=== PATIENT | male | born 1950 | race Caucasian/White ===

== ENCOUNTER 2020-03-13 08:21 | Outpatient (REF) | payer OTHER, SELFPAY ==
[2020-03-13 08:39] LABS: COVID-19 Test Negative (Negative)
== END 2020-03-13 08:22 | disposition home or self-care (01) ==
LOC: HO.EMPCOV 08:21
PROVIDERS: PCP Internal Medicine Medical Oncology; Visit Provider Internal Medicine
DX: Z20.828 Contact with and (suspected) exposure to other viral communicable diseases (principal)
CPT/HCPCS: 87635; C9803

== ENCOUNTER 2020-06-19 08:45 | Emergency (ER) | payer OTHER, SELFPAY ==
[2020-06-19] VITALS (11 sets, daily range): BP systolic 94–205; BP diastolic 47–88; PULSE 57–84; RESP 12–20; TEMP 36.1–36.8; O2SAT 95–99; BMI 25.8
--- NOTE | ~2020-06-19 | CT_ITS ---
EXAMINATION: CT ABDOMEN AND PELVIS WITHOUT CONTRAST CLINICAL INFORMATION: Left flank pain and history of renal colic. COMPARISON: 11/08/2013 TECHNIQUE: Multidetector volumetric imaging was performed from the superior aspect of the liver through the pubic symphysis. Sagittal and coronal reformatted images were obtained on the technologist's workstation. This CT examination was performed using dose optimization techniques as appropriate, variously including the following: *Automated exposure control *Adjustment of mA and/or kV according to patient size (this includes techniques or standardized protocols for targeted exams where dose is matched to indication/reason for exam; i.e. extremities or head) *Use of iterative reconstruction technique DLP: 546 mGy-cm. FINDINGS: LUNG BASES: The visualized lung bases are unremarkable. LIVER, GALLBLADDER, AND BILIARY TREE: No focal liver lesion. No biliary duct dilatation. Gallbladder appears unremarkable. PANCREAS: Unremarkable. SPLEEN: Unremarkable. ADRENAL GLANDS: Unremarkable. KIDNEYS AND URETERS: Right renal lower pole 2 cm parapelvic cyst. 5 mm calculus in the proximal left ureter, with mild hydronephrosis. Small hypodense left renal lesion, too small to characterize. Mild bilateral perinephric stranding. No renal calculi is otherwise seen. No right-sided hydronephrosis. BLADDER: Underdistended, unremarkable. GASTROINTESTINAL TRACT: Nonobstructive bowel gas pattern. No colonic wall thickening or pericolonic inflammatory changes. No free air or free fluid. Small diverticula in the proximal ascending colon. Normal appendix. ABDOMINAL WALL: Small fat-containing inguinal hernia. Redemonstrated is an oval soft tissue density in the right inguinal canal suggesting an undistended testis. LYMPH NODES: No lymphadenopathy seen. VASCULAR: Atherosclerotic vascular calcification of the aorta. PELVIC VISCERA: Prostate gland is not well seen. OSSEOUS STRUCTURES: Thoracolumbar spondylosis. No acute findings. Lumbar spinal levoconvex scoliosis. CT/CT abdomen pelvis wo con IMPRESSION: 1. There is a 5 mm calculus in the proximal left ureter, with mild hydroureteronephrosis. Mild bilateral perinephric stranding. 2. Redemonstrated is an oval soft tissue density structure in the right inguinal canal suggesting an undescended testis.
--- NOTE | ~2020-06-19 | FL_ITS ---
EXAMINATION: XR FLUOROSCOPY WITH IMAGES CLINICAL INFORMATION: Left ureteral stone COMPARISON: Previous CT of the abdomen and pelvis from earlier the same day TECHNIQUE: Fluoroscopy performed by Dr. Kevin Cochran. Fluoroscopy time: 100 seconds Dose: 40 mgy Images: 2 FINDINGS: Initial image demonstrates a catheter with tip in the left upper pole calyx. Second image demonstrates a catheter with tip in a lower pole calyx. There is very mild left hydronephrosis. FL/FL guidance in OR IMPRESSION: Fluoroscopic guidance for left retrograde exam.
--- NOTE | 2020-06-19 08:58 | ED_ITS ---
HPI - Abdominal Pain General Chief Complaint: Abdominal Pain Stated Complaint: kidney stone? Time Seen by Provider: 06/19/20 08:55 Source: patient Mode of arrival: ambulatory Limitations: no limitations History of Present Illness HPI narrative: 70 yo male with CAD s/p CABG, HTN, DM, hx of renal colic requiring lithotripsy here with L flank pain feels similar to prior stone c/o nv as well, started this AM MD elicited complaint: flank pain Pertinent past history: kidney stones Onset (ago): hour(s) (this AM) Pain Consistency: constant Location: L flank Severity: similar to previous episodes Quality: stabbing Radiation: LLQ Migration to: no migration Exacerbating factors: nothing Relieving factors: nothing Context: history of similar episodes Associated symptoms: nausea and vomiting Related Data Allergies Allergy/AdvReac Type Severity Reaction Status Date / Time metoclopramide [From REGLAN] Allergy Severe DYSTONIA Unverified 11/29/19 16:23 levofloxacin [From LEVAQUIN] Allergy Intermediate PARASTESIAS Unverified 11/29/19 16:23 Review of Systems Review of Systems Constitutional : No Weight loss, No Fever, No Chills ENT/Mouth : No sore throat, No Rhinorrhea Eyes: No Swelling, No Redness Cardiovascular : No Chest Pain, No SOB, NoEdema Respiratory : No Cough, No Sputum, No Wheezing Gastrointestinal : Positive Nausea, Positive Vomiting, no Diarrhea, positive flank Pain, No Hematochezia, No Melena Genitourinary : No Dysuria, No Urinary Frequency, No Hematuria, No Urgency Musculoskeletal : No joint pain, No Myalgias, No Joint Swelling Skin : No Skin Lesions, No rash Neuro : No Weakness, No Numbness, No Dizziness, No Headache All other systems reviewed and are negative. Physical Exam Vital Signs: Vital Signs: Last Vital Signs Temp 97.8 F 06/19/20 08:53 Pulse 57 06/19/20 08:53 Resp 18 06/19/20 08:53 BP 205/88 H 06/19/20 08:53 Pulse Ox 95 06/19/20 08:53 Body Mass Index 25.8 Appearance: Alert. Oriented X3. in pain mild acute distress. Eyes: Pupils equal, round and reactive to light. ENT: Pharynx normal. Neck: Normal inspection. Neck supple. CVS: Normal heart rate and rhythm. Pulses normal. Respiratory: No respiratory distress. Breath sounds normal. Abdomen: Soft and nontender. no groin mass felt Skin: Skin warm and dry. Normal skin color. Normal skin turgor. Extremities: No lower extremity edema. No calf ttp Neuro: Oriented X 3. No motor deficit. No sensory deficit. Course Course Course Narrative: on recheck states pain is improving repeat dilaudid ordered, given prox stone flomax and solumedrol ordered - discussed with DM risks of steroids. repeat dose of Dilaudid - call to Dr. Cochran 1032am Dr. Cochran will evaluate patient in ED planned admit for procedure MDM - Abdominal Pain MDM Narrative Medical decision making narrative: 70 yo male with CAD s/p CABG, HTN, DM, hx of renal colic requiring lithotripsy - c/o abrupt onset L flank pain at this time will need labs, UA, CT scan for renal colic, IV dilaudid for pain, zofran - d ispo per results and findings. Lab Data Result diagrams: 06/19/20 09:04 06/19/20 09:04 Labs: Lab Results 06/19/20 06/19/20 06/19/20 Range/Units 09:04 09:04 09:04 WBC 7.5 (4.8-10.8) X10*3/uL RBC 4.81 (4.60-5.80) X10*6/uL Hgb 14.1 (14.0-18.0) g/dl Hct 42.5 (42-52) % MCV 88.4 (80-98) fL MCH 29.3 (27.0-33.0) pg MCHC 33.2 (31.0-36.0) g/dl RDW 13.3 (11.0-16.0) % Plt Count 248 (160-400) X10*3/uL MPV 9.3 L (9.4-12.4) fL Immature Gran % (Auto) 0.4 (0.0-0.4) % Neut % (Auto) 61.5 (45-73) % Lymph % (Auto) 27.9 (20-40) % [place] % (Auto) 8.1 (2-11) % Eos % (Auto) 1.3 (0-4) % Baso % (Auto) 0.8 (0-2) % Lymph # (Auto) 2.1 (1.2-4.9) X10*3/uL [place] # (Auto) 0.6 (0.1-1.2) X10*3/uL Eos # (Auto) 0.1 (0.0-0.4) X10*3/uL Baso # (Auto) 0.1 (0.0-0.2) X10*3/uL Abs Immat Gran (auto) 0.03 (0.00-0.03) X10*3/uL Absolute Neuts (auto) 4.6 (2.0-8.3) X10*3/uL Absolute Nucleated RBC 0.000 (0.0-0.012) X10*3/uL Nucleated RBC % (auto) 0.0 (0.0-0.2) /100WBC Hold Blue Top SEE NOTE Sodium 142 (135-145) mmol/L Potassium 4.3 (3.3-5.1) mmol/L Chloride 105 (96-108) mmol/L Carbon Dioxide 27 (22-29) mmol/L Anion Gap 14 (12-20) BUN 17 H (9-16) mg/dL Creatinine 1.49 H (0.5-1.4) mg/dL Estim Creat Clear Calc 48.3 Estimated GFR 47 Random Glucose 208 H (60-115) mg/dL Calcium 9.2 (8.4-10.2) mg/dL Magnesium 2.0 (1.6-2.6) mg/dL Total Bilirubin 1.0 (0.0-1.0) mg/dL Direct Bilirubin 0.4 (0.0-0.5) mg/dL AST 26 (5-37) U/L ALT 47 H (0-40) U/L Alkaline Phosphatase 65 (39-117) U/L Total Protein 7.2 (6.5-8.0) g/dL Albumin 4.5 (3.5-5.0) g/dL Lipase (8-78) U/L 06/19/20 Range/Units 09:04 WBC (4.8-10.8) X10*3/uL RBC (4.60-5.80) X10*6/uL Hgb (14.0-18.0) g/dl Hct (42-52) % MCV (80-98) fL MCH (27.0-33.0) pg MCHC (31.0-36.0) g/dl RDW (11.0-16.0) % Plt Count (160-400) X10*3/uL MPV (9.4-12.4) fL Immature Gran % (Auto) (0.0-0.4) % Neut % (Auto) (45-73) % Lymph % (Auto) (20-40) % [place] % (Auto) (2-11) % Eos % (Auto) (0-4) % Baso % (Auto) (0-2) % Lymph # (Auto) (1.2-4.9) X10*3/uL [place] # (Auto) (0.1-1.2) X10*3/uL Eos # (Auto) (0.0-0.4) X10*3/uL Baso # (Auto) (0.0-0.2) X10*3/uL Abs Immat Gran (auto) (0.00-0.03) X10*3/uL Absolute Neuts (auto) (2.0-8.3) X10*3/uL Absolute Nucleated RBC (0.0-0.012) X10*3/uL Nucleated RBC % (auto) (0.0-0.2) /100WBC Hold Blue Top Sodium (135-145) mmol/L Potassium (3.3-5.1) mmol/L Chloride (96-108) mmol/L Carbon Dioxide (22-29) mmol/L Anion Gap (12-20) BUN (9-16) mg/dL Creatinine (0.5-1.4) mg/dL Estim Creat Clear Calc Estimated GFR Random Glucose (60-115) mg/dL Calcium (8.4-10.2) mg/dL Magnesium (1.6-2.6) mg/dL Total Bilirubin (0.0-1.0) mg/dL Direct Bilirubin (0.0-0.5) mg/dL AST (5-37) U/L ALT (0-40) U/L Alkaline Phosphatase (39-117) U/L Total Protein (6.5-8.0) g/dL Albumin (3.5-5.0) g/dL Lipase 39 (8-78) U/L Discharge Plan Discharge Clinical Impression: Ureterolithiasis, Acute renal insufficiency Patient Disposition: Admitted As Inpatient [facility] Past Medical History Attestation statement: The following information was validated with the patient. Medical History (Updated 06/19/20 @ 10:44 by Francesca Cruz DO) Coronary artery disease Diabetes HTN (hypertension) Renal colic Surgical History (Updated 06/19/20 @ 09:01 by Francesca Cruz DO) H/O lithotripsy Hx of CABG Social History Social History Alcohol intake: never Smoking Status: Never smoker Advance Directives: Yes Advance Directives Information Provided: No Advance Directives on File: No
[2020-06-19 09:09] LABS: MANUAL DIFF FLAG NO
[2020-06-19] MEDS: HYDROmorphone HCl 1 MG/ML SYRINGE IVPUSH ×4 (09:11→12:29)
[2020-06-19 09:12] LABS: Basophils Absolute Auto 0.1 X10*3/uL (0.0-0.2); Basophils Percent Auto 0.8 % (0-2); Eosinophils Absolute Auto 0.1 X10*3/uL (0.0-0.4); Eosinophils Percent Auto 1.3 % (0-4); Hematocrit 42.5 % (42-52); Hemoglobin 14.1 g/dl (14.0-18.0); Imm Gran Abs Auto 0.03 X10*3/uL (0.00-0.03); Imm Gran Pct Auto 0.4 % (0.0-0.4); Lymphocytes Absolute Auto 2.1 X10*3/uL (1.2-4.9); Lymphocytes Percent Auto 27.9 % (20-40); Mean Corpuscular HGB Conc 33.2 g/dl (31.0-36.0); Mean Corpuscular Hemoglobin 29.3 pg (27.0-33.0); Mean Corpuscular Volume 88.4 fL (80-98); Mean Platelet Volume 9.3 fL (9.4-12.4); Monocytes Absolute Auto 0.6 X10*3/uL (0.1-1.2); Monocytes Percent Auto 8.1 % (2-11); Neutrophils Absolute Auto 4.6 X10*3/uL (2.0-8.3); Neutrophils Percent Auto 61.5 % (45-73); Platelet Count 248 X10*3/uL (160-400); Red Blood Count 4.81 X10*6/uL (4.60-5.80); Red Cell Distribution Width 13.3 % (11.0-16.0); White Blood Count 7.5 X10*3/uL (4.8-10.8)
[2020-06-19] MEDS: ondansetron HCL 4 MG/2 ML VIAL IVPUSH ×2 (09:12→10:46)
[2020-06-19] MEDS: 0.9 % Sodium Chloride 500 ML IV (09:12)
[2020-06-19 09:31] LABS: Lipase 39 U/L (8-78)
[2020-06-19 09:32] LABS: Alanine Aminotransferase 47 U/L (0-40); Albumin Level 4.5 g/dL (3.5-5.0); Alkaline Phosphatase 65 U/L (39-117); Anion Gap 14 (12-20); Aspartate Amino Transferase 26 U/L (5-37); Bilirubin Direct 0.4 mg/dL (0.0-0.5); Blood Urea Nitrogen 17 mg/dL (9-16); Calcium 9.2 mg/dL (8.4-10.2); Carbon Dioxide 27 mmol/L (22-29); Chloride 105 mmol/L (96-108); Creatinine Clr Calc Pharmacy 48.3; Estimated Glomerular Filt Rate 47; Glucose Random 208 mg/dL (60-115); Potassium 4.3 mmol/L (3.3-5.1); Sodium 142 mmol/L (135-145); Total Protein 7.2 g/dL (6.5-8.0)
[2020-06-19] MEDS: methylPREDNISolone Sod Succ 125 MG/2 ML VIAL 60 MG IVPUSH (09:45)
[2020-06-19] MEDS: Tamsulosin HCL 0.4 MG CAPSULE PO (09:46)
[2020-06-19 10:54] LABS: INTERNATIONAL NORM RATIO 0.9 (0.9-1.1)
[2020-06-19 11:07] LABS: COVID-19 Test Negative (Negative)
--- NOTE | 2020-06-19 12:59 | PM.UROCN ---
History of Present Illness Consult details Consult date: 06/19/20 Narrative: Chris is a pleasant male. Recurrent stone former Admitted to emergency room this morning. Has marked nausea. No vomiting. Pain anti controlled with IV medication CT imaging performed - 5 mm proximal left ureteric stone with mild hydroureteronephrosis Creatinine has been elevated to 1.5 Prior stone in 2016 which was treated with ESWL Discussion today regarding intervention Will proceed with the ureteroscopy laser lithotripsy and stent placement PMFSH Past Medical History Medical History (Updated 06/19/20 @ 10:44 by Francesca Cruz DO) Coronary artery disease Diabetes HTN (hypertension) Renal colic Surgical History Surgical History (Updated 06/19/20 @ 09:01 by Francesca Cruz DO) H/O lithotripsy Hx of CABG Social History Social History Alcohol intake: unknown Smoking Status: Never smoker Use of substances other than those prescribed or required for medical reasons: No Advance Directives: Yes Advance Directives Information Provided: No Advance Directives on File: No Meds Allergies Allergy/AdvReac Type Severity Reaction Status Date / Time metoclopramide [From REGLAN] Allergy Severe DYSTONIA Unverified 11/29/19 16:23 levofloxacin [From LEVAQUIN] Allergy Intermediate PARASTESIAS Unverified 11/29/19 16:23 Active Medications: Current Medications Generic Name Dose Route Start Last Admin Trade Name Freq PRN Reason Stop Dose Admin Cefazolin Sodium/Dextrose 2 gm in 50 mls @ 100 mls/hr 06/19/20 13:00 Ancef IV 06/19/20 13:29 PREOP ONE Pharmacy Consult 1 each 06/19/20 10:16 Consult Rx Perform Med Rec MISCELLANE ONCE PRN Consult order Home Medications Medication Instructions Recorded Confirmed Last Taken Type aspirin 81 mg PO DAILY 06/19/20 06/19/20 06/19/20 History atorvastatin 80 mg PO DAILY 06/19/20 06/19/20 06/19/20 History coenzyme Q10 200 mg PO DAILY 06/19/20 06/19/20 06/19/20 History magnesium 250 mg PO DAILY 06/19/20 06/19/20 06/18/20 History metformin 500 mg PO BID 06/19/20 06/19/20 06/19/20 History metoprolol succinate 50 mg PO DAILY 06/19/20 06/19/20 06/19/20 History Physical Exam Vital Signs: Vital Signs: Last Vital Signs Temp 97.8 F 06/19/20 08:53 Pulse 68 06/19/20 11:33 Resp 18 06/19/20 11:33 BP 179/86 H 06/19/20 11:33 Pulse Ox 95 06/19/20 08:53 Body Mass Index 25.8 Const: General: cooperative, healthy appearing, comfortable and no acute distress Nutritional Appearance: average body habitus Orientation/consciousness: oriented to person, oriented to place and oriented to time Eyes: General: appearance normal, both eyes and all related structures Chest: Chest palpation & inspection: normal inspection of the chest Resp: Effort & Inspection: normal respiratory effort Cardio: Rate: regular rate GI: Inspection: Yes normal to inspection Skin: Hair: normal Neuro: General: oriented to person, oriented to place and oriented to time Extrem: General: Yes normal to inspection Results Labs Result diagrams: 06/19/20 09:04 06/19/20 09:04 Labs: Abnormal lab results 06/19/20 06/19/20 Range/Units 09:04 09:04 MPV 9.3 L (9.4-12.4) fL BUN 17 H (9-16) mg/dL Creatinine 1.49 H (0.5-1.4) mg/dL Random Glucose 208 H (60-115) mg/dL ALT 47 H (0-40) U/L Short CBC 06/19/20 Range/Units 09:04 WBC 7.5 (4.8-10.8) X10*3/uL Hgb 14.1 (14.0-18.0) g/dl Hct 42.5 (42-52) % Plt Count 248 (160-400) X10*3/uL BMP 06/19/20 09:04 Sodium 142 Potassium 4.3 Chloride 105 Carbon Dioxide 27 BUN 17 H Creatinine 1.49 H Calcium 9.2 Liver Function 06/19/20 Range/Units 09:04 Total Bilirubin 1.0 (0.0-1.0) mg/dL Direct Bilirubin 0.4 (0.0-0.5) mg/dL AST 26 (5-37) U/L ALT 47 H (0-40) U/L Alkaline Phosphatase 65 (39-117) U/L Albumin 4.5 (3.5-5.0) g/dL All other labs normal. Assessment and Plan (1) Ureterolithiasis: Status: Acute (2) Acute renal insufficiency: Status: Acute Plan for ureteroscopy Ureteroscopy We discussed the nature of the decision and reasonable alternatives for performing the above surgery. Interventions include chemical dissolution, ESWL, ureteroscopy with laser lithotripsy and stent placement, PCNL. Options such as medical therapy were discussed. The relative uncertainties and benefits related to each alternate procedure were adequately discussed. General surgical risks including, but not limited to, pain, bleeding, infection, myocardial infarction, pulmonary embolus, deep vein thrombosis and cerebrovascular accident which may result in further hospitalization were discussed. Full disclosure of the procedure as well as all major risks, benefits and complications were discussed including but not limited to damage to the urethra, bladder and kidney infection, damage to the ureter, stent migration or malposition, scarring to the renal pelvis, remnant stone fragments, subsequent stone passage with need for secondary procedures. The overall secondary procedure rate is approximately 10-15%. The success rate of the procedure was discussed. Success of the procedure in the short-term does not necessarily guarantee that long-term success will be maintained. Suitable follow up will need to be maintained. The patient showed understanding of discussion and wishes to proceed with - cystoscopy, retrograde, ureteroscopy, possible lithotripsy/stone basketing and stent on right left side
[2020-06-19] MEDS: LORazepam 2 MG/ML VIAL 1 MG IVPUSH (14:24)
[2020-06-19] MEDS: HYDROmorphone HCl 0.5 MG/0.5 ML SYRINGE IVPUSH (14:25)
[2020-06-19 16:04] LABS: Glucose, Whole Blood 234 mg/dL (60-115)
--- NOTE | 2020-06-19 16:19 | HO.ANESPROP2 ---
HPI - Anesthesia Eval Consult details Narrative: 70 M p/w hydronephrosis, MOHSEN for lithotripsy, stent, ureteroscopy. CAD stable, asymptomatic. METS >4. Denies CP and SOB. BS 234 s/p Solucort in ED; o/w well controlled PMFSH Active Problems Active Problems: All Active Problems (Updated 06/19/20 @ 10:44 by Francesca Cruz DO) Ureterolithiasis (Acute) Acute renal insufficiency (Acute) Past Medical History Medical History (Updated 06/19/20 @ 10:44 by Francesca Cruz DO) Coronary artery disease Diabetes HTN (hypertension) Renal colic Surgical History Surgical History (Updated 06/19/20 @ 09:01 by Francesca Cruz DO) H/O lithotripsy Hx of CABG Social History Social History Alcohol intake: unknown Smoking Status: Never smoker Use of substances other than those prescribed or required for medical reasons: No Advance Directives: No Advance Directives Information Provided: No Advance Directives on File: No Meds Allergies Allergy/AdvReac Type Severity Reaction Status Date / Time metoclopramide [From REGLAN] Allergy Severe DYSTONIA Verified 06/19/20 15:39 levofloxacin [From LEVAQUIN] Allergy Intermediate PARASTESIAS Verified 06/19/20 15:39 Active Medications: Current Medications Generic Name Dose Route Start Last Admin Trade Name Freq PRN Reason Stop Dose Admin Pharmacy Consult 1 each 06/19/20 10:16 Consult Rx Perform Med Rec MISCELLANE ONCE PRN Consult order Home Medications Medication Instructions Recorded Confirmed Last Taken Type aspirin 81 mg PO DAILY 06/19/20 06/19/20 06/19/20 History atorvastatin 80 mg PO DAILY 06/19/20 06/19/20 06/19/20 History coenzyme Q10 200 mg PO DAILY 06/19/20 06/19/20 06/19/20 History magnesium 250 mg PO DAILY 06/19/20 06/19/20 06/18/20 History metformin 500 mg PO BID 06/19/20 06/19/20 06/19/20 History metoprolol succinate 50 mg PO DAILY 06/19/20 06/19/20 06/19/20 History Exam Exam Date and Time: June 19, 20201618 Height,Weight and Vital Signs: Height 5 ft 10 in Weight 81.6 kg Last Vital Signs Temp 96.9 F 06/19/20 15:26 Pulse 79 06/19/20 15:26 Resp 16 06/19/20 15:26 BP 157/75 H 06/19/20 15:26 Pulse Ox 96 06/19/20 15:26 Pertinent Lab Results Pertinent Lab Results: Laboratory Tests 06/19/20 06/19/20 06/19/20 09:04 09:04 09:04 WBC 7.5 RBC 4.81 Hgb 14.1 Hct 42.5 MCV 88.4 MCH 29.3 MCHC 33.2 RDW 13.3 Plt Count 248 MPV 9.3 L Immature Gran % (Auto) 0.4 Neut % (Auto) 61.5 Lymph % (Auto) 27.9 [place] % (Auto) 8.1 Eos % (Auto) 1.3 Baso % (Auto) 0.8 Lymph # (Auto) 2.1 [place] # (Auto) 0.6 Eos # (Auto) 0.1 Baso # (Auto) 0.1 Abs Immat Gran (auto) 0.03 Absolute Neuts (auto) 4.6 Absolute Nucleated RBC 0.000 Nucleated RBC % (auto) 0.0 PT 11.0 INR 0.9 APTT 30.0 Hold Blue Top SEE NOTE Sodium 142 Potassium 4.3 Chloride 105 Carbon Dioxide 27 Anion Gap 14 BUN 17 H Creatinine 1.49 H Estim Creat Clear Calc 48.3 Estimated GFR 47 POC Glucose Random Glucose 208 H Calcium 9.2 Magnesium 2.0 Total Bilirubin 1.0 Direct Bilirubin 0.4 AST 26 ALT 47 H Alkaline Phosphatase 65 Total Protein 7.2 Albumin 4.5 Lipase COVID-19 (JOCELYNE) COVID-19 Clin Com 06/19/20 06/19/20 06/19/20 09:04 10:41 15:47 WBC RBC Hgb Hct MCV MCH MCHC RDW Plt Count MPV Immature Gran % (Auto) Neut % (Auto) Lymph % (Auto) [place] % (Auto) Eos % (Auto) Baso % (Auto) Lymph # (Auto) [place] # (Auto) Eos # (Auto) Baso # (Auto) Abs Immat Gran (auto) Absolute Neuts (auto) Absolute Nucleated RBC Nucleated RBC % (auto) PT INR APTT Hold Blue Top Sodium Potassium Chloride Carbon Dioxide Anion Gap BUN Creatinine Estim Creat Clear Calc Estimated GFR POC Glucose 234 H Random Glucose Calcium Magnesium Total Bilirubin Direct Bilirubin AST ALT Alkaline Phosphatase Total Protein Albumin Lipase 39 COVID-19 (JOCELYNE) Negative COVID-19 Clin Com See Note Airway Mallampati Class: II TM Dist: >3cm Neck ROM: Full Loose/Missing/Broken Teeth: No Heart: RRR Assessment and Plan Assessment Anesthesia Assessment: Anesthesia Plan Discussed, PAT Visit and Chart Reviewed Final Anesthetic Review NPO: Yes ASA Class: III Final Preanesthetic Review: No Changes in Pt Med Stat, Meds/Allgs Chart Reviewed, Consent Obtained/Reviewed and Anes Risks/Benef Reviewed Patient Risk: Intermediate Procedure Risk: Low Anesthetic Plan Anesthetic Plan: GA Disposition: Standard PACU
--- NOTE | 2020-06-19 16:40 | MHC.SHP ---
Pre-Procedural Eval Section A The patient is an INPATIENT: No Changes since office visit: No Cold of Flu in the past 2 weeks, No New Medical Problems, No Changes in Medication and No Patient answered all questions The History & Physical has been completed within 30 days and I have reviewed it.: Yes Section B Chief Complaint: kidney stone? Allergies: Allergies Allergy/AdvReac Type Severity Reaction Status Date / Time metoclopramide [From REGLAN] Allergy Severe DYSTONIA Verified 06/19/20 15:39 levofloxacin [From LEVAQUIN] Allergy Intermediate PARASTESIAS Verified 06/19/20 15:39 Plan Diagnosis/Plan: Unchanged (Left cysto retro ureteroscopy, laser, stent) I have reviewed the history and physical and performed a pertinent physical examination on my patient. No changes have occurred unless specified.
--- NOTE | 2020-06-19 17:11 | W.PM.OPN ---
Operative Note Operative Note Date of Service: 06/19/20 Narrative: PreOperative Diagnosis: Left Proximal ureteric stone Post Operative Diagnosis: Left proximal ureteric stone Procedure: - left cystoscopy, retrograde - dilatation of ureteric orifice under fluoroscopy - ureteroscopy, stone basketing - stent placement Surgeon: Dr Kevin Cochran Anesthesia: General Indications for procedure: 70-year-old male. Left proximal ureteric stone. Presented with pain and persistent nausea. Pain only controlled with IV medications. 6 mm stone proximal left side. Recommended intervention given persistent pain Procedure: After informed consent was verified patient was brought to the operating placed in supine position. Anesthesia was administered per protocol. Patient was placed in modified dorsal lithotomy position and prepped and draped in a sterile fashion. Safety pause time-out and side of surgery confirmed. Antibiotics confirmed. Twenty-two Canadian cystoscope inserted per urethra. Had prior robotic prostatectomy. This was noted with anastomosis. Bladder was entered. Both ureteric orifices normal position. The left ureteric orifice was cannulated and a retrograde examination performed. Filling defects seen at the junction between the proximal and mid ureter. Sensor guidewire was placed. The ureter was dilated with the inner cannula of the ureteric access sheath. The sheath was placed. The wire was removed. A flexible ureteral scope was placed. This stone entered the ureteric access sheath and we are withdraw it in the sheath. It is sent for analysis. We switched to the rigid cystoscope. That was placed into the bladder. At the Sensor guidewire was placed up to the level renal pelvis. A 6 Canadian by 24 cm stent was placed without difficulty in good coil seen in kidney and in the bladder. There was some disruption of the ureteric wall and the stent will remain for 1 week. Pathology: stone Drains: 6 [place] by 24 cm stent
[2020-06-19] MEDS: Phenazopyridine HCL 100 MG TABLET PO (18:00)
[2020-06-19] MEDS: Acetaminophen 325 MG TABLET 975 MG PO (18:00)
== END 2020-06-19 19:00 | disposition home or self-care (01) ==
PROVIDERS: Urology; Emergency Provider Emergency Medicine; PCP Internal Medicine Medical Oncology
PROC: (CPT 52352; principal; 2020-06-19 16:30)
DX: N13.2 Hydronephrosis with renal and ureteral calculous obstruction (principal); N28.9 Disorder of kidney and ureter, unspecified; R10.9 Unspecified abdominal pain; R11.2 Nausea with vomiting, unspecified; Z20.822 Contact with and (suspected) exposure to COVID-19; I10 Essential (primary) hypertension; E11.9 Type 2 diabetes mellitus without complications; Z87.442 Personal history of urinary calculi
CPT/HCPCS: 52352; 52332; 36415; 74176; 80048; 80076; 82365; 82947; 83690; 83735; 85025; 85610; 85730; 87635; 88300; 96361; 96365; 96374; 96375; 96376; 99284; 99285; C1769; C1894; C2617; J0690; J1100; J1170; J1885; J2060; J2250; J2405; J2930; J3010; Q9967

== ENCOUNTER → 2020-06-26 13:26 | Outpatient (BNVA) | payer OTHER, SELFPAY | PROVIDERS: PCP Internal Medicine Medical Oncology; Visit Provider Urology | DX: N20.0 Calculus of kidney (principal) | CPT/HCPCS: 52310; 81002 ==

== ENCOUNTER 2020-07-10 07:54 | Outpatient (REF) | payer OTHER, SELFPAY ==
[2020-07-10 10:15] LABS: MANUAL DIFF FLAG NO
[2020-07-10 10:23] LABS: Basophils Absolute Auto 0.1 X10*3/uL (0.0-0.2); Basophils Percent Auto 0.9 % (0-2); Eosinophils Absolute Auto 0.1 X10*3/uL (0.0-0.4); Eosinophils Percent Auto 1.9 % (0-4); Hematocrit 40.2 % (42-52); Hemoglobin 13.4 g/dl (14.0-18.0); Imm Gran Abs Auto 0.02 X10*3/uL (0.00-0.03); Imm Gran Pct Auto 0.3 % (0.0-0.4); Lymphocytes Absolute Auto 2.1 X10*3/uL (1.2-4.9); Lymphocytes Percent Auto 30.6 % (20-40); Mean Corpuscular HGB Conc 33.3 g/dl (31.0-36.0); Mean Corpuscular Hemoglobin 29.9 pg (27.0-33.0); Mean Corpuscular Volume 89.7 fL (80-98); Mean Platelet Volume 10.2 fL (9.4-12.4); Monocytes Absolute Auto 0.6 X10*3/uL (0.1-1.2); Neutrophils Percent Auto 58.3 % (45-73); Platelet Count 274 X10*3/uL (160-400); Red Blood Count 4.48 X10*6/uL (4.60-5.80); White Blood Count 6.9 X10*3/uL (4.8-10.8)
[2020-07-10 10:57] LABS: Alanine Aminotransferase 42 U/L (0-40); Albumin Level 4.3 g/dL (3.5-5.0); Alkaline Phosphatase 60 U/L (39-117); Anion Gap 14 (12-20); Aspartate Amino Transferase 25 U/L (5-37); Bilirubin Total 0.8 mg/dL (0.0-1.0); Blood Urea Nitrogen 23 mg/dL (9-16); Calcium 9.1 mg/dL (8.4-10.2); Carbon Dioxide 26 mmol/L (22-29); Chloride 104 mmol/L (96-108); Cholesterol 140 mg/dL; Estimated Glomerular Filt Rate > 60; Glucose Fasting 138 mg/dL (60-99); HDL Cholesterol 39 mg/dL; LDL Cholesterol Calculated 60 mg/dl; Potassium 4.7 mmol/L (3.3-5.1); Sodium 139 mmol/L (135-145); Total Protein 6.6 g/dL (6.5-8.0); Triglycerides 205 mg/dL
[2020-07-10 11:35] LABS: Estimated Average Glucose 160 mg/dL; Hemoglobin A1c % 7.2 %
== END 2020-07-10 07:55 | disposition home or self-care (01) ==
LOC: HO.10HDL 07:54
PROVIDERS: Visit Provider Internal Medicine Medical Oncology
DX: E11.69 Type 2 diabetes mellitus with other specified complication (principal); E78.5 Hyperlipidemia, unspecified; E66.3 Overweight
CPT/HCPCS: 36415; 80053; 80061; 83036; 85025

== ENCOUNTER 2020-08-19 12:52 | Outpatient (REF) | payer OTHER, SELFPAY ==
--- NOTE | ~2020-08-19 | US_ITS ---
EXAMINATION: US RETROPERITONEAL LIMITED (RENAL ONLY) CLINICAL INFORMATION: Calculus of kidney. COMPARISON: CT abdomen and pelvis without contrast dated 06/19/2020. Renal only ultrasounds dated 07/09/2019 and 08/07/2018. KUB dated 12/21/2013. TECHNIQUE: Real-time imaging of the kidneys. FINDINGS: RIGHT KIDNEY: 10.9 x 5.6 x 5.3 cm (SAG x AP x TRV). The kidney is normal in size, contour, and echogenicity. Renal cortical thickness is normal. There is a 1.3 x 1.5 x 1.6 cm peripelvic cyst. No renal calculi or hydronephrosis. LEFT KIDNEY: 11.4 x 5.7 x 5.0 cm (SAG x AP x TRV). The kidney is normal in size, contour, and echogenicity. Renal cortical thickness is normal. No calculi or focal parenchymal lesions. No hydronephrosis. US/US renal BI IMPRESSION: Right renal cyst. No stone seen.
== END 2020-08-19 12:53 | disposition home or self-care (01) ==
LOC: HO.US 12:52
PROVIDERS: PCP Internal Medicine Medical Oncology; Visit Provider Urology
DX: N20.0 Calculus of kidney (principal)
CPT/HCPCS: 76775

== ENCOUNTER → 2020-08-26 14:09 | Outpatient (BNVA) | payer OTHER, SELFPAY | PROVIDERS: PCP Internal Medicine Medical Oncology; Visit Provider Urology ==

== ENCOUNTER 2021-01-26 09:55 | Outpatient (REF) | payer OTHER, SELFPAY ==
--- NOTE | ~2021-01-26 | US_ITS ---
EXAMINATION: US RETROPERITONEAL LIMITED (RENAL ONLY) CLINICAL INFORMATION: Calculus of kidney. COMPARISON: Renal ultrasound 08/19/2020 and 07/09/2019. CT abdomen and pelvis 06/19/2020. X-ray abdomen 12/21/2013. TECHNIQUE: Real-time imaging of the kidneys. FINDINGS: RIGHT KIDNEY: 10.8 x 5.0 x 5.5 cm (SAG x AP x TRV). The kidney is normal in size, contour, and echogenicity. Renal cortical thickness is normal. No renal calculi or hydronephrosis. There is an anechoic cyst in the mid pole measuring 1.5 x 0.76 cm, seen on longitudinal axis. LEFT KIDNEY: 12.2 x 6.5 x 5.6 cm (SAG x AP x TRV). The kidney is normal in size, contour, and echogenicity. Renal cortical thickness is normal. No focal parenchymal lesions or hydronephrosis. There is an echogenic stone in the mid pole measuring 0.15 x 0.19 x 0.16 cm. No additional echogenic stones are seen. There is no hydronephrosis. US/US renal BI IMPRESSION: Small mid pole right renal cyst. It is unchanged since 08/19/2020 ultrasound exam Likely small echogenic nonobstructive stone mid pole left kidney. The findings are new since 2 previous exam 08/19/2020 There is no caliectasis or hydronephrosis.
== END 2021-01-26 09:56 | disposition home or self-care (01) ==
LOC: HO.US 09:55
PROVIDERS: PCP Internal Medicine Medical Oncology; Visit Provider Urology
DX: N20.0 Calculus of kidney (principal)
CPT/HCPCS: 76775

== ENCOUNTER → 2021-02-24 08:14 | Outpatient (BNVA) | payer OTHER, SELFPAY | PROVIDERS: PCP Internal Medicine Medical Oncology; Visit Provider Urology ==

== ENCOUNTER 2021-07-01 15:21 | Outpatient (REF) | payer OTHER, SELFPAY ==
--- NOTE | ~2021-07-01 | US_ITS ---
EXAMINATION: US RETROPERITONEAL LIMITED (RENAL ONLY) CLINICAL INFORMATION: Calculus of kidney. COMPARISON: Renal ultrasound 01/26/2021 and 08/19/2020. CT abdomen and pelvis 06/19/2020. X-ray KUB 12/21/2013. TECHNIQUE: Real-time imaging of the kidneys. FINDINGS: RIGHT KIDNEY: 10.6 x 4.9 x 5.3 cm (SAG x AP x TRV). The kidney is normal in size, contour, and echogenicity. Renal cortical thickness is normal. No renal calculi or hydronephrosis. Small simple cyst in the right kidney measure 1.3 x 0.9 x 1.2 cm middle pole. LEFT KIDNEY: 11.8 x 5.4 x 4.7 cm (SAG x AP x TRV). The kidney is normal in size, contour, and echogenicity. Renal cortical thickness is normal. No calculi or focal parenchymal lesions. No hydronephrosis. US/US renal BI IMPRESSION: Redemonstration of a small simple cyst in the right kidney 1.3 cm, not significantly changed. Ultrasound otherwise normal..
== END 2021-07-01 15:22 | disposition home or self-care (01) ==
LOC: HO.US 15:21
PROVIDERS: PCP Internal Medicine Medical Oncology; Visit Provider Urology
DX: N20.0 Calculus of kidney (principal)
CPT/HCPCS: 76775

== ENCOUNTER 2022-02-02 10:17 | Outpatient (REF) | payer OTHER, SELFPAY ==
--- NOTE | ~2022-02-02 | US_ITS ---
EXAMINATION: US RETROPERITONEAL LIMITED (RENAL ONLY) CLINICAL INFORMATION: Calculus of kidney. COMPARISON: Renal ultrasound 07/01/2021 and 01/26/2021. CT abdomen and pelvis 06/19/2020. TECHNIQUE: Real-time imaging of the kidneys. FINDINGS: RIGHT KIDNEY: 11.1 x 5.7 x 5.7 cm (SAG x AP x TRV). The kidney is normal in size, contour, and echogenicity. Renal cortical thickness is normal. 1.9 x 1.1 x 1.8 cm cyst in the midpole. No renal calculi or hydronephrosis. LEFT KIDNEY: 10.7 x 6.4 x 4.8 cm (SAG x AP x TRV). The kidney is normal in size, contour, and echogenicity. Renal cortical thickness is normal. No calculi or focal parenchymal lesions. No hydronephrosis. US/US renal BI IMPRESSION: No stone appreciated by ultrasound. Small right renal cyst.
== END 2022-02-02 10:18 | disposition home or self-care (01) ==
LOC: HO.US 10:17
PROVIDERS: Visit Provider Urology
DX: N20.0 Calculus of kidney (principal)
CPT/HCPCS: 76775

== ENCOUNTER 2022-02-02 10:42 | Outpatient (REF) | payer OTHER, SELFPAY ==
[2022-02-02 13:20] LABS: Prostate Specific Antigen < 0.10 ng/mL (<0.05-4.0)
== END 2022-02-02 10:43 | disposition home or self-care (01) ==
LOC: HO.10HDL 10:42
PROVIDERS: Visit Provider Urology
DX: Z12.5 Encounter for screening for malignant neoplasm of prostate (principal); C61 Malignant neoplasm of prostate
CPT/HCPCS: 36415; 84153

== ENCOUNTER 2022-08-03 08:01 | Outpatient (REF) | payer OTHER, SELFPAY ==
[2022-08-03 10:42] LABS: MANUAL DIFF FLAG NO
[2022-08-03 10:47] LABS: Basophils Absolute Auto 0.1 X10*3/uL (0.0-0.2); Basophils Percent Auto 1.1 % (0-2); Eosinophils Absolute Auto 0.2 X10*3/uL (0.0-0.4); Hematocrit 41.6 % (42.0-52.0); Hemoglobin 13.8 g/dl (14.0-18.0); Imm Gran Abs Auto 0.02 X10*3/uL (0.00-0.03); Imm Gran Pct Auto 0.3 % (0.0-0.4); Lymphocytes Absolute Auto 1.7 X10*3/uL (1.2-4.9); Mean Corpuscular HGB Conc 33.2 g/dl (31.0-36.0); Mean Corpuscular Hemoglobin 29.2 pg (27.0-33.0); Mean Corpuscular Volume 88.1 fL (80.0-98.0); Mean Platelet Volume 10.1 fL (9.4-12.4); Monocytes Absolute Auto 0.6 X10*3/uL (0.1-1.2); Monocytes Percent Auto 7.8 % (2-11); Neutrophils Absolute Auto 4.6 x10*3/uL (2.0-8.3); Neutrophils Percent Auto 63.8 % (45-73); Platelet Count 242 X10*3/uL (160-400); Red Blood Count 4.72 X10*6/uL (4.60-5.80); Red Cell Distribution Width 13.5 % (11.0-16.0); White Blood Count 7.2 X10*3/uL (4.8-10.8)
[2022-08-03 10:56] LABS: Estimated Average Glucose 134 mg/dL; Hemoglobin A1c % 6.3 %
[2022-08-03 11:05] LABS: Alanine Aminotransferase 45 U/L (0-40); Albumin Level 4.2 g/dL (3.5-5.0); Alkaline Phosphatase 56 U/L (39-117); Anion Gap 14 (12-20); Aspartate Amino Transferase 31 U/L (5-37); Bilirubin Total 1.7 mg/dL (0.0-1.0); Blood Urea Nitrogen 16 mg/dL (9-16); Calcium 9.7 mg/dL (8.4-10.2); Carbon Dioxide 24 mmol/L (22-29); Chloride 105 mmol/L (96-108); Cholesterol 124 mg/dL; Estimated Glomerular Filt Rate > 60; HDL Cholesterol 44 mg/dL; LDL Cholesterol Calculated 58 mg/dl; Potassium 4.7 mmol/L (3.3-5.1); Sodium 138 mmol/L (135-145); Total Protein 6.4 g/dL (6.5-8.0); Triglycerides 113 mg/dL
[2022-08-03 11:15] LABS: Creatinine Urine 178.82 mg/dL; Microalbum/Creatinine Ratio Ur 7.8 ug/mg cr
[2022-08-03 11:16] LABS: Glucose Fasting 132 mg/dL (60-99); Uric Acid 6.4 mg/dL (3.4-7.0)
[2022-08-03 11:28] LABS: Prostate Specific Antigen < 0.10 ng/mL (<0.05-4.0)
== END 2022-08-03 08:02 | disposition home or self-care (01) ==
LOC: HO.10HDL 08:01
PROVIDERS: Visit Provider Internal Medicine Medical Oncology
DX: Z12.5 Encounter for screening for malignant neoplasm of prostate (principal); E11.69 Type 2 diabetes mellitus with other specified complication; I25.10 Atherosclerotic heart disease of native coronary artery without angina pectoris; E78.5 Hyperlipidemia, unspecified; I10 Essential (primary) hypertension; N20.0 Calculus of kidney; Z85.46 Personal history of malignant neoplasm of prostate
CPT/HCPCS: 36415; 80053; 80061; 82043; 83036; 84153; 84550; 85025

== ENCOUNTER 2022-11-29 07:40 | Outpatient (REF) | payer OTHER, SELFPAY ==
--- NOTE | ~2022-11-29 | XR_ITS ---
EXAMINATION: XR SHOULDER, RIGHT CLINICAL INFORMATION: Right shoulder pain, injury COMPARISON: None available. TECHNIQUE: Four views of the right shoulder. FINDINGS: Median sternotomy wires. Degenerative changes with rightward curvature in the partially imaged upper thoracic spine. Moderate degenerative changes in the acromioclavicular joint with joint space narrowing and hypertrophic change. Glenohumeral alignment preserved. XR/XR shoulder RT min 2V IMPRESSION: Moderate degenerative changes. Additional imaging with CT scan or MRI should be considered for better visualization as these modalities are much more sensitive for detection of fracture or other underlying pathology.
[2022-11-29 10:38] LABS: MANUAL DIFF FLAG NO
[2022-11-29 10:40] LABS: Basophils Absolute Auto 0.1 X10*3/uL (0.0-0.2); Basophils Percent Auto 1.3 % (0-2); Eosinophils Absolute Auto 0.2 X10*3/uL (0.0-0.4); Eosinophils Percent Auto 3.3 % (0-4); Hematocrit 40.4 % (42.0-52.0); Hemoglobin 13.5 g/dl (14.0-18.0); Imm Gran Abs Auto 0.02 X10*3/uL (0.00-0.03); Imm Gran Pct Auto 0.3 % (0.0-0.4); Lymphocytes Absolute Auto 1.9 X10*3/uL (1.2-4.9); Lymphocytes Percent Auto 28.2 % (20-40); Mean Corpuscular HGB Conc 33.4 g/dl (31.0-36.0); Mean Corpuscular Hemoglobin 29.7 pg (27.0-33.0); Mean Platelet Volume 10.2 fL (9.4-12.4); Monocytes Absolute Auto 0.6 X10*3/uL (0.1-1.2); Monocytes Percent Auto 8.4 % (2-11); Neutrophils Percent Auto 58.5 % (45-73); Platelet Count 284 X10*3/uL (160-400); Red Blood Count 4.54 X10*6/uL (4.60-5.80); Red Cell Distribution Width 13.2 % (11.0-16.0); White Blood Count 6.9 X10*3/uL (4.8-10.8)
[2022-11-29 10:55] LABS: Estimated Average Glucose 137 mg/dL; Hemoglobin A1c % 6.4 % (<6.0)
[2022-11-29 11:18] LABS: Alanine Aminotransferase 42 U/L (0-40); Albumin Level 4.3 g/dL (3.5-5.0); Alkaline Phosphatase 64 U/L (39-117); Anion Gap 11 (12-20); Aspartate Amino Transferase 25 U/L (5-37); Bilirubin Total 0.7 mg/dL (0.0-1.0); Blood Urea Nitrogen 25 mg/dL (9-16); Calcium 9.3 mg/dL (8.4-10.2); Carbon Dioxide 25 mmol/L (22-29); Chloride 106 mmol/L (96-108); Cholesterol 128 mg/dL (<200); Estimated Glomerular Filt Rate 58; Glucose Fasting 119 mg/dL (60-99); HDL Cholesterol 39 mg/dL (>40); LDL Cholesterol Calculated 58 mg/dL (<100); Potassium 4.6 mmol/L (3.3-5.1); Sodium 137 mmol/L (135-145); Total Protein 6.9 g/dL (6.5-8.0); Triglycerides 156 mg/dL (<150)
[2022-11-29 11:28] LABS: Prostate Specific Antigen < 0.10 ng/mL (<0.05-4.0)
== END 2022-11-29 07:41 | disposition home or self-care (01) ==
LOC: HO.10HDL 07:40
PROVIDERS: PCP Internal Medicine Medical Oncology; Referring Provider Internal Medicine Medical Oncology; Visit Provider Internal Medicine
DX: M25.511 Pain in right shoulder (principal); E11.69 Type 2 diabetes mellitus with other specified complication; E66.3 Overweight; E78.5 Hyperlipidemia, unspecified; I10 Essential (primary) hypertension; R97.20 Elevated prostate specific antigen [PSA]; Z12.5 Encounter for screening for malignant neoplasm of prostate
CPT/HCPCS: 36415; 73030; 80053; 80061; 83036; 84153; 85025

== ENCOUNTER 2022-12-08 07:58 | Outpatient (REF) | payer OTHER, SELFPAY ==
--- NOTE | 2022-12-09 11:11 | MHC.AU.HA1 ---
Hearing Aid Evaluation Date of Visit: 12/08/22 Historical Information: Description of Hearing: Within normal sloping to moderate sensorineural hearing loss, bilaterally. Summary: Yung Yvan has never been interested in pursuing amplification due to minimal perceived hearing difficulties. However, now with a slight decrease in his hearing compared to his last evaluation and greater perceived difficulty, he is ready to trial hearing aids. 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 He reportedly can hear and understand his patients well in a quiet one-on-one environment. However, he noted particular difficulty in groups of people or in background noise. He also has noticed a change in his ability to hear high-pitched bird songs in the spring while bird watching. He is hoping hearing aids will help ease some of his communication difficulties and auditory fatigue from extra effort needed to listen and understand. Dr. Santoro opted for rechargeable hearing aids compatible with his iPhone. As an [employer] employee, the $350.00 consultation fee has been waived as well as the $499.00 service agreement with no charge services as long as he is still employed by [employer]. Hearing Aid Prescription: Based on the individual?s shared listening needs, communication environments, dexterity, desire for connectivity, and personal preferences, the following prescription for amplification has been made: Right ear: Make, Model, Color: Oticon Real 2 miniRITE-R Color: Chroma Beige Battery Size: Rechargeable Steam Crane Operator/Slim Tube: 2/85 Type of Earmold/Dome/CShell/SlimTip: 6mm open dome Left ear: Left ear prescription to be same as Right Hearing Aid above: Make, Model, Color: Oticon Real 2 miniRITE-R Color: Chroma Beige Battery Size: Rechargeable Steam Crane Operator/Slim Tube: 2/85 Type of Earmold/Dome/CShell/SlimTip: 6mm open dome Accessories/Assistive Technology: Desktop Chicle Grinder Feeder and Smart Chicle Grinder Feeder Plan of Care: Patient wishes to purchase hearing aids as prescribed Action Taken/Action Needed: Hearing Instrument Fitting to be scheduled when materials arrive Primary Diagnosis: H90.3 Bilateral Sensorineural Hearing Loss Signature: Provider: Tomas Cruz, [facility]
== END 2022-12-08 07:59 | disposition home or self-care (01) ==
LOC: HO.SH 07:58
PROVIDERS: Visit Provider Internal Medicine Medical Oncology
DX: Z01.118 Encounter for examination of ears and hearing with other abnormal findings (principal); H90.3 Sensorineural hearing loss, bilateral
CPT/HCPCS: 92557

== ENCOUNTER 2022-12-29 11:02 | Outpatient (REF) | payer SELFPAY ==
--- NOTE | 2022-12-29 13:11 | MHC.AU.HFA ---
Hearing Instrument Fitting- Adult- Binaural Date of Visit: 12/29/22 Hearing Instruments Dispensed: Right Ear: Oracle Ebs Developer: Oticon Model: Real 2 miniRITE-R Serial Number: [id number] Repair Warranty: 01/08/2026 Loss and Damage Warranty: 01/08/2026 Service Plan: [facility] Employee Battery Size: Rechargeable Color: Chroma Beige Counterperson: Type of Dome: 8mm open dome Type of Wax Guard: ProWax miniFit Left Ear: Oracle Ebs Developer: Oticon Model: Real 2 miniRITE-R Serial Number: [id number] Repair Warranty: 01/08/2026 Loss and Damage Warranty: 01/08/2026 Service Plan: [facility] Employee Battery Size: Rechargeable Color: Chroma Beige Counterperson: Type of Dome: 8 mm open dome Type of Wax Guard: ProWax miniFit Accessories/Assistive Technology: Oticon Minirite support representative S#[id number] Warranty 01/08/26 Oticon Smartcharger minirite S#[id number] Warranty 01/08/2026 Summary of Fitting: 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 The aids were fit to NAL-NL2 targets on the Aurical to soft/medium/loud speech and MPO. The aids were set to level 3 adaptation level and feedback manager of warehouse was run. Dr. Santoro reported that the hearing aids felt comfortable and he was satisfied with the sound quality. Sound indicators, including low battery warnings and volume change were reviewed. Dr. Santoro was oriented to the different parts of the hearing aid and charging practices were reviewed. He practiced insertion and removal of the aids, which he adapted quickly to. Water resistance and the importance of wearing them regularly, as well as keeping them safe from pets were discussed. The aids were paired to Dr. Santoro's phone as well as the [employer] Weapons Specialist nadiya. In depth cleaning, such as wax guard replacement, will need to be reviewed at his follow up appointment. He will also need a pack of 8 mm open domes at that time since the 6 mm domes were too small. Dr. Santoro will return in 2-3 weeks for a follow up appointment. He was encouraged to reach out sooner though if any concerns arise. Recommendations: Recommendations: A hearing instrument follow-up is recommended in 2-3 weeks. Diagnosis Code(s): Primary Diagnosis: H90.3 Bilateral Sensorineural Hearing Loss Signature: Student/Clinical Fellow: Yes: Andrzej Lewis, HIS Dietetics Director I have reviewed/agreed with student/fellow documentation: Yes Provider: Tomas Cruz, [facility]
== END 2022-12-29 11:03 | disposition home or self-care (01) ==
LOC: HO.HAP 11:02
PROVIDERS: Visit Provider Internal Medicine Medical Oncology
DX: Z46.1 Encounter for fitting and adjustment of hearing aid (principal); H90.3 Sensorineural hearing loss, bilateral
CPT/HCPCS: 92700; V5261; V5299

== ENCOUNTER 2023-01-05 09:37 | Outpatient (REF) | payer SELFPAY | END 2023-01-05 09:38 | disposition home or self-care (01) | LOC: HO.HAP 09:37 | PROVIDERS: Visit Provider Internal Medicine Medical Oncology | DX: Z13.89 Encounter for screening for other disorder (principal) ==

== ENCOUNTER 2023-01-07 14:13 | Outpatient (REF) | payer OTHER, SELFPAY ==
--- NOTE | ~2023-01-07 | US_ITS ---
EXAMINATION: US RETROPERITONEAL LIMITED (RENAL ONLY) CLINICAL INFORMATION: Calculus of kidney. COMPARISON: Renal ultrasound 02/02/2022 and 07/01/2020. CT abdomen and pelvis 06/19/2020. X-ray KUB 12/21/2013. TECHNIQUE: Real-time imaging of the kidneys. Limited visualization due to bowel gas and body habitus. FINDINGS: RIGHT KIDNEY: 10.5 x 4.5 x 5.3 cm (SAG x AP x TRV). No hydronephrosis. No renal calculi. Renal cortical thickness is normal. Limited visualization. Midpole 1.5 x 0.8 x 0.8 cm peripelvic anechoic fluid collection is stable redemonstrated, characteristic of a parapelvic cyst. There is no indication for follow up imaging. LEFT KIDNEY: 11.9 x 6.5 x 5.3 cm (SAG x AP x TRV). No hydronephrosis. No renal calculi. Renal cortical thickness is normal. Limited visualization. US/US renal BI IMPRESSION: No hydronephrosis. No renal calculi. Limited visualization.
== END 2023-01-07 14:14 | disposition home or self-care (01) ==
LOC: HO.US 14:13
PROVIDERS: Visit Provider Urology
DX: N20.0 Calculus of kidney (principal)
CPT/HCPCS: 76775

== ENCOUNTER 2023-01-21 09:11 | Outpatient (AMB) | payer OTHER, SELFPAY ==
--- NOTE | 2023-01-21 09:17 | MHC.OFFVIS ---
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 Patient reports that he has had shoulder pain that has been on and off for many years now. Hr reports that he had a bypass surgery which he feels thatk while under anesthesia his shoulder has gotten worse. Denies numbness and tingling. He taked tylenol/ advil Prn pain. 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 He reports having intermittent shoulder pain for several years (~8), which he feels was made worse when he was under anesthesia for a CABG. He has pain with daily activity, worse with overhead activity and at night. He says the night pain is worse and affects his sleep. He says he feels well normally, with minor pain, but after activities involving the use of his shoulder, he has worsening pain for several days while he rests. He has been doing a home exercise program and taking OTC medication prn. He denies any PT or injection history. He used to be active with weightlifting when he was younger, but denies any prior injury. He has a hx of CAD and hearing loss. FOR[facility] Medical History (Updated 01/21/23 @ 10:03 by Ruel Alford) Diabetes Renal colic HTN (hypertension) Coronary artery disease Surgical History H/O lithotripsy Hx of CABG Social History Alcohol intake: unknown Review of Systems Const All systems reviewed & are unremarkable except as noted in HPI and below Physical Exam Const General: no acute distress, alert and awake Orientation/consciousness: patient oriented x3 HEENT Head: Yes normocephalic and Yes atraumatic Eyes EOM: EOMs intact bilaterally Resp Effort & Inspection: normal respiratory effort and able to speak in complete sentences Cardio Jugular venous distension: no JVD Skin General skin exam: turgor normal Rashes: no rashes Neuro General: patient oriented x3 Extrem Other: Right Shoulder: 45/90/130/L1 +H/N Neg EC + O'lissett's Neg xba Psych Appearance: grossly normal Affect: normal affect Attitude: cooperative Office Procedures Joint Injection/Drain Joint Injection/Drain Details: Injected 1 mL of Decadron and 3 mL 1% lidocaine and 3 mL of 0.25% Marcaine. Site was prepped using aseptic technique. Patient tolerated the procedure well. Primary Site: right shoulder Approach Used: posterolateral Coding - Large joint Procedure code (CPT) selection complete Results Reviewed Results Reviewed: 01/21/23 09:43 BUPivacaine MPF 0.25 % [Sensorcaine-MPF 0.25% 10 ML] 10 ml .ROUTE .STK-MED ONE Lidocaine HCl 2 % MPF [Xylocaine 2 % MPF] 5 ml .ROUTE .STK-MED ONE dexAMETHasone sod phosphate [Decadron] 4 mg .ROUTE .STK-MED ONE I personally reviewed relevant radiographs minimal GH OA Moderate ACJ OA Assessment & Plan Assessment & Plan (1) Diabetes: Code(s): E11.9 - Type 2 diabetes mellitus without complications (2) Bursitis of right shoulder: Code(s): M75.51 - Bursitis of right shoulder Plan: This is a 72 year old man with right shoulder bursitis. He has pain with daily activity, worse with overhead activity and at night, which he says has been intermittent for several years. He takes OTC pain medication and performs a home exercise program, but denies any formal treatment. I discussed his diagnosis and treatment options. I recommend PT, NSAIDs, and he continue activity as tolerated. I injected his right shoulder today, which he tolerated well, and ordered PT. He will follow up when completed, prn. Plan Scribed for Santiago Galvan MD by Ruel Alford associate medical director, on 01/21/23 at 10:05 AM, EST. Orders: Orders PT Evaluation and Treatment Today M75.51 - Bursitis of right shoulder Coding Level of Care Code Est Pt Level 4 (09227) Diagnoses Diabetes E11.9 Bursitis of right shoulder M75.51 CPT Codes Coding - Large joint: 44792 - Large joint ([id number])
== END 2023-01-21 10:05 | disposition home or self-care (01) ==
PROVIDERS: PCP Internal Medicine Medical Oncology; Visit Provider Orthopaedic Surgery
DX: M75.51 Bursitis of right shoulder (principal); E11.9 Type 2 diabetes mellitus without complications
CPT/HCPCS: 20610; 99214

== ENCOUNTER → 2023-01-21 09:11 | Outpatient (BNVA) | payer OTHER, SELFPAY | PROVIDERS: PCP Internal Medicine Medical Oncology; Visit Provider Orthopaedic Surgery | DX: M75.51 Bursitis of right shoulder (principal); I25.10 Atherosclerotic heart disease of native coronary artery without angina pectoris; I10 Essential (primary) hypertension; E11.9 Type 2 diabetes mellitus without complications; Z95.1 Presence of aortocoronary bypass graft | CPT/HCPCS: 20610; J0665; J1100 ==

== ENCOUNTER 2023-01-24 14:43 | Outpatient (REF) | payer OTHER, SELFPAY ==
--- NOTE | 2023-01-24 15:31 | MHC.AU.HA3 ---
Hearing Instrument Follow-Up- Binaural Date of Visit: 01/24/23 Right Ear: Make, Model, Color, Serial Number: Oticon Real 2 miniRITE-R SN: [id number] Color: Chroma Beige Ferry Terminal Supervisor Repair Warranty: 01/08/2026 Ferry Terminal Supervisor Loss and Damage Warranty: 01/08/2026 [facility] Service Plan: [facility] Employee Battery Size: Rechargeable Tile Ditcher/Slim Tube: 2/85 Earmold/Dome/CShell/SlimTip:8mm open dome (no retention tail) Type of Wax Guard: miniFit Dispensed By: [facility] Date of Fittin12/29/2022 Left Ear: Make, Model, Color, Serial Number: Oticon Real 2 miniRITE-R SN: [id number] Color: Chroma Beige Ferry Terminal Supervisor Repair Warranty: 01/08/2026 [employer]erry Terminal Supervisor Loss and Damage Warranty: 01/08/2026 [facility] Service Plan: [facility] Employee Battery Size: Rechargeable Tile Ditcher/Slim Tube: 2/85 Earmold/Dome/CShell/SlimTip: 8mm open dome (no retention tail) Type of Wax Guard: miniFit Dispensed By: [facility] Date of Fittin12/29/2022 Follow-Up Summary: 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 He did not realize how much he was missing before being fit with them. When he takes the hearing aids out at night, he notices a significant difference as the world becomes muffled. No programming adjustments needed. Discussed changing domes and wax guards and provided 2 packages of 8mm open pepe domes. His only issue at this time is the right port of his desktop robotic weld technician stopped working. Confirmed in office. He had been using his SmartCharger. Sent desktop robotic weld technician to [facility] for repair. Provided a loaner desktop robotic weld technician at Dr. Santoro's request. Dr. Santoro confirmed the purchase of the hearing aids and he did not think an additional follow up was necessary at this time. Recommendations: Patient will be contacted when materials have arrived. Recommendations (Other): Once robotic weld technician returns from repair, Dr. Santoro can grape picker the robotic weld technician and drop off the loaner (no appointment necessary). Diagnosis Code(s): Primary Diagnosis: H90.3 Bilateral Sensorineural Hearing Loss Signature: Provider: Tomas Cruz, [facility]
== END 2023-01-24 14:44 | disposition home or self-care (01) ==
LOC: HO.HAP 14:43
PROVIDERS: Visit Provider Internal Medicine Medical Oncology
DX: Z13.89 Encounter for screening for other disorder (principal)

== ENCOUNTER 2023-02-10 11:53 | Outpatient (REF) | payer SELFPAY | END 2023-02-10 11:54 | disposition home or self-care (01) | LOC: HO.HAP 11:53 | PROVIDERS: Visit Provider Internal Medicine Medical Oncology | DX: Z13.89 Encounter for screening for other disorder (principal) ==

== ENCOUNTER 2023-02-25 09:28 | Outpatient (AMB) | payer OTHER, SELFPAY ==
--- NOTE | 2023-02-25 09:33 | A.OFFVIS_ITS ---
Intake Intake Visit Reasons: 1Y PSA/US(set) Intake Note: Patient is Present for Follow Up PSA/US Urology Medication: Vitamin B6, Tamsulosin Antibiotic Allergies: Levofloxacin Blood Thinners: Aspirin Allergies metoclopramide [From REGLAN] Allergy (Severe, Verified 02/25/23 09:37) DYSTONIA levofloxacin [From LEVAQUIN] Allergy (Intermediate, Verified 02/25/23 09:37) PARASTESIAS Medication List - Last Reconciled 02/25/23 by Kevin Cochran MD allopurinol 200 mg PO DAILY aspirin 81 mg PO DAILY atorvastatin 80 mg PO DAILY coenzyme Q10 200 mg PO DAILY metformin 1,000 mg PO BID metoprolol tartrate 50 mg PO BID pyridoxine (vitamin B6) 100 mg PO DAILY 90 days tamsulosin 0.4 mg PO BEDTIME 14 days HPI HPI Comments History of Present Illness Details Chris is a pleasant male. He is a patient of Dr. Bañuelos. He is seen for the following urologic conditions - nephrolithiasis - prostate cancer Yearly follow-up Psa well-controlled Discussed pelvic floor exercises Renal ultrasound no stones Continue with vitamin B6 50 mg Nephrolithiasis Here for stone follow-up Initial stone 2014 Stone analysis - combination, calcium oxalate monohydrate predominant Intervention - 07/02 right-sided ureteroscopy laser lithotripsy stent Imaging - 09/01 renal ultrasound no evidence of stones - 03/03 renal ultrasound were 0.5 cm cyst right kidney, 3 mm stone left - 03/04 renal ultrasound right cyst small, no stones - 03/05 renal ultrasound no evidence of stones 24 Hr Urine - adequate urine volume, borderline oxalate, good citrate Therapeutic plan - continue allopurinol with vitamin B6 - interval imaging surveillance - encouraged increased fluid intake with lemon therapy Prostate cancer - 2006 - robotic prostatectomy PSA 09/30 <0.1, 02/02 <0.1, 12/04 <0.1 Had [place] 4 component and should have yearly surveillance PFSH Medical History (Updated 01/21/23 @ 10:03 by Ruel Alford) Diabetes Renal colic HTN (hypertension) Coronary artery disease Surgical History H/O lithotripsy Hx of CABG Social History Alcohol intake: unknown Review of Systems Const Denies chills and Denies fever(s) Card Reports no additional complaints and Denies syncope Resp Denies cough GI Denies abdominal pain and Denies heartburn Reports as per HPI and Denies change in libido Neuro Denies syncope Psych Denies change in libido Endo Denies change in libido Physical Exam Const General: cooperative, healthy appearing, comfortable and no acute distress Orientation/consciousness: patient oriented x3 HEENT Face and sinus: Yes normal facial exam Mouth: moist mucous membranes Neck Neck: Yes normal visual inspection, Yes full ROM and Yes trachea midline Chest Chest palpation & inspection: normal inspection of the chest Resp Effort & Inspection: normal respiratory effort, able to speak in complete sentences and no respiratory distress GI Inspection: Yes normal to inspection Back/Spine/Pelvis Cervical Spine: normal cervical lordosis Thoracic/Lumbar Spine: thoracic and lumbar spine normal to inspection Skin General skin exam: no rashes or lesions noted Neuro General: patient oriented x3, gait normal, tone normal and moves all extremities Extrem General: Yes normal to inspection and Yes capillary refill normal Assessment & Plan Assessment & Plan (1) Prostate cancer: Code(s): C61 - Malignant neoplasm of prostate Plan Twelve month follow-up PSA ultrasound Orders: Orders Prostate Specific Antigen 364 Days C61 - Malignant neoplasm of prostate US renal BI 364 Days N20.0 - Calculus of kidney Medications: Changed From pyridoxine (vitamin B6) 100 mg PO DAILY 90 days 90 tabs 0RF N20.0 - Calculus of kidney To pyridoxine (vitamin B6) 50 mg PO DAILY 90 tabs 0RF 90 days N20.0 - Calculus of kidney Patient Instructions: Imaging studies, laboratory and physical exam results were discussed and reviewed in detail. No major barriers to patient understanding were identified. An opportunity to ask questions regarding the treatment plan was provided. All questions were answered. The patient expressed understanding and agreement with the above treatment plan. The patient is aware they should contact our office by phone for worsening of their current condition or the appearance of new urologic symptoms. Compliance i s encouraged with any medications and followup testing that is ordered. It is a privilege to participate in the urologic care of your patient. If you have any questions or concerns regarding treatment for the above conditions, or other urologic issues, please do not hesitate to contact me. The office telephone contact is [phone]. This note is constructed using voice recognition software. While every effort has been made to ensure accuracy blindstitch lapel padder errors may have been included. Yours sincerely, Dr Kevin Cochran MD, [facility] - Urology Providers of Expert, Compassionate Care for the Genitourinary System Coding Level of Care Code Est Pt Level 4 (34644) Diagnoses Prostate cancer C61
== END 2023-02-25 10:00 | disposition home or self-care (01) ==
PROVIDERS: PCP Internal Medicine Medical Oncology; Visit Provider Urology
DX: C61 Malignant neoplasm of prostate (principal)
CPT/HCPCS: 99213

== ENCOUNTER → 2023-02-25 09:28 | Outpatient (BNVA) | payer SELFPAY | PROVIDERS: PCP Internal Medicine Medical Oncology; Visit Provider Urology ==

== ENCOUNTER 2023-03-03 14:00 | Outpatient (RCR) | payer OTHER, SELFPAY ==
--- NOTE | 2023-02-01 11:33 | MHC.PT.EP ---
[facility] [place] Office [place] Office [place] Office [address] [phone] F: [phone] F: [phone] F: [phone] F: [phone] Physical Therapy Plan of Care Date of Evaluation: 02/01/23 Date of Surgery: Diagnosis: R shoulder bursitis Assessment: Pt is a 72yo male who presents with report of worsening chronic R shoulder pain, difficulty sleeping and lifting heavy items. Ortho MD recommends conservative management following cortisone injection. Skilled PT indicated to reduce pain, promote full periscapular strength and normalize scapulohumeral rhythm and body mechanics, as well as improve quality of sleep. Pt is motivated to participate and is in agreement with POC. Frequency and Duration: The patient will be seen 2x/week x 4 weeks Short Term Goals: 1. Increase R shoulder abduction AROM 10 degrees. 2. I with phase 1 HEP at home after 2 PT treatments. 3. Increase R periscap MMT by 1/2 grade to improve stability of shoulder. Landscaping Manager Goals: 1. In 4 weeks, patient will demonstrate improved use of arm with less pain as reflected by SPADI score improvement of 20 points. 2. In 4 weeks, patient will be able to lift an 8# weight and raise it overhead without increased pain. 3. In 4 weeks, patient will have adequate periscap stability to be able to perform merrick wings without difficulty. Treatment Plan: Modalities to reduce pain, spasms and effusion. Manual therapy to restore motion and function. Therapeutic exercise to improve strength and flexibility. Neuromuscular re-education for posture and balance. Therapeutic activities to return to functional activities of daily living. Electronically signed by: Viviane Tracy PT, DPT Please sign and return to therapist. Thank you for your referral.
== END 2023-03-29 07:55 | disposition home or self-care (01) ==
LOC: HO.PT 14:00
PROVIDERS: PCP Internal Medicine Medical Oncology; Visit Provider Orthopaedic Surgery
DX: M75.51 Bursitis of right shoulder (principal)
CPT/HCPCS: 97110; 97140; 97161

== ENCOUNTER 2023-03-10 14:53 | Outpatient (REF) | payer OTHER, SELFPAY | END 2023-03-10 14:54 | disposition home or self-care (01) | LOC: HO.XRAY 14:53 | PROVIDERS: PCP Internal Medicine Medical Oncology; Visit Provider Internal Medicine Medical Oncology | DX: M54.50 Low back pain, unspecified (principal); Z85.46 Personal history of malignant neoplasm of prostate | CPT/HCPCS: 72110; 72170; 72220 ==

== ENCOUNTER 2023-04-19 14:00 | Outpatient (RCR) | payer OTHER, SELFPAY ==
--- NOTE | 2023-05-16 10:54 | MHC.PT.DC ---
[facility] [place] Office [place] Office [place] Office [address] Steve Gonzales [address] [facility] [phone] F: [phone] F: [phone] F: [phone] F: [phone] Physical Therapy Discharge Report Diagnosis: LOW BACK PAIN Date of Surgery: Date of Evaluation: 03/29/23 Date of Discharge: 04/16/23 Treatments to Date: 7 Cancellations to Date: 0 No Shows to Date: 0 Discharge Status: Achieved Goals Improved Function Independent with HEP Discharge Summary: has progressed well with PT and has met goals of PT at this time, DC to HEP Electronically signed by: Alpa Darnell PT DPT Please sign and return to therapist. Thank you for your referral.
== END 2023-05-16 10:54 | disposition home or self-care (01) ==
LOC: HO.PT 14:00
PROVIDERS: PCP Internal Medicine Medical Oncology; Visit Provider Internal Medicine Medical Oncology
DX: M54.50 Low back pain, unspecified (principal)
CPT/HCPCS: 97110; 97116; 97140; 97161

== ENCOUNTER 2023-07-05 07:57 | Outpatient (REF) | payer OTHER, SELFPAY ==
[2023-07-05 11:00] LABS: MANUAL DIFF FLAG NO
[2023-07-05 11:13] LABS: Basophils Absolute Auto 0.1 X10*3/uL (0.0-0.2); Eosinophils Absolute Auto 0.2 X10*3/uL (0.0-0.4); Eosinophils Percent Auto 2.2 % (0-4); Hematocrit 40.5 % (42.0-52.0); Hemoglobin 13.3 g/dl (14.0-18.0); Imm Gran Abs Auto 0.02 X10*3/uL (0.00-0.03); Imm Gran Pct Auto 0.3 % (0.0-0.4); Lymphocytes Absolute Auto 1.8 X10*3/uL (1.2-4.9); Lymphocytes Percent Auto 25.9 % (20-40); Mean Corpuscular HGB Conc 32.8 g/dl (31.0-36.0); Mean Corpuscular Hemoglobin 29.3 pg (27.0-33.0); Mean Corpuscular Volume 89.2 fL (80.0-98.0); Mean Platelet Volume 10.2 fL (9.4-12.4); Monocytes Absolute Auto 0.5 X10*3/uL (0.1-1.2); Neutrophils Absolute Auto 4.3 x10*3/uL (2.0-8.3); Neutrophils Percent Auto 63.6 % (45-73); Platelet Count 284 X10*3/uL (160-400); Red Blood Count 4.54 X10*6/uL (4.60-5.80); Red Cell Distribution Width 14.1 % (11.0-16.0); White Blood Count 6.8 X10*3/uL (4.8-10.8)
[2023-07-05 11:30] LABS: Estimated Average Glucose 117 mg/dL; Hemoglobin A1c % 5.7 % (<6.0)
[2023-07-05 11:59] LABS: Prostate Specific Antigen < 0.10 ng/mL (<0.05-4.0)
[2023-07-05 12:00] LABS: Alanine Aminotransferase 79 U/L (0-40); Albumin Level 4.3 g/dL (3.5-5.0); Alkaline Phosphatase 63 U/L (39-117); Anion Gap 13 (12-20); Aspartate Amino Transferase 36 U/L (5-37); Bilirubin Total 0.8 mg/dL (0.0-1.0); Blood Urea Nitrogen 26 mg/dL (9-16); Calcium 9.8 mg/dL (8.4-10.2); Carbon Dioxide 24 mmol/L (22-29); Chloride 108 mmol/L (96-108); Cholesterol 106 mg/dL (<200); Estimated Glomerular Filt Rate 57; Glucose Fasting 105 mg/dL (60-99); HDL Cholesterol 53 mg/dL (>40); LDL Cholesterol Calculated 45 mg/dL (<100); Potassium 4.5 mmol/L (3.3-5.1); Sodium 140 mmol/L (135-145); Total Protein 7.1 g/dL (6.5-8.0); Triglycerides 41 mg/dL (<150)
[2023-07-05 12:15] LABS: Creatinine Urine 179.98 mg/dL; Microalbum/Creatinine Ratio Ur 11.1 ug/mg cr (<30)
== END 2023-07-05 07:58 | disposition home or self-care (01) ==
LOC: HO.10HDL 07:57
PROVIDERS: Visit Provider Internal Medicine Medical Oncology
DX: Z12.5 Encounter for screening for malignant neoplasm of prostate (principal); E11.69 Type 2 diabetes mellitus with other specified complication; E66.3 Overweight; I10 Essential (primary) hypertension; Z85.46 Personal history of malignant neoplasm of prostate
CPT/HCPCS: 36415; 80053; 80061; 82043; 82570; 83036; 84153; 85025

== ENCOUNTER 2023-07-14 08:21 | Outpatient (AMB) | payer OTHER, SELFPAY ==
--- NOTE | 2023-07-14 08:22 | A.OFFVIS_ITS ---
Intake Visit Reasons: Hemmorrhoids Intake Note: This patient presents for an assessment for hemorrhoids. Internet Marketing Consultant Required: No Accompanied by: Self / Same As Patient Allergies metoclopramide [From REGLAN] Allergy (Severe, Verified 07/14/23 08:33) DYSTONIA levofloxacin [From LEVAQUIN] Allergy (Intermediate, Verified 07/14/23 08:33) PARASTESIAS Medication List - Last Reconciled 07/14/23 by Mehdi Gudino MD allopurinol 200 mg PO DAILY aspirin 81 mg PO DAILY atorvastatin 80 mg PO DAILY coenzyme Q10 200 mg PO DAILY metformin 1,000 mg PO BID metoprolol tartrate 50 mg PO BID pyridoxine (vitamin B6) 50 mg PO DAILY 90 days tamsulosin 0.4 mg PO BEDTIME 14 days HPI HPI Hemmorrhoids: Details: 73-year-old male referred for hemorrhoids. He says that he has had hemorrhoids for many years and these would occasionally bleed. However for the past few months, he is noticed this hemorrhoids to be much bigger. He has been causing him a lot of discomfort and describes these as ?annoying?. He states that he feels that he is way overdue to have his hemorrhoids removed because of this problem He says he did have a problem with chronic constipation in the past but now has been on fiber supplements which have helped him a lot. He is up-to-date with this colonoscopy screening. He says that he had two-vessel CABG about 8 years ago. He states that he has remained active. He has a diabetic but his sugars are well controlled on metformin. [facility] Medical History (Updated 07/14/23 @ 09:03 by Mehdi Gudino MD) Hemorrhoids with complication Diabetes Renal colic HTN (hypertension) Coronary artery disease Surgical History H/O lithotripsy Hx of CABG Family History Mother Lymphoma Social History Alcohol intake: unknown Review of Systems Const Denies chills and Denies fever(s) Card Denies chest pain, Denies dyspnea and Denies dyspnea on exertion Resp Denies cough, Denies dyspnea and Denies dyspnea on exertion GI Denies hematochezia and Denies change in bowel habits Denies hematuria and Denies difficulty urinating Musc Denies back pain and Denies limited range of motion Neuro Denies focal weakness and Denies convulsions Psych Denies depression and Denies mood swings Physical Exam Const General: comfortable and no acute distress Orientation/consciousness: patient oriented x3 Neck Neck: Yes no lymphadenopathy Resp Auscultation: clear to auscultation bilaterally Cardio Rhythm: regular rhythm GI Other: Rectal exam shows large external hemorrhoids on the left and the right side, nonthrombosed Palpation (GI): Soft to palpation, nontender and no guarding Neuro General: patient oriented x3 Office Procedures Anoscopy He was in robert-knife position. The anoscope was gently inserted. A full examination of the anal canal was done. He did have large internal and external hemorrhoidal columns on both the left and right side. There were no other lesions. There was no fissure or or ulceration. There was no bleeding. There was no induration on digital exam. [id number] Assessment & Plan Assessment & Plan (1) Hemorrhoids with complication: Code(s): K64.8 - Other hemorrhoids Category: Medical Plan: He describes discomfort with this hemorrhoids. These are a mix of internal external. He wants to proceed with hemorrhoidectomy. I explained to the technique of this procedure. I reviewed the risks including but not limited to bleeding, infections, poor healing, postop pain, as well as the benefits and alternatives. I reviewed with him what to expect postoperatively. He understands and wants to proceed. Coding Level of Care Code New Pt Level 3 (94812) Diagnoses Hemorrhoids with complication K64.8 CPT Codes Details - CPT: 91271-Aevzfans ([id number])
== END 2023-07-14 09:09 | disposition home or self-care (01) ==
PROVIDERS: PCP Internal Medicine Medical Oncology; Visit Provider Surgery
DX: K64.8 Other hemorrhoids (principal)
CPT/HCPCS: 46600; 99203

== ENCOUNTER → 2023-07-14 08:21 | Outpatient (BNVA) | payer OTHER, SELFPAY | PROVIDERS: PCP Internal Medicine Medical Oncology; Visit Provider Surgery | DX: K64.8 Other hemorrhoids (principal); K64.4 Residual hemorrhoidal skin tags | CPT/HCPCS: 46600 ==

== ENCOUNTER 2023-08-02 12:43 | Outpatient (AMB) | payer OTHER, SELFPAY ==
--- NOTE | 2023-08-02 12:51 | MHC.OFFVIS ---
Vital Signs 08/02/23 12:52 Height 5 ft 10 in Weight 169 lb 12.095 oz BMI 24.4 BP 120/72 Blood Pressure Location Lt brachial Position Sitting Pulse 61 Intake Visit Reasons: Preop/ Shahab/ Intake Note: Pre-op Dr Gudino with ekg feeling good Rehabilitation Services Coordinator Required: No Allergies metoclopramide [From REGLAN] Allergy (Severe, Verified 07/14/23 08:33) DYSTONIA levofloxacin [From LEVAQUIN] Allergy (Intermediate, Verified 07/14/23 08:33) PARASTESIAS Medication List - Last Reconciled 08/02/23 by Johnny Silvestre MD allopurinol 100 mg PO DAILY ascorbic acid (vitamin C) mg PO aspirin 81 mg PO DAILY atorvastatin 80 mg PO DAILY coenzyme Q10 200 mg PO DAILY metformin 1,000 mg PO BID metoprolol tartrate 50 mg PO BID pyridoxine (vitamin B6) 50 mg PO DAILY 90 days HPI Comments Details: Chris comes for follow-up after a long gap. He is scheduled to undergo noncardiac surgery with microdiskectomy in the near future and comes for preoperative cardiovascular risk stratification. He has had prior coronary artery disease status post coronary artery bypass grafting for multivessel disease as well as symptoms of exertional dizziness and palpitations. Since the surgery symptoms have dissipated. He participates in vigorous physical exercise on a regular basis and has no exertional chest pain, dizziness, palpitations or fluttering in the chest. Denies any shortness of breath, orthopnea, PND. He does get low blood pressure on noon time. He takes his metoprolol at 06:00 in the morning and around noon time his blood pressures in the 90s. He does get symptoms of lightheaded at that time. However this does not last for long time. Denies any syncopal episodes. His LDL is extremely well optimized at this point in time. With his diabetes under not good control he modified his lifestyle significantly with losing about 20 lb and his hemoglobin A1c is at 5.7%. Currently takes metformin 1000 mg b.i.d.. [facility] Medical History (Updated 08/02/23 @ 13:23 by Johnny Silvestre MD) Hemorrhoids with complication Diabetes Renal colic HTN (hypertension) Coronary artery disease Surgical History (Updated 08/02/23 @ 14:45 by Johnny Silvestre MD) H/O lithotripsy Hx of CABG Family History Mother Lymphoma Social History Alcohol intake: unknown Review of Systems Const Denies chills, Denies fatigue, Denies fever(s), Denies frequent falls, Denies weakness, Denies weight gain and Denies weight loss ENT Denies dizziness Card Denies chest pain, Denies leg edema, Denies lightheadedness, Denies palpitations, Denies dyspnea, Denies dyspnea on exertion, Denies orthopnea and Denies other (loss of consciousness) Resp Denies cough, Denies dyspnea and Denies dyspnea on exertion GI Denies hematochezia and Denies change in stool character Musc Denies abnormal gait, Denies muscle weakness, Denies numbness, Denies radiating pain into limb and Denies tingling Neuro Denies abnormal gait, Denies dizziness, Denies frequent falls, Denies numbness, Denies tingling and Denies weakness Endo Denies fatigue and Denies palpitations Physical Exam Vital Signs: Last Vital Signs Pulse 61 08/02/23 12:52 BP 120/72 08/02/23 12:52 BMI result Body Mass Index 24.4 Const General: cooperative, comfortable, no acute distress, well developed, alert, awake and Physically active Nutritional Appearance: well nourished and thin Orientation/consciousness: patient oriented x3 Limitations: no limitations HEENT Head: Yes normocephalic and Yes atraumatic Neck Neck: Yes trachea midline, Yes supple and Yes no JVD Chest Chest palpation & inspection: other (Well-healed sternotomy scar) Resp Effort & Inspection: normal respiratory effort Auscultation: clear to auscultation bilaterally Cardio Jugular venous distension: no JVD Palpation: normal PMI Rate: regular rate Rhythm: regular rhythm Heart sounds: S1 normal heart sound present, S2 normal heart sound present, no click, no gallops, no murmurs and no rubs GI Auscultation: normal bowel sounds Skin General skin exam: no rashes or lesions noted Neuro General: patient oriented x3 and no focal motor deficits Extrem General: Yes no clubbing, cyanosis or edema Psych Appearance: grossly normal Office Procedures EKG Details: EKG shows normal sinus rhythm with normal EKG. [id number], Complete Assessment & Plan Assessment & Plan (1) Preoperative cardiovascular examination: Code(s): Z01.810 - Encounter for preprocedural cardiovascular examination Plan: Preoperative cardiovascular risk stratification in patient with prior CAD and coronary bypass grafting, low risk surgery with excellent exercise capacity. From cardiac perspective he is currently optimized to undergo surgery with low risk for perioperative cardiovascular morbidity mortality. Can hold aspirin as per surgeon's discretion but resume as soon as possible after surgery. Continue all other medications in the perioperative period. (2) Coronary artery disease: Code(s): I25.10 - Atherosclerotic heart disease of [place] coronary artery without angina pectoris Category: Medical Plan: Coronary artery disease status post coronary artery bypass grafting 6 years ago. His risk factors are very well optimized. Blood pressure may be over corrected, see below for management. Continue lifelong aspirin therapy. Continue atorvastatin 80 mg with well optimized LDL. Continue aggressive management diabetes which is also currently well controlled. Recommend exercise myocardial perfusion imaging as per recommendations to evaluate for progressive CAD. (3) Low blood pressure: Code(s): I95.9 - Hypotension, unspecified Plan: Low blood pressure with symptoms run noon time. He takes his metoprolol at 06:00 o'clock in the morning, low blood pressure about peak effect of metoprolol. He does have symptoms related to it. I have advised him to increase fluid intake. Also will reduce metoprolol to 25 mg b.i.d.. Advised to monitor blood pressure closely. If his systolic blood pressure creeps up to 130 range should add low-dose lisinopril therapy both as the cardioprotective as well as the nephro protective agent in patients with diabetes. Will follow up in the clinic in 1 year's time, sooner p.r.n.. Thank you for allowing me to partake in his care Coding Level of Care Code New Pt Level 4 (93065) Diagnoses Preoperative cardiovascular examination Z01.810 Coronary artery disease I25.10 Low blood pressure I95.9 CPT Codes EKG - CPT: 98658-[id number], Complete ([id number])
[2023-08-02 12:52] VITALS: BP 120/72; PULSE 61; BMI 24.4
== END 2023-08-02 13:21 | disposition home or self-care (01) ==
PROVIDERS: PCP Internal Medicine Medical Oncology; Visit Provider Internal Medicine Cardiovascular Disease
DX: Z01.810 Encounter for preprocedural cardiovascular examination (principal); I25.10 Atherosclerotic heart disease of native coronary artery without angina pectoris; I95.9 Hypotension, unspecified
CPT/HCPCS: 93010; 99204

== ENCOUNTER → 2023-08-02 12:43 | Outpatient (BNVA) | payer OTHER, SELFPAY | PROVIDERS: PCP Internal Medicine Medical Oncology; Visit Provider Internal Medicine Cardiovascular Disease | DX: Z01.810 Encounter for preprocedural cardiovascular examination (principal); I25.10 Atherosclerotic heart disease of native coronary artery without angina pectoris; I95.9 Hypotension, unspecified; Z79.899 Other long term (current) drug therapy; Z79.82 Long term (current) use of aspirin | CPT/HCPCS: 93005 ==

== ENCOUNTER 2023-08-09 06:00 | Day surgery (SDC) | payer OTHER, SELFPAY ==
[2023-08-03 09:58] VITALS: BMI 24.4
--- NOTE | 2023-08-04 12:36 | P.CONAN_ITS ---
Documented by User: Nini Felipe NP 08/04/23 12:38 HPI - Anesthesia Eval Consult details Narrative: 73yo M for EUA, Hemorrhoide[place] [facility] [place] cleared for surgery: Preoperative cardiovascular risk stratification in patient with prior CAD and coronary bypass grafting (6 years ago), low risk surgery with excellent exercise capacity. From cardiac perspective he is currently optimized to undergo surgery with low risk for perioperative cardiovascular morbidity mortality. Can hold aspirin as per surgeon's discretion but resume as soon as possible after surgery. Continue all other medications in the perioperative period. PMFSH Active Problems Active Problems: All Active Problems Bursitis of right shoulder (Acute) Prostate cancer (Acute) Nephrolithiasis (Acute) Coronary artery disease (Acute) Hemorrhoids with complication (Acute) Diabetes (Acute) Past Medical History Medical History Inguinal hernia HLD (hyperlipidemia) Bursitis Gout History of skin cancer History of prostate cancer Hemorrhoids with complication Diabetes Renal colic HTN (hypertension) Coronary artery disease Family History Family History Mother Lymphoma Surgical History Surgical History Hx of cystoscopy (2020) Hx of colonoscopy Hx of radical prostatectomy (2017) H/O lithotripsy Hx of CABG Social History Social History Household Members: Spouse Housing: House Do you presently have visiting nurse or other home services: No Alcohol intake: unknown Patient Tobacco Use Status: Never used Tobacco 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 Allergy/AdvReac Type Severity Reaction Status Date / Time metoclopramide [From REGLAN] Allergy Severe DYSTONIA Verified 07/14/23 08:33 levofloxacin [From LEVAQUIN] Allergy Intermediate PARASTESIAS Verified 07/14/23 08:33 Home Medications ?Medication ?Instructions ?Recorded ?Confirmed ?Last Taken ?Type aspirin 81 mg tablet,delayed 81 mg PO DAILY 06/19/20 08/03/23 06/19/20 History release atorvastatin 80 mg tablet 80 mg PO DAILY 06/19/20 08/03/23 06/19/20 History coenzyme Q10 200 mg capsule 200 mg PO DAILY 0408/03/23 06/19/20 History metformin 1,000 mg tablet 1,000 mg PO BID 08/26/20 08/03/23 Unknown History metoprolol tartrate 50 mg tablet 50 mg PO BID 02/25/23 08/03/23 08/09/23 History allopurinol 100 mg tablet 100 mg PO DAILY 08/02/23 08/03/23 Unknown History ascorbic acid (vitamin C) 500 mg 500 mg PO DAILY 08/02/23 08/03/23 Unknown History capsule Exam Height,Weight and Vital Signs: Height 5 ft 10 in Weight 76.997 kg Pertinent Lab Results Pertinent Lab Results: Laboratory Tests 07/05/23 08:06 WBC 6.8 Hgb 13.3 L Hct 40.5 L Plt Count 284 Sodium 140 Potassium 4.5 Chloride 108 Carbon Dioxide 24 BUN 26 H Creatinine 1.25 Narrative Narrative: EKG 07/2023 normal sinus rhythm with normal EKG. Assessment and Plan Assessment Anesthesia Assessment: Chart Reviewed Documented by User: Karishma Bess MD 08/09/23 08:28 PMFSH Active Problems Active Problems: All Active Problems Bursitis of right shoulder (Acute) Prostate cancer (Acute) Nephrolithiasis (Acute) Coronary artery disease (Acute)- denies recent chest pain Hemorrhoids with complication (Acute) Diabetes (Acute) Past Medical History Medical History Inguinal hernia HLD (hyperlipidemia) Bursitis Gout History of skin cancer History of prostate cancer Hemorrhoids with complication Diabetes Renal colic HTN (hypertension) Coronary artery disease Family History Family History Mother Lymphoma Family history of problems with anesthesia: No Surgical History Surgical History Hx of cystoscopy (2020) Hx of colonoscopy Hx of radical prostatectomy (2017) H/O lithotripsy Hx of CABG History of Problems with Anesthesia: No Social History Social History Household Members: Spouse Housing: House Do you presently have visiting nurse or other home services: No Alcohol intake: unknown Patient Tobacco Use Status: Never used Tobacco 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 Allergy/AdvReac Type Severity Reaction Status Date / Time metoclopramide [From REGLAN] Allergy Severe DYSTONIA Verified 07/14/23 08:33 levofloxacin [From LEVAQUIN] Allergy Intermediate PARASTESIAS Verified 07/14/23 08:33 Home Medications ?Medication ?Instructions ?Recorded ?Confirmed ?Last Taken ?Type aspirin 81 mg tablet,delayed 81 mg PO DAILY 06/19/20 08/03/23 06/19/20 History release atorvastatin 80 mg tablet 80 mg PO DAILY 06/19/20 08/03/23 06/19/20 History coenzyme Q10 200 mg capsule 200 mg PO DAILY 06/19/20 08/03/23 06/19/20 History metformin 1,000 mg tablet 1,000 mg PO BID 08/26/20 08/03/23 Unknown History metoprolol tartrate 50 mg tablet 50 mg PO BID 02/25/23 08/03/23 08/09/23 History allopurinol 100 mg tablet 100 mg PO DAILY 08/02/23 08/03/23 Unknown History ascorbic acid (vitamin C) 500 mg 500 mg PO DAILY 08/02/23 08/03/23 Unknown History capsule Exam Height,Weight and Vital Signs: Height 5 ft 10 in Weight 76.997 kg Vital Signs Temp Pulse Resp BP Pulse Ox O2 Del Method 08/09/23 06:13 97.0 F 54 16 123/66 98 Room Air Pertinent Lab Results Pertinent Lab Results: Laboratory Tests 07/05/23 08:06 WBC 6.8 Hgb 13.3 L Hct 40.5 L Plt Count 284 Sodium 140 Potassium 4.5 Chloride 108 Carbon Dioxide 24 BUN 26 H Creatinine 1.25 POC 130 Airway Mallampati Class: II TM Dist: >3cm Neck ROM: Full Loose/Missing/Broken Teeth: Yes (Missing teeth back. Denies broken or loose teeth. Caps intact) Heart: RRR Lungs: CTAB Assessment and Plan Assessment Anesthesia Assessment: Anesthesia Plan Discussed and Chart Reviewed Final Anesthetic Review Family History of Problems with Anesthesia: No History of Problems with Anesthesia: No NPO: Yes ASA Class: III Final Preanesthetic Review: No Changes in Pt Med Stat, Meds/Allgs Chart Reviewed, Consent Obtained/Reviewed and Anes Risks/Benef Reviewed Patient Risk: Intermediate Procedure Risk: Low Assessment/Block/Sedation in SS: Assess/Block/Sedation-SS Anesthetic Plan Anesthetic Plan: GA Disposition: Standard PACU
[2023-08-09 06:13] VITALS: BP 123/66; PULSE 54; RESP 16; TEMP 36.1; O2SAT 98
[2023-08-09] MEDS: Lactated Ringers 1,000 ML 100 ML IVCONT (06:29)
--- NOTE | 2023-08-09 07:18 | MHC.SHP ---
Pre-Procedural Eval Section A - 24 Hr Update-Section A only Date of Service: 08/09/23 The patient is an INPATIENT: No Changes since office visit: No Cold of Flu in the past 2 weeks, No New Medical Problems, No Changes in Medication and No Patient answered all questions The patient has been examined within 24 hours of the surgical procedure. The History & Physical has been completed within 30 days and I have reviewed it.: Yes Section B - Complete if H&P > 30 days Chief Complaint: Other hemorrhoids Allergies: Allergies Allergy/AdvReac Type Severity Reaction Status Date / Time metoclopramide [From REGLAN] Allergy Severe DYSTONIA Verified 07/14/23 08:33 levofloxacin [From LEVAQUIN] Allergy Intermediate PARASTESIAS Verified 07/14/23 08:33 Plan I have reviewed the history and physical and performed a pertinent physical examination on my patient. No changes have occurred unless specified. Time Spent With Patient Time: Total time managing care of this patient today ____ minutes.
--- NOTE | 2023-08-09 08:08 | W.PM.OPN ---
Operative Note Operative Note Date of Service: 08/09/23 Narrative: Preop diagnosis: Internal and external hemorrhoids with pain and bleeding Postop diagnosis: The same Procedure: Exam under anesthesia hemorrhoidectomy x2 columns Surgeon: Mehdi Gudino MD Sandblast Operator: PEDRO PABLO Hooper student The patient is a 73-year-old male long history of bleeding and discomfort with his hemorrhoids. He therefore wanted to proceed with hemorrhoidectomy. He understood the technique of the planned procedure as well as the risks, benefits, and alternatives He was brought to the operating room. He was placed in prone robert-knife position under general anesthesia via endotracheal tube. The buttocks were retracted with wide tape laterally. The perianal area was prepped and draped in the usual sterile fashion. A surgical time-out was done. The patient received Cefotan 2 g IV preoperatively Examination of the anal canal revealed external hemorrhoidal columns on the left and the right side which appeared to be very prominent . I infiltrated the perianal area with lidocaine 1%. I inserted the Naya Holland retractor into the anal canal. I examined the anal canal circumferentially. These hemorrhoids described above were actually a mix of internal external and were bulky There were no lesions or any fissure nor any induration . I applied a Cedillo grasper on the hemorrhoidal column on the left side to retract this out in the field. I made a figure of 8 stitch at the pedicle past the dentate line with a chromic 3-0. I made an incision around this hemorrhoidal column all the way to the perianal skin using blade 15. I excised this hemorrhoidal column along this incision above the plane of the sphincters using Metzenbaum scissors I closed this incision with a running chromic 3-0 stitch. Additional hemostatic [id number] sutures were placed for oozing areas. The same procedure was duplicated on the large hemorrhoidal column the right side. Again this was retracted out in the field with a Cedillo grasper. I made a [id number]-[id number] stitch at the pedicle with a chromic 3-0. I made an incision around this and excise this about the plane of the sphincters using scissors. I closed this incision with a running chromic 3-0 stitch with additional hemostatic sutures with [id number] chromic 3-0 placed Once hemostasis was confirmed, I infiltrated the perianal area with Marcaine 0.5% for postop analgesia. The procedure was then completed The patient tolerated the procedure well. There were no immediate complications. Initial and final counts of sponges and instruments were correct. Estimated blood loss about 25 cc The patient was extubated without difficulty and transferred to the recovery room with stable vital signs.
[2023-08-09 08:24] VITALS: BP 121/63; PULSE 51; RESP 15; TEMP 36.1; O2SAT 99
[2023-08-09 08:29] VITALS: BP 113/62; PULSE 51; RESP 16; O2SAT 99
[2023-08-09 08:34] VITALS: BP 121/68; PULSE 49; RESP 16; O2SAT 98
[2023-08-09 08:39] VITALS: BP 125/68; PULSE 50; RESP 16; O2SAT 99
[2023-08-09 08:54] VITALS: BP 116/64; PULSE 50; RESP 16; TEMP 36.1; O2SAT 100
== END 2023-08-09 09:38 | disposition home or self-care (01) ==
PROVIDERS: PCP Internal Medicine Medical Oncology; Visit Provider Surgery
PROC: (CPT 46260; principal; 2023-08-09 07:30)
DX: K64.8 Other hemorrhoids (principal); K64.4 Residual hemorrhoidal skin tags; I10 Essential (primary) hypertension; E11.9 Type 2 diabetes mellitus without complications; I25.10 Atherosclerotic heart disease of native coronary artery without angina pectoris; Z79.82 Long term (current) use of aspirin; Z79.84 Long term (current) use of oral hypoglycemic drugs; Z79.899 Other long term (current) drug therapy; Z88.1 Allergy status to other antibiotic agents; Z88.8 Allergy status to other drugs, medicaments and biological substances
CPT/HCPCS: 46260; 88304; J0131; J1100; J2250; J2405; J2704; J2795; J3010

== ENCOUNTER → 2023-08-09 06:00 | Outpatient (BNV) | payer OTHER, SELFPAY | PROVIDERS: PCP Internal Medicine Medical Oncology; Visit Provider Surgery | DX: K64.8 Other hemorrhoids (principal) | CPT/HCPCS: 46260 ==

== ENCOUNTER 2023-08-22 10:00 | Outpatient (AMB) | payer OTHER, SELFPAY ==
--- NOTE | 2023-08-22 10:13 | MHC.OFFVIS ---
Intake Visit Reasons: s/p EUA hemorrhoidectomy Intake Note: This patient presents for a post-op assessment status post hemorrhoidectomy. Patient c/o; reports no complaints. Risk Control Representative Required: No Accompanied by: Self / Same As Patient Allergies metoclopramide [From REGLAN] Allergy (Severe, Verified 08/22/23 10:21) DYSTONIA levofloxacin [From LEVAQUIN] Allergy (Intermediate, Verified 08/22/23 10:21) PARASTESIAS HPI HPI s/p EUA hemorrhoidectomy: Details: He underwent hemorrhoidectomy x2 columns last 08/09/2023. He tolerated procedure well He admits that he had some pain for a few days postop but now feels much better. He denies any significant pain. He does state that he still sees a little bit of serosanguineous drainage. [facility] Medical History Inguinal hernia HLD (hyperlipidemia) Bursitis Gout History of skin cancer History of prostate cancer Hemorrhoids with complication Diabetes Renal colic HTN (hypertension) Coronary artery disease Surgical History History of hemorrhoidectomy (~08/09/23) Hx of cystoscopy (2020) Hx of colonoscopy Hx of radical prostatectomy (2017) H/O lithotripsy Hx of CABG Family History Mother Lymphoma Social History Household Members: Spouse Housing: House Do you presently have visiting nurse or other home services: No 75 years or older and lives alone: No Alcohol intake: unknown Patient Tobacco Use Status: Never used Tobacco 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 He is doing well postoperatively. His surgical sites appear to be healing well. His path report shows hemorrhoids I advised him to continue warm soaks to the area I will see him again in the office for another wound check in about a month. Coding Level of Care Code Global (51612) Diagnoses Hemorrhoids with complication K64.8
== END 2023-08-22 10:39 | disposition home or self-care (01) ==
PROVIDERS: PCP Internal Medicine Medical Oncology; Visit Provider Surgery
DX: K64.8 Other hemorrhoids (principal)
CPT/HCPCS: 99024

== ENCOUNTER → 2023-08-22 10:00 | Outpatient (BNVA) | payer OTHER, SELFPAY | PROVIDERS: PCP Internal Medicine Medical Oncology; Visit Provider Surgery ==

== ENCOUNTER 2023-08-26 11:47 | Outpatient (REF) | payer SELFPAY | END 2023-08-26 11:48 | disposition home or self-care (01) | LOC: HO.HAP 11:47 | PROVIDERS: Visit Provider Internal Medicine Medical Oncology | DX: Z46.1 Encounter for fitting and adjustment of hearing aid (principal) | CPT/HCPCS: V5267 ==

== ENCOUNTER → 2023-09-01 08:14 | Outpatient (REF) | payer OTHER, SELFPAY ==
--- NOTE | ~2023-09-01 | NM_ITS ---
Exercise Myocardial perfusion study Indication: Chest pain with prior coronary artery disease to evaluate for myocardial ischemia Technique: The patient was brought in for an exercise perfusion study on 09/01/2023. Patient performed exercise as per Hemant protocol and was injected 25 mCi of sestamibi was given intravenously one target HR was achieved. Images were obtained using the SPECT gamma camera interlaced with the gating device. Images were obtained in supine position. Resting perfusion study was performed on 09/02/2023. Patient was administered 25 mCi of sestamibi intravenously at rest. Images were then obtained in supine position. Images obtained with and without CT attenuation. Total DLP 99 mGy-cm. Images were processed with the software and compared side to side in short axis, horizontal long axis and vertical long axis views. Findings: The stress perfusion study showed non attenuated images show some thinning in the distal lateral and inferolateral wall of the LV myocardium. Overall otherwise myocardial perfusion imaging within normal limits. Attenuation corrected images show normal uptake of radiotracer in all segments of LV myocardium.. The gated study shows normal LV systolic function with calculated LVEF of greater than 50%. LV cavity is normal in in size. The gated study shows normal systolic wall thickening and contraction of all segments. There is no transient ischemic dilation. Resting study shows no change in perfusion pattern compared to stress perfusion study. Gating at rest reveals normal systolic wall motion with ejection fraction at 56%. The findings are consistent with no reversible defect suggestive of ischemia. NM/NM cardiolite stress test Impression: 1. Normal myocardial perfusion 2. Gated LVEF is 56% 3. Transient ischemic dilatation not present Stress EKG is negative for ischemia
--- NOTE | 2023-09-01 08:18 | CA_ITS ---
Acquisition Time: 2023-09-01 08:22:47 Total Exercise Time: 00:09:00 Test Indications: CAD, PREOP Medications: SEE H Protocol: MI Max HR: 146 BPM 98% of Pred: 148 BPM Max BP: 144/078 mmHG Max Work Load: 10.1 METS Exercise stress test with exercise 9 min of Mi protocol, achieving 91% MPHR, 10.1 METs, without anginal symptoms, with isolated PAC and brief atrial tachycardia at peak exercise, without EKG changes meeting criteria for ischemia. Nuclear images pending. Test reviewed with Dr Patten. Referred By: Johnny Silvestre Overread By: ERIK BOOKER
== END ==
LOC: HO.CARD 08:14
PROVIDERS: PCP Internal Medicine Medical Oncology; Visit Provider Internal Medicine Cardiovascular Disease
DX: R07.9 Chest pain, unspecified (principal); I25.10 Atherosclerotic heart disease of native coronary artery without angina pectoris
CPT/HCPCS: 78452; 93017; A9500

== ENCOUNTER → 2023-09-01 08:18 | Outpatient (BNV) | payer OTHER, SELFPAY | PROVIDERS: PCP Internal Medicine Medical Oncology; Visit Provider Nurse Practitioner Family | DX: R07.9 Chest pain, unspecified (principal) | CPT/HCPCS: 78452; 93016; 93018 ==

== ENCOUNTER 2023-09-21 09:51 | Outpatient (AMB) | payer OTHER, SELFPAY ==
--- NOTE | 2023-09-21 09:52 | A.OFFVIS_ITS ---
Intake Visit Reasons: 1 mth follow ups/p EUA hemorrhoidectomy Intake Note: This patient presents for a one month follow-up status post hemorrhoidectomy. Patient c/o; reports no complaints at si time. Environmental Compliance Technician Required: No Accompanied by: Self / Same As Patient Allergies metoclopramide [From REGLAN] Allergy (Severe, Verified 09/21/23 10:01) DYSTONIA levofloxacin [From LEVAQUIN] Allergy (Intermediate, Verified 09/21/23 10:01) PARASTESIAS HPI HPI 1 mth follow ups/p EUA hemorrhoidectomy: Details: He is here for another postop visit after hemorrhoidectomy. He feels much better with regards to pain and discomfort. He has happy with the outcome so far. [facility] Medical History Inguinal hernia HLD (hyperlipidemia) Bursitis Gout History of skin cancer History of prostate cancer Hemorrhoids with complication Diabetes Renal colic HTN (hypertension) Coronary artery disease Surgical History History of hemorrhoidectomy (~08/09/23) Hx of cystoscopy (2020) Hx of colonoscopy Hx of radical prostatectomy (2017) H/O lithotripsy Hx of CABG Family History Mother Lymphoma Social History Household Members: Spouse Housing: House Do you presently have visiting nurse or other home services: No 75 years or older and lives alone: No Alcohol intake: unknown Patient Tobacco Use Status: Never used Tobacco 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: 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 He continues to do well. His incisions appear to be well healed. I advised him on avoiding straining and constipation. He can follow up on a p.r.n. basis. Coding Level of Care Code Global (95911) Diagnoses Hemorrhoids with complication K64.8
== END 2023-09-21 10:16 | disposition home or self-care (01) ==
PROVIDERS: PCP Internal Medicine Medical Oncology; Visit Provider Surgery
DX: K64.8 Other hemorrhoids (principal)
CPT/HCPCS: 99024

== ENCOUNTER → 2023-09-21 09:51 | Outpatient (BNVA) | payer OTHER, SELFPAY | PROVIDERS: PCP Internal Medicine Medical Oncology; Visit Provider Surgery ==

== ENCOUNTER 2023-10-04 08:00 | Outpatient (REF) | payer OTHER, SELFPAY ==
[2023-10-04 08:14] LABS: MANUAL DIFF FLAG NO
[2023-10-04 08:47] LABS: Basophils Absolute Auto 0.1 X10*3/uL (0.0-0.2); Basophils Percent Auto 1.2 % (0-2); Eosinophils Absolute Auto 0.2 X10*3/uL (0.0-0.4); Eosinophils Percent Auto 3.1 % (0-4); Hematocrit 39.8 % (42.0-52.0); Hemoglobin 13.4 g/dl (14.0-18.0); Imm Gran Abs Auto 0.03 X10*3/uL (0.00-0.03); Imm Gran Pct Auto 0.5 % (0.0-0.4); Lymphocytes Absolute Auto 1.9 X10*3/uL (1.2-4.9); Lymphocytes Percent Auto 31.4 % (20-40); Mean Corpuscular HGB Conc 33.7 g/dl (31.0-36.0); Mean Corpuscular Hemoglobin 29.9 pg (27.0-33.0); Mean Corpuscular Volume 88.8 fL (80.0-98.0); Mean Platelet Volume 9.9 fL (9.4-12.4); Monocytes Absolute Auto 0.5 X10*3/uL (0.1-1.2); Monocytes Percent Auto 8.4 % (2-11); Neutrophils Absolute Auto 3.4 x10*3/uL (2.0-8.3); Neutrophils Percent Auto 55.4 % (45-73); Platelet Count 241 X10*3/uL (160-400); Red Blood Count 4.48 X10*6/uL (4.60-5.80); Red Cell Distribution Width 14.5 % (11.0-16.0); White Blood Count 6.1 X10*3/uL (4.8-10.8)
[2023-10-04 09:18] LABS: Estimated Average Glucose 117 mg/dL; Hemoglobin A1c % 5.7 % (<6.0)
[2023-10-04 09:23] LABS: Alanine Aminotransferase 31 U/L (0-40); Albumin Level 4.6 g/dL (3.5-5.0); Alkaline Phosphatase 54 U/L (39-117); Anion Gap 16 (12-20); Aspartate Amino Transferase 29 U/L (5-37); Bilirubin Total 0.6 mg/dL (0.0-1.0); Blood Urea Nitrogen 26 mg/dL (9-16); Calcium 9.4 mg/dL (8.4-10.2); Carbon Dioxide 23 mmol/L (22-29); Chloride 106 mmol/L (96-108); Cholesterol 112 mg/dL (<200); Estimated Glomerular Filt Rate 55; Glucose Fasting 116 mg/dL (60-99); HDL Cholesterol 49 mg/dL (>40); LDL Cholesterol Calculated 51 mg/dL (<100); Potassium 4.8 mmol/L (3.3-5.1); Sodium 140 mmol/L (135-145); Total Protein 7.2 g/dL (6.5-8.0); Triglycerides 64 mg/dL (<150)
[2023-10-04 11:19] LABS: Prostate Specific Antigen < 0.10 ng/mL (<0.05-4.0)
== END 2023-10-04 08:01 | disposition home or self-care (01) ==
LOC: HO.LAB 08:00
PROVIDERS: PCP Internal Medicine Medical Oncology; Visit Provider Internal Medicine Medical Oncology
DX: E11.69 Type 2 diabetes mellitus with other specified complication (principal); E78.5 Hyperlipidemia, unspecified; E66.3 Overweight; Z12.5 Encounter for screening for malignant neoplasm of prostate
CPT/HCPCS: 36415; 80053; 80061; 83036; 84153; 85025

== ENCOUNTER 2023-11-21 07:23 | Day surgery (SDC) | payer OTHER, SELFPAY ==
[2023-11-17 13:13] VITALS: BMI 24.2
[2023-11-21 07:42] VITALS: BMI 23.1
[2023-11-21 07:49] VITALS: BP 131/72; PULSE 67; RESP 16; TEMP 36.6; O2SAT 100
--- NOTE | 2023-11-21 07:50 | P.CONAN_ITS ---
Documented by User: Nini Felipe NP 11/18/23 10:20 HPI - Anesthesia Eval Consult details Narrative: 73yo M for Colonoscopy s/p EUA, Hemorrhoidectomy 07/2023 with GETA Follows [facility] [place] cardiology, cleared for surgery prior to hemorrhoidectomy: Preoperative cardiovascular risk stratification in patient with prior CAD and coronary bypass grafting (6 years ago), low risk surgery with excellent exercise capacity. From cardiac perspective he is currently optimized to undergo surgery with low risk for perioperative cardiovascular morbidity mortality. Can hold aspirin as per surgeon's discretion but resume as soon as possible after surgery. Continue all other medications in the perioperative period. PMFSH Active Problems Active Problems: All Active Problems Bursitis of right shoulder (Acute) Prostate cancer (Acute) Nephrolithiasis (Acute) Coronary artery disease (Acute) Hemorrhoids with complication (Acute) Diabetes (Acute) Past Medical History Medical History (Updated 11/17/23 @ 13:01 by Glenys Shields RN) Tubular adenoma Inguinal hernia HLD (hyperlipidemia) Bursitis Gout History of skin cancer History of prostate cancer Hemorrhoids with complication Diabetes Renal colic HTN (hypertension) Coronary artery disease Family History Family History Mother Lymphoma Family history of problems with anesthesia: No Surgical History Surgical History (Updated 11/17/23 @ 13:02 by Glenys Shields RN) Hx of tonsillectomy Hx of hernia repair History of hemorrhoidectomy (~08/09/23) Hx of cystoscopy (2020) Hx of colonoscopy Hx of radical prostatectomy (2017) H/O lithotripsy Hx of CABG History of Problems with Anesthesia: No Social History Social History Household Members: Spouse Housing: House Do you presently have visiting nurse or other home services: No Alcohol intake: unknown Patient Tobacco Use Status: Former Tobacco user Use of substances other than those prescribed or required for medical reasons: No Are you DNR?: No Advance Directives: No Advance Directives Information Provided: Yes Advance Directives on File: No Recently lost weight without trying: No How much weight loss: 2-13 pounds Nutrition Risks: No Nutritional Risk Poor oral hygiene: No 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 Allergy/AdvReac Type Severity Reaction Status Date / Time metoclopramide [From REGLAN] Allergy Severe DYSTONIA Verified 09/21/23 10:01 levofloxacin [From LEVAQUIN] Allergy Intermediate PARASTESIAS Verified 09/21/23 10:01 Home Medications ?Medication ?Instructions ?Recorded ?Confirmed ?Last Taken ?Type aspirin 81 mg tablet,delayed 81 mg PO DAILY 06/19/20 11/17/23 06/19/20 History release atorvastatin 80 mg tablet 80 mg PO DAILY 06/19/20 11/17/23 06/19/20 History metformin 1,000 mg tablet 500 mg PO BID 08/26/20 11/17/23 Unknown History metoprolol tartrate 50 mg tablet 25 mg PO BID 02/25/23 11/17/23 08/09/23 History allopurinol 100 mg tablet 300 mg PO DAILY 08/02/23 11/17/23 Unknown History ascorbic acid (vitamin C) 100 mg 100 mg PO DAILY 11/17/23 11/17/23 Unknown Hist ory chewable tablet Exam Height,Weight and Vital Signs: Height 5 ft 10 in Weight 76.657 kg Pertinent Lab Results Pertinent Lab Results: Laboratory Tests 10/04/23 08:08 WBC 6.1 Hgb 13.4 L Hct 39.8 L Plt Count 241 Sodium 140 Potassium 4.8 Chloride 106 Carbon Dioxide 23 BUN 26 H Creatinine 1.28 Narrative Narrative: Exercise Stress 08/2023 Protocol: HEMANT Max HR: 146 BPM 98% of Pred: 148 BPM Max BP: 144/078 mmHG Max Work Load: 10.1 METS Exercise stress test with exercise 9 min of Hemant protocol, achieving 91% MPHR, 10.1 METs, without anginal symptoms, with isolated PAC and brief atrial tachycardia at peak exercise, without EKG changes meeting criteria for ischemia. Nuclear images pending. Test reviewed with Dr Patten. Assessment and Plan Assessment Anesthesia Assessment: Chart Reviewed Final Anesthetic Review Family History of Problems with Anesthesia: No History of Problems with Anesthesia: No Documented by User: Moira Hernandez DO 11/21/23 08:55 [facility] Past Medical History Medical History (Updated 11/17/23 @ 13:01 by Glenys Shields RN) Tubular adenoma Inguinal hernia HLD (hyperlipidemia) Bursitis Gout History of skin cancer History of prostate cancer Hemorrhoids with complication Diabetes Renal colic HTN (hypertension) Coronary artery disease Family History Family History Mother Lymphoma Family history of problems with anesthesia: No Surgical History Surgical History (Updated 11/17/23 @ 13:02 by Glenys Shields RN) Hx of tonsillectomy Hx of hernia repair History of hemorrhoidectomy (~08/09/23) Hx of cystoscopy (2020) Hx of colonoscopy Hx of radical prostatectomy (2017) H/O lithotripsy Hx of CABG History of Problems with Anesthesia: No Social History Social History Household Members: Spouse Housing: House Do you presently have visiting nurse or other home services: No Alcohol intake: unknown Patient Tobacco Use Status: Former Tobacco user Use of substances other than those prescribed or required for medical reasons: No Are you DNR?: No Advance Directives: No Advance Directives Information Provided: Yes Advance Directives on File: No Recently lost weight without trying: No How much weight loss: 2-13 pounds Nutrition Risks: No Nutritional Risk Poor oral hygiene: No 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 Allergy/AdvReac Type Severity Reaction Status Date / Time metoclopramide [From REGLAN] Allergy Severe DYSTONIA Verified 09/21/23 10:01 levofloxacin [From LEVAQUIN] Allergy Intermediate PARASTESIAS Verified 09/21/23 10:01 Home Medications ?Medication ?Instructions ?Recorded ?Confirmed ?Last Taken ?Type aspirin 81 mg tablet,delayed 81 mg PO DAILY 06/19/20 11/17/23 06/19/20 History release atorvastatin 80 mg tablet 80 mg PO DAILY 06/19/20 11/17/23 06/19/20 History metformin 1,000 mg tablet 500 mg PO BID 08/26/20 11/17/23 Unknown History metoprolol tartrate 50 mg tablet 25 mg PO BID 02/25/23 11/17/23 08/09/23 History allopurinol 100 mg tablet 300 mg PO DAILY 08/02/23 11/17/23 Unknown History ascorbic acid (vitamin C) 100 mg 100 mg PO DAILY 11/17/23 11/17/23 Unknown History chewable tablet Exam Exam Date and Time: 11/21/23 0750 Height,Weight and Vital Signs: Height 5 ft 10 in Weight 76.657 kg Vital Signs Temperature 97.8 F 11/21/23 07:49 Pulse Rate 67 11/21/23 07:49 Respiratory Rate 16 11/21/23 07:49 Blood Pressure 131/72 11/21/23 07:49 Pulse Oximetry 100 11/21/23 07:49 Oxygen Delivery Method Room Air 11/21/23 07:49 Temperature 97.8 F 11/21/23 07:49 Pulse Rate 67 11/21/23 07:49 Respiratory Rate 16 11/21/23 07:49 Blood Pressure 131/72 11/21/23 07:49 Pulse Oximetry 100 11/21/23 07:49 Oxygen Delivery Method Room Air 11/21/23 07:49 Airway Mallampati Class: I TM Dist: >3cm Neck ROM: Limited Loose/Missing/Broken Teeth: No (patient denies any loose or broken teeth) Heart: S1S2 Lungs: CTAB Assessment and Plan Assessment Anesthesia Assessment: Anesthesia Plan Discussed and Chart Reviewed Final Anesthetic Review Family History of Problems with Anesthesia: No History of Problems with Anesthesia: No NPO: Yes ASA Class: II Final Preanesthetic Review: No Changes in Pt Med Stat, Meds/Allgs Chart Reviewed, Consent Obtained/Reviewed and Anes Risks/Benef Reviewed Patient Risk: Low Procedure Risk: Low Anesthetic Plan Anesthetic Plan: MAC: and Agree w/ Assess. and Plan Disposition: Standard PACU
[2023-11-21] MEDS: Lactated Ringers 1,000 ML 100 ML IVCONT (08:03)
[2023-11-21 08:09] LABS: Glucose, Whole Blood 81 mg/dL (60-115)
[2023-11-21 09:44] VITALS: BP 111/51; PULSE 54; RESP 16; TEMP 36.4; O2SAT 100
--- NOTE | 2023-11-21 09:48 | P.BOP_ITS ---
Brief Operative Note Date of Service: 11/21/23 Pre-op diagnosis: Screening Post-op diagnosis: other (Diverticulosis) Procedure: Colonoscopy to the cecum and TI Surgeon: Hany Caldera MD Anesthesia: MAC Was an Solar Water Heater Installer used for this Procedure?: No Estimated blood loss (mL): 0 Pathology: none sent Condition: stable Disposition: PACU
[2023-11-21 09:59] VITALS: BP 116/61; PULSE 56; RESP 16; TEMP 36.6; O2SAT 100
--- NOTE | 2023-11-21 10:17 | OP_ITS ---
DATE OF SERVICE: 11/21/2023 SURGEON: Hany Caldera MD INDICATIONS: The patient presents for evaluation of personal history of tubular adenoma of the colon and colorectal cancer screening. Full consent has been obtained from him for this, including risks of bleeding and perforation. PREOPERATIVE DIAGNOSIS: POSTOPERATIVE DIAGNOSIS: PROCEDURE PERFORMED: Colonoscopy to the cecum and terminal ileum. ESTIMATED BLOOD LOSS: COMPLICATIONS: ANESTHESIA: Monitored anesthesia care. ASSISTANTS: SPECIMENS: PREOPERATIVE DIAGNOSES: Colorectal cancer screening and personal history of tubular adenoma of the colon. POSTOPERATIVE DIAGNOSES: Colorectal cancer screening, personal history of tubular adenoma of the colon, diverticulosis, and internal hemorrhoids. DESCRIPTION OF PROCEDURE: The patient was placed in the left lateral decubitus position. The digital rectal exam revealed no abnormalities. The Olympus video pediatric colonoscope was then entered into the rectum and advanced to the cecum with the assistance of abdominal wall pressure. Once in the cecum, I did identify normal-appearing cecal pouch with appendiceal orifice and a normal-appearing ileocecal valve. The terminal ileum was cannulated and appeared normal. Scope was withdrawn back in the colon. The entire cecum and ileocecal valve appeared normal. The scope was slowly withdrawn assessing all mucosal surfaces carefully. Preparation was excellent. I did not visualize any sign of polyps, colitis, nor angiodysplasias. There was a moderate amount of sigmoid diverticulosis. In the rectum, scope was retroflexed, visualizing some scarring from previous hemorrhoid surgery as well as some small internal hemorrhoids. The rectal mucosa otherwise appeared normal. The scope was straightened and withdrawn from the patient. He tolerated the procedure well and was returned to the recovery area in stable condition. IMPRESSION: 1. Diverticulosis. 2. Internal hemorrhoids. PLAN: Given his previous history of tubular adenoma, I would recommend a followup colonoscopy in 5 years for further screening. He was advised he could resume his aspirin today. He will, otherwise, see me on a p.r.n. basis. MD SERA Rojas/DYLLAN / [phone]
== END 2023-11-21 11:06 | disposition home or self-care (01) ==
PROVIDERS: PCP Internal Medicine Medical Oncology; Visit Provider Internal Medicine
PROC: 0DJD8ZZ Inspection of Lower Intestinal Tract, Via Natural or Artificial Opening Endoscopic (ICD-10-PCS; CPT 45378; principal; 2023-11-21 08:30)
DX: Z12.11 Encounter for screening for malignant neoplasm of colon (principal); Z86.010 Personal history of colon polyps; K57.30 Diverticulosis of large intestine without perforation or abscess without bleeding; K64.8 Other hemorrhoids; M10.9 Gout, unspecified; I10 Essential (primary) hypertension; E11.9 Type 2 diabetes mellitus without complications; I25.10 Atherosclerotic heart disease of native coronary artery without angina pectoris; Z95.1 Presence of aortocoronary bypass graft; Z87.442 Personal history of urinary calculi; Z85.46 Personal history of malignant neoplasm of prostate; Z79.82 Long term (current) use of aspirin; Z79.84 Long term (current) use of oral hypoglycemic drugs; Z79.899 Other long term (current) drug therapy; Z88.1 Allergy status to other antibiotic agents; Z88.8 Allergy status to other drugs, medicaments and biological substances; Z98.890 Other specified postprocedural states; Z87.891 Personal history of nicotine dependence
CPT/HCPCS: 45378; 82947; J2250; J2704

== ENCOUNTER 2024-02-13 10:16 | Outpatient (REF) | payer OTHER, SELFPAY ==
--- NOTE | ~2024-02-13 | US_ITS ---
EXAMINATION: US RETROPERITONEAL LIMITED (RENAL ONLY) CLINICAL INFORMATION: Calculus of kidney. COMPARISON: Renal ultrasound 01/07/2023 and 02/02/2022. CT abdomen and pelvis 06/19/2020. X-ray abdomen KUB 12/21/2013. TECHNIQUE: Real-time imaging of the kidneys. FINDINGS: RIGHT KIDNEY: 10.2 x 5.4 x 5.0 cm (SAG x AP x TRV). The kidney is normal in size and contour. Renal cortical thickness and echogenicity is normal. No renal calculi or hydronephrosis. There is a simple midpole parapelvic cyst measuring 1.5 x 0.7 x 1.0 cm. LEFT KIDNEY: 11.2 x 5.5 x 5.1 cm (SAG x AP x TRV). The kidney is normal in size and contour. Renal cortical thickness and echogenicity is normal. No calculi or focal parenchymal lesions. No hydronephrosis. US/US renal BI IMPRESSION: 1. Normal kidneys bilaterally aside from a small simple parapelvic cyst right midpole, unchanged. Electronically signed by: Alexis Leonard MD 02/23/2024 03:[address] [facility]
== END 2024-02-13 10:17 | disposition home or self-care (01) ==
LOC: HO.US 10:16
PROVIDERS: PCP Internal Medicine Medical Oncology; Visit Provider Urology
DX: N20.0 Calculus of kidney (principal)
CPT/HCPCS: 76775

== ENCOUNTER → 2024-02-13 10:20 | Outpatient (BNV) | payer OTHER, SELFPAY | PROVIDERS: PCP Internal Medicine Medical Oncology; Visit Provider Radiology Diagnostic Radiology | DX: N20.0 Calculus of kidney (principal) | CPT/HCPCS: 76775 ==

== ENCOUNTER 2024-02-21 08:14 | Outpatient (REF) | payer OTHER, SELFPAY ==
[2024-02-21 11:00] LABS: MANUAL DIFF FLAG NO
[2024-02-21 11:06] LABS: Basophils Absolute Auto 0.1 X10*3/uL (0.0-0.2); Eosinophils Absolute Auto 0.2 X10*3/uL (0.0-0.4); Eosinophils Percent Auto 2.6 % (0-4); Hematocrit 39.9 % (42.0-52.0); Hemoglobin 13.3 g/dl (14.0-18.0); Imm Gran Abs Auto 0.02 X10*3/uL (0.00-0.03); Imm Gran Pct Auto 0.3 % (0.0-0.4); Lymphocytes Percent Auto 28.3 % (20-40); Mean Corpuscular HGB Conc 33.3 g/dl (31.0-36.0); Mean Corpuscular Volume 90.1 fL (80.0-98.0); Mean Platelet Volume 9.8 fL (9.4-12.4); Monocytes Absolute Auto 0.6 X10*3/uL (0.1-1.2); Monocytes Percent Auto 8.9 % (2-11); Neutrophils Absolute Auto 4.3 x10*3/uL (2.0-8.3); Neutrophils Percent Auto 58.9 % (45-73); Platelet Count 243 X10*3/uL (160-400); Red Blood Count 4.43 X10*6/uL (4.60-5.80); Red Cell Distribution Width 13.6 % (11.0-16.0); White Blood Count 7.2 X10*3/uL (4.8-10.8)
[2024-02-21 11:13] LABS: Estimated Average Glucose 120 mg/dL; Hemoglobin A1C 136.1569 umol/L; Hemoglobin A1c % 5.8 % (<6.0)
[2024-02-21 11:20] LABS: Alanine Aminotransferase 35 U/L (0-40); Albumin Level 4.5 g/dL (3.5-5.0); Alkaline Phosphatase 52 U/L (39-117); Anion Gap 15 (12-20); Aspartate Amino Transferase 29 U/L (5-37); Bilirubin Total 0.5 mg/dL (0.0-1.0); Blood Urea Nitrogen 40 mg/dL (9-16); Calcium 9.8 mg/dL (8.4-10.2); Carbon Dioxide 23 mmol/L (22-29); Chloride 106 mmol/L (96-108); Cholesterol 121 mg/dL (<200); Estimated Glomerular Filt Rate 43; Glucose Fasting 105 mg/dL (60-99); HDL Cholesterol 48 mg/dL (>40); LDL Cholesterol Calculated 61 mg/dL (<100); Potassium 4.8 mmol/L (3.3-5.1); Sodium 139 mmol/L (135-145); Total Protein 7.4 g/dL (6.5-8.0); Triglycerides 61 mg/dL (<150)
[2024-02-21 11:42] LABS: Prostate Specific Antigen < 0.10 ng/mL (<0.05-4.0)
[2024-02-21 11:49] LABS: Creatinine Urine 155.43 mg/dL; Microalbum/Creatinine Ratio Ur 10.9 ug/mg cr (<30)
[2024-02-21 11:52] LABS: Prostate Specific Antigen < 0.10 ng/mL (<0.05-4.0)
--- OUTSIDE RECORDS SUMMARY | 2024-02-22 18:46 | XMS_ITS ---
Author Organization Hany Bañuelos III, MD Address [address] [place] [address] Care Team Providers Care Roads Supervisor Name Role Phone Hany Bañuelos Primary Care Provider Allergies Allergen (clinical drug [...] every 10 day 04/04/2023 Active Dexcom G7 Habilitation Assistant - as directed - use t o [...] mm Hg 02/21/20 24 Blood pressure diastolic 72, 139 mm Hg 024 Heart Rate 54 /min 02/21/2024 Height 70 in 02/21/2024 Weight 169, 169.0 lbs 02/21/2024 BMI 24.25 kg/m2 02/21/2024 Encounters Encounter Location Date Provider Diagnosis Hany Bañuelos III, MD [address] [place] [address] [place] [address] 02/21/2024 Hany Bañuelos Type 2 diabetes mellitus with other specified complication E11.69 ; Annual physical exam Z00.00 and History of prostate cancer Z85.46 Assessments Encounter Date Diagnosis (ICD Code) Assessment Notes Treat ment Notes Treatment Clinical Notes 02/21/2024 Type 2 diabetes mellitus with other specified complication (ICD-10 - E11.69) He now has an optimal BMI and is exercising regularly. He has a monitor. His A1c is excellent. No change in his therapy is required today. 02/21/2024 Annual physical exam (ICD-10 - Z00.00) 02/21/2024 History of prostate cancer (ICD-10 - Z85.46) Plan Of Treatment Medication Medication Name Sig Start Date Stop Date Notes Coenzyme Q10 200 MG 1 tablet Orally Once a day Aspir-81 81 MG 1 tablet Orally Once a day Dexcom G7 Sensor - as directed - apply sensor every 10 day 04/04/2023 Dexcom G7 Habilitation Assistant - as directed - use t o [...] may, Reason: OV, Routine check-up Provider Name:Hany Bañuelos, 05/29/2024 04:00:00 PM, [address] [place] [address] [address], [place], [phone], Provider Name:Hany Bañuelos, 02/25/2025 04:00:00 PM, [address] [place] [address] [address], [place], [address], Progress Notes * Chris SANTORODOB:1950 (73 yo M)Acc No.[id number]:02/21/2024 Progress Notes Patient:?Chris SANTORO Provider:?Hany Bañuelos MD :1950???Age:73 Y???Sex:Male Giancarlo e:02/21/2024 Address:[phone] Subjective: * Chief Complaints: * ???1. Annual Exam. * HPI: ???Depression Screening:?PHQ-9?Little interest or pleasure in doing things?Not at all ?Feeling down, depressed, or hopeless?Not at all ?Trouble falling or staying asleep, or sleeping too much?Not at all ?Feeling tired or having little energy?Not at all ?Poor appetite or overeating?Not at all ?Feeling bad about yourself or that you are a failure, or have let yourself or your family down?Not at all ?Trouble concentrating on things, such as reading the newspaper or watching television?Not at all ?Moving or speaking so slowly that other people could have noticed; or the opposite, being so fidgety or restless that you have been moving around a lot more than usual?Not at all ?Thoughts that you would be better off or of hurting yourself in some way?Not at all ?Total Score?0 ???COVID-19 Screening:?Questions?Have you had any new onset fever, chills, cough, congestion, sore throat, shortness of breath, muscle aches??No ?Have you been exposed to the virus within the last 10 days??No ?Have you travelled internationally in the last 10 days??No ?Have you been exposed to COVID-19 in the past??Yes ???Fall Risk Screening:?Fall History?Have you had any falls with injury in the past year??No ?Have you had two or more falls in the past year??No ?Fall Risk Assessment:?No falls in the past year ???SDOH Questions:?SDOH Questions?In the past year have you been worried about losing your housing??No ?In the past year have you or any family members you live with been unable to get any of the following when it was really needed? Check all that apply:?None ???:? The patient, a 73-year-old male, has been [...] available. Blood Sugar Level is 105. * ROS:?General/Constitutional:?pain?only normal aches and pains.?Chills?denies.?Fatigue?admits.?Fever?denies.?ENT:?Decreased hearing?denies.?Respiratory:?Cough?denies.?Cardiovascular:?Chest pain with exertion?denies.?Dyspnea on exertion?denies.?Shortness of breath?denies.?Gastrointestinal:?Constipation?denies.?Decreased appetite?denies.?Diarrhea?denies.?Heartburn?denies.?Nausea?denies.?Rectal bleeding?denies.?Vomiting?denies.?Hematology:?bruising?denies.?petechiae?denies.?Swollen glands?none have been noted.?Genitourinary:?Frequent urination?denies.?Musculoskeletal:?Muscle aches?denies.?Painful joints?denies.?Sciatica?denies.?Weakness?denies.?Skin:?Itching?denies.?Rash?denies.?Skin lesion(s)?denies.?Neurologic:?Difficulty speaking?denies.?Dizziness?denies.?Headache?denies.?Low back pain?denies.?Psychiatric:?Depressed mood?denies.? * Medical History:?Other [place] chronic gout without tophus, unspecified site, Plantar fasciitis, Diabetes type 2, Coronary artery disease, Essential hypertension, History of prostate cancer, calcium oxalate kidney stone November 2013, Multiple tubular adenomas, Internal hemorrhoids with hematochezia, History of gout, Mild sensorineural hearing loss, Overweight. * Surgical History:?cardiac ca theterization 05/2017, lithotripsy 11/2013, tonsilectomy 1959, right inguinal herniorrhaphy 1989, prostatectomy 2010, cardiac bypass surgery 06/2017, colonoscopy, Dr. Caldera, tubular adenomas 12/2009, colonoscopy, Dr. Caldera, tubular adenomas 07/2004, Nephroscopy 06/2020, Skin Bx on right shoulder 11/2022, Hemorrhoidectomy 08/2023, No history . * Hospitalization/Major Diagno stic Procedure:?recent surgery cardiac bypass 06/2017, lithotomy and stent insertion left ureter June 2020, No history . * Family History:?Father: dece ased, diagnosed with CVD.?Mother: , Peripheral vascular disease, lymphoma, degenerative joint disease, history of stroke.? His father at 45 [place] diagnosed with MS and heart disease. His mother had degenerative joint disease cerebrovascular accident lymphoma and PVD. He is not aware of any family history of substance use disorder or addiction or mental illness. * Social History:?Tobacco Use:?Tobacco Use/Smoking?Patient is a?nonsmoker ?Additional Findings: Tobacco Non-User?Aggressive non-smoker ?Tobacco Control (Standard)?Tobacco use:?Nonsmoker ?Additional Findings: Tobacco non-user?Aggressive nonsmoker ???Drugs/Alcohol:?Drugs?Have you used drugs other than those for medical reasons in the past 12 months??No ???Drug/Alcohol:?AUDIT-C (Standard)?Did you have a drink containing alcohol in the past year??Yes ?How often did you have six or more drinks on one occasion in the past year??2 to 3 times per week (3 points) ?How many drinks did you have on a typical day when you were drinking in the past year??1 or 2 drinks (0 point) ?How often did you have a drink containing alcohol in the past year??Never (0 point) ?Points?3 ?Interpretation?Negative ???He is . 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 He lives in [place], [place]. * Medications:?Taking Atorvast atin Calcium 80 MG Tablet TAKE 1 TABLET BY MOUTH EVERY DAY , Taking metFORMIN HCl 1000 MG Tablet TAKE 1 TABLET BY MOUTH TWICE A DAY WITH A MEAL , Taking Vitamin C 500 MG Tablet Chewable 1 tablet Orally Once a day , Taking FreeStyle Lancets - Miscellaneous as directed as directed test blood sugars twice a day , Taking FreeStyle Lite Test - Strip as directed In Vitro to check blood sugar twice a day , Taking Aspir-81 81 MG Tablet Delayed Release 1 tablet Orally Once a day , Taking Coenzyme Q10 200 MG Tablet 1 tablet Orally Once a day , Taking DexGojee G7 Habilitation Assistant - Device as directed - use to check blood sugars up to 4 times daily , Taking Dexcom G7 Sensor - Miscellaneous as directed - apply sensor every 10 day , Taking Vitamin B-6 50 MG Tablet TAKE 1 TABLET BY MOUTH EVERY DAY Orally Once a day , Taking Allopurinol 100 MG Tablet 1 tablet Orally Once a day , stop date 04/02/2024, Taking Metoprolol Tartrate 50 MG Tablet TAKE 1 TABLET WITH FOOD BY MOUTH TWICE A DAY , Medication List reviewed and reconciled with the patient * Allergies:?RegBharat hall. Objective: * Vitals:?Ht: 70, Wt: 169,169. 0, BMI:24.25, BP: 139/72,139/72, HR:54, Temp:97.3, Wt-k.66. * ???Past Orders: Lab:Hemoglobin A1c * Collection Date 02/21/2024 [...] (Ref Range: 4.8-10.8 X10*3/uL) Red Blood Count 4.43?L (Ref Range: 4.60-5.80 X10*6/uL) 4.48?L (Ref Range: 4.60-5.80 X10*6/uL) 4.54?L (Ref Range: 4.60-5.80 X10*6/uL) Hemoglobin 13.3?L (Ref Range: 14.0-18.0 g/dl) 13.4?L (Ref Range: 14.0-18.0 g/dl) 13.3?L (Ref Range: 14.0-18.0 g/dl) Hematocrit 39.9?L (Ref Range: 42.0-52.0 %) 39.8?L (Ref Range: 42.0-52.0 %) 40.5?L (Ref Range: 42.0-52.0 %) Mean Corpuscular Volume [...] Pct Auto 0.3 (Ref Range: 0.0-0.4 %) 0.5?H (Ref Range: 0.0-0.4 %) 0.3 (Ref Range: [...] 7.8 (Ref Range: ug/mg cr) * Lab:[facility] [place]. Pane l Fast * Collection Date 02/21/2024 [...] 0-40 U/L) 31 (Ref Range: 0-40 U/L) 79?H (Ref Range: 0-40 U/L) Total Protein 7.4 [...] 13 (Ref Range: 12-20) Blood Urea Nitrogen 40?H (Ref Range: 9-16 mg/dL) 26?H (Ref Range: 9-16 mg/dL) 26?H (Ref Range: 9-16 mg/dL) Creatinine 1.58?H (Ref Range: 0.5-1.4 mg/dL) 1.28 (Ref Range: 0.5-1.4 mg/dL) 1.25 (Ref Range: 0.5-1.4 mg/dL) Estimated Glomerular Filt Rate 43 55 57 Glucose Fasting 105?H (Ref Range: 60-99 mg/dL) 116?H (Ref Range: 60-99 mg/dL) 105?H (Ref Range: 60-99 mg/dL) Calcium 9.8 (Ref [...] neg Menstrating NR N/A n/a * Examination: ???General Examination: ?GENERAL APPEARANCE:?pleasant, well nourished, well developed, in no acute distress, calm and relaxed.?HEAD:?atraumatic, normocephalic.?EYES:?eomi, perrla, anicteric, conjugate.?EARS:?normal.?NOSE:?septum intact.?ORAL CAVITY:?normal, unremarkable.?NECK/THYROID:?no jugular venous distention, no carotid bruit, thyroid normal.?LYMPH NODES:?no enlarged lymph nodes,spleen normal.?SKIN:?no suspicious lesions, anicteric.?HEART:?no clicks, gallops, murmurs, or rubs, regular rhythm, S1, S2 normal, no s3, or vascular bruits.?LUNGS:?clear to auscultation .?BREASTS:??no masses palpable bilaterally.?ABDOMEN:?bowel sounds normal, no ascites, no organomegaly, no mass.?RECTAL EXAM:?not examined.?MUSCULOSKELETAL:?extremities unremarkable, no clubbing, cyanosis or edema.?PERIPHERAL PULSES:?normal.?NEUROLOGIC:?alert and oriented, cranial nerves 2-12 grossly intact, deep tendon reflexes 2+ symmetrical, motor strength normal upper and lower extremities, sensory exam intact.?PSYCH:?alert, oriented.? Assessment: * Assessment: 1.?Annual physical exam - Z0 0.00 (Primary)???2.?Type 2 diabetes mellitus with other specified complication - E11.69???Notes :He now has an optimal BMI and is exercising regularly. He has a monitor. His A1c is excellent. No change in his therapy is required today.???3.?History of prostate cancer - Z85.46??? Plan: * Treatment: ? Value Reference Range ?SG 1.015 1.005 - 1.025 * ?pH 5.0 5.0 - 9.0 * ?FARHAN Negative Negative - * ?NIT Negative Negative - * ?PRO 15 Negative - Trac e * ?GLU Negative Negative - * ?KET Negative Negative - * ?UBG 0.2 0.1 - 1.8 * ?LYN Negative 0.2 - 1.3 * ?BLD Negative Negative - 2.?Type 2 diabetes mellitus with other specified complication? Continue Vitamin C Tablet Chewable, 500 MG, 1 tablet, Orally, Once a day;?Continue FreeStyle Lancets Miscellaneous, -, as directed, as directed, test blood sugars twice a day;?Continue FreeStyle Lite Test Strip, -, as directed, In Vitro, to check blood sugar twice a day;?Continue Aspir-81 Tablet Delayed Release, 81 MG, 1 tablet, Orally, Once a day;?Continue Coenzyme Q10 Tablet, 200 MG, 1 tablet, Orally, Once a day;?Continue Atlas5D G7 Habilitation Assistant Device, -, as directed, -, use to check blood sugars up to 4 times daily;?Continue Dexcom G7 Sensor Miscellaneous, -, as directed, -, apply sensor every 10 day;?Continue Vitamin B-6 Tablet, 50 MG, TAKE 1 TABLET BY MOUTH EVERY DAY, Orally, Once a day.?LAB: PROFILE, FASTING (COMPREHENSIVE METABOLIC) ?LAB: PSA, TOTAL ?LAB: CBC WITH AUTO DIFF ?LAB: Lipid Panel ?LAB: Hemoglobin A1c3.?History of prostate cancer?LAB: PROFILE, FASTING (COMPREHENSIVE METABOLIC) ?LAB: PSA, TOTAL ?LAB: CBC WITH AUTO DIFF ?LAB: Lipid Panel ?LAB: Hemoglobin A1c4.?Others? Continue Metoprolol Tartrate Tablet, 50 MG, TAKE 1 TABLET WITH FOOD BY MOUTH TWICE A DAY;?Continue Allopurinol Tablet, 100 MG, 1 tablet, Orally, Once a day;?Continue Atorvastatin Calcium Tablet, 80 MG, TAKE 1 TABLET BY MOUTH EVERY DAY;?Continue metFORMIN HCl Tablet, 1000 MG, TAKE 1 TABLET BY MOUTH TWICE A DAY WITH A MEAL.?? * Procedure Codes:?89760 URINE -NO MICRO * Follow Up:?3 Months, End may (Reason: OV, Routine check-up) * Images: * The named appointment provid er may or may not be the originator of this progress note, and it is not deemed complete until electronically signed by the appointment provider. Sign off status: Pending * Provider:?Hany Bañuelos MD Date:?02/11 Generated for Pino fernandez/Yomaira/Greeritting on:?02/22/2024 06:46 PM EST History and Physical Notes * [...] Fall Risk Assessment:: No falls in the COVID-19 Screening Questions Have you had any new onset fever, chills, cough, congestion, sore throat, shortness of breath, muscle aches?: No Have you been exposed to the virus with n the last 10 days?: No Have [...] developed, in no acute distress, calm and relaxed HEAD: atraumatic, normocep halic EYES: eomi, perrla, anicte corine, conjugate EARS: normal NOSE: septum intact NECK/THYROID: no jugular venous di stention, no carotid bruit, thyroid normal HEART: no clicks, gallops, murmurs, or rubs, regular rhythm, S1, S2 normal, no s3, or vascular bruits LUNGS: clear to auscultatio n ABDOMEN: bowel [...] lymph no irene,spleen normal RECTAL EXAM: not examined PSYCH: alert, oriented ORAL CAVITY: normal, unremarkable
--- OUTSIDE RECORDS SUMMARY | 2024-02-22 18:47 | XMS_ITS ---
Author Organization [facility] Address [address] [place] [address] Care Team Providers Care Pattern Gater Name Role Phone Hany Bañuelos MD Primary Care Provider Unavailab Hany Perkins Unavailable [phone] REASON FOR VISIT screening,hx polyps PROBLEMS Problem Type ICD Code Onset Dates Problem Status W/U Status Risk SNOMED Code Notes Problem Personal history of colonic polyps (Z86.010) Active confirmed History of polyp of colon (situation) (895148703) Problem Diverticulosis of large intestine without perforation or abscess without bleeding (K57.30) Active confirmed Diverticul ar disease of colon (450024613) Encounters Encounter Location Date Provider Diagnosis [facility] [address] [place] [phone] 11/21/2023 Hany Caldera Colon cancer scree jason Z12.11 ; Personal history of colonic polyps Z86.010 ; Diverticulosis of large intestine without perforation or abscess without bleeding K57.30 and Other hemorrhoids K64.8 ASSESSMENTS Encounter Date Diagnosis Assessment Notes Treatment Notes Treatment Clinical Notes 11/21/2023 Colon cancer screening (ICD-10 - Z12.11) 11/21/2023 Personal history of colonic polyps (ICD-10 - Z86.010) 11/21/2023 Diverticulosis of large intestine without perforation or abscess without bleeding (ICD-10 - K57.30) 11/21/2023 Other hemorrhoids (ICD-10 - K64.8) PLAN OF TREATMENT No Information
--- OUTSIDE RECORDS SUMMARY | 2024-02-22 18:47 | XMS_ITS ---
Author Organization [facility] Address [address] [place] [phone] Care Team Providers Care Head Cashier Name Role Phone Hany Bañuelos MD Primary Care Provider Unavailab Hany Perkins Unavailable [phone] REASON FOR VISIT current insurance Encounters Encounter Location Date Provider Diagnosis [facility] [address] [place] [phone] 10/06/2023 Hany Caldera PLAN OF TREATMENT No Information
--- OUTSIDE RECORDS SUMMARY | 2024-02-22 18:47 | XMS_ITS ---
Author Organization Hany Bañuelos III, MD Address [address] [place] [address] [place] [address] Care Team Providers Care Landscaping Supervisor Name Role Phone Hany Bañuelos Primary Care Provider Medications Medication SIG (Take, Route, Fr equency, Duration) Notes Start Date End Date Status Allopurinol 100 MG 1 tablet Orally Once a day for 90 days 12/05/2023 04/02/2024 Active Social History Sex Assigned At : Social History Observation Description Sex Assigned At Male Encounters Encounter Location Date Provider Diagnosis Hany Bañuelos III, MD [address] [place] [address] [place] [address] 12/05/2023 Hany Bañuelos Plan Of Treatment Medication Medication Name Sig Start Date Stop Date Notes Allopurinol 100 MG 1 tablet Orally Once a day for 90 days 12/05/2023 04/02/2024 Next Appt Details Provider Name:Hany Bañuelos, 05/29/2024 04:00:00 PM, [address] [place] [address] [place], [place], [address], Provider Name:Hany Bañuelos, 02/25/2025 04:00:00 PM, [address] [place] [address] [place], [address], Progress Notes * Chris SANTORODOB:1950 (73 yo M)Acc No.[id number]:12/05/2023 Patient:?Chris Santoro :1950???Age:73 Y???Sex:Male Address:[address] [place] [address] [place], [facility] [place], [address] * Refills? Start Allopurinol Tablet, 100 MG, Orally, 90 Tablet, 1 tablet, Once a day, 90 days, Refills=3 * true * Date:? Generated for Pino fernandez/Yomaira/Greeritting on:?02/22/2024 06:46 PM EST
--- OUTSIDE RECORDS SUMMARY | 2024-02-22 18:47 | XMS_ITS ---
Author Organization Hany Bañuelos III, MD Address [address] [place] [address] Care Team Providers Care Scrum Master Name Role Phone Hany Bañuelos Primary Care Provider REASON FOR VISIT Rx Refill Social History Sex Assigned At : Social History Observation Description Sex Assigned At Male Encounters Encounter Location Date Provider Diagnosis Hany Bañuelos III, MD [address] [place] [address] [place] [address] 12/05/2023 Hany Bañuelos Plan Of Treatment Next Appt Details Provider Name:Hany Bañuelos, 05/29/2024 04:00:00 PM, [address] [place] [address] [place], [address], Provider Name:Hany Bañuelos, 02/25/2025 04:00:00 PM, [address] [place] [address] [place], [address], Progress Notes * Chris SANTORODOB:1950 (73 yo M)Acc No.[id number]:12/05/2023 Patient:?Chris Santoro :1950???Age:73 Y???Sex:Male Address:[place], [address] * true * Date:? Generated for Printi ng/Faxing/eTransmitting on:?02/22/2024 06:46 PM EST
--- OUTSIDE RECORDS SUMMARY | 2024-02-22 18:47 | XMS_ITS ---
Author Organization [facility] Address [address] [place] [phone] Care Team Providers Care Senior Linux Unix Administrator Name Role Phone Hany Bañuelos MD Primary Care Provider Unavailab Hany Perkins Unavailable [phone] REASON FOR VISIT INSURANCE Encounters Encounter Location Date Provider Diagnosis [facility] [address] [place] [phone] 10/05/2023 Hany Caldera PLAN OF TREATMENT No Information
--- OUTSIDE RECORDS SUMMARY | 2024-02-22 18:47 | XMS_ITS | Patient Health Record ---
Author Organization Hany Bañuelos III, MD Address [address] [place] [address] Care Team Providers Care Radio Television Announcer Name Role Phone Hany Bañuelos Primary Care Provider [phone] Allergies Allergen (clinical drug ingredient) Drug/Non Drug [...] 0.2 - 1.3 BLD Negative Negative - XR lumbar spine 4V min Reviewed date:03/28/2023 10:09:30 AM Interpretation: Performing Lab: Notes/Report: [address] [address] XRay Report Signed Patient: Chris Santoro MR#: [id number] 8 : 1950 Acct:[id number] Age/Sex: 72 / M ADM Date: 03/10/23 Loc: HO.XRAY Attending Dr: Hany Bañuelos MD Ordering Physician: Hany Bañuelos MD Date of Service: 03/10/23 Procedure(s): XR lumbar spine 4V min Accession Number(s): [id number] cc: Hany Bañuelos MD EXAMINATION: XR LUMBOSACRAL SPINE WITH OBLIQUES CLINICAL INFORMATION: Low back pain COMPARISON: None available. TECHNIQUE: AP, lateral, oblique views and lateral coned view of lumbar spine FINDINGS: There is lumbarization of S1. There is levoscoliosis of lumbar spine and straightening of lumbar lordosis. There is narrowing of L4-L5, L3-L4, L2-L3, and L1-L2 intervertebral disc spaces is no evidence of spondylolysis or spondylolisthesis. Marginal spurring seen along the endplates. Soft tissues unremarkable. XR/XR lumbar spine 4V min IMPRESSION: Multilevel degenerative changes and scoliosis. Dictated By: Nilam Calhoun MD Signed By: <Electronically signed by Nilam Calhoun MD in OV> 03/18/231709 DD/ 1515 TD/TT: Piping Design Specialist: [place] [address] XRay Report Signed Patient: Filomena Santoro MR#: [id number] 8 : 1950 Acct:[id number] Age/Sex: 72 / M ADM Date: 03/10/23 Loc: HO.XRAY Attending Dr: Hany Bañuelos MD Ordering Physician: Hany Bañuelos MD Date of Service: 03/10/23 Procedure(s): XR lumbar spine 4V min Accession Number(s): [id number] cc: Hany Bañuelos MD EXAMINATION: XR LUMBOSACRAL SPINE WITH OBLIQUES CLINICAL INFORMATION: Low back pain COMPARISON: None available. TECHNIQUE: AP, lateral, oblique views and lateral coned view of lumbar spine FINDINGS: There is lumbarizati on of S1. There is levoscoliosis of lumbar spine and straightening of lumbar lordosis. There is narrowing of L4-L5, L3-L4, L2-L3, and L1-L2 intervertebral disc spaces is no evidence of spondylolysis or spondylolisthesis. Marginal spurring seen along the endplates. Soft tissues unremarkable. XR/XR lumbar spine 4V min IMPRESSION: Multilevel degenerative changes and scoliosis. Dictated By: Nilam Calhoun MD Signed By: <Electronically signed by Nilam Calhoun MD in OV> 03/18/23 171 DD/ 1515 TD/TT: Piping Design Specialist: XR sacrum coccyx min 2V Reviewed date:03/28/2023 10:09:30 AM Interpretation: Performing Lab: Notes/Report: [address] [address] XRay Report Signed Patient: Chris Santoro MR#: [id number] 8 : 1950 Acct:[id number] Age/Sex: 72 / M ADM Date: 03/10/23 Loc: HO.XRAY Attending Dr: Hany Bañuelos MD Ordering Physician: Hany Bañuelos MD Date of Service: 03/10/23 Procedure(s): XR sacrum coccyx min 2V Accession Number(s): [id number] cc: Hany Bañuelos MD EXAMINATION: XR SACRUM AND COCCYX CLINICAL INFORMATION: Low back pain COMPARISON: None available. TECHNIQUE: 2 views of the sacrum and 2 views of the coccyx were obtained. FINDINGS: Sacroiliac joints are unremarkable. Pubic bones are normal. There is lumbarization of S1. No evidence of fractures. XR/XR sacrum coccyx min 2V IMPRESSION: No acute abnormalities in the sacrum or coccyx. Dictated By: Nilam Calhoun MD Signed By: <Electronically signed by Nilam Calhoun MD in OV> 03/18/232 DD/ 1515 TD/TT: Piping Design Specialist: [address] [address] XRay Report Signed Patient: Filomena Santoro MR#: [id number] 8 : 1950 Acct:[id number] Age/Sex: 72 / M ADM Date: 03/10/23 Loc: HO.XRAY Attending Dr: Hany Bañuelos MD Ordering Physician: Hany Bañuelos MD Date of Service: 03/10/23 Procedure(s): XR sacrum coccyx min 2V Accession Number(s): [id number] cc: Hany Bañuelos MD EXAMINATION: XR SACRUM AND COCCYX CLINICAL INFORMATION: Low back pain COMPARISON: None available. TECHNIQUE: 2 views of the sacru m and 2 views of the coccyx were obtained. FINDINGS: Sacroiliac joints ar e unremarkable. Pubic bones are normal. There is lumbarization of S1. No evidence of fractures. XR/XR sacrum coccyx min 2V IMPRESSION: No acute abnormaliti es in the sacrum or coccyx. Dictated By: Nilam Calhoun MD Signed By: <Electronically signed by Nilam Calhoun MD in OV> 03/18/231711 DD/ 1515 TD/TT: Piping Design Specialist: XR pelvis 1-2V Reviewed date:03/28/2023 10:09:30 AM Interpretation: Performing Lab: Notes/Report: [address] [address] XRay Report Signed Patient: Chris Santoro MR#: [id number] 8 : 1950 Acct:[id number] Age/Sex: 72 / M ADM Date: 03/10/23 Loc: HO.XRAY Attending Dr: Hany Bañuelos MD Ordering Physician: Hany Bañuelos MD Date of Service: 03/10/23 Procedure(s): XR pelvis 1-2V Accession Number(s): [id number] cc: Hany Bañuelos MD EXAMINATION: XR PELVIS CLINICAL INFORMATION: Pain COMPARISON: None available. TECHNIQUE: AP view of the pelvis. FINDINGS: Bones are well-mineralized there is no evidence of fractures in the pelvis. Sacroiliac joints and hip joints are normal. Soft tissues unremarkable. There is lumbarization of S1. XR/XR pelvis 1-2V IMPRESSION: No acute abnormalities Dictated By: Nilam Calhoun MD Signed By: <Electronically signed by Nilam Calhoun MD in OV> 03/18/231710 DD/ 1515 TD/TT: Piping Design Specialist: [address] [address] XRay Report Signed Patient: Filomena Santoro MR#: [id number] 8 : 1950 Acct:[id number] Age/Sex: 72 / M ADM Date: 03/10/23 Loc: XRREINA Attending Dr: Hany Bañuelos MD Ordering Physician: Hany Bañuelos MD Date of Service: 03/10/23 Procedure(s): XR pelvis 1-2V Accession Number(s): [id number] cc: Hany Bañuelos MD EXAMINATION: XR PELVIS CLINICAL INFORMATION: Pain COMPARISON: None available. TECHNIQUE: AP view of the pelvis. FINDINGS: Bones are well-mineralized there is no evidence of fractures in the pelvis. Sacroiliac joints and hip joints are normal. Soft tissues unremarkable. There is lumbarization of S1. XR/XR pelvis 1-2V IMPRESSION: No acute abnormalities Dictated By: Nilam Calhoun MD Signed By: <Electronically signed by Nilam Calhoun MD in OV> 03/18/23 1711 DD/ 1515 TD/TT: Piping Design Specialist: Complete Blood Count Auto Di ff Reviewed date:07/08/2023 04:43:42 AM Interpretation: Performing Lab:[facility], [address] [place] [phone] Notes/Report: White Blood Count 6.8 4.8-10.8 X10*3/uL Red Blood Count 4.54 4.60-5.80 X10*6/uL Hemoglobin 13.3 14.0-18.0 g/dl Hematocrit 40.5 42.0-52.0 % Mean Corpuscular Volume 89.2 80.0-98.0 fL Mean Corpuscular Hemoglobin 29.3 27.0-33.0 pg Mean Corpuscular HGB Conc 32.8 31.0-36.0 g/dl Red Cell Distribution Width 14.1 11.0-16.0 % Platelet Count 284 160-400 X10*3/uL Mean Platelet Volume 10.2 9.4-12.4 fL Neutrophils Percent Auto 63.6 45-73 % Imm Gran Pct Auto 0.3 0.0-0.4 % Lymphocytes Percent Auto 25.9 20-40 % Monocytes Percent Auto 7.0 2-11 % Eosinophils Percent Auto 2.2 0-4 % Basophils Percent Auto 1.0 0-2 % NRBC Pct Auto 0.0 0.0-0.2 /100WBC Neutrophils Absolute Auto 4.3 2.0-8.3 x10*3/u L Imm Gran Abs Auto 0.02 0.00-0.03 X10*3/uL Lymphocytes Absolute Auto 1.8 1.2-4.9 X10*3/u L Monocytes Absolute Auto 0.5 0.1-1.2 X10*3/uL Eosinophils Absolute Auto 0.2 0.0-0.4 X10*3/u L Basophils Absolute Auto 0.1 0.0-0.2 X10*3/uL NRBC Abs Auto 0.000 0.0-0.012 X10*3/uL Comprehensive Jay. Panel Fa Reviewed date:07/08/2023 04:43:42 AM Interpretation: Performing Lab:[facility], [address] [place] [phone] Notes/Report: Sodium 140 135-145 mmol/L Potassium 4.5 3.3-5.1 mmol/L Chloride 108 96-108 mmol/L Carbon Dioxide 24 22-29 mmol/L Anion Gap 13 12-20 Blood Urea Nitrogen 26 9-16 mg/dL Creatinine 1.25 0.5-1.4 mg/dL Estimated Glomerular Filt Rate 57 NOTE: For -[place] individuals, multiply the result by 1.210. Chronic Kidney Disease: Estimated GFR < 60 mL/min/1.73m2 Severe Kidney Disease: Estimated GFR < 15 mL/min/1.73m2 Glucose Fasting 105 60-99 mg/dL A fasting glucose from 100-125 mg/dl is considered impaired (pre-diabetes). Calcium 9.8 8.4-10.2 mg/dL Bilirubin Total 0.8 0.0-1.0 mg/dL Aspartate Amino Transferase 36 5-37 U/L Alanine Aminotransferase 79 0-40 U/L Total Protein 7.1 6.5-8.0 g/dL Albumin Level 4.3 3.5-5.0 g/dL Alkaline Phosphatase 63 39-117 U/L Lipid Panel Reviewed date:07/08/2023 04:43:42 AM Interpretation: Performing Lab:[facility], [address] [place] [phone] Notes/Report: Triglycerides 41 <150 mg/dL Desirable Triglyceride: less than 150 mg/dL Borderline High Triglyceride 150-199 mg/dL High Triglyceride: 200-499 mg/dL Very High Triglyceride: greater than or equal to 5OO mg/dL Cholesterol 106 <200 mg/dL Desirable Cholesterol: less than 200 mg/dL Borderline High Cholesterol: 200-239 mg/dL High Cholesterol: greater than 239 mg/dL LDL Cholesterol Calculated 45 <100 mg/dL Desirable LDL: less than 100 mg/dL Near Optimal/Above Optimal LDL: 110-129 mg/dL Borderline High LDL: 130-159 mg/dL High LDL: 160-189 mg/dL Very High LDL: greater than or equal to 190 mg/dL HDL Cholesterol 53 >40 mg/dL Desirable HDL: greater than 40 mg/dL Note: This HDL assay may give artificially low results in patients with liver disease. Prostate Specific Antigen Reviewed date:07/08/2023 04:43:42 AM Interpretation: Performing Lab:[address] [address] Notes/Report: Prostate Specific Antigen < 0.10 <0.05-4.0 ng/mL PSA methodology: Sharma Alinity i Chemiluminescent Microparticle Immunoassay (CMIA) Microalbumin, Random Reviewed date:07/08/2023 04:43:42 AM Interpretation: Performing Lab:[facility], [address] [place] [phone] Notes/Report: Creatinine Urine 179.98 Microalbumin Urine 20.0 Microalbum/Creatinine Ratio Ur 11.1 <30 ug/mg cr Albumin/Creatinine Ratio Reference Ranges: Normal: < 30 ug/mg creatinine Microalbuminuria: 30 - 300 ug/mg creatinine Clinical Albuminuria: > 300 ug/mg creatinine Hemoglobin A1c Reviewed date:07/08/2023 04:43:42 AM Interpretation: Performing Lab:[address] [address] Notes/Report: Hemoglobin A1c % 5.7 <6.0 % Hemoglobin A1C Reference Range Adults: 4.8 - 6.0 % Non diabetic: < 6.0 % Goal: < 7.0 % Additional Action Suggested: > 8.0 % Note: Hemoglobin A1c results are invalid for patients with abnormal amounts of HbF. Blood transfusions may impact the HbA1c concentration in the patient sample. Estimated Average Glucose 117 eAG = Estimated average glucose which is %A1C expressed as average glucose, using the formula of the T2Q-Lgnxgzy Average Glucose study (ADAG), Diabetes Care, Vol.31,#8, 2007 Pathology Reviewed date:08/22/2023 04:13:12 AM Interpretation: Performing Lab:[facility], [address] [facility], [place] [address] Notes/Report: -- ---- Name: Chris Santoro Age/Sex: 73/M : 1950 Unit#: [id number] Attend Dr: Mehdi Carter MD Re08/09/23 Status : [facility] Location: [facility] Disch: -- ---- SPEC : [id number] RECD : 08/09/23 STATUS: ROBBIE MEJIAS NUM: [id number] CONNER: 08/09/23-[address] [facility] [address]: Mehdi Carter MD ENTERED: 08/09/23- SP TYPE: Surgical OTHR DR: Hany Bañuelos MD ORDERED: Gross Micro L3 Diagnosis Soft tissue, ?hemorrhoids?, excision: Anorectal mucosa with dilated and thrombosed vessels consistent with hemorrhoids. Clinical History Hemorrhoids Microscopic Description Microscopic sections reviewed. Material Received Hemorrhoids Gross Description Received in formalin labeled ?hemorrhoids? are 2 wrinkled, edematous, erythematous portions of link-pink and purple-maroon rectoanal mucosa and submucosa measuring 3.5 x 2.2 x 1.0 cm and 3.8 x 2.5 x 0.5 cm. The larger portion of tissue is focally eroded yet otherwise unremarkable. The margins are inked and sectioning reveals edematous, congested and hemorrhagic, link-pin k and red-maroon cut surfaces. Tram Inspector sections from each are submitted in [facility] es A1 and A2, respectively. CEDS Copies To: Hany Bañuelos MD [address] [facility], [address] [place], [place] [id number] Mehdi Carter MD [address] [facility] [place] [address] -- ---- Signed (signature on file) Bryan Acosta MD 08/11/23 1014 -- ---- END OF REPORT NM cardiolite stress test Reviewed date:09/12/2023 04:42:09 PM Interpretation: Performing Lab: Notes/Report: [address] [address] Nuclear Medicine Report Signed Patient: Chris Santoro MR#: [id number] 8 : 1950 Acct:[id number] Age/Sex: 73 / M ADM Date: 09/01/23 Loc: [facility] Attending Dr: Johnny Silvestre MD Ordering Physician: Johnny Silvestre MD Date of Service: 09/01/23 Procedure(s): NM cardiolite stress test Accession Number(s): [id number] cc: Hany Bañuelos MD; Johnny Silvestre MD Exercise Myocardial perfusion study Indication: Chest pain with prior coronary artery disease to evaluate for myocardial ischemia Technique: The patient was brought in for an exercise perfusion study on 09/01/2023. Patient performed exercise as per Hemant protocol and was injected 25 mCi of sestamibi was given intravenously one target HR was achieved. Images were obtained using the SPECT gamma camera interlaced with the gating device. Images were obtained in supine position. Resting perfusion study was performed on 09/02/2023. Patient was administered 25 mCi of sestamibi intravenously at rest. Images were then obtained in supine position. Images obtained with and without CT attenuation. Total DLP 99 mGy-cm. Images were processed with the software and compared side to side in short axis, horizontal long axis and vertical long axis views. Findings: The stress perfusion study showed non attenuated images show some thinning in the distal lateral and inferolateral wall of the LV myocardium. Overall otherwise myocardial perfusion imaging within normal limits. Attenuation corrected images show normal uptake of radiotracer in all segments of LV myocardium.. The gated study shows normal LV systolic function with calculated LVEF of greater than 50%. LV cavity is normal in in size. The gated study shows normal systolic wall thickening and contraction of all segments. There is no transient ischemic dilation. Resting study shows no change in perfusion pattern compared to stress perfusion study. Gating at rest reveals normal systolic wall motion with ejection fraction at 56%. The findings are consistent with no reversible defect suggestive of ischemia. NM/NM cardiolite stress test Impression: 1. Normal myocardial perfusion 2. Gated LVEF is 56% 3. Transient ischemic dilatation not present Stress EKG is negative for ischemia Dictated By: Johnny Silvestre MD Signed By: <Electronically signed by Johnny Silvestre MD in OV> 09/05/23 0853 DD/ 1400 TD/TT: Piping Design Specialist: [address] [address] Nuclear Medicine Report Signed Patient: Filomena Santoro MR#: [id number] 8 : 1950 Acct:[id number] Age/Sex: 73 / M ADM Date: 09/01/23 Loc: .[facility] Attending Dr: Johnny Silvestre MD Ordering Physician: Johnny Silvestre MD Date of Service: 09/01/23 Procedure(s): NM cardiolite stress test Accession Number(s): [id number] cc: Hany Bañuelos MD; Johnny Silvestre MD Exercise Myocardial perfusion study Indication: Chest pain with prio r coronary artery disease to evaluate for myocardial ischemia Technique: The patient was brought in for an exercise perfusion study on 09/01/2023. Patient performed exercise as per Hemant protocol and was injected 25 mCi of sestamibi was given intravenously one target HR was achieved. Images wer e obtained using the SPECT gamma camera interlaced with the gating device. Images were obtained in supine position. Resting perfusion study was performed on 09/02/2023. Patient was administered 25 mCi of sestamibi intravenously at rest. Images were then obtained in supine position. Images obtained with and without CT attenuation. Total DLP 99 mGy-cm. Images were processe d with the software and compared side to side in short axis, horizont al long axis and vertical long axis views. Findings: The stress perfusion study showed non attenuated images show some thinning in the dist al lateral and inferolateral wall of the LV myocardium. Overall otherwise myocardial perfusion imaging within normal limits. Attenuation corrected images show normal uptake of radiotracer in all segments of LV myocardium.. The gated study shows normal LV systolic function with calculated LVEF of greater than 50%. LV cavity is normal in in size. The gated study shows normal systolic wall thickening and contraction of all segments. There is no transient ischemic dilation. Resting study shows no change in perfusion pattern compared to stress perfusion study. Gating at rest reveals normal systolic wall motion with ejection fracti on at 56%. The findings are consistent with no reversible defect suggestive of ischemia. NM/NM cardiolite stress test Impression: 1. Normal myocardial perfusion 2. Gated LVEF is 56% 3. Transient ischemi c dilatation not present Stress EKG is negati ve for ischemia Dictated By: Johnny Silvestre MD Signed By: <Electronically signed by Johnny Silvestre MD in OV> 09/05/23 0853 DD/ 1400 TD/TT: Piping Design Specialist: Diabetic Eye Exam Reviewed date:09/29/2023 09:34:42 AM Interpretation:undefined Performing Lab: Notes/Report: undefined Complete Blood Count Auto Di ff Reviewed date:10/04/2023 03:43:24 PM Interpretation: Performing Lab:[facility], [address] [place] [phone] Notes/Report: White Blood Count 6.1 4.8-10.8 X10*3/uL Red Blood Count 4.48 4.60-5.80 X10*6/uL Hemoglobin 13.4 14.0-18.0 g/dl Hematocrit 39.8 42.0-52.0 % Mean Corpuscular Volume 88.8 80.0-98.0 fL Mean Corpuscular Hemoglobin 29.9 27.0-33.0 pg Mean Corpuscular HGB Conc 33.7 31.0-36.0 g/dl Red Cell Distribution Width 14.5 11.0-16.0 % Platelet Count 241 160-400 X10*3/uL Mean Platelet Volume 9.9 9.4-12.4 fL Neutrophils Percent Auto 55.4 45-73 % Imm Gran Pct Auto 0.5 0.0-0.4 % Lymphocytes Percent Auto 31.4 20-40 % Monocytes Percent Auto 8.4 2-11 % Eosinophils Percent Auto 3.1 0-4 % Basophils Percent Auto 1.2 0-2 % NRBC Pct Auto 0.0 0.0-0.2 /100WBC Neutrophils Absolute Auto 3.4 2.0-8.3 x10*3/u L Imm Gran Abs Auto 0.03 0.00-0.03 X10*3/uL Lymphocytes Absolute Auto 1.9 1.2-4.9 X10*3/u L Monocytes Absolute Auto 0.5 0.1-1.2 X10*3/uL Eosinophils Absolute Auto 0.2 0.0-0.4 X10*3/u L Basophils Absolute Auto 0.1 0.0-0.2 X10*3/uL NRBC Abs Auto 0.000 0.0-0.012 X10*3/uL Comprehensive Jay. Panel Fa st Reviewed date:10/04/2023 03:43:24 PM Interpretation: Performing Lab:[facility], [address] [place] [phone] Notes/Report: Sodium 140 135-145 mmol/L Potassium 4.8 3.3-5.1 mmol/L Chloride 106 96-108 mmol/L Carbon Dioxide 23 22-29 mmol/L Anion Gap 16 12-20 Blood Urea Nitrogen 26 9-16 mg/dL Creatinine 1.28 0.5-1.4 mg/dL Estimated Glomerular Filt Rate 55 NOTE: For -[place]ai[place]ese individuals, multiply the result by 1.210. Chronic Kidney Disease: Estimated GFR < 60 mL/min/1.73m2 Severe Kidney Disease: Estimated GFR < 15 mL/min/1.73m2 Glucose Fasting 116 60-99 mg/dL A fasting glucose from 100-125 mg/dl is considered impaired (pre-diabetes). Calcium 9.4 8.4-10.2 mg/dL Bilirubin Total 0.6 0.0-1.0 mg/dL Aspartate Amino Transferase 29 5-37 U/L Alanine Aminotransferase 31 0-40 U/L Total Protein 7.2 6.5-8.0 g/dL Albumin Level 4.6 3.5-5.0 g/dL Alkaline Phosphatase 54 39-117 U/L Lipid Panel Reviewed date:10/04/2023 03:43:24 PM Interpretation: Performing Lab:[address] [address] Notes/Report: Triglycerides 64 <150 mg/dL Desirable Triglyceride: less than 150 mg/dL Borderline High Triglyceride 150-199 mg/dL High Triglyceride: 200-499 mg/dL Very High Triglyceride: greater than or equal to 5OO mg/dL Cholesterol 112 <200 mg/dL Desirable Cholesterol: less than 200 mg/dL Borderline High Cholesterol: 200-239 mg/dL High Cholesterol: greater than 239 mg/dL LDL Cholesterol Calculated 51 <100 mg/dL Desirable LDL: less than 100 mg/dL Near Optimal/Above Optimal LDL: 110-129 mg/dL Borderline High LDL: 130-159 mg/dL High LDL: 160-189 mg/dL Very High LDL: greater than or equal to 190 mg/dL HDL Cholesterol 49 >40 mg/dL Desirable HDL: greater than 40 mg/dL Note: This HDL assay may give artificially low results in patients with liver disease. Prostate Specific Antigen Reviewed date:10/04/2023 03:43:24 PM Interpretation: Performing Lab:[address] [address] Notes/Report: Prostate Specific Antigen < 0.10 <0.05-4.0 ng/mL PSA methodology: Sharma Alinity i Chemiluminescent Microparticle Immunoassay (CMIA) Hemoglobin A1c Reviewed date:10/04/2023 03:43:24 PM Interpretation: Performing Lab:[facility], [address] [place] [phone] Notes/Report: Hemoglobin A1c % 5.7 <6.0 % Hemoglobin A1C Reference Range Adults: 4.8 - 6.0 % Non diabetic: < 6.0 % Goal: < 7.0 % Additional Action Suggested: > 8.0 % Note: Hemoglobin A1c results are invalid for patients with abnormal amounts of HbF. Blood transfusions may impact the HbA1c concentration in the patient sample. Estimated Average Glucose 117 eAG = Estimated average glucose which is %A1C expressed as average glucose, using the formula of the B5H-Bjrczso Average Glucose study (ADAG), Diabetes Care, Vol.31,#8, 2007 Glucose, Whole Blood Reviewed date:11/27/2023 06:00:22 AM Interpretation: Performing Lab:[facility], [address] [place] [phone] Notes/Report: Glucose, Whole Blood 81 60-115 mg/dL METER # : [id number] Complete Blood Count Auto Di ff Reviewed date:02/21/2024 04:11:17 PM Interpretation: Performing Lab:[facility], [address] [place] [phone] Notes/Report: White Blood Count 7.2 4.8-10.8 X10*3/uL Red Blood Count 4.43 4.60-5.80 X10*6/uL Hemoglobin 13.3 14.0-18.0 g/dl Hematocrit 39.9 42.0-52.0 % Mean Corpuscular Volume 90.1 80.0-98.0 fL Mean Corpuscular Hemoglobin 30.0 27.0-33.0 pg Mean Corpuscular HGB Conc 33.3 31.0-36.0 g/dl Red Cell Distribution Width 13.6 11.0-16.0 % Platelet Count 243 160-400 X10*3/uL Mean Platelet Volume 9.8 9.4-12.4 fL Neutrophils Percent Auto 58.9 45-73 % Imm Gran Pct Auto 0.3 0.0-0.4 % Lymphocytes Percent Auto 28.3 20-40 % Monocytes Percent Auto 8.9 2-11 % Eosinophils Percent Auto 2.6 0-4 % Basophils Percent Auto 1.0 0-2 % NRBC Pct Auto 0.0 0.0-0.2 /100WBC Neutrophils Absolute Auto 4.3 2.0-8.3 x10*3/u L Imm Gran Abs Auto 0.02 0.00-0.03 X10*3/uL Lymphocytes Absolute Auto 2.0 1.2-4.9 X10*3/u L Monocytes Absolute Auto 0.6 0.1-1.2 X10*3/uL Eosinophils Absolute Auto 0.2 0.0-0.4 X10*3/u L Basophils Absolute Auto 0.1 0.0-0.2 X10*3/uL NRBC Abs Auto 0.000 0.0-0.012 X10*3/uL Comprehensive Jay. Panel Fa st Reviewed date:02/21/2024 04:11:17 PM Interpretation: Performing Lab:[facility], [address] [place] [phone] Notes/Report: Sodium 139 135-145 mmol/L Potassium 4.8 3.3-5.1 mmol/L Chloride 106 96-108 mmol/L Carbon Dioxide 23 22-29 mmol/L Anion Gap 15 12-20 Blood Urea Nitrogen 40 9-16 mg/dL Creatinine 1.58 0.5-1.4 mg/dL Estimated Glomerular Filt Rate 43 Chronic Kidney Disease: Estimated GFR < 60 mL/min/1.73m2 Severe Kidney Disease: Estimated GFR < 15 mL/min/1.73m2 Glucose Fasting 105 60-99 mg/dL A fasting glucose from 100-125 mg/dl is considered impaired (pre-diabetes). Calcium 9.8 8.4-10.2 mg/dL Bilirubin Total 0.5 0.0-1.0 mg/dL Aspartate Amino Transferase 29 5-37 U/L Alanine Aminotransferase 35 0-40 U/L Total Protein 7.4 6.5-8.0 g/dL Albumin Level 4.5 3.5-5.0 g/dL Alkaline Phosphatase 52 39-117 U/L Lipid Panel Reviewed date:02/21/2024 04:11:17 PM Interpretation: Performing Lab:[facility], [address] [place] [phone] Notes/Report: Triglycerides 61 <150 mg/dL Desirable Triglyceride: less than 150 mg/dL Borderline High Triglyceride 150-199 mg/dL High Triglyceride: 200-499 mg/dL Very High Triglyceride: greater than or equal to 5OO mg/dL Cholesterol 121 <200 mg/dL Desirable Cholesterol: less than 200 mg/dL Borderline High Cholesterol: 200-239 mg/dL High Cholesterol: greater than 239 mg/dL LDL Cholesterol Calculated 61 <100 mg/dL Desirable LDL: less than 100 mg/dL Near Optimal/Above Optimal LDL: 110-129 mg/dL Borderline High LDL: 130-159 mg/dL High LDL: 160-189 mg/dL Very High LDL: greater than or equal to 190 mg/dL HDL Cholesterol 48 >40 mg/dL Desirable HDL: greater than 40 mg/dL Note: This HDL assay may give artificially low results in patients with liver disease. Prostate Specific Antigen Reviewed date:02/21/2024 04:11:17 PM Interpretation: Performing Lab:[facility], [address] [place] [phone] Notes/Report: Prostate Specific Antigen < 0.10 <0.05-4.0 ng/mL PSA methodology: Sharma Alinity i Chemiluminescent Microparticle Immunoassay (CMIA) Microalbumin, Random Reviewed date:02/21/2024 04:11:17 PM Interpretation: Performing Lab:[facility], [address] [place] [phone] Notes/Report: Creatinine Urine 155.43 Microalbumin Urine 17.0 Microalbum/Creatinine Ratio Ur 10.9 <30 ug/mg cr Albumin/Creatinine Ratio Reference Ranges: Normal: < 30 ug/mg creatinine Microalbuminuria: 30 - 300 ug/mg creatinine Clinical Albuminuria: > 300 ug/mg creatinine Hemoglobin A1c Reviewed date:02/21/2024 04:11:17 PM Interpretation: Performing Lab:[facility], [address] [place] [phone] Notes/Report: Hemoglobin A1c % 5.8 <6.0 % Hemoglobin A1C Reference Range Adults: 4.8 - 6.0 % Non diabetic: < 6.0 % Goal: < 7.0 % Additional Action Suggested: > 8.0 % Note: Hemoglobin A1c results are invalid for patients with abnormal amounts of HbF. Blood transfusions may impact the HbA1c concentration in the patient sample. Estimated Average Glucose 120 eAG = Estimated average glucose which is %A1C expressed as average glucose, using the formula of the U7G-Luxcicc Average Glucose study (ADAG), Diabetes Care, Vol.31,#8, 2007 Reason For Referral Reason Consult and Treat Ac gary Low Back Pain Muscle Strengthening Diagnosis 1 Acute low back pain, unspecified back pain laterality, unspecified whether sciatica present (M54.50) Referral Organization Hany Bañuelos III, MD Referring Provider First Name Hany Referring Provider Last Name Edda Referring Provider Speciality Internal edicine Referred Organization [facility] nter Referred Provider [facility] [employer] er, [facility] Referred Address [address] [place] [address],[place], [id number], Referred Provider Specialty Physical The rapist General Notes Jenna Anton 2022 03:33:15 PM EST > Faxed progress note and referral. Referral Priority Routine Referral Appointment Date 03/29/2023 Reason 2 new lesion on righ t hand Diagnosis 1 Type 2 diabetes berhane itus with other specified complication (E11.69) Diagnosis 2 History of skin canc er (Z85.828) Referral Organization Hany Bañuelos III, MD Referring Provider First Name Hany Referring Provider Last Name Edda [facility] Referred Provider [facility] ([place]) Referred Provider Specialty Dermatology General Notes Julia Richards CMA 06/13 04:24:28 PM EDT > I called [facility] in [place] spoke to chalk extruding machine operator [phone] she will put message into Niurka Suazo DRAWING BOX TENDER to get patient a sooner appt for the new lesions on his hands, Julia Richards CMA 07/11/2023 02:33:19 PM EDT > I called [facility] today they stated pt was seen today Referral Priority Routine Referral Appointment Date 07/11/2023 Reason Consult and Treat Symptomatic Hemmorrhoids Diagnosis 1 Hemorrhoids (K64.9) Referral Organization Hany Bañuelos III, MD Referring Provider First Name Hany Referring Provider Last Name Bañuelos Referring Provider Speciality Internal edicine Referred Provider MEHDI CARTER Referred Provider Specialty Surgery General Notes Jenna Anton 2023 03:42:41 PM EDT > Faxed referral and progress note Referral Priority Routine Referral Appointment Date 08/09/2023 Medications Medication SIG (Take, Route, Frequency, Duration) Notes Start Date End Date Status metFORMIN HCl 1000 MG TAKE 1 TABLET [...] test blood sugars twice a day Active Coenzyme Q10 200 MG 1 tablet Orally Once a day Active Aspir-81 81 MG 1 tablet Orally Once a day Active Dexcom G7 Sensor - as directed - apply sensor every 10 day 04/04/2023 Active Dexcom G7 Driver'S License Reviewing Officer - as directed - use t o check blood sugars up to 4 times daily 04/04/2023 Active Allopurinol 100 MG 1 tablet Orally Once a day 12/05/2023 Active Metoprolol Tartrate 50 MG TAKE 1 TABLET WITH FOOD BY MOUTH TWICE A DAY Active Vitamin B-6 50 MG TAKE 1 TABLET BY SKYLAR TH EVERY DAY Orally Once a day Active Immunizations Vaccine Route Administration Date Status Comme nts COVID PFIZER Unknown 03/20/2020 Administered Influenza, quad Unknown 01/03/2020 Administered Comirnaty Pfizer COVID-19 12+ Unknown 12/08/2023 Admini stered Influenza no Preserv 3 and > Unknown 12/23/2015 Adminis tered COVID PFIZER Unknown 09/02/2021 Administered Influenza no Preserv 3 and > Unknown 01/04/2017 Adminis tered COVID Pfizer Bivalent Unknown 12/30/2021 Administered Influenza, quad Unknown 12/28/2017 Administered SHINGRIX Unknown 12/10/2017 Administered Influenza, quad Unknown 12/29/2021 Administered Influenza, quad Unknown 12/25/2020 Administered COVID PFIZER Unknown 12/13/2020 Administered COVID PFIZER Unknown 02/28/2020 Administered SHINGRIX Unknown 04/10/2018 Administered Comirnaty Pfizer COVID-19 12+ Unknown 01/28/2023 Admini stered Influenza, quad Unknown 12/29/2022 Administered Influenza, quad Unknown 01/02/2019 Administered Social History Tobacco Use: Social History Observation [...] Never (0 point) Points 3 Interpretation Negative Problems Problem Type SNOMED Code ICD Code Onset Dates Problem Status W/U Status Risk Notes Problem 959931702 Tubular adenoma (D36.9) Active confirmed He is due for a colonoscopy in December and he was referred to us defect cutter to arrange this. Problem [id number] Type 2 diabetes mellitus with other specified complication (E11.69) Active confirmed He now has an optimal BMI and is exercising regularly. He has a monitor. His A1c is excellent. No change in his therapy is required today. Problem 47881819 Hyperlipidemia , unspecified (E78.5) Active confirmed His lipids are well controlled and no change in his regimen is necessary today. Problem 32874533 Essential hypertension (I10) Active confirmed His bloood pres sure today is in the stable range. No change in his regimen was necessary. Problem 374098520 History of skin cancer (Z85.828) Active confirmed He has 2 new lesions on his right wrist. He has been referred to the senior product engineer. Problem 5873240687793 Coronary artery disease involving [place] coronary artery of [place] heart without angina pectoris (I25.10) Active confirmed He has had no angina at rest or with exertion recently. No change in his regimen was needed today. He is up-to-date with his lard mixer. Problem 357406679 History of prostate cancer (Z85.46) Active confirmed His PSA remains nondetectable. The remission continues. Problem 269369010 Sensorineural hearing loss (SNHL) of both ears (H90.3) Active confirmed He is in the process of having an audiology exam. Amplification will be determined. 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 He remains well hydrated. Problem 77878351 Idiopathic chronic gout without tophus, unspecified site (M1A.00X0) Active confirmed He continues on allopurinol without difficulty. Vital Signs Heart Rate 54 /min 02/21/2024 Temperature 97.3 degrees Fahrenheit 02/21/2024 Oximetry 98 % 04/01/2023 Blood pressure diastolic 72, 139 mm Hg 02/21/2024 Height 70 in 02/21/2024 Blood pressure systolic 139 mm Hg 02/21/2024 Weight 169, 169.0 lbs 02/21/2024 BMI 24.25 kg/m2 02/21/2024 Encounters Encounter Location Date Provider Diagnosis Hany Bañuelos III, MD [address] [place] [address] [place] [phone] 02/21/2024 Hany Bañuelos Type 2 diabetes mellitus with other specified complication E11.69 ; Annual physical exam Z00.00 and History of prostate cancer Z85.46 Hany Bañuelos III, MD [address] [place] [address] [place] [phone] 04/01/2023 Hany Bañuelos Type 2 diabetes mellitus with other specified complication E11.69 ; Overweight E66.3 ; Essential hypertension I10 and History of prostate cancer Z85.46 Hany Bañuelos III, MD [address] [place] [address] [place] [phone] 07/05/2023 Hany Bañuelos Type 2 diabetes mellitus with other specified complication E11.69 ; Hyperlipidemia, unspecified E78.5 ; Overweight E66.3 ; Coronary artery disease involving [place] coronary artery of [place] heart without angina pectoris I25.10 ; Calcium oxalate kidney stones N20.0 ; Sensorineural hearing loss (SNHL) of both ears H90.3 ; Idiopathic chronic gout without tophus, unspecified site M1A.00X0 ; History of prostate cancer Z85.46 and History of skin cancer Z85.828 Hany Bañuelos III, MD [address] [place] [address] [place] [phone] 10/04/2023 Hany Bañuelos Type 2 diabetes mellitus with other specified complication E11.69 ; History of prostate cancer Z85.46 ; Hyperlipidemia, unspecified E78.5 ; Overweight E66.3 ; Calcium oxalate kidney stones N20.0 ; Essential hypertension I10 ; Coronary artery disease involving [place] coronary artery of [place] heart without angina pectoris I25.10 ; Sensorineural hearing loss (SNHL) of both ears H90.3 and Idiopathic chronic gout without tophus, unspecified site M1A.00X0 Hany Bañuelos III, MD [address] [place] [address] [place] [phone] 03/10/2023 Hany Bañuelos History of prostate cancer Z85.46 and Acute low back pain, unspecified back pain laterality, unspecified whether sciatica present M54.50 Hany Bañuelos III, MD [address] [place] [address] [place] [phone] 03/10/2023 Hany Bañuelos III, MD [address] [place] [address] [place] [phone] 04/04/2023 Hany Bañuelos senior living current us e of insulin Z79.4 and Type 2 diabetes mellitus with other specified complication E11.69 Hany Bañuelos III, MD [address] [place] [address] [place] [phone] 06/30/2023 Hany Bañuelos Type 2 diabetes mellitus with other specified complication E11.69 Hany Bañuelos III, MD [address] [place] [address] [place] [phone] 12/05/2023 Hany Bañuelos III, MD [address] [place] [address] [place] [phone] 12/05/2023 Hany Bañuelos Assessments Encounter Date Diagnosis (ICD Code) Assessment Notes Treat ment Notes Treatment Clinical Notes 02/21/2024 Type 2 diabetes mellitus with other specified complication (ICD-10 - E11.69) He now has an optimal BMI and is exercising regularly. He has a monitor. His A1c is excellent. No change in his therapy is required today. 04/01/2023 Overweight (ICD-10 - E66.3) He is very slightly overweight. I recommended he stabilize his weight at this level and then gradually reduce it. He will follow his usual low cholesterol diabetic diet. 04/01/2023 Type 2 diabetes mellitus with other specified complication (ICD-10 - E11.69) His diabetes has been well controlled. He is going to have comprehensive blood work tomorrow with a fasting lipid profile, fasting glucose, microalbumin and hemoglobin A1cc. 07/05/2023 Type 2 diabetes mellitus with other specified complication (ICD-10 - E11.69) He has lost substantial weight. His hemoglobin A1c is acceptable. He has been compliant with all of his treatments. 07/05/2023 Hyperlipidemia, unspecified (ICD-10 - E78.5) His lipids are currently stable on a statin medication. 10/04/2023 Type 2 diabetes mellitus with other specified complication (ICD-10 - E11.69) He now has an optimal BMI and is exercising regularly. He has a monitor. His A1c is excellent. No change in his therapy is required today. 10/04/2023 History of prostate cancer (ICD-10 - Z85.46) His PSA remains nondetectable. The remission continues. 04/04/2023 Type 2 diabetes mellitus with other specified complication (ICD-10 - E11.69) His diabetes has been well controlled. He is going to have comprehensive blood work tomorrow with a fasting lipid profile, fasting glucose, microalbumin and hemoglobin A1cc. 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 06/30/2023 Type 2 diabetes mellitus with other specified complication (ICD-10 - E11.69) His diabetes has been well controlled. He is going to have comprehensive blood work tomorrow with a fasting lipid profile, fasting glucose, microalbumin and hemoglobin A1cc. 02/21/2024 Annual physical exam (ICD-10 - Z00.00) 04/01/2023 Essential hypertension (ICD-10 - I10) His bloood pressure today is in the stable range. No change in his regimen was necessary. 07/05/2023 Overweight (ICD-10 - E66.3) Has lost substantial weight in his body mass index is now 24. This problem will be removed from the list. 10/04/2023 Hyperlipidemia, unspecified (ICD-10 - E78.5) His lipids are well controlled and no change in his regimen is necessary today. 03/10/2023 History of prostate cancer (ICD-10 - Z85.46) 02/21/2024 History of prostate cancer (ICD-10 - Z85.46) 04/01/2023 History of prostate cancer (ICD-10 - Z85.46) His PSA remains nondetectable. He has no symptoms of relapse. Surveillance will continue without treatment. 07/05/2023 Coronary artery disease involving [place] coronary artery of [place] heart without angina pectoris (ICD-10 - I25.10) He has had no angina at rest or with exertion recently. No change in his regimen was needed today. He is up-to-date with his lard mixer. 10/04/2023 Overweight (ICD-10 - E66.3) He is no longer overweight. This problem will be removed from his problems. 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 He remains well hydrated. 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 He remains well hydrated. 07/05/2023 Sensorineural hearing loss (SNHL) of both ears (ICD-10 - H90.3) He is in the process of having an audiology exam. Amplification will be determined. 10/04/2023 Essential hypertension (ICD-10 - I10) His bloood pressure today is in the stable range. No change in his regimen was necessary. 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 10/04/2023 Coronary artery disease involving [place] coronary artery of [place] heart without angina pectoris (ICD-10 - I25.10) He has had no angina at rest or with exertion recently. No change in his regimen was needed today. He is up-to-date with his lard mixer. 07/05/2023 History of prostate cancer (ICD-10 - Z85.46) His PSA remains nondetectable. He has no symptoms of relapse. Surveillance will continue without treatment. 10/04/2023 Sensorineural hearing loss (SNHL) of both ears (ICD-10 - H90.3) He is in the process of having an audiology exam. Amplification will be determined. 07/05/2023 History of skin cancer (ICD-10 - Z85.828) He has 2 new lesions on his right wrist. He has been referred to the senior product engineer. 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 Plan Of Treatment Pending Test Test Name Order Date PROFILE, FASTING (COMPREHENSIVE METABOLI C) 10/03/2019 PROFILE, FASTING (COMPREHENSIVE METABOLI C) 10/11/2018 PROFILE, FASTING (COMPREHENSIVE METABOLI C) 04/02/2022 PROFILE, FASTING (COMPREHENSIVE METABOLI C) 02/21/2024 PROFILE, FASTING (COMPREHENSIVE METABOLI C) 02/28/2019 PROFILE, FASTING (COMPREHENSIVE METABOLI C) 11/30/2022 PROFILE, FASTING (COMPREHENSIVE METABOLI C) 08/03/2022 PROFILE, FASTING (COMPREHENSIVE METABOLI C) 04/01/2023 PROFILE, FASTING (COMPREHENSIVE METABOLI C) 10/04/2023 PROFILE, FASTING (COMPREHENSIVE METABOLI C) 07/11/2020 PROFILE, FASTING (COMPREHENSIVE METABOLI C) 07/05/2023 PROFILE, RANDOM (COMPREHENSIVE METABOLIC ) 05/30/2019 HEMOGLOBIN A1C (GLYCOHEMOGLOBIN) 021 HEMOGLOBIN A1C (GLYCOHEMOGLOBIN) 020 HEMOGLOBIN A1C (GLYCOHEMOGLOBIN) 019 HEMOGLOBIN A1C (GLYCOHEMOGLOBIN) 023 HEMOGLOBIN A1C (GLYCOHEMOGLOBIN) 019 HEMOGLOBIN A1C (GLYCOHEMOGLOBIN) 023 HEMOGLOBIN A1C (GLYCOHEMOGLOBIN) 023 MAGNESIUM 07/11/2020 URIC ACID 07/11/2020 URIC ACID 04/02/2022 LIPID PANEL 11/30/2022 LIPID PANEL 08/03/2022 LIPID PANEL 10/03/2019 LIPID PANEL 05/30/2019 LIPID PANEL 07/11/2020 LIPID PANEL 10/11/2018 LIPID PANEL 02/28/2019 LIPID PANEL 04/02/2022 PSA, TOTAL 10/04/2023 PSA, TOTAL 02/28/2019 PSA, TOTAL 07/05/2023 PSA, TOTAL 04/02/2022 PSA, TOTAL 11/30/2022 PSA, TOTAL 08/03/2022 PSA, TOTAL 02/21/2024 PSA, TOTAL 05/30/2019 PSA, TOTAL 04/01/2023 MICROALBUMIN, RANDOM 04/02/2022 MICROALBUMIN, RANDOM 11/30/2022 MICROALBUMIN, RANDOM 07/11/2020 MICROALBUMIN, RANDOM 10/11/2018 CBC w DIFF 07/11/2020 CBC w DIFF 10/11/2018 CBC w DIFF 02/28/2019 CBC w DIFF 08/03/2022 CBC w DIFF 04/02/2022 CBC w DIFF 11/30/2022 CBC w DIFF 10/03/2019 CBC w DIFF 05/30/2019 VITAMIN D 25-OH TOTAL 07/11/2020 CBC WITH AUTO DIFF 04/01/2023 CBC WITH AUTO DIFF 10/04/2023 CBC WITH AUTO DIFF 07/05/2023 CBC WITH AUTO DIFF 02/21/2024 INFLUENZA A/B & RSV BY PCR 10/23/2018 SARS COV2 IGG 09/17/2019 Lipid Panel 04/01/2023 Lipid Panel 10/04/2023 Lipid Panel 07/05/2023 Lipid Panel 02/21/2024 Microalbumin, Random 04/01/2023 Microalbumin, Random 10/04/2023 Hemoglobin A1c 02/21/2024 Hemoglobin A1c 07/05/2023 Hemoglobin A1c 04/01/2023 Hemoglobin A1c 10/04/2023 Next Appt Details Provider Name:Hany Bañuelos, 05/29/2024 04:00:00 PM, [address] [place] [address] [address], [place], [phone], Provider Name:Hany Bañuelos, 02/25/2025 04:00:00 PM, [address] [place] [address] [address], [place], [phone], Insurance Providers Payer Name Payer Address Payer Phone Subscriber Number Group Number Insured Name Patient Relationship to Insured Coverage Start Date Coverage End Date [employer] [place] [address] [address] [place] [address] [id number] Chris Santoro Self - patient is the insured Medical (General) History Medical History History ICD Code Other secondary chronic gout without top hus, unspecified site M1A.40X0 Plantar fasciitis M72.2 diabetes type 2 coronary artery disease essential hypertension history of prostate cancer calcium oxalate kidney stone November 13 multiple tubular adenomas internal hemorrhoids with hematochezia history of gout mild sensorineural hearing loss overweight Surgical History Surgery Date(Month/Year) cardiac catheterization 05/2017 lithotripsy 11/2013 tonsilectomy 1960 right inguinal herniorrhaphy 1989 prostatectomy 2010 cardiac bypass surgery 06/2017 colonoscopy, Dr. Caldera, tubular adenomas 12/2009 colonoscopy, Dr. Caldera, tubular adenomas 07/2004 Nephroscopy 06/2020 Skin Bx on right shoulder 11/2022 Hemorrhoidectomy 08/2023 No history Hospitalization History Reason Date(Month/Year) recent surgery cardiac bypass 06/2017 lithotomy and stent insertion left urete r June 2020 No history
--- OUTSIDE RECORDS SUMMARY | 2024-02-22 18:47 | XMS_ITS | Patient Health Record ---
Author Organization [facility] Address [address] [place] [address] Care Team Providers Care Machine Operator Assistant Name Role Phone Hany Bañuelos MD Primary Care Provider Hany Suarez Unavailable [phone] ALLERGIES Allergen (clinical drug ingredient) Drug/Non Drug Allergy documented on EMR Reaction Allergy Type Onset Date Status metoclopramide Reglan dystonic reaction Drug Allergy Active Levaquin paresthesias Drug Allergy Acti ve RESULTS Component Value Reference Range Notes Glucose, Whole Blood Reviewed date:11/21/2023 09:16:03 PM Interpretation: Performing Lab:[facility], [address] [place] [phone] Notes/Report: Glucose, Whole Blood 81 60-115 mg/dL METER # : [id number] REASON FOR REFERRAL No Information MEDICATIONS Medication SIG (Take, Route, Frequency, Duration) Notes Start Date End Date Status Allopurinol 300 MG 1 tablet Orally Active Vitamin B6 50 MG 1 tablet Orally for 30 day(s) Active Aspir-81 81 MG 1 tablet Orally Once a day Active Metoprolol Tartrate 25 MG 1 tablet with food Orally Twice a day Active metFORMIN HCl 500 MG 1 tablet with a kandy l Orally twice a day Active Atorvastatin Calcium 80 MG 1 tablet Oral ly Once a day Active Vitamin C 100 MG 1 tablet Orally Once a day for 30 day(s) Active IMMUNIZATIONS Vaccine Route Administration Date Status Comme nts Influenza Unknown 11/12/2017 Administered SOCIAL HISTORY Sex Assigned At : Social History Observation Description Sex Assigned At Unknown Alcohol Screen Question Answer Notes Did you have a drink contain ing alcohol in the past year? Yes How often did you have a dri nk containing alcohol in the past year? 2 to 3 times a week (3 points) How many drinks did you have on a typical day when you were drinking in the past year? 1 or 2 drinks (0 point) How often did you have 6 or more drinks on one occasion in the past year? Never (0 point) Points 3 Interpretation Negative PROBLEMS Problem Type ICD Code Onset Dates Problem Status W/U Status Risk SNOMED Code Notes Problem Colon cancer screening (Z12.11) Active confirmed Colon cancer screening (812047228) Problem Personal history of colonic polyps (Z86.010) Active confirmed History of poly p of colon (situation) (007772812) Problem Diverticulosis of large intestine without perforation or abscess without bleeding (K57.30) Active confirmed Diverticul ar disease of colon (294130838) Problem Preprocedural examination (Z01.818) Active confirmed 141512464138041 Problem Hx of adenomatous colonic polyps (Z86.010) Active confirmed 936680793 VITAL SIGNS Blood pressure diastolic 00 mm Hg 07/19/2023 Height 70 in 07/19/2023 Blood pressure systolic 00 mm Hg 07/19/2023 Weight 167 lbs 07/19/2023 BMI 23.96 kg/m2 07/19/2023 Encounters Encounter Location Date Provider Diagnosis [facility] Outpatient [address] [place] [id number] 11/21/2023 Hany Caldera Colon cancer screeni ng Z12.11 ; Personal history of colonic polyps Z86.010 ; Diverticulosis of large intestine without perforation or abscess without bleeding K57.30 and Other hemorrhoids K64.8 [facility] [address] [place] [phone] 07/19/2023 Hany Caldera Hx of adenomatous colonic polyps Z86.010 ; Colon cancer screening Z12.11 and Preprocedural examination Z01.818 [facility] [address] [place] [phone] 10/05/2023 Hany Caldera [facility] [address] [place] [phone] 10/06/2023 Hany Caldera ASSESSMENTS Encounter Date Diagnosis Assessment Notes Treatment Notes Treatment Clinical Notes 11/21/2023 Colon cancer screening (ICD-10 - Z12.11) 11/21/2023 Personal history of colonic polyps (ICD-10 - Z86.010) 07/19/2023 Colon cancer screening (ICD-10 - Z12.11) Do not take aspirin on the morning of the colonoscopy. Do not take Metformin the night before nor on the morning of the colonosocpy. 07/19/2023 Hx of adenomatous colonic polyps (ICD-10 - Z86.010) 11/21/2023 Diverticulosis of large intestine without perforation or abscess without bleeding (ICD-10 - K57.30) 07/19/2023 Preprocedural examination (ICD-10 - Z01.818) 11/21/2023 Other hemorrhoids (ICD-10 - K64.8) PLAN OF TREATMENT Future Test Test Name Order Date COLONOSCOPY 11/22/2012 COLONOSCOPY 02/21/2018 COLONOSCOPY 07/19/2023 Insurance Providers Payer Name Payer Address Payer Phone Subscriber Number Group Number Insured Name Patient Relationship to Insured Coverage Start Date Coverage End Date [employer] [place] [address] [address] [place] [address] [id number] WEND[place] Self - patient is the insured MEDICAL (GENERAL) HISTORY Medical History History ICD Code Colon polyps-4 tubular adeno mas removed via colonoscopy in July 2004, 1 small tubular adenoma removed in 2012 Gout Denies OR,CVA,Lung disease,renal disease Prostate cancer in 2013 Hx of kidney stones NIDDM Hypertension CAD--CABG as below Colonoscopy 04/2018-1 small tubular adeno ma Surgical History Surgery Date(Month/Year) Hernia repair Tonsillectomy 4-V CABG 06/2017 Prostatectomy for prostate cancer 2013 Kidney stone removed Skin lesions removed Hemorrhoid surgery scheduled for end of 06/[address] Gudino
== END 2024-02-21 08:15 | disposition home or self-care (01) ==
LOC: HO.10HDL 08:14
PROVIDERS: Referring Provider Internal Medicine Medical Oncology; Visit Provider Urology
DX: Z12.5 Encounter for screening for malignant neoplasm of prostate (principal); E11.69 Type 2 diabetes mellitus with other specified complication; C61 Malignant neoplasm of prostate; E78.5 Hyperlipidemia, unspecified; E66.3 Overweight; Z85.46 Personal history of malignant neoplasm of prostate
CPT/HCPCS: 36415; 80053; 80061; 82043; 82570; 83036; 84153; 85025

== ENCOUNTER 2024-02-28 08:33 | Outpatient (AMB) | payer OTHER, SELFPAY ==
--- NOTE | 2024-02-28 08:38 | MHC.OFFVIS ---
Intake Visit Reasons: 1Y PSA/US(set) Intake Note: Patient is Present for 1Y F/U PSA Urology Medication: Vitamin B6, ALLOPURINOL Antibiotic Allergies: Levofloxacin Blood Thinners: Aspirin Dyehouse Worker Required: No Allergies metoclopramide [From REGLAN] Allergy (Severe, Verified 02/28/24 08:40) DYSTONIA levofloxacin [From LEVAQUIN] Allergy (Intermediate, Verified 02/28/24 08:40) PARASTESIAS HPI Comments Details: Chris is a pleasant male. He is a patient of Dr. Bañuelos. He is seen for the following urologic conditions - nephrolithiasis - prostate cancer Yearly follow-up PSA <0.1 Discussed pelvic floor exercises Renal ultrasound no stones Continue with vitamin B6 50 mg Nephrolithiasis Here for stone follow-up Initial stone 2014 Stone analysis - combination, calcium oxalate monohydrate predominant Intervention - 07/02 right-sided ureteroscopy laser lithotripsy stent Imaging - 09/01 renal ultrasound no evidence of stones - 03/03 renal ultrasound were 0.5 cm cyst right kidney, 3 mm stone left - 03/04 renal ultrasound right cyst small, no stones - 03/05 renal ultrasound no evidence of stones - 03/06 renal ultrasound normal 24 Hr Urine - adequate urine volume, borderline oxalate, good citrate Therapeutic plan - continue allopurinol with vitamin B6 - interval imaging surveillance - encouraged increased fluid intake with lemon therapy Prostate cancer - 2006 - robotic prostatectomy PSA 09/30 <0.1, 02/02 <0.1, 12/04 <0.1, 01/04 <0.1 Had Osteen 4 component and should have yearly surveillance PFSH Medical History (Updated 11/17/23 @ 13:01 by Glenys Shields, RN) Tubular adenoma Inguinal hernia HLD (hyperlipidemia) Bursitis Gout History of skin cancer History of prostate cancer Hemorrhoids with complication Diabetes Renal colic HTN (hypertension) Coronary artery disease Surgical History (Updated 11/17/23 @ 13:02 by Glenys Shields, RN) Hx of tonsillectomy Hx of hernia repair History of hemorrhoidectomy (~08/09/23) Hx of cystoscopy (2020) Hx of colonoscopy Hx of radical prostatectomy (2017) H/O lithotripsy Hx of CABG Family History Mother Lymphoma Social History Household Members: Spouse Housing: House Do you presently have visiting nurse or other home services: No 75 years or older and lives alone: No Alcohol intake: unknown Patient Tobacco Use Status: Former Tobacco user 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: employed 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 Review of Systems Const Denies chills and Denies fever(s) Card Reports no additional complaints and Denies syncope Resp Denies cough GI Denies abdominal pain and Denies heartburn Reports as per HPI and Denies change in libido Neuro Denies syncope Psych Denies change in libido Endo Denies change in libido Physical Exam Const General: cooperative, healthy appearing, comfortable and no acute distress Orientation/consciousness: patient oriented x3 HEENT Face and sinus: Yes normal facial exam Mouth: moist mucous membranes Neck Neck: Yes normal visual inspection, Yes full ROM and Yes trachea midline Chest Chest palpation & inspection: normal inspection of the chest Resp Effort & Inspection: normal respiratory effort, able to speak in complete sentences and no respiratory distress GI Inspection: Yes normal to inspection Back/Spine/Pelvis Cervical Spine: normal cervical lordosis Thoracic/Lumbar Spine: thoracic and lumbar spine normal to inspection Skin General skin exam: no rashes or lesions noted Neuro General: patient oriented x3, gait normal, tone normal and moves all extremities Extrem General: Yes normal to inspection and Yes capillary refill normal Assessment & Plan Assessment & Plan (1) Nephrolithiasis: Code(s): N20.0 - Calculus of kidney Category: Medical (2) Prostate cancer: Code(s): C61 - Malignant neoplasm of prostate Category: Medical Plan 12m f/u Orders: Orders Prostate Specific Antigen 364 Days C61 - Malignant neoplasm of prostate US renal BI 12 Months C61 - Malignant neoplasm of prostate Patient Instructions: Imaging studies, laboratory and physical exam results were discussed and reviewed in detail. No major barriers to patient understanding were identified. An opportunity to ask questions regarding the treatment plan was provided. All questions were answered. The patient expressed understanding and agreement with the above treatment plan. The patient is aware they should contact our office by phone for worsening of their current condition or the appearance of new urologic symptoms. Compliance is encouraged with any medications and followup testing that is ordered. It is a privilege to participate in the urologic care of your patient. If you have any questions or concerns regarding treatment for the above conditions, or other urologic issues, please do not hesitate to contact me. The office telephone contact is [phone]. This note is constructed using voice recognition software. While every effort has been made to ensure accuracy swimming coach or instructor errors may have been included. Yours sincerely, Dr Kevin Cochran MD, [facility] - Urology Providers of Expert, Compassionate Care for the Genitourinary System Coding Level of Care Code Est Pt Level 4 (28407) Diagnoses Nephrolithiasis N20.0 Prostate cancer C61
--- OUTSIDE RECORDS SUMMARY | 2024-02-28 08:39 | XMS_ITS ---
Author Organization Hany Bañuelos III, MD Address [address] [place] [address] Care Team Providers Care Manager Servicing Name Role Phone Hany Bañuelos Primary Care Provider [phone] REASON FOR VISIT Rx Refill Social History Sex Assigned At : Social History Observation Description Sex Assigned At Male Encounters Encounter Location Date Provider Diagnosis Hany Bañuelos III, MD [address] [place] [address] [place] [address] 12/05/2023 Hany Bañuelos Plan Of Treatment Next Appt Details Provider Name:Hany Bañuelos, 05/29/2024 04:00:00 PM, [address] [place] [address] [place], [address], Provider Name:Hany Bañuelos, 02/25/2025 04:00:00 PM, [address] [place] [address] [place], [phone], Progress Notes * Chris SANTORODOB:1950 (73 yo M)Acc No.[id number]:12/05/2023 Patient:?Chris Santoro :1950???Age:73 Y???Sex:Male Address:[place], [address] * true * Date:? Generated for Printi ng/Faxing/eTransmitting on:?02/28/2024 08:39 AM EST
--- OUTSIDE RECORDS SUMMARY | 2024-02-28 08:39 | XMS_ITS ---
Author Organization Hany Bañuelos III, MD Address [address] [place] [address] Care Team Providers Care Mechanical Engineer Name Role Phone Hany Bañuelos Primary Care [...] every 10 day 04/04/2023 Active Dexcom G7 Pickle Processor - as directed - use t o [...] Date Provider Diagnosis Hany Bañuelos III, MD [address] [place] [address] [place] [address] 02/21/2024 Hany Bañuelos Type 2 diabetes mellitus with other specified complication E11.69 ; History of prostate cancer Z85.46 ; Essential hypertension I10 ; Coronary artery disease involving igiugig coronary artery of igiugig heart without angina pectoris I25.10 ; Hyperlipidemia, [...] was necessary. 02/21/2024 Coronary artery disease involving igiugig coronary artery of igiugig heart without angina pectoris (ICD-10 - I25.10) He has had no angina at rest or with exertion recently. No change in his regimen was needed today. He is up-to-date with his pile driver operator. 02/21/2024 Hyperlipidemia, unspecified (ICD-10 - E78.5) His [...] sensor every 10 day 04/04/2023 Dexcom G7 Pickle Processor - as directed - use t o [...] check-up Provider Name:Hany Bañuelos, 05/29/2024 04:00:00 PM, [address] [facility] [place], [place], [address], Provider Name:Hany Bañuelos, 02/25/2025 04:00:00 PM, [address] [facility] [place], [place], [address], Progress Notes * Chris SANTORODOB:1950 (73 yo M)Acc No.[id number]:02/21/2024 Progress Notes Patient:?Chris SANTORO Provider:?Hany Bañuelos MD :1950???Age:73 Y???Sex:Male Giancarlo e:02/21/2024 Address:[address] [place] [address], [id number] Subjective: * Chief Complaints: * ???Annual Exam * HPI: ???Depression Screening:?PHQ-9?Little interest or pleasure [...] 105. * ROS:?General/Constitutional:?pain?only normal aches and pains.?Chills?denies.?Fatigue?admits.?Fever?denies.?ENT:?Decreased hearing?in both ears.?Respiratory:?Cough?denies.?Cardiovascular:?Chest pain with exertion?denies.?Dyspnea on exertion?denies.?Shortness of breath?denies.?Gastrointestinal:?Constipation?occasional.?Decreased appetite?denies.?Diarrhea?denies.?Heartburn?denies.?Nausea?denies.?Rectal bleeding?denies.?Vomiting?denies.?Hematology:?bruising?denies.?petechiae?denies.?Swollen glands?none have been noted.?Genitourinary:?Frequent urination?once a night.?Musculoskeletal:?Muscle aches?denies.?Painful joints?denies.?Sciatica?denies.?Weakness?denies.?Skin:?Itching?denies.?Rash?denies.?Skin lesion(s)?denies.?Neurologic:?Difficulty speaking?denies.?Dizziness?denies.?Headache?denies.?Low back pain?denies.?Psychiatric:?Depressed mood?denies.? * Medical History:? * Surgical History:?cardiac ca theterization 05/2017lithotripsy 11/2013tonsilectomy 1960right inguinal herniorrhaphy 1990prostatectomy 2011cardiac bypass surgery 06/2017colonoscopy, Dr. Caldera, tubular adenomas 12/2009colonoscopy, Dr. Caldera, tubular adenomas 07/2004Nephroscopy kin Bx on right shoulder 11/2022Hemorrhoidectomy 08/2023No history * Hospitalization/Major Diagno stic Procedure:?recent surgery cardiac bypass 06/2017lithotomy and stent insertion left ureter June 2020No history * Family History:?Father: dece ased, diagnosed with CVD.?Mother: , Peripheral vascular disease, lymphoma, degenerative joint disease, history of stroke.? His father at 45 MO diagnosed with MS and heart disease. His [...] ?Interpretation?Negative ???He is . 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 He lives in [place], [place]. * Medications:?TakingAtorvasta tin Calcium 80 MG Tablet TAKE 1 TABLET [...] tablet Orally Once a day Dexcom G7 Pickle Processor - Device as directed - use to [...] Orally Once a day Taking Dexcom G7 Pickle Processor - Device as directed - use to check blood sugars up to 4 times daily Taking Dexcom G7 Sensor - Miscellaneous as directed - apply sensor every 10 day Taking Vitamin B-6 50 MG Tablet TAKE 1 TABLET BY MOUTH EVERY DAY Orally Once a day Taking Allopurinol 100 MG Tablet 1 tablet Orally Once a day , stop date 04/02/2024Taking Metoprolol Tartrate 50 MG Tablet TAKE 1 TABLET WITH FOOD BY MOUTH TWICE A DAY Medication List reviewed and reconciled with the patient * Allergies:?Deangelo[ Allergies Verified] Objective: * Vitals:?Ht: 70, Wt:169, BMI: 24.25, BP:139/72, HR:54, Temp:97.3, Wt-k.66. * ???Past Orders: Lab:Hemoglobin [...] 7.8 (Ref Range: ug/mg cr) * Lab:[facility]prehensive [facility]. Pane l Fast * Collection Date 02/21/2024 [...] in no acute distress, calm and relaxed, man.?HEAD:?atraumatic, normocephalic.?EYES:?eomi, perrla, anicteric, conjugate.?EARS:?normal.?NOSE:?septum intact.?ORAL CAVITY:?normal, unremarkable.?NECK/THYROID:?no jugular venous distention, no carotid bruit, thyroid normal.?LYMPH NODES:?no enlarged lymph nodes,spleen normal.?SKIN:?no suspicious lesions, anicteric.?HEART:?no clicks, gallops, murmurs, or rubs, regular rhythm, S1, S2 normal, no s3, or vascular bruits, Healed median sternotomy scar.?LUNGS:?clear to auscultation .?BREASTS:??no masses palpable bilaterally.?ABDOMEN:?bowel sounds normal, no ascites, no organomegaly, no mass.?RECTAL EXAM:?not examined, Referred for colonoscopy.?MUSCULOSKELETAL:?extremities unremarkable, no clubbing, cyanosis or edema.?PERIPHERAL PULSES:?normal.?NEUROLOGIC:?alert and oriented, cranial nerves 2-12 grossly intact, deep tendon reflexes 2+ symmetrical, motor strength normal upper and lower extremities, sensory exam intact.?PSYCH:?alert, oriented, cognitive function intact, cooperative with exam, good eye contact, mood/affect full range, speech clear, thought process logical, goal directed.? Assessment: * Assessment: 1.?Type 2 diabetes mellitus with other specified complication - E11.69 (Primary)???Notes :He now has an optimal BMI and is exercising regularly. He has a monitor. His A1c is excellent. No change in his therapy is required today.???2.?History of prostate cancer - Z85.46???Notes :He continues in remission with an undetectable PSA and no symptoms.? The PSA will be followed carefully.???3.?Essential hypertension - I10???Notes :His bloood pressure today is in the stable range. The value was 138/72.? No change in his regimen was necessary.???4.?Coronary artery disease involving igiugig coronary artery of igiugig heart without angina pectoris - I25.10???Notes :He has had no angina at rest or with exertion recently. No change in his regimen was needed today. He is up-to-date with his pile driver operator.???5.?Hyperlipidemia, unspecified - E78.5???Notes :His lipids are well controlled and no change in his regimen is necessary today.???6.?Sensorineural hearing loss (SNHL) of both ears - H90.3???Notes :He is in the process of having an audiology exam. Amplification will be determined.???7.?Calcium oxalate kidney stones - N20.0???Notes :No further kidney stones have been reported. He remains well hydrated.??? Plan: * Treatment: 2.?History of prostate cance r?LAB: PROFILE, FASTING (COMPREHENSIVE METABOLIC) ?LAB: PSA, TOTAL ?LAB: CBC WITH AUTO DIFF ?LAB: Lipid Panel ?LAB: Hemoglobin A1c 3.?Others? Continue Metoprolol Tartrate Tablet, 50 MG, TAKE 1 TABLET WITH FOOD BY MOUTH TWICE A DAY;?Continue Allopurinol Tablet, 100 MG, 1 tablet, Orally, Once a day;?Continue Atorvastatin Calcium Tablet, 80 MG, TAKE 1 TABLET BY MOUTH EVERY DAY;?Continue metFORMIN HCl Tablet, 1000 MG, TAKE 1 TABLET BY MOUTH TWICE A DAY WITH A MEAL.?? * Labs:? * ?Lab: URINE DIP STICK (C ollection Date & Time - 02/21/2024) ? Value Reference Range ?SG 1.015 1.005 - 1.025 * ?pH 5.0 5.0 - 9.0 * ?FARHAN Negative Negative - * ?NIT Negative Negative - * ?PRO 15 Negative - Trac e * ?GLU Negative Negative - * ?KET Negative Negative - * ?UBG 0.2 0.1 - 1.8 * ?LYN Negative 0.2 - 1.3 * ?BLD Negative Negative - * Procedure Codes:?11401 URINE -NO MICRO * Preventive Medicine:? ??DM Care Plan:?Patient Lifestyle Goals?Patient wants to be able to manage diabetes without too much effort.?Treatment Goals?HbA1C < 7.0, Blood Sugars less than < 115.?Barriers?no barriers.?Self-Managment Goals?Increase exercise to 3 times a week for 30 mins.? * Follow Up:?3 Months, End of May (Reason: OV, Routine check-up) * Images: * Sign off status: Completed true * Provider:?Hany Bañuelos MD Date:?02/11 Generated for Pino fernandez/Yomaira/Greeritting on:?02/28/2024 08:39 AM EST History and Physical Notes * HPI [...]
--- OUTSIDE RECORDS SUMMARY | 2024-02-28 08:39 | XMS_ITS ---
Author Organization Hany Bañuelos III, MD Address [address] [place] [address] [place] [address] Care Team Providers Care Travel Manager Name Role Phone Hany Bañuelos Primary Care Provider Medications Medication SIG (Take, Route, Fr equency, Duration) Notes Start Date End Date Status Allopurinol 100 MG 1 tablet Orally Once a day for 90 days 12/05/2023 04/02/2024 Active Social History Sex Assigned At : Social History Observation Description Sex Assigned At Male Encounters Encounter Location Date Provider Diagnosis Hany Bañuelos III, MD [address] [place] [address] [place] [address] 12/05/2023 Hany Bañuelos Plan Of Treatment Medication Medication Name Sig Start Date Stop Date Notes Allopurinol 100 MG 1 tablet Orally Once a day for 90 days 12/05/2023 04/02/2024 Next Appt Details Provider Name:Hany Bañuelos, 05/29/2024 04:00:00 PM, [address] [place] [address] [place], [place], [address], Provider Name:Hany Bañuelos, 02/25/2025 04:00:00 PM, [address] [place] [address] [place], [address], Progress Notes * Chris SANTORODOB:1950 (73 yo M)Acc No.[id number]:12/05/2023 Patient:?Chris Santoro :1950???Age:73 Y???Sex:Male Address:[address] [place] [address] [place], [place], [address] * Refills? Start Allopurinol Tablet, 100 MG, Orally, 90 Tablet, 1 tablet, Once a day, 90 days, Refills=3 * true * Date:? Generated for Pino fernandez/Yomaira/Greeritting on:?02/28/2024 08:39 AM EST
--- OUTSIDE RECORDS SUMMARY | 2024-02-28 08:40 | XMS_ITS ---
Author Organization [facility] Address [address] [place] [address] Care Team Providers Care Puncher Name Role Phone Hany Bañuelos MD Primary Care Provider Unavailab Hany Perkins Unavailable [phone] REASON FOR VISIT screening,hx polyps PROBLEMS Problem Type ICD Code Onset Dates Problem Status W/U Status Risk SNOMED Code Notes Problem Personal history of colonic polyps (Z86.010) Active confirmed History of polyp of colon (situation) (335578444) Problem Diverticulosis of large intestine without perforation or abscess without bleeding (K57.30) Active confirmed Diverticul ar disease of colon (877501094) Encounters Encounter Location Date Provider Diagnosis [facility] Outpatient [address] [place] [phone] 11/21/2023 Hany Caldera Colon cancer scree jason [...]
--- OUTSIDE RECORDS SUMMARY | 2024-02-28 08:40 | XMS_ITS ---
Author Organization [facility] Address [address] [place] [address] Care Team Providers Care Rn Clinical Research Name Role Phone Hany Bañuelos MD Primary Care Provider Unavailab Hany Perkins Unavailable [phone] REASON FOR VISIT current insurance Encounters Encounter Location Date Provider Diagnosis [facility] [address] [place] [phone] 10/06/2023 Hany Caldera PLAN OF TREATMENT No Information
--- OUTSIDE RECORDS SUMMARY | 2024-02-28 08:40 | XMS_ITS | Patient Health Record ---
Author Organization Hany Bañuelos III, MD Address [address] [place] [address] Care Team Providers Care Weatherization Administrator Name Role Phone Hany Bañuelos Primary Care [...] date:03/28/2023 10:09:30 AM Interpretation: Performing Lab: Notes/Report: [address] [address] XRay Report Signed Patient: Chris Santoro MR#: [id number] 8 : 1950 Acct:[id number] Age/Sex: 72 / M ADM Date: 03/10/23 Loc: HO.XRAY Attending Dr: Hany Bañuelos MD Ordering Physician: Hany Bañuelos MD Date of Service: 03/10/23 Procedure(s): XR lumbar spine 4V min Accession Number(s): [id number] cc: Hany Bañuelos MD EXAMINATION: XR LUMBOSACRAL [...] in OV> 03/18/23 171 DD/ 1515 TD/TT: Regulator Pin Inserter: [place] [address] XRay Report Signed Patient: Filomena Santoro MR#: [id number] 8 : 1950 Acct:[id number] Age/Sex: 72 / M ADM Date: 03/10/23 Loc: HO.XRAY Attending Dr: Hany Bañuelos MD Ordering Physician: Hany Bañuelos MD Date of Service: 03/10/23 Procedure(s): XR lum bar spine 4V min Accession Number(s): [id number] cc: Hany Bañuelos MD EXAMINATION: XR LUMBOSACRAL SPINE WITH OBLIQUES CLINICAL INFORMATION: Low back pain COMPARISON: None available. TECHNIQUE: AP, lateral, oblique views and lateral coned view of lumbar spine FINDINGS: There is lumbarizati on of S1. There is levoscoliosis of lumbar spine and straightening of lumbar lordosis. There is narrowing of L4-L5, L3-L4, L2-L3, and L1 -L2 intervertebral disc spaces is no evidence of spondylolysis or spondylolisthesis. Marginal spurring seen along the endplates. Soft tiss ues unremarkable. XR/XR lumbar spine 4V min IMPRESSION: Multilevel degenerat lisa changes and scoliosis. Dictated By: Nilam Calhoun MD Signed By: <Electronically signed by Nilam Calhoun MD in OV> 03/18/23 171 DD/ 1515 TD/TT: Regulator Pin Inserter: XR sacrum coccyx min 2V Reviewed date:03/28/2023 10:09:30 AM Interpretation: Performing Lab: Notes/Report: [address] [address] XRay Report Signed Patient: Chris Santoro MR#: [id number] 8 : 1950 Acct:[id number] Age/Sex: 72 / M ADM Date: 03/10/23 Loc: HO.XRAY Attending Dr: Hany Bañuelos MD Ordering Physician: Hany Bañuelos MD Date of Service: 03/10/23 Procedure(s): XR sacrum coccyx min 2V Accession Number(s): [id number] cc: Hany Bañuelos MD EXAMINATION: XR SACRUM [...] MD in OV> 03/18/231711 DD/ 1515 TD/TT: Regulator Pin Inserter: [address] [address] XRay Report Signed Patient: Filomena Santoro MR#: [id number] 8 : 1950 Acct:[id number] Age/Sex: 72 / M ADM Date: 03/10/23 Loc: HO.XRAY Attending Dr: Hany Bañuelos MD Ordering Physician: Hany Bañuelos MD Date of Service: 03/10/23 Procedure(s): XR sac rum coccyx min 2V Accession Number(s): [id number] cc: Hany Bañuelos MD EXAMINATION: XR SACRUM [...] MD in OV> 03/18/231711 DD/ 1515 TD/TT: Regulator Pin Inserter: XR pelvis 1-2V Reviewed date:03/28/2023 10:09:30 AM Interpretation: Performing Lab: Notes/Report: [address] [address] XRay Report Signed Patient: Chris Santoro MR#: [id number] 8 : 1950 Acct:[id number] Age/Sex: 72 / M ADM Date: 03/10/23 Loc: RISHI Attending Dr: Hany Bañuelos MD Ordering Physician: Hany Bañuelos MD Date of Service: 03/10/23 Procedure(s): XR pelvis 1-2V Accession Number(s): [id number] cc: Hany Bañuelos MD EXAMINATION: XR PELVIS [...] MD in OV> 03/18/231710 DD/ 1515 TD/TT: Regulator Pin Inserter: [address] [address] XRay Report Signed Patient: Filomena Santoro MR#: [id number] 8 : 1950 Acct:[id number] Age/Sex: 72 / M ADM Date: 03/10/23 Loc: RISHI Attending Dr: Hany Bañuelos MD Ordering Physician: Hany Bañuelos MD Date of Service: 03/10/23 Procedure(s): XR pel vis 1-2V Accession Number(s): [id number] cc: Hany Bañuelos MD EXAMINATION: XR PELVIS [...] in OV> 03/18/23 1711 DD/ 1515 TD/TT: Regulator Pin Inserter: Complete Blood Count Auto Di ff Reviewed date:07/08/2023 04:43:42 AM Interpretation: Performing Lab:[facility], [address] [place] [phone] Notes/Report: White Blood Count 6.8 4.8-10.8 X10*3/uL [...] 0.0-0.2 /100WBC Neutrophils Absolute Auto 4.3 2.0-8.3 x10*3/uL Imm Gran Abs Auto 0.02 0.00-0.03 X10*3/uL Lymphocytes Absolute Auto 1.8 1.2-4.9 X10*3/uL Monocytes Absolute Auto 0.5 0.1-1.2 X10*3/uL Eosinophils Absolute Auto 0.2 0.0-0.4 X10*3/uL Basophils Absolute Auto 0.1 0.0-0.2 X10*3/uL NRBC Abs Auto 0.000 0.0-0.012 X10*3/uL Comprehensive [place]. Panel Fa st Reviewed date:07/08/2023 04:43:42 AM Interpretation: Performing Lab:[facility], [address] [place] [phone] Notes/Report: Sodium 140 135-145 mmol/L Potassium 4.5 3.3-5.1 mmol/L Chloride 108 96-108 mmol/L Carbon Dioxide 24 22-29 mmol/L Anion Gap 13 12-20 Blood Urea Nitrogen 26 9-16 mg/dL Creatinine 1.25 0.5-1.4 mg/dL Estimated Glomerular Filt Rate 57 NOTE: For -Moroccan individuals, multiply the result by 1.210. Chronic [...] Panel Reviewed date:07/08/2023 04:43:42 AM Interpretation: Performing Lab:[facility], [address] [place] [phone] Notes/Report: Triglycerides 41 <150 mg/dL Desirable Triglyceride: [...] Antigen Reviewed date:07/08/2023 04:43:42 AM Interpretation: Performing Lab:[address] [address] Notes/Report: Prostate Specific Antigen < 0.10 <0.05-4.0 ng/mL PSA methodology: Sharma Alinity i Chemiluminescent Microparticle Immunoassay (CMIA) Microalbumin, Random Reviewed date:07/08/2023 04:43:42 AM Interpretation: Performing Lab:[facility], [address] [place] [phone] Notes/Report: Creatinine Urine 179.98 Microalbumin Urine 20.0 Microalbum/Creatinine Ratio Ur 11.1 <30 ug/mg cr Albumin/Creatinine Ratio Reference Ranges: Normal: < 30 ug/mg creatinine Microalbuminuria: 30 - 300 ug/mg creatinine Clinical Albuminuria: > 300 ug/mg creatinine Hemoglobin A1c Reviewed date:07/08/2023 04:43:42 AM Interpretation: Performing Lab:[address] [address] Notes/Report: Hemoglobin A1c % 5.7 <6.0 % [...] average glucose, using the formula of the D8I-Qkzxgjn Average Glucose study (ADAG), Diabetes Care, Vol.31,#8, 2007 Pathology Reviewed date:08/22/2023 04:13:12 AM Interpretation: Performing Lab:[facility], [address] [facility], [place] [address] Notes/Report: --- Name: Chris Santoro Age/Sex: 73/M : 1950 Unit#: [id number] Attend Dr: Mehdi Carter MD Re08/09/23 Status : [facility] Location: [facility] Disch: --- SPEC : [id number] RECD : 08/09/23 STATUS: ROBBIE HINKLEArina NUM: [id number] CONNER: 08/09/23-[address] [facility] [address]: Mehdi Carter MD ENTERED: 08/09/23- 40 SP TYPE: Surgical OTHR DR: Hany Bañuelos MD ORDERED: Gross Micro L3 Diagnosis Soft tissue, ?hemorrhoids?, excision: Anorectal mucosa with dilated and thrombosed vessels consistent w ith hemorrhoids. Clinical History Hemorrhoids Microscopic Description Microscopic [...] hemorrhagic, link-pin k and red-maroon cut surfaces. Semiconductor Bonder sections from each are submitted in [facility] es A1 and A2, respectively. CEDS Copies To: Hany Bañuelos MD [address] [facility], [address] [place] [address] Mehdi Carter MD [address] [place] [address] --- Signed (signature on file) Bryan Acosta MD 08/11/23 1014 --- END OF REPORT NM cardiolite stress test Reviewed date:09/12/2023 04:42:09 PM Interpretation: Performing Lab: Notes/Report: [address] [address] Nuclear Medicine Report Signed Patient: Chris Santoro MR#: [id number] 8 : 1950 Acct:[id number] Age/Sex: 73 / M ADM Date: 09/01/23 Loc: UCHE Attending Dr: Johnny Silvestre MD Ordering Physician: Johnny Silvestre MD Date of Service: 09/01/23 Procedure(s): NM cardiolite stress test Accession Number(s): [id number] cc: Hany Bañuelos MD; Johnny Silvestre MD [...] in OV> 09/05/23 0853 DD/ 1400 TD/TT: Regulator Pin Inserter: [address] [address] Nuclear Medicine Report Signed Patient: Filomena Santoro MR#: [id number] 8 : 1950 Acct:[id number] Age/Sex: 73 / M ADM Date: 09/01/23 Loc: .CARD Attending Dr: Johnny Silvestre MD Ordering Physician: Johnny Silvestre MD Date of Service: 09/01/23 Procedure(s): NM cardiolite stress test Accession Number(s): [id number] cc: Hany Bañuelos MD; Johnny Silvestre MD Exercise Myocardial perfusion study Indication: Chest pain with prio r coronary artery disease to evaluate for myocardial ischemia Technique: The patient was brou t in for an exercise perfusion study on 09/01/2023. Patient performed exercise as per Hemant protocol and was injected 25 mCi of sestamibi was given intravenously one target HR was achieved. Images wer e obtained using the SPECT gamma camera interlaced with the gating robert ce. Images were obtained in supine position. Resting perfusion st udy was performed on 09/02/2023. Patient was administered 25 mCi of sestamibi intravenously at rest. Images were then obtained in sup ine position. Images obtained with and without CT [...] perfusion pattern compared to stress perfusion study. Gat ing at rest reveals normal systolic wall motion [...] in OV> 09/05/23 0853 DD/ 1400 TD/TT: Regulator Pin Inserter: Diabetic Eye Exam Reviewed date:09/29/2023 09:34:42 AM Interpretation:undefined Performing Lab: Notes/Report: undefined Complete Blood Count Auto Di ff Reviewed date:10/04/2023 03:43:24 PM Interpretation: Performing Lab:[facility], [address] [place] [phone] Notes/Report: White Blood Count 6.1 4.8-10.8 X10*3/uL [...] 0.0-0.2 /100WBC Neutrophils Absolute Auto 3.4 2.0-8.3 x10*3/uL Imm Gran Abs Auto 0.03 0.00-0.03 X10*3/uL Lymphocytes Absolute Auto 1.9 1.2-4.9 X10*3/uL Monocytes Absolute Auto 0.5 0.1-1.2 X10*3/uL Eosinophils Absolute Auto 0.2 0.0-0.4 X10*3/uL Basophils Absolute Auto 0.1 0.0-0.2 X10*3/uL NRBC Abs Auto 0.000 0.0-0.012 X10*3/uL Comprehensive [place]. Panel Fa st Reviewed date:10/04/2023 03:43:24 PM Interpretation: Performing Lab:[facility], [address] [place] [phone] Notes/Report: Sodium 140 135-145 mmol/L Potassium 4.8 3.3-5.1 mmol/L Chloride 106 96-108 mmol/L Carbon Dioxide 23 22-29 mmol/L Anion Gap 16 12-20 Blood Urea Nitrogen 26 9-16 mg/dL Creatinine 1.28 0.5-1.4 mg/dL Estimated Glomerular Filt Rate 55 NOTE: For -Moroccan individuals, multiply the result by 1.210. Chronic [...] Panel Reviewed date:10/04/2023 03:43:24 PM Interpretation: Performing Lab:[facility], [address] [place] [phone] Notes/Report: Triglycerides 64 <150 mg/dL Desirable Triglyceride: [...] Antigen Reviewed date:10/04/2023 03:43:24 PM Interpretation: Performing Lab:[facility], [address] [place] [phone] Notes/Report: Prostate Specific Antigen < 0.10 <0.05-4.0 ng/mL PSA methodology: Sharma Alinity i Chemiluminescent Microparticle Immunoassay (CMIA) Hemoglobin A1c Reviewed date:10/04/2023 03:43:24 PM Interpretation: Performing Lab:[facility], [address] [place] [phone] Notes/Report: Hemoglobin A1c % 5.7 <6.0 % [...] average glucose, using the formula of the S4S-Eyktbyb Average Glucose study (ADAG), Diabetes Care, Vol.31,#8, Oct. 2007 Glucose, Whole Blood Reviewed date:11/27/2023 06:00:22 AM Interpretation: Performing Lab:[facility], [address] [place] [phone] Notes/Report: Glucose, Whole Blood 81 60-115 mg/dL METER # : [id number] US renal BI (Not yet reviewe d by provider) Interpretation: Performing Lab: Notes/Report: [address] [address] Ultrasound Report Signed Patient: Chris Santoro MR#: [id number] 8 : 1950 Acct:[id number] Age/Sex: 73 / M ADM Date: 02/13/24 Loc: HO.US Attending Dr: Kevin Cochran MD Ordering Physician: Kevin Cochran MD Date of Service: 02/13/24 Procedure(s): US renal BI Accession Number(s): [id number] cc: Kevin Cochran MD; Hany Bañuelos MD EXAMINATION: US RETROPERITONEAL LIMITED (RENAL ONLY) CLINICAL INFORMATION: Calculus of kidney. COMPARISON: Renal ultrasound 01/07/2023 and 02/02/2022. CT abdomen and pelvis 06/19/2020. X-ray abdomen KUB 12/21/2013. TECHNIQUE: Real-time imaging of the kidneys. FINDINGS: RIGHT KIDNEY: 10.2 x 5.4 x 5.0 cm (SAG x AP x TRV). The kidney is normal in size and contour. Renal cortical thickness and echogenicity is normal. No renal calculi or hydronephrosis. There is a simple midpole parapelvic cyst measuring 1.5 x 0.7 x 1.0 cm. LEFT KIDNEY: 11.2 x 5.5 x 5.1 cm (SAG x AP x TRV). The kidney is normal in size and contour. Renal cortical thickness and echogenicity is normal. No calculi or focal parenchymal lesions. No hydronephrosis. US/US renal BI IMPRESSION: 1. Normal kidneys bilaterally aside from a small simple parapelvic cyst right midpole, unchanged. Electronically signed by: Alexis Leonard MD 02/23/2024 03:47 PM [facility] [place] Dictated By: Alexis Leonard MD Signed By: <Electronically signed by Alexis Leonard MD in OV> 02/23/24 1547 DD/ 1020 TD/TT: 02/13/24 1043 Regulator Pin Inserter: [place] [address] Ultrasound Report Signed Patient: Filomena Santoro MR#: [id number] 8 : 1950 Acct:[id number] Age/Sex: 73 / M ADM Date: 02/13/24 Loc: .US Attending Dr: Trish Villaseñor MD Ordering Physician: Kevin Cochran MD Date of Service: 02/13/24 Procedure(s): US daisy Tran Accession Number(s): [id number] cc: Kevin Cochran MD; Hany Bañuelos MD EXAMINATION: US RETROPERITONEAL LIMITED (RENAL ONLY) CLINICAL INFORMATION: Calculus of kidney. COMPARISON: Renal ultrasound 01/07/2023 and 02/02/2022. CT abdomen and pelvis 06/19/2020. X-ray abdomen KUB 12/21/2013. TECHNIQUE: Real-time imaging of the kidneys. FINDINGS: RIGHT KIDNEY: 10.2 x 5.4 x 5.0 cm (SAG x AP x TRV). The kidney is normal in size and contour. Renal cortical thickness and echogenicity is normal. No renal calculi or hydronephrosis. There is a simple midpole parapelvic c yst measuring 1.5 x 0.7 x 1.0 cm. LEFT KIDNEY: 11.2 x 5.5 x 5.1 cm (SAG x AP x TRV). The kidney is normal in size and contour. Renal cortical thickness and echogenicity is normal. No calculi o r focal parenchymal lesions. No hydronephrosis. US/US renal BI IMPRESSION: 1. Normal kidneys bilaterally aside from a small simple parapelvic cyst right midpole, unchanged. Electronically ida d by: Alexis Leonard MD 02/23/2024 03:47 PM [facility] [place] Dictated By: Alexis Leonard MD Signed By: <Electronically signed by Alexis Leonard MD in OV> 02/23/24 1547 DD/ 1020 TD/TT: 02/13/24 1043 Regulator Pin Inserter: Complete Blood Count Auto Di ff Reviewed date:02/21/2024 04:11:17 PM Interpretation: Performing Lab:[facility], [address] [place] [phone] Notes/Report: White Blood Count 7.2 4.8-10.8 X10*3/uL [...] 0.0-0.2 /100WBC Neutrophils Absolute Auto 4.3 2.0-8.3 x10*3/uL Imm Gran Abs Auto 0.02 0.00-0.03 X10*3/uL Lymphocytes Absolute Auto 2.0 1.2-4.9 X10*3/uL Monocytes Absolute Auto 0.6 0.1-1.2 X10*3/uL Eosinophils Absolute Auto 0.2 0.0-0.4 X10*3/uL Basophils Absolute Auto 0.1 0.0-0.2 X10*3/uL NRBC Abs Auto 0.000 0.0-0.012 X10*3/uL Comprehensive [place]. Panel Fa st Reviewed date:02/21/2024 04:11:17 PM Interpretation: Performing Lab:[facility], [address] [place] [phone] Notes/Report: Sodium 139 135-145 mmol/L Potassium 4.8 [...] Panel Reviewed date:02/21/2024 04:11:17 PM Interpretation: Performing Lab:[facility], [address] [place] [phone] Notes/Report: Triglycerides 61 <150 mg/dL Desirable Triglyceride: [...] Antigen Reviewed date:02/21/2024 04:11:17 PM Interpretation: Performing Lab:[facility], [address] [place] [phone] Notes/Report: Prostate Specific Antigen < 0.10 <0.05-4.0 ng/mL PSA methodology: Sharma Alinity i Chemiluminescent Microparticle Immunoassay (CMIA) Microalbumin, Random Reviewed date:02/21/2024 04:11:17 PM Interpretation: Performing Lab:[facility], [address] [place] [phone] Notes/Report: Creatinine Urine 155.43 Microalbumin Urine 17.0 Microalbum/Creatinine Ratio Ur 10.9 <30 ug/mg cr Albumin/Creatinine Ratio Reference Ranges: Normal: < 30 ug/mg creatinine Microalbuminuria: 30 - 300 ug/mg creatinine Clinical Albuminuria: > 300 ug/mg creatinine Hemoglobin A1c Reviewed date:02/21/2024 04:11:17 PM Interpretation: Performing Lab:[facility], [address] [place] [phone] Notes/Report: Hemoglobin A1c % 5.8 <6.0 % [...] average glucose, using the formula of the U9Z-Clfmrbm Average Glucose study (ADAG), Diabetes Care, Vol.31,#8, 2007 Reason For Referral Reason Consult and Treat Ac [place] Low Back Pain Muscle Strengthening Diagnosis 1 Acute low back pain, unspecified back pain laterality, unspecified whether sciatica present (M54.50) Referral Organization Hany Bañuelos III, MD Referring Provider First Name Hany Referring Provider Last Name Bañuelos Referring Provider Speciality Internal edicine Referred Organization [facility] Referred Provider [facility] er, Core Physical Therapy Referred Address [address] [place] [address],[place], [id number], Referred Provider Specialty Physical The rapist General [...] Edda Referring Provider Speciality Internal edicine Referred Provider [facility] ([place]) Referred Provider Specialty Dermatology General Notes Julia Richards CMA 06/13 04:24:28 PM EDT > I called [facility] in [place] spoke to switchboard receptionist [phone] she will put message into Niurka Suazo CAKE PRESS OPERATOR HELPER to get patient a sooner appt for [...] every 10 day 04/04/2023 Active Dexcom G7 Lead Fabricator - as directed - use t o [...] Problem Status W/U Status Risk Notes Problem 179465689 Tubular adenoma (D36.9) Active confirmed He is due for a colonoscopy in December and he was referred to us lockstitch sleeve setter to arrange this. Problem 536456927052 Type 2 diabetes mellitus with other specified complication (E11.69) Active confirmed He now has an optimal BMI and is exercising regularly. He has a monitor. His A1c is excellent. No change in his therapy is required today. Problem 71628966 Hyperlipidemia , unspecified (E78.5) Active confirmed His lipids are well controlled and no change in his regimen is necessary today. Problem 05210366 Essential hypertension (I10) Active confirmed His bloood pres sure today is in the stable range. The value was 138/72. No change in his regimen was necessary. Problem 029774681 History of skin cancer (Z85.828) Active confirmed He has 2 new lesions on his right wrist. He has been referred to the retort firer. Problem 9072012296447 Coronary artery disease involving [place] coronary artery of [place] heart without angina pectoris (I25.10) Active confirmed He has had no angina at rest or with exertion recently. No change in his regimen was needed today. He is up-to-date with his head of geography. Problem 207188515 History of prostate cancer (Z85.46) Active confirmed He continues in remission with an undetectable PSA and no symptoms. The PSA will be followed carefully. Problem 752547913 Sensorineural hearing loss (SNHL) of both ears (H90.3) Active confirmed He is in the process of having an audiology exam. Amplification will be determined. 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 He remains well hydrated. Problem 45760798 Idiopathic chronic gout without tophus, unspecified site (M1A.00X0) Active confirmed He continues on allopurinol without difficulty. Vital Signs Heart Rate 54 /min 02/21/2024 Temperature 97.3 degrees Fahrenheit 02/21/2024 Oximetry 98 % 04/01/2023 Blood pressure diastolic 72 mm Hg 02/21/2024 Height 70 in 02/21/2024 Blood pressure systolic 139 mm Hg 02/21/2024 Weight 169 lbs 02/21/2024 BMI 24.25 kg/m2 02/21/2024 Encounters Encounter Location Date Provider Diagnosis Hany Bañuelos III, MD [address] [place] [address] [place] [address] 04/01/2023 Hany Bañuelos Type 2 diabetes mellitus with other specified complication E11.69 ; Overweight E66.3 ; Essential hypertension I10 and History of prostate cancer Z85.46 Hany Bañuelos III, MD [address] [place] [address] [place] [address] 07/05/2023 Hany Bañuelos Type 2 diabetes mellitus with other specified complication E11.69 ; Hyperlipidemia, unspecified E78.5 ; Overweight E66.3 ; Coronary artery disease involving [place] coronary artery of [place] heart without angina pectoris I25.10 ; Calcium oxalate kidney stones N20.0 ; Sensorineural hearing loss (SNHL) of both ears H90.3 ; Idiopathic chronic gout without tophus, unspecified site M1A.00X0 ; History of prostate cancer Z85.46 and History of skin cancer Z85.828 Hany Bañuelos III, MD [address] [place] [address] [place] [address] 10/04/2023 Hany Bañuelos Type 2 diabetes mellitus with other specified complication E11.69 ; History of prostate cancer Z85.46 ; Hyperlipidemia, unspecified E78.5 ; Overweight E66.3 ; Calcium oxalate kidney stones N20.0 ; Essential hypertension I10 ; Coronary artery disease involving [place] coronary artery of [place] heart without angina pectoris I25.10 ; Sensorineural hearing loss (SNHL) of both ears H90.3 and Idiopathic chronic gout without tophus, unspecified site M1A.00X0 Hany Bañuelos III, MD [address] [place] [address] [place] [address] 02/21/2024 Hany Bañuelos Type 2 diabetes mellitus with other specified complication E11.69 ; History of prostate cancer Z85.46 ; Essential hypertension I10 ; Coronary artery disease involving [place] coronary artery of [place] heart without angina pectoris I25.10 ; Hyperlipidemia, unspecified E78.5 ; Sensorineural hearing loss (SNHL) of both ears H90.3 and Calcium oxalate kidney stones N20.0 Hany Bañuelos III, MD [address] [place] [address] [place] [address] 03/10/2023 Hany Bañuelos History of prostate cancer Z85.46 and Acute low back pain, unspecified back pain laterality, unspecified whether sciatica present M54.50 Hany Bañuelos III, MD [address] [place] [address] [place] [address] 03/10/2023 Hany Bañuelos III, MD [address] [place] [address] [place] [address] 04/04/2023 Hany 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 and Type 2 diabetes mellitus with other specified complication E11.69 Hany Bañuelos III, MD [address] [place] [address] [place] [address] 06/30/2023 Hany Bañuelos Type 2 diabetes mellitus with other specified complication E11.69 Hany Bañuelos III, MD [address] [place] [address] [place] [address] 12/05/2023 Hany Bañuelos III, MD [address] [place] [address] [place] [address] 12/05/2023 Hany Bañuelos Assessments Encounter Date Diagnosis (ICD Code) Assessment Notes Treat ment Notes Treatment Clinical Notes 04/01/2023 Overweight (ICD-10 - E66.3) He is [...] His PSA remains nondetectable. The remission continues. 02/21/2024 Type 2 diabetes mellitus with other specified complication (ICD-10 - E11.69) He now has an optimal BMI and is exercising regularly. He has a monitor. His A1c is excellent. No change in his therapy is required today. 02/21/2024 History of prostate cancer (ICD-10 - Z85.46) He continues in remission with an undetectable PSA and no symptoms. The PSA will be followed carefully. 04/04/2023 Type 2 diabetes mellitus with other specified complication (ICD-10 - E11.69) His diabetes has been well controlled. He is going to have comprehensive blood work tomorrow with a fasting lipid profile, fasting glucose, microalbumin and hemoglobin A1cc. 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 06/30/2023 Type 2 diabetes mellitus with other specified complication (ICD-10 - E11.69) His diabetes has been well controlled. He is going to have comprehensive blood work tomorrow with a fasting lipid profile, fasting glucose, microalbumin and hemoglobin A1cc. 04/01/2023 Essential hypertension (ICD-10 - I10) His [...] in his regimen is necessary today. 02/21/2024 Essential hypertension (ICD-10 - I10) His bloood pressure today is in the stable range. The value was 138/72. No change in his regimen was necessary. 03/10/2023 History of prostate cancer (ICD-10 - Z85.46) 04/01/2023 History of prostate cancer (ICD-10 - Z85.46) His PSA remains nondetectable. He has no symptoms of relapse. Surveillance will continue without treatment. 07/05/2023 Coronary artery disease involving [place] coronary artery of [place] heart without angina pectoris (ICD-10 - I25.10) He has had no angina at rest or with exertion recently. No change in his regimen was needed today. He is up-to-date with his head of geography. 10/04/2023 Overweight (ICD-10 - E66.3) He is no longer overweight. This problem will be removed from his problems. 02/21/2024 Coronary artery disease involving [place] coronary artery of [place] heart without angina pectoris (ICD-10 - I25.10) He has had no angina at rest or with exertion recently. No change in his regimen was needed today. He is up-to-date with his head of geography. 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 He remains well hydrated. 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 He remains well hydrated. 02/21/2024 Hyperlipidemia, unspecified (ICD-10 - E78.5) His lipids are well controlled and no change in his regimen is necessary today. 07/05/2023 Sensorineural hearing loss (SNHL) of both ears (ICD-10 - H90.3) He is in the process of having an audiology exam. Amplification will be determined. 10/04/2023 Essential hypertension (ICD-10 - I10) His bloood pressure today is in the stable range. No change in his regimen was necessary. 02/21/2024 Sensorineural hearing loss (SNHL) of both ears (ICD-10 - H90.3) He is in the process of having an audiology exam. Amplification will be determined. 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 10/04/2023 Coronary artery disease involving [place] coronary artery of [place] heart without angina pectoris (ICD-10 - I25.10) He has had no angina at rest or with exertion recently. No change in his regimen was needed today. He is up-to-date with his head of geography. 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 He remains well hydrated. 07/05/2023 History of prostate cancer (ICD-10 - [...] wrist. He has been referred to the retort firer. 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 Plan Of Treatment Pending Test Test Name Order Date PROFILE, FASTING (COMPREHENSIVE METABOLI C) 02/21/2024 PROFILE, FASTING (COMPREHENSIVE METABOLI C) 10/03/2019 PROFILE, FASTING (COMPREHENSIVE METABOLI C) 10/11/2018 PROFILE, FASTING (COMPREHENSIVE METABOLI C) 04/02/2022 PROFILE, FASTING (COMPREHENSIVE METABOLI C) 02/28/2019 PROFILE, [...] ACID 07/11/2020 URIC ACID 04/02/2022 LIPID PANEL 04/02/2022 LIPID PANEL 11/30/2022 LIPID PANEL 08/03/2022 LIPID PANEL 10/03/2019 LIPID PANEL 05/30/2019 LIPID PANEL 07/11/2020 LIPID PANEL 10/11/2018 LIPID PANEL 02/28/2019 PSA, TOTAL 04/01/2023 PSA, TOTAL 10/04/2023 PSA, TOTAL 02/28/2019 PSA, TOTAL 07/05/2023 PSA, TOTAL 04/02/2022 PSA, TOTAL 02/21/2024 PSA, TOTAL 11/30/2022 PSA, TOTAL 08/03/2022 PSA, TOTAL 05/30/2019 MICROALBUMIN, RANDOM 04/02/2022 MICROALBUMIN, RANDOM 11/30/2022 MICROALBUMIN, RANDOM 07/11/2020 MICROALBUMIN, RANDOM 10/11/2018 CBC w DIFF 05/30/2019 CBC w DIFF 07/11/2020 CBC w DIFF 10/11/2018 CBC w DIFF 02/28/2019 CBC w DIFF 08/03/2022 CBC w DIFF 04/02/2022 CBC w DIFF 11/30/2022 CBC w DIFF 10/03/2019 VITAMIN D 25-OH TOTAL 07/11/2020 CBC WITH AUTO DIFF 04/01/2023 CBC WITH AUTO DIFF 10/04/2023 CBC WITH AUTO DIFF 07/05/2023 CBC WITH AUTO DIFF 02/21/2024 INFLUENZA A/B & RSV BY PCR 10/23/2018 SARS COV2 IGG 09/17/2019 Lipid Panel 04/01/2023 Lipid Panel 10/04/2023 Lipid Panel 07/05/2023 Lipid Panel 02/21/2024 Microalbumin, Random 04/01/2023 Microalbumin, Random 10/04/2023 US renal BI 02/13/2024 Hemoglobin A1c 07/05/2023 Hemoglobin A1c 02/21/2024 Hemoglobin A1c 04/01/2023 Hemoglobin A1c 10/04/2023 Next Appt Details Provider Name:Hany Bañuelos, 05/29/2024 04:00:00 PM, [address] [place] [address] [address], [place], [address], Provider Name:Hany Bañuelos, 02/25/2025 04:00:00 PM, [address] [place] [address] [address], [place], [address], Insurance Providers Payer Name Payer Address Payer Phone Subscriber Number Group Number Insured Name Patient Relationship to Insured Coverage Start Date Coverage End Date [employer] [place] [address] [address] [place] [address] [id number] Chris Santoro Self - patient is [...] lithotripsy 11/2013 tonsilectomy 1960 right inguinal herniorrhaphy 1990 prostatectomy 2010 cardiac bypass surgery 06/2017 colonoscopy, Dr. Caldera, tubular adenomas 12/2009 colonoscopy, Dr. Caldera, tubular adenomas 07/2004 Nephroscopy 06/2020 Skin Bx on right shoulder 11/2022 Hemorrhoidectomy 08/2023 No history Hospitalization History Reason Date(Month/Year) recent surgery cardiac bypass 06/2017 lithotomy and stent insertion left urete r June 2020 No history
--- OUTSIDE RECORDS SUMMARY | 2024-02-28 08:40 | XMS_ITS ---
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
--- OUTSIDE RECORDS SUMMARY | 2024-02-28 08:41 | XMS_ITS | Patient Health Record ---
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 Name Role Phone Hany Bañuelos MD Primary Care Provider Hany Suarez Unavailable [phone] ALLERGIES Allergen (clinical drug ingredient) Drug/Non Drug Allergy documented on EMR Reaction Allergy Type Onset Date Status metoclopramide Reglan dystonic reaction Drug Allergy Active Levaquin paresthesias Drug Allergy Acti ve RESULTS Component Value Reference Range Notes Glucose, Whole Blood Reviewed date:11/21/2023 09:16:03 PM Interpretation: Performing Lab:[facility], [address] [place] [id number] Notes/Report: Glucose, Whole Blood 81 60-115 mg/dL METER # : [id number] REASON FOR REFERRAL No Information MEDICATIONS Medication [...] screening (Z12.11) Active confirmed Colon cancer screening (312696226) Problem Personal history of colonic polyps (Z86.010) Active confirmed History of poly p of colon (situation) (871450437) Problem Diverticulosis of large intestine without perforation or abscess without bleeding (K57.30) Active confirmed Diverticul ar disease of colon (723924018) Problem Preprocedural examination (Z01.818) Active confirmed [id number] Problem Hx of adenomatous colonic polyps (Z86.010) Active confirmed 081620273 VITAL SIGNS Blood pressure diastolic 00 mm Hg 07/19/2023 Height 70 in 07/19/2023 Blood pressure systolic 00 mm Hg 07/19/2023 Weight 167 lbs 07/19/2023 BMI 23.96 kg/m2 07/19/2023 Encounters Encounter Location Date Provider Diagnosis [facility] [address] [place] [phone] 11/21/2023 Hany Caldera Colon cancer screeni ng Z12.11 ; Personal history of colonic polyps Z86.010 ; Diverticulosis of large intestine without perforation or abscess without bleeding K57.30 and Other hemorrhoids K64.8 [facility] [address] [place] [phone] 07/19/2023 Hany Caldera Hx of adenomatous colonic polyps Z86.010 ; Colon cancer screening Z12.11 and Preprocedural examination Z01.818 [facility] [address] [place] [phone] 10/05/[address] [facility] [address] [place] [phone] 10/06/2023 Hany Caldera ASSESSMENTS Encounter Date Diagnosis [...] Coverage End Date [employer] [place] [address] [address] [place] [address] [id number] WENDY CUNNINGHAM Self - patient is the insured MEDICAL (GENERAL) HISTORY Medical History History ICD Code Colon polyps-4 tubular adeno mas removed via colonoscopy in July 2004, 1 small tubular adenoma removed in 2012 Gout Denies SC,CVA,Lung disease,renal disease Prostate cancer in 2013 Hx of kidney stones NIDDM Hypertension CAD--CABG as below Colonoscopy 04/2018-1 small tubular adeno ma Surgical History Surgery Date(Month/Year) Hernia repair Tonsillectomy 4-V CABG 06/2017 Prostatectomy for prostate cancer 2013 Kidney stone removed Skin lesions removed Hemorrhoid surgery scheduled for end of 06/[address] Gudino
== END 2024-02-28 09:54 | disposition home or self-care (01) ==
PROVIDERS: PCP Internal Medicine Medical Oncology; Visit Provider Urology
DX: N20.0 Calculus of kidney (principal); C61 Malignant neoplasm of prostate
CPT/HCPCS: 99214

== ENCOUNTER 2024-05-29 07:36 | Outpatient (REF) | payer OTHER, SELFPAY ==
[2024-05-29 10:17] LABS: MANUAL DIFF FLAG NO
[2024-05-29 10:27] LABS: Basophils Percent Auto 0.6 % (0-2); Eosinophils Absolute Auto 0.2 X10*3/uL (0.0-0.4); Eosinophils Percent Auto 3.8 % (0-4); Hematocrit 40.2 % (42.0-52.0); Imm Gran Abs Auto 0.01 X10*3/uL (0.00-0.03); Imm Gran Pct Auto 0.2 % (0.0-0.4); Lymphocytes Absolute Auto 1.8 X10*3/uL (1.2-4.9); Lymphocytes Percent Auto 27.5 % (20-40); Mean Corpuscular HGB Conc 32.3 g/dl (31.0-36.0); Mean Corpuscular Hemoglobin 29.2 pg (27.0-33.0); Mean Corpuscular Volume 90.3 fL (80.0-98.0); Mean Platelet Volume 10.2 fL (9.4-12.4); Monocytes Absolute Auto 0.7 X10*3/uL (0.1-1.2); Monocytes Percent Auto 11.5 % (2-11); Neutrophils Absolute Auto 3.6 x10*3/uL (2.0-8.3); Neutrophils Percent Auto 56.4 % (45-73); Platelet Count 217 X10*3/uL (160-400); Red Blood Count 4.45 X10*6/uL (4.60-5.80); Red Cell Distribution Width 13.2 % (11.0-16.0); White Blood Count 6.4 X10*3/uL (4.8-10.8)
[2024-05-29 10:29] LABS: Estimated Average Glucose 123 mg/dL; Hemoglobin A1c % 5.9 % (<6.0); Total Hemoglobin (HGBA1C) 3430.4172 umol/L
[2024-05-29 10:47] LABS: Alanine Aminotransferase 36 U/L (0-40); Albumin Level 4.4 g/dL (3.5-5.0); Alkaline Phosphatase 70 U/L (39-117); Anion Gap 12 (12-20); Aspartate Amino Transferase 28 U/L (5-37); Bilirubin Total 0.6 mg/dL (0.0-1.0); Blood Urea Nitrogen 28 mg/dL (9-16); Calcium 8.9 mg/dL (8.4-10.2); Carbon Dioxide 24 mmol/L (22-29); Chloride 108 mmol/L (96-108); Cholesterol 111 mg/dL (<200); Estimated Glomerular Filt Rate > 60; Glucose Fasting 123 mg/dL (60-99); HDL Cholesterol 43 mg/dL (>40); LDL Cholesterol Calculated 55 mg/dL (<100); Potassium 4.5 mmol/L (3.3-5.1); Sodium 139 mmol/L (135-145); Total Protein 7.7 g/dL (6.5-8.0); Triglycerides 67 mg/dL (<150)
[2024-05-29 10:54] LABS: Prostate Specific Antigen < 0.10 ng/mL (<0.05-4.0)
== END 2024-05-29 07:37 | disposition home or self-care (01) ==
LOC: HO.10HDL 07:36
PROVIDERS: Visit Provider Internal Medicine Medical Oncology
DX: Z00.00 Encounter for general adult medical examination without abnormal findings (principal); E11.69 Type 2 diabetes mellitus with other specified complication; Z85.46 Personal history of malignant neoplasm of prostate; Z12.5 Encounter for screening for malignant neoplasm of prostate
CPT/HCPCS: 36415; 80053; 80061; 83036; 84153; 85025

== ENCOUNTER 2024-07-12 12:53 | Outpatient (REF) | payer SELFPAY | END 2024-07-12 12:54 | disposition home or self-care (01) | LOC: HO.HAP 12:53 | PROVIDERS: Visit Provider Internal Medicine Medical Oncology | DX: Z46.1 Encounter for fitting and adjustment of hearing aid (principal); H90.3 Sensorineural hearing loss, bilateral | CPT/HCPCS: V5267 ==

== ENCOUNTER 2024-08-29 07:20 | Outpatient (REF) | payer MEDICARE, SELFPAY ==
[2024-08-29 07:44] LABS: MANUAL DIFF FLAG NO
[2024-08-29 07:53] LABS: Basophils Absolute Auto 0.1 X10*3/uL (0.0-0.2); Basophils Percent Auto 1.1 % (0-2); Eosinophils Absolute Auto 0.2 X10*3/uL (0.0-0.4); Eosinophils Percent Auto 3.4 % (0-4); Hematocrit 39.7 % (42.0-52.0); Hemoglobin 13.4 g/dl (14.0-18.0); Imm Gran Abs Auto 0.01 X10*3/uL (0.00-0.03); Imm Gran Pct Auto 0.2 % (0.0-0.4); Lymphocytes Absolute Auto 1.9 X10*3/uL (1.2-4.9); Lymphocytes Percent Auto 31.9 % (20-40); Mean Corpuscular HGB Conc 33.8 g/dl (31.0-36.0); Mean Corpuscular Hemoglobin 29.5 pg (27.0-33.0); Mean Corpuscular Volume 87.4 fL (80.0-98.0); Mean Platelet Volume 9.6 fL (9.4-12.4); Monocytes Absolute Auto 0.5 X10*3/uL (0.1-1.2); Monocytes Percent Auto 7.7 % (2-11); Neutrophils Absolute Auto 3.4 x10*3/uL (2.0-8.3); Neutrophils Percent Auto 55.7 % (45-73); Platelet Count 215 X10*3/uL (160-400); Red Blood Count 4.54 X10*6/uL (4.60-5.80); White Blood Count 6.1 X10*3/uL (4.8-10.8)
[2024-08-29 07:59] LABS: Estimated Average Glucose 123 mg/dL; Hemoglobin A1c % 5.9 % (<6.0)
[2024-08-29 08:30] LABS: Alanine Aminotransferase 38 U/L (0-40); Albumin Level 4.5 g/dL (3.5-5.0); Alkaline Phosphatase 60 U/L (39-117); Anion Gap 12 (12-20); Aspartate Amino Transferase 31 U/L (5-37); Bilirubin Total 0.7 mg/dL (0.0-1.0); Blood Urea Nitrogen 20 mg/dL (9-16); Calcium 9.3 mg/dL (8.4-10.2); Carbon Dioxide 24 mmol/L (22-29); Chloride 108 mmol/L (96-108); Cholesterol 102 mg/dL (<200); Estimated Glomerular Filt Rate > 60; Glucose Fasting 118 mg/dL (60-99); HDL Cholesterol 49 mg/dL (>40); LDL Cholesterol Calculated 38 mg/dL (<100); Potassium 4.5 mmol/L (3.3-5.1); Sodium 139 mmol/L (135-145); Total Protein 6.9 g/dL (6.5-8.0); Triglycerides 79 mg/dL (<150)
[2024-08-29 08:42] LABS: Creatinine Urine 151.43 mg/dL; Microalbum/Creatinine Ratio Ur 18.4 ug/mg cr (<30)
[2024-08-29 08:45] LABS: Prostate Specific Antigen < 0.10 ng/mL (<0.05-4.0)
--- OUTSIDE RECORDS SUMMARY | 2024-08-29 11:15 | XMS_ITS ---
Author Organization Hany Bañuelos III, MD Address [address] [place] [address] Care Team Providers Care Investor Name Role Phone Hany Bañuelos Primary Care Provider Allergies Allergen (clinical drug ingredient) Drug/Non Drug Allergy documented on EMR Reaction Allergy Type Onset Date Status metoclopramide Reglan Unknown Drug Allergy Ac tive Levaquin Unknown Drug Allergy Active REASON FOR VISIT follow up Medications Medication SIG (Take, Route, Frequency, Duration) Notes Start Date End Date Status Dexcom G7 Electric Motor Analyst - as directed - use to check [...] a day Active FreeStyle Lite Test - check blood sugar once a day E11.69 Type 2 diabetes mellitus Active Dexcom G7 Sensor - as directed Type 2 diabetes mellitus Active Allopurinol 100 MG 1 tablet Orally Once a day 12/05/2023 Active FreeStyle Lancets - test blood sugars once a day E11.69 Type 2 diabetes mellitus Active Atorvastatin Calcium 80 MG TAKE 1 TABLET BY MOUTH EVERY DAY Active metFORMIN HCl 1000 MG TAKE 1 [...] Nonsmoker Additional Findings: Tobacco non-user Aggressive nonsmoker Encounters Encounter Location Date Provider Diagnosis Hany Bañuelos III, MD [address] [place] [address] 08/29/2024 Hany Bañuelos Type 2 diabetes mellitus [...] Start Date Stop Date Notes Dexcom G7 Electric Motor Analyst - as directed - use t o [...] Once a day FreeStyle Lite Test - check blood sugar once a day E11.69 Type 2 diabetes mellitus Dexcom G7 Sensor - as directed E11.6 9 Type 2 diabetes mellitus Allopurinol 100 MG 1 tablet Orally Once a day 12/05/2023 FreeStyle Lancets - test blood sugars once a day E11.69 Type 2 diabetes mellitus Atorvastatin Calcium 80 MG TAKE 1 TABLET BY MOUTH EVERY DAY metFORMIN HCl 1000 MG TAKE 1 TABLET BY MOUTH TWICE A DAY WITH A MEAL FreeStyle Lite - use to check blood sugar once a day 08/07/2024 DX: Type 2 diabetes E11.69 Metoprolol Tartrate 50 MG 1 tablet with food Orally Twice a day E11.69 Type 2 diabetes mellitus Next Appt Details Provider Name:Hany Bañuelos, 08/29/2024 03:15:00 PM, [address] [facility] [address], [place], [address], Provider Name:Hany Bañuelos, 02/25/2025 04:00:[address] [place], [address], Progress Notes * Chris SANTORODOB:1950 (74 yo M)Acc No.[id number]:08/29/2024 Progress Notes Patient: Chris COREAS Provider: Ronak Bañuelos MD :1950 A ge:74 Y S ex:Male Date:08/29/2024 Address:[address] [place], [place] [address], [id number] Subjective: * Chief Complaints: * 1 . Follow up. * HPI: C OVID-19 Screening: Questions H ave you had any new onset fever, chills, cough, congestion, sore throat, shortness of breath, muscle aches? N o * ROS: G eneral/Constitutional: pain o nly normal aches and pains. C hills d enies.?Fatigue a dmits. F ever d enies. E NT: Decreased hearing d enies. R espiratory: Cough d enies. C ardiovascular: [...] have been noted. G enitourinary: Frequent urination d enies. M usculoskeletal: Muscle aches d enies. P ainful joints d enies. S ciatica d enies. W eakness d enies. S kin: Itching d enies. R romero d enies. S kin lesion(s)?denies. N eurologic: Difficulty speaking d enies. D izziness d enies.?Headache d enies. L ow back pain d enies. P sychiatric: Depressed mood d enies. 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 * Surgical History: c ardiac catheterization 05/2017, lithotripsy 11/2013, tonsilectomy 1959, right inguinal herniorrhaphy 1989, prostatectomy 2010, cardiac bypass surgery 06/2017, colonoscopy, Dr. Caldera, tubular adenomas 12/2009, colonoscopy, Dr. Caldera, tubular adenomas 07/2004, Nephroscopy 06/2020, Skin Bx on right shoulder 11/2022, Hemorrhoidectomy 08/2023, No history . * Hospitalization/Major Diagno stic Procedure: r ecent surgery cardiac bypass 06/2017, lithotomy and stent insertion left ureter June 2020, No history . * Family History: F ather: , diagnosed with CVD. M other: , Peripheral vascular disease, lymphoma, degenerative joint disease, history of stroke. His father at 45 [place] diagnosed with MS and heart disease. His [...] H e is . 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 He lives in [place], [place]. * Medications: T aking Allopurinol 100 MG Tablet 1 tablet Orally Once a day , Taking Atorvastatin Calcium 80 MG Tablet TAKE 1 TABLET BY MOUTH EVERY DAY , Taking Vitamin C 500 MG Tablet Chewable 1 tablet Orally Once a day , Taking Aspir-81 81 MG Tablet Delayed Release 1 tablet Orally Once a day , Taking Coenzyme Q10 200 MG Tablet 1 tablet Orally Once a day , Taking Dexcom G7 Electric Motor Analyst - Device as directed - use to check blood sugars up to 4 times daily , Taking Vitamin B-6 50 MG Tablet TAKE 1 TABLET BY MOUTH EVERY DAY Orally Once a day , Taking Dexcom G7 Sensor - Miscellaneous as directed , Notes to Pharmacist: E11.69 Type 2 diabetes mellitus, Taking Metoprolol Tartrate 50 MG Tablet 1 tablet with food Orally Twice a day , Notes to Pharmacist: E11.69 Type 2 diabetes mellitus, Taking FreeStyle Lancets - Miscellaneous test blood sugars once a day , Notes to Pharmacist: E11.69 Type 2 diabetes mellitus, Taking FreeStyle Lite Test - Strip check blood sugar once a day , Notes to Pharmacist: E11.69 Type 2 diabetes mellitus, Taking FreeStyle Lite - Device use to check blood sugar once a day use to check blood sugar once a day, Notes to Pharmacist: DX: Type 2 diabetes , Taking metFORMIN HCl 1000 MG Tablet TAKE 1 TABLET BY MOUTH TWICE A DAY WITH A MEAL , Medication List reviewed and reconciled with the patient * Allergies: R eglan, Bharat. Objective: * Vitals: * Examination: G eneral Examination: GENERAL APPEARANCE: p leasant, well nourished, well developed, in no acute distress, calm and relaxed. HEAD: a traumatic, normocephalic. EYES: e guillermo, [...] S1, S2 normal, no s3, or vascular bruits. LUNGS: c lear to auscultation . BREASTS: [...] diabetes mellitus with other specified complication - N otes :His fasting glucose is 123. The hemoglobin A1c is 5.9. His weight is in the normal range. We reviewed his diabetic diet. No change was made in his medications today. Plan: * Treatment: 2. O thers Continue metFORMIN HCl Tablet, 1000 [...] 1 TABLET BY MOUTH EVERY DAY. * Images: * The named appointment provid er may or may not be the originator of this progress note, and it is not deemed complete until electronically signed by the appointment provider. Sign off status: Pending * Provider: Ronak Bañuelos MD Date: 08/29/2024 Generated for Pino fernandez/Yomaira/Greeritting on: 08/29/2024 07:25 AM EDT History and Physical Notes * HPI [...]
== END 2024-08-29 07:21 | disposition home or self-care (01) ==
LOC: HO.LAB 07:20
PROVIDERS: PCP Internal Medicine Medical Oncology; Visit Provider Internal Medicine Medical Oncology
DX: E11.69 Type 2 diabetes mellitus with other specified complication (principal); E78.5 Hyperlipidemia, unspecified; Z85.46 Personal history of malignant neoplasm of prostate; Z12.5 Encounter for screening for malignant neoplasm of prostate
CPT/HCPCS: 36415; 80053; 80061; 82043; 82570; 83036; 84153; 85025

== ENCOUNTER 2024-09-24 15:08 | Outpatient (AMB) | payer MEDICARE, SELFPAY ==
--- OUTSIDE RECORDS SUMMARY | 2023-11-21 04:30 | XMS_ITS ---
Author Organization [facility] Address [address] [place] [phone] Care Team Providers Care Clinic Mgr Name Role Phone Hany Bañuelos MD Primary Care Provider Unavailab Hany Perkins Unavailable [phone] REASON FOR VISIT screening,hx polyps Problems Problem Type SNOMED Code ICD Code Onset Dates Problem Status W/U Status Risk Notes Problem History of polyp of colon (situation) (745234623) Personal history of colonic polyps (Z86.010) Active confirmed Problem Diverticular disease of colon (975922775) Diverticulosis of large intestine without perforation or abscess without bleeding (K57.30) Active confirmed Encounters Encounter Location Date Provider Diagnosis [facility] [place] [address] [place] [phone] 11/21/2023 Hany Caldera Colon cancer scree jason [...] * WENDY CUNNINGHAM MDDOB:[birth year] (74 yo M)Acc No.[id number]:11/21/2023 COLON WITH MAC Patient: Jennifer GUSMAN WENDY Brewster MD Provider: Ronak Caldera MD :1950 A ge:73 Y S ex:Male Date:11/21/2023 Address[place] [facility] Pcp:Hany Bañuelos MD Subjective: * Chief Complaints: * 1 . Screening,hx polyps. * Medical History: Objective: * Vitals: Assessment: * Assessment: 1. C olon cancer screening - Z12.11 (Primary) 2 . P ersonal history of colonic polyps - Z86.010 3 . D iverticulosis of large intestine without perforation or abscess without bleeding - K57.30 4 . O ther hemorrhoids - K64.8 ? Plan: * Treatment: * Procedure Codes: 4 5378 DIAGNOSTIC COLONOSCOPY, Modifiers: 33 * Preventive Medicine: JOSE Screening: C olonoscopy W as interval between colonoscopies three years or more? Y es, W as last colonoscopy performed three or more years ago? Y es. * * The named appointment provid er may or may not be the originator of this progress note, and it is not deemed complete until electronically signed by the appointment provider. Sign off status: Pending * Provider: Ronak Caldera MD Date: 11/21/2023 Generated for Pino fernandez/Yomaira/Greeritting on: 09/24/2024 04:26 PM EDT
--- OUTSIDE RECORDS SUMMARY | 2024-08-29 11:15 | XMS_ITS ---
Author Organization Hany Bañuelos III, MD Address [address] [place] [address] Care Team Providers Care Youth Leader Name Role Phone Hany Bañuelos Primary Care [...] Start Date End Date Status Dexcom G7 Non Food Receiving Clerk - as directed - use to check [...] Date Provider Diagnosis Hany Bañuelos III, MD [address] [place] [address] [place] [address] 08/29/2024 Hany Bañuelos Type 2 diabetes mellitus with other specified complication E11.69 ; History of prostate cancer Z85.46 ; Essential hypertension I10 ; Overweight E66.3 ; Coronary artery disease involving [place] coronary artery of [place] heart without angina pectoris I25.10 ; Hyperlipidemia, [...] has resolved. 08/29/2024 Coronary artery disease involving [place] coronary artery of [place] heart without angina pectoris (ICD-10 - I25.10) He has had no angina at rest or with exertion recently. No change in his regimen was needed today. He is up-to-date with his manager cable. 08/29/2024 Hyperlipidemia, unspecified (ICD-10 - E78.5) His [...] wrist. He has been referred to the pole setter. Plan Of Treatment Medication Medication Name Sig Start Date Stop Date Notes Dexcom G7 Non Food Receiving Clerk - as directed - use t o [...] Next Appt Details Follow Up: as scheduled, [place] son: ov review labs Provider Name:Hany Bañuelos, 02/25/2025 04:00:00 PM, [address] [place] [address] , [facility] [[email or web address] [address], [place], [address], Progress Notes * Chris SANTORODOB:1950 (74 yo M)Acc No.[id number]:08/29/2024 Progress Notes Patient: Chris COREAS Provider: Ronak Bañuelos MD :1950 A ge:74 Y S ex:Male Date:08/29/2024 Address:[address] [place] [address], [id number] Subjective: * Chief Complaints: * D iabetesCoronary artery diseaseHyperlipidemiaHypertensionKidney stoneGoutHearing lossProstate cancer in remission * HPI: C OVID-19 Screening: He returns for medical management of his metabolic syndrome and coronary artery. He is going to see his manager cable next month. He has had no exertional [...] history of stroke. His father at 45 [place] diagnosed with MS and heart disease. His [...] H kelsea is . 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 He lives in [place], [place]. * Medications: T akingAllopurinol 100 MG Tablet 1 tablet Orally Once a day Atorvastatin Calcium 80 MG Tablet TAKE 1 TABLET BY MOUTH EVERY DAY Vitamin C 500 MG Tablet Chewable 1 tablet Orally Once a day Aspir-81 81 MG Tablet Delayed Release 1 tablet Orally Once a day Coenzyme Q10 200 MG Tablet 1 tablet Orally Once a day mig337 Non Food Receiving Clerk - Device as directed - use to [...] Orally Once a day Taking Dexcom G7 Non Food Receiving Clerk - Device as directed - use to [...] 48 (Ref Range: >40 mg/dL) * Lab:[facility] [place]. Pane l Fast * Collection Date 08/29/2024 [...] 5 . C oronary artery disease involving [place] coronary artery of [place] heart without angina pectoris - I25.10 N otes :He has had no angina at rest or with exertion recently. No change in his regimen was needed today. He is up-to-date with his manager cable. 6 . H yperlipidemia, unspecified - E78.5 [...] wrist. He has been referred to the pole setter. Plan: * Treatment: 2. H istory of [...] true * Provider: Ronak Bañuelos MD Date: 08/29/2024 Generated for Pino fernandez/Yomaira/Greeritting on: 09/24/2024 04:26 PM EDT History and Physical Notes * HPI (History [...]
--- NOTE | 2024-09-24 15:13 | MHC.OFFVIS ---
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 He said he has been more active since he has retired recently. He walks regularly. Does other exercises. Denies any cardiac symptoms of exertional lightheadedness or chest discomfort. Still has occasional fluttering in his chest consistent with PVCs. Overall otherwise he is doing well. Taking all his medications. He notices that his heart rate does not exceed be 100 when he exercises. His most recent LDL was 39 mg/dL. He is watching in his diet. Denies any heart failure symptoms. [facility] Medical History Tubular adenoma Inguinal hernia HLD (hyperlipidemia) Bursitis Gout History of skin cancer History of prostate cancer Hemorrhoids with complication Diabetes Renal colic HTN (hypertension) Coronary artery disease Surgical History Hx of tonsillectomy Hx of hernia repair History of hemorrhoidectomy (~08/09/23) Hx of cystoscopy (2020) Hx of colonoscopy Hx of radical prostatectomy (2017) H/O lithotripsy Hx of CABG Family History Mother Lymphoma Social History Household Members: Spouse Housing: House Do you presently have visiting nurse or other home services: No 75 years or older and lives alone: No Alcohol intake: unknown Patient Tobacco Use Status: Former Tobacco user 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: employed 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 Review of Systems Const Denies chills, Denies fatigue, Denies fever(s), Denies frequent falls, Denies weakness, Denies weight gain and Denies weight loss ENT Denies dizziness Card Denies chest pain, Denies leg edema, Denies lightheadedness, Denies palpitations, Denies dyspnea, Denies dyspnea on exertion, Denies orthopnea and Denies other (loss of consciousness) Resp Denies cough, Denies dyspnea and Denies dyspnea on exertion GI Denies hematochezia and Denies change in stool character Musc Denies abnormal gait, Denies muscle weakness, Denies numbness, Denies radiating pain into limb and Denies tingling Neuro Denies abnormal gait, Denies dizziness, Denies frequent falls, Denies numbness, Denies tingling and Denies weakness Endo Denies fatigue and Denies palpitations Physical Exam Vital Signs: Last Vital Signs Pulse 51 09/24/24 15:14 BP 110/72 09/24/24 15:14 BMI result Body Mass Index 24.0 Const General: cooperative, comfortable, no acute distress, well developed, alert, awake and Physically active Nutritional Appearance: well nourished and thin Orientation/consciousness: patient oriented x3 Limitations: no limitations HEENT Head: Yes normocephalic and Yes atraumatic Neck Neck: Yes trachea midline, Yes supple and Yes no JVD Chest Chest palpation & inspection: other (Well-healed sternotomy scar) Resp Effort & Inspection: normal respiratory effort Auscultation: clear to auscultation bilaterally Cardio Jugular venous distension: no JVD Palpation: normal PMI Rate: regular rate Rhythm: regular rhythm Heart sounds: S1 normal heart sound present, S2 normal heart sound present, no click, no gallops, no murmurs and no rubs GI Auscultation: normal bowel sounds Skin General skin exam: no rashes or lesions noted Neuro General: patient oriented x3 and no focal motor deficits Extrem General: Yes no clubbing, cyanosis or edema Psych Appearance: grossly normal Office Procedures EKG Details: EKG shows sinus bradycardia otherwise normal EKGs 51 beats per minute 54558-[id number], Complete Assessment & Plan Assessment & Plan (1) Coronary artery disease: Code(s): I25.10 - Atherosclerotic heart disease of [place] coronary artery without angina pectoris Category: Medical Plan: CAD status post coronary artery bypass grafting about 7 years ago with no recurrent symptoms at current point time. Doing very well. Taking all his medications. We discussed about management atherosclerosis. Given lack of symptoms currently no further workup is indicated. Will follow up in 1 year's time. Continue aspirin lifelong. Continue high-intensity statin therapy with well optimized LDL in addition to his aggressive lifestyle modification with dietary adjustments as well as exercise. Continue aggressive diabetes management goal hemoglobin A1c less than 7%. He is encouraged to increase and maintain in his aerobic capacity. Blood pressure is currently well optimized. Will follow up in the clinic in 1 year's time, sooner p.r.n.. Thank you for allowing me to partake in his care Coding Level of Care Code Est Pt Level 4 (48449) Complex EM visit Add On G2211 Diagnoses Coronary artery disease I25.10 CPT Codes EKG - CPT: 38500-[id number], Complete ([id number])
[2024-09-24 15:14] VITALS: BP 110/72; PULSE 51; BMI 24.0
--- OUTSIDE RECORDS SUMMARY | 2024-09-24 16:27 | XMS_ITS | Clinical Summary ---
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 Name Role Phone Hany Bañuelos MD Primary Care Provider [phone] Encounters Date Type Department Care Team Description 09/17/2024 2:15 PM EDT Consult Orthopedic Surgery [place] [id number] [phone] Arjun Arreguin DPM Corns and callosities (Primary Dx); Pes planus of left foot; Type II diabetes mellitus with peripheral circulatory disorder ([facility] V24, [facility] V28) from Last 3 Months Social History Tobacco Use Types Packs/Day Years Used Date Smoking Tobacco: Never Assessed Sex and Gender Information Value Date Recorded Sex Assigned at Not on file Legal Sex Male 9:53 PM EST Gender Identity Not on file Sexual Orientation Not on file Plan of Treatment Upcoming Encounters Date Type Department Care Team (Late st Contact Info) Description 09/17/2025 1:30 PM EDT Office Visit Orthopedic Surgery [facility] [address] [phone] Arjun Arreguin DPM [address] [id number] Health Maintenance Due Date Last Done Comments Diabetes: Annual GFR (Glomerular Filtration Rate) 1950 Diabetes: Annual Foot Exam 05/30/1961 Diabetes: Annual Retina Eye Exam 05/30/1961 DTaP,Tdap,and Td Vaccines (1 - Tdap) 05/30/1970 Pneumococcal Vaccine: 50+ Years (1 of 2 - PCV) 05/30/1970 COVID-19 Vaccine ( season) 2024 12/08/2023, 01/28/2023, 12/30/2021, Additional history exists Abdominal Aortic Aneurysm (AAA) Screen 07/16/2024 Cholesterol Screening (Lipid Panel) 07/16/2024 Colorectal Cancer Screening: Colonoscopy 07/16/2024 Depression Screening 07/16/2024 Diabetes: Annual Urine Albumin-Creatinine Ratio (uACR) 07/16/2024 Diabetes: Blood Sugar Control Test (HGBA1C) 07/16/2024 Falls Risk Assessment 07/16/2024 Hepatitis C Screening 07/16/2024 Medicare Annual Wellness Visit 07/16/2024 Social Influencers of Health Screening 07/16/2024 Influenza Vaccine (#1) 2024 , 12/29/2022, 12/29/2021, Additional history exists RSV Immunization Adult Patients (1 - 1-dose 75+ series) 05/30/2026 Zoster Vaccines Completed 04/10/2018, 12/10/2017 HIB Vaccines Aged Out No longer eligi ble based on patient's age to complete this topic HPV Vaccines Aged Out No longer eligi ble based on patient's age to complete this topic Hepatitis A Vaccines Aged Out No long er eligible based on patient's age to complete this topic Hepatitis B Vaccines Aged Out No long er eligible based on patient's age to complete this topic IPV Vaccines Aged Out No longer eligi ble based on patient's age to complete this topic MMR Vaccines Aged Out No longer eligi ble based on patient's age to complete this topic Meningococcal ACWY Vaccine Aged Out N o longer eligible based on patient's age to complete this topic Meningococcal B Vaccine Aged Out No l onger eligible based on patient's age to complete this topic RSV Immunization Patients Under 20 months Aged Out No longer eligible based on patient's age to complete this topic Varicella Vaccines Aged Out No longer eligible based on patient's age to complete this topic Insurance MEDICARE [facility] Care Teams 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
--- OUTSIDE RECORDS SUMMARY | 2024-09-24 16:27 | XMS_ITS | Clinical Summary ---
Author Organization [facility] Address [address] [place] [id number] Care Team Providers Care University Professor Name Role Phone Hany Bañuelos MD Primary Care Provider [phone] Family History Medical History Relation Comments Diabetes Father uncles Heart disease Father Hypertension Mother Relation Status Comments Father Mother Social History Tobacco Use Types Packs/Day Years Used Date Smoking Tobacco: Never Alcohol Use Standard Drinks/Week Comments Yes 0 (1 standard drink = 0.6 oz pure alcohol) Alcoholic Drinks/day: Occasional social drink Comments Unknown Sex and Gender Information Value Date Recorded Sex Assigned at Not on file Legal Sex Female 4:51 PM EST Gender Identity Not on file Sexual Orientation Not on file Plan of Treatment Health Maintenance Due Date Last Done Comments Breast Cancer Screening 1950 Colorectal Cancer Screening: Annual FOBT 05/30/2000 Colorectal Cancer Screening: Colonoscopy 05/30/2000 Colorectal Cancer Screening: Sigmoidoscopy 05/30/2000 Pneumococcal Vaccine: 50+ Ye ars (2 of 2 - PCV) 09/21/2015 09/20/2014 Influenza Vaccine (#1) 2024 Pneumococcal Vaccine: Peds ( 0 to 5 Years) and At-Risk Patients (6 to 49 Years) Discontinued 09/20/2014 Hepatitis B Vaccine Aged Out No longe r eligible based on patient's age to complete this topic Insurance [employer] Care Teams University Professor Relationship Specialty Start Date End Date Hany Bañuel[place] [id number] [place] [address] PCP - General Internal Medicine 07/24/20
== END 2024-09-24 15:56 | disposition home or self-care (01) ==
PROVIDERS: PCP Internal Medicine Medical Oncology; Visit Provider Internal Medicine Cardiovascular Disease
DX: I25.10 Atherosclerotic heart disease of native coronary artery without angina pectoris (principal)
CPT/HCPCS: 93010; 99214; G2211

== ENCOUNTER → 2024-09-24 15:08 | Outpatient (BNVA) | payer MEDICARE, SELFPAY | PROVIDERS: PCP Internal Medicine Medical Oncology; Visit Provider Internal Medicine Cardiovascular Disease | DX: I25.10 Atherosclerotic heart disease of native coronary artery without angina pectoris (principal); R00.1 Bradycardia, unspecified | CPT/HCPCS: 93005; 99212 ==

== ENCOUNTER 2025-01-29 14:55 | Outpatient (REF) | payer SELFPAY ==
--- OUTSIDE RECORDS SUMMARY | 2023-11-21 03:30 | XMS_ITS ---
Author Organization [facility] Address [address] [place] [phone] Care Team Providers Care Mixer Diamond Powder Name Role Phone Hany Bañuelos MD Primary Care Provider Unavailab Hany Perkins Unavailable [phone] REASON FOR VISIT screening,hx polyps Problems Problem Type SNOMED Code ICD Code Onset Dates Problem Status W/U Status Risk Notes Problem History of polyp of colon (situation) (379999039) Personal history of colonic polyps (Z86.010) Active confirmed Problem Diverticular disease of colon (058992462) Diverticulosis of large intestine without perforation or abscess without bleeding (K57.30) Active confirmed Encounters Encounter Location Date Provider Diagnosis [facility] [place] [address] [place] [phone] 11/21/2023 Hany Caldera Colon cancer scree jason Z12.11 ; Personal history of colonic polyps Z86.010 ; Diverticulosis of large intestine without perforation or abscess without bleeding K57.30 and Other hemorrhoids K64.8 Assessments Encounter Date Diagnosis (ICD Code) Assessment Notes Treatment Notes Treatment Clinical Notes Section Notes 11/21/2023 Colon cancer screening (ICD-10 - Z12.11) 11/21/2023 Personal history of colonic polyps (ICD-10 - Z86.010) 11/21/2023 Diverticulosis of large intestine without perforation or abscess without bleeding (ICD-10 - K57.30) 11/21/2023 Other hemorrhoids (ICD-10 - K64.8) Plan Of Treatment No Information Progress Notes * WENDY CUNNINGHAM MDDOB:[birth year] (74 yo M)Acc No.[id number]:11/21/2023 COLON WITH MAC Patient: Jennifer GUSMAN WENDY Brewster MD Provider: Ronak Caldera MD :1950 A ge:73 Y S ex:Male Date:11/21/2023 Address[address] [facility] Pcp:Hany Bañuelos MD Subjective: * Chief Complaints: * S creening,hx polyps Assessment: * Assessment: 1. C olon cancer screening - Z12.11 (Primary) 2 . P ersonal history of colonic polyps - Z86.010 3 . D iverticulosis of large intestine without perforation or abscess without bleeding - K57.30 4 . O ther hemorrhoids - K64.8 ? Plan: * Procedure Codes: 4 5378 DIAGNOSTIC COLONOSCOPY, Modifiers: 33 * Preventive Medicine: JOSE Screening: C olonoscopy W as interval between colonoscopies three years or more? Y es, W as last colonoscopy performed three or more years ago? Y es. Billing Information: * Procedure Codes: 83856 DIAGNOSTIC COLONOSCOPY. Modifiers: 33 * The named appointment provid er may or may not be the originator of this progress note, and it is not deemed complete until electronically signed by the appointment provider. Sign off status: Pending * Provider: Ronak Caldera MD Date: 0 11/21/2023 Generated for Pino fernandez/Yomiara/Fuentessmitting on: 04/01/2024 12:56 PM EST
--- OUTSIDE RECORDS SUMMARY | 2023-12-05 12:26 | XMS_ITS ---
Author Organization Hany Bañuelos III, MD Address [address] [place] [address] [place] [address] Care Team Providers Care Lockstitch Lining Maker Name Role Phone Dr. Hany Bañuelos III Primary Care Provider Medications Medication SIG (Take, Route, Fr equency, Duration) Notes Start Date End Date Status Allopurinol 100 MG 1 tablet Orally Once a day for 90 days 12/05/2023 04/02/2024 Active Social History Sex Assigned At : Social History Observation Description Sex Assigned At Male Encounters Encounter Location Date Provider Diagnosis Hany Bañuelos III, MD [address] [place] [address] [address] [place] [address] 12/05/2023 Hany Bañuelos Plan Of Treatment Medication Medication Name Sig Start Date Stop Date Notes Allopurinol 100 MG 1 tablet Orally Once a day for 90 days 12/05/2023 04/02/2024 Next Appt Details Provider Name:Hany Bañuelos , 02/25/2025 04:00:00 PM, [address] [place] [address] [place], [phone], Progress Notes * Chris SANTORODOB:1950 (73 yo M)Acc No.[id number]:12/05/2023 Patient: Jennifer magnusChris torres :1950 A ge:73 Y S ex:Male Address:[address] [place] [address] [place], [address] * Refills Start Allopurinol Tablet, 100 MG, Orally, 90 Tablet, 1 tablet, Once a day, 90 days, Refills=3 * true * Date: Generated for Pino fernandez/Yomaira/Tosin on: 04/01/2024 12:56 PM EST
--- OUTSIDE RECORDS SUMMARY | 2024-02-21 11:00 | XMS_ITS ---
Author Organization Hany Bañuelos III, MD Address [address] [place] [address] Care Team Providers Care Colorman Name Role Phone Dr. Hany Bañuelos III Primary Care Provider Allergies Allergen (clinical drug ingredient) Drug/Non Drug [...] every 10 day 04/04/2023 Active Dexcom G7 Dining Room Helper - as directed - use t o [...] Date Provider Diagnosis Hany Bañuelos III, MD [address] [place] [address] [place] [address] 02/21/2024 Hany Bañuelos Type 2 diabetes mellitus with other specified complication E11.69 ; History of prostate cancer Z85.46 ; Essential hypertension I10 ; Coronary artery disease involving [place] coronary artery of [place] heart without angina pectoris I25.10 ; Hyperlipidemia, [...] was necessary. 02/21/2024 Coronary artery disease involving [place] coronary artery of [place] heart without angina pectoris (ICD-10 - I25.10) He has had no angina at rest or with exertion recently. No change in his regimen was needed today. He is up-to-date with his warehouse handler. 02/21/2024 Hyperlipidemia, unspecified (ICD-10 - E78.5) His [...] sensor every 10 day 04/04/2023 Dexcom G7 Dining Room Helper - as directed - use t o [...] Provider Name:Hany Bañuelos , 02/25/2025 04:00:00 PM, [address] [place] [address], [place] [address], [place], [address], Progress Notes * ONELJESSICA ChrisDOB:1950 (73 yo M)Acc No.[id number]:02/21/2024 Progress Notes Patient: Chris COREAS Provider: Ronak Bañuelos MD :1950 A ge:73 Y S ex:Male Date:02/21/2024 Address:[address] [place] [id number] Subjective: * Chief Complaints: * A nnual [...] history of stroke. His father at 45 [place] diagnosed with MS and heart disease. His [...] H kelsea is . 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 He lives in [place], [place]. * Medications: T akingAtorvastatin Calcium 80 [...] tablet Orally Once a day Dexcom G7 Dining Room Helper - Device as directed - use to [...] Orally Once a day Taking Dexcom G7 Dining Room Helper - Device as directed - use to [...] 7.8 (Ref Range: ug/mg cr) * Lab:[facility] [place]. Pane l Fast * Collection Date 02/21/2024 [...] 4 . C oronary artery disease involving [place] coronary artery of [place] heart without angina pectoris - I25.10 N otes :He has had no angina at rest or with exertion recently. No change in his regimen was needed today. He is up-to-date with his warehouse handler. 5 . H yperlipidemia, unspecified - E78.5 [...] Date: 04/23/2023 Generated for Pino fernandez/Yomaira/eTransmitting on: 04/01/2024 12:56 PM EST History and Physical Notes * [...]
--- OUTSIDE RECORDS SUMMARY | 2024-05-29 08:00 | XMS_ITS ---
Author Organization Hany Bañuelos III, MD Address [address] [place] [address] Care Team Providers Care Data Entry Technician Name Role Phone Dr. Hany Bañuelos III Primary Care Provider [phone] Allergies Allergen (clinical drug ingredient) Drug/Non Drug [...] Type 2 diabetes mellitus Active Dexcom G7 Pharmacy Services Director - as directed - use to check [...] Date Provider Diagnosis Hany Bañuelos III, MD [address] [place] [address] [place] [address] 05/29/2024 Hany Bañuelos Type 2 diabetes mellitus with other specified complication E11.69 ; Hyperlipidemia, unspecified E78.5 ; History of prostate cancer Z85.46 ; Coronary artery disease involving [place] coronary artery of [place] heart without angina pectoris I25.10 ; Essential [...] remains nondetectable. 05/29/2024 Coronary artery disease involving [place] coronary artery of [place] heart without angina pectoris (ICD-10 - I25.10) He has had no angina at rest or with exertion recently. No change in his regimen was needed today. 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 05/29/2024 Essential hypertension (ICD-10 - I10) His [...] TABLET BY MOUTH TWICE DAILY WITH FOOD DexKek[employer] G7 Sensor - apply sensor every 10 day E11.69 Type 2 diabetes mellitus Dexcom G7 Pharmacy Services Director - as directed - use t o [...] Months, Reason: OV Provider Name:Hany Bañuelos , 02/25/2025 04:00:00 PM, [address] [place] [address] [address], [place], [address], Progress Notes * Chris SANTORODOB:1950 (74 yo M)Acc No.[id number]:05/29/2024 Progress Notes Patient: Chris COREAS Provider: Ronak Bañuelos MD :1950 A ge:73 Y S ex:Male Date:05/29/2024 Address:[address] [place] [address] [address], [id number] Subjective: * Chief Complaints: * C oronary artery diseaseDiabetesHyperlipidemiaHypertensionUreterolithiasisGoutHistory of prostate cancerHearing loss * HPI: C -19 Screening: He returns for a scheduled visit [...] history of stroke. His father at 45 [place] diagnosed with MS and heart disease. His mother had degenerative joint disease cerebrovascular accident lymphoma and PVD. He is not aware of any family history of substance use disorder or addiction or mental illness. * Social History: T obacco Use: T obacco Control (Standard) T obacco use: N onsmoker A dditional Findings: Tobacco non-user A ggressive nonsmoker H kelsea is . 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 He lives in [place], [place]. * Medications: T akingAllopurinol 100 MG [...] tablet Orally Once a day Dexcom G7 Pharmacy Services Director - Device as directed - use to [...] Orally Once a day Taking Dexcom G7 Pharmacy Services Director - Device as directed - use to [...] 4 . C oronary artery disease involving [place] coronary artery of [place] heart without angina pectoris - I25.10 N otes :He has had no angina at rest or with exertion recently. No change in his regimen was needed today. 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 5 . E ssential hypertension - I10 [...] MD Date: 0 05/29/2024 Generated for Pino fernandez/Yomaira/Greeritting on: 04/01/2024 12:55 PM EST History and Physical Notes * [...] edema LYMPH NODES: no enlarged lymph no irnee,spleen normal RECTAL EXAM: not examined PSYCH: alert, oriented ORAL CAVITY: normal, unremarkable Consultation Request Notes Referral Date Referring Provider Referred Provider Not 05/29/2024 Hany Bañuelos CHRISTOPHER Evaluate and Treat Routine Diabetic Foot Care Nail Reduction
--- OUTSIDE RECORDS SUMMARY | 2024-07-16 05:17 | XMS_ITS ---
Author Organization Hany Bañuelos III, MD Address [address] [place] [address] [place] [address] Care Team Providers Care Dump Operator Name Role Phone Dr. Hany Bañuelos III Primary Care Provider REASON FOR VISIT Message Social History Sex Assigned At : Social History Observation Description Sex Assigned At Male Encounters Encounter Location Date Provider Diagnosis Hany Bañuelos III, MD [address] [place] [address] [place] [address] 07/16/2024 Hany Bañuelos Plan Of Treatment Next Appt Details Provider Name:Hany Bañuelos , 02/25/2025 04:00:00 PM, [address] [place] [address] [place], [address], Progress Notes * Chris SANTORODOB:1950 (74 yo M)Acc No.[id number]:07/16/2024 Patient: Chris COREAS :1950 A ge:74 Y S ex:Male Address:[address] [place], [address] * true * Date: Generated for Candicei jim/Faadolfog/eTransmitting on: 04/01/2024 12:56 PM EST
--- OUTSIDE RECORDS SUMMARY | 2024-07-19 08:05 | XMS_ITS ---
Author Organization Hany Bañuelos III, MD Address [address] [place] [address] [place] [address] Care Team Providers Care Prop Making Supervisor Name Role Phone Dr. Hany Bañuelos III Primary Care Provider [phone] REASON FOR VISIT Rx Transfer Medications Medication SIG (Take, Route, Frequency, Duration) Notes Start Date End Date Status Dexcom G7 Sensor - as directed for 10 days E11.69 Type 2 diabetes mellitus Active Social History Sex Assigned At : Social History Observation Description Sex Assigned At Male Encounters Encounter Location Date Provider Diagnosis Hany Bañuelos III, MD [address] [place] [address] [place] [address] 07/19/2024 Hany Bañuelos Type 2 diabetes mellitus [...] Name:Hany Bañuelos , 02/25/2025 04:00:00 PM, [address] [place] [address] [place], [address], Progress Notes * Chris SANTORODOB:1950 (74 yo M)Acc No.[id number]:07/19/2024 Patient: Chris COREAS :1950 A ge:74 Y S ex:Male Address:[address] [place] [address] [address], [place], [address] * Refills Refill Dexcom G7 Sensor Miscellaneous, -, 3, as directed, 10 days, Refills=11 * true * Date: Generated for Pino fernandez/Yomaira/Greeritting on: 04/01/2024 12:57 PM EST
--- OUTSIDE RECORDS SUMMARY | 2024-08-07 04:39 | XMS_ITS ---
Author Organization Hany Bañuelos III, MD Address [address] [place] [address] [place] [address] Care Team Providers Care Laborer Shipyard Name Role Phone Dr. Hany Bañuelos III Primary Care Provider [phone] REASON FOR VISIT Refill Request Medications Medication [...] Date Provider Diagnosis Hany Bañuelos III, MD [address] [place] [address] [place] [address] 08/07/2024 Hany Bañuelos Type 2 diabetes mellitus [...] Provider Name:Hany Bañuelos , 02/25/2025 04:00:00 PM, [address] [place] [address] DR, [place] [address], [place], [address], Progress Notes * Chris SANTORODOB:1950 (74 yo M)Acc No.[id number]:08/07/2024 Patient: Chris COREAS :1950 A ge:74 Y S ex:Male Address:[address] [place] [address], [address] * Refills Refill Metoprolol Tartrate Tablet, 50 [...] * Date: Generated for Pino fernandez/Yomaira/Fuentessmitting on: 04/01/2024 12:56 PM EST
--- OUTSIDE RECORDS SUMMARY | 2024-08-07 09:44 | XMS_ITS ---
Author Organization Hany Bañuelos III, MD Address [address] [facility] [place] [address] Care Team Providers Care Radial Drill Press Set Up Operator Name Role Phone Dr. Hany Bañuelos [...] Male Encounters Encounter Location Date Provider Diagnosis aHny Bañuelos III, MD [address] [place] [address] [place] [address] 08/07/2024 Hany Bañuelos Plan Of Treatment Medication Medication Name Sig Start Date Stop Date Notes OneTouch Ultra - check blood sugar on a day 08/07/2024 E11.69 Type 2 diabet es mellitus FreeStyle Lite - use to check blood sugar once a day for 90 days 08/07/2024 DX: Type 2 diabetes E11.69 Next Appt Details Provider Name:Hany Bañuelos , 02/25/2025 04:00:00 PM, [address] [place] [address] [place], [address], Progress Notes * Chris SANTORODOB:1950 (74 yo M)Acc No.[id number]:08/07/2024 Patient: Chris COREAS :1950 A ge:74 Y S ex:Male Address:[address] [place] [address], [place], [address] * Refills Stop [employer] Ultra Device, -, check blood sugar, once a day Start FreeStyle Lite Device, -, 1 Kit, use to check blood sugar once a day, 90 days, Refills=3 * true * Date: Generated for Pino fernandez/Yomaira/Greeritting on: 04/01/2024 12:55 PM EST
--- OUTSIDE RECORDS SUMMARY | 2024-08-29 10:15 | XMS_ITS ---
Author Organization Hany Bañuelos III, MD Address [address] [place] [address] Care Team Providers Care Baggage Clerk Name Role Phone Dr. Hany Bañuelos III [...] Start Date End Date Status Dexcom G7 Continuous Linter Drier Operator - as directed - use to [...] Date Provider Diagnosis Hany Bañuelos III, MD [address] [place] [address] [place] [address] 08/29/2024 Hany Bañuelos Type 2 diabetes mellitus with other specified complication E11.69 ; History of prostate cancer Z85.46 ; Essential hypertension I10 ; Overweight E66.3 ; Coronary artery disease involving [place] coronary artery of [place] heart without angina pectoris I25.10 ; Hyperlipidemia, [...] has resolved. 08/29/2024 Coronary artery disease involving [place] coronary artery of [place] heart without angina pectoris (ICD-10 - I25.10) He has had no angina at rest or with exertion recently. No change in his regimen was needed today. He is up-to-date with his pump room operator. 08/29/2024 Hyperlipidemia, unspecified (ICD-10 - E78.5) His [...] wrist. He has been referred to the dairy equipment repairer. Plan Of Treatment Medication Medication Name Sig Start Date Stop Date Notes Dexcom G7 Continuous Linter Drier Operator - as directed - use t [...] Next Appt Details Follow Up: as scheduled, [place] son: ov review labs Provider Name:Hany Bañuelos , 02/25/2025 04:00:00 PM, [address] [place] [address] [address], [place], [address], Progress Notes * Chris SANTORODOB:1950 (74 yo M)Acc No.[id number]:08/29/2024 Progress Notes Patient: Chris COREAS Provider: Ronak Bañuelos MD :1950 A ge:74 Y S ex:Male Date:08/29/2024 Address:[address] [place] [address], [phone] Subjective: * Chief Complaints: * D iabetesCoronary artery diseaseHyperlipidemiaHypertensionKidney stoneGoutHearing lossProstate cancer in remission * HPI: C OVID-19 Screening: He returns for medical management of his metabolic syndrome and coronary artery. He is going to see his pump room operator next month. He has had no exertional [...] history of stroke. His father at 45 [place] diagnosed with MS and heart disease. His [...] H e is . 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 He lives in [place], [place]. * Medications: T akingAllopurinol 100 MG Tablet 1 tablet Orally Once a day Atorvastatin Calcium 80 MG Tablet TAKE 1 TABLET BY MOUTH EVERY DAY Vitamin C 500 MG Tablet Chewable 1 tablet Orally Once a day Aspir-81 81 MG Tablet Delayed Release 1 tablet Orally Once a day Coenzyme Q10 200 MG Tablet 1 tablet Orally Once a day [id number] Continuous Linter Drier Operator - Device as directed - use [...] Orally Once a day Taking Dexcom G7 Continuous Linter Drier Operator - Device as directed - use [...] 48 (Ref Range: >40 mg/dL) * Lab:Comprehensive [place]. Pane l Fast * Collection Date 08/29/2024 [...] 5 . C oronary artery disease involving [place] coronary artery of [place] heart without angina pectoris - I25.10 N otes :He has had no angina at rest or with exertion recently. No change in his regimen was needed today. He is up-to-date with his pump room operator. 6 . H yperlipidemia, unspecified - E78.5 [...] wrist. He has been referred to the dairy equipment repairer. Plan: * Treatment: 2. H istory of [...] 0 08/29/2024 Generated for Pino fernandez/Yomaira/eTaprilsmitting on: 04/01/2024 12:55 PM EST History and [...]
--- OUTSIDE RECORDS SUMMARY | 2024-09-17 05:21 | XMS_ITS ---
Author Organization Hany Bañuelos III, MD Address [address] [place] [address] [place] [address] Care Team Providers Care Liquid Hydrogen Plant Operator Name Role Phone Dr. Hany Bañuelos III Primary Care Provider [phone] REASON FOR VISIT refill on Metformin and Atorvastatin Medications Medication SIG (Take, Route, Frequency, Duration) Notes Start Date End Date Status metFORMIN HCl 1000 MG TAKE 1 TABLET BY M OUTH TWICE A DAY WITH A MEAL Orally twice a day for 90 days Active Atorvastatin Calcium 80 MG TAKE 1 TABLET BY MOUTH EVERY DAY Orally Once a day for 90 days Active Social History Sex Assigned At : Social History Observation Description Sex Assigned At Male Encounters Encounter Location Date Provider Diagnosis Hany Bañuelos III, MD [address] [place] [address] [place] [address] 09/17/2024 Hany Bañuelos Plan Of Treatment Medication Medication Name Sig Start Date Stop Date Notes metFORMIN HCl 1000 MG TAKE 1 TABLET BY M OUTH TWICE A DAY WITH A MEAL Orally twice a day for 90 days Atorvastatin Calcium 80 MG TAKE 1 TABLET BY MOUTH EVERY DAY Orally Once a day for 90 days Next Appt Details Provider Name:Hany Bañuelos , 02/25/2025 04:00:00 PM, [address] [place] [address] [place], [address], Progress Notes * Chris SANTORODOB:1950 (74 yo M)Acc No.[id number]:09/17/2024 Patient: Chris COREAS :1950 A ge:74 Y S ex:Male Address:[address], [place], [address] * Refills Refill metFORMIN HCl Tablet, 1000 MG, Orally, 180, TAKE 1 TABLET BY MOUTH TWICE A DAY WITH A MEAL, twice a day, 90 days, Refills=3 Refill Atorvastatin Calcium Tablet, 80 MG, Orally, 90, TAKE 1 TABLET BY MOUTH EVERY DAY, Once a day, 90 days, Refills=3 * true * Date: Generated for Pino fernandez/Yomaira/Tosin on: 04/01/2024 12:57 PM EST
--- OUTSIDE RECORDS SUMMARY | 2024-09-21 04:42 | XMS_ITS ---
Author Organization Hany Bañuelos III, MD Address [address] [facility] [place] [address] Care Team Providers Care Cleaning Porter Name Role Phone Dr. Hany Bañuelos III Primary Care Provider Social History Sex Assigned At : Social History Observation Description Sex Assigned At Male Encounters Encounter Location Date Provider Diagnosis Hany Bañuelos III, MD [address] [place] [address] [place] [address] 09/21/2024 Hany Bañuelos Plan Of Treatment Next Appt Details Provider Name:Hany Bañuelos , 02/25/2025 04:00:00 PM, [address] [place] [address] [address], [place], [address], Progress Notes * Chris SANTORODOB:1950 (74 yo M)Acc No.[id number]:09/21/2024 Patient: Chris COREAS :1950 A ge:74 Y S ex:Male Address:[place], [address] * true * Date: Generated for Candicei jim/Yomaira/eTransmitting on: 04/01/2024 12:57 PM EST
--- OUTSIDE RECORDS SUMMARY | 2025-01-30 12:55 | XMS_ITS | Clinical Summary ---
Author Organization [facility] Address [address] [place] [address] Phone Care Team Providers Care Food Vendor Name Role Phone Hany Bañuelos MD Primary Care Provider Social History Tobacco Use Types Packs/Day Years [...] 1:30 PM EDT Office Visit Orthopedic Surgery - [place] [address] [phone] Arjun Arreguin, DPM [address] [phone] Health Maintenance Due Date Last Done Comments Colorectal Cancer Screening: Colonoscopy 1950 DTaP,Tdap,and Td Vaccines (1 - Tdap) 05/30/1970 Pneumococcal Vaccine: 50+ Years (1 of 2 - PCV) 05/30/1970 Depression Screening 03/14/2024 Abdominal Aortic Aneurysm (AAA) Screen 07/16/2024 Cholesterol Screening (Lipid Panel) 07/16/2024 Falls Risk Assessment 07/16/2024 Hepatitis C Screening 07/16/2024 Medicare Annual Wellness Visit 07/16/2024 Social Influencers of Health Screening 07/16/2024 COVID-19 Vaccine ( season) 2024 12/08/2023, 01/28/2023, 12/30/2021, Additional history exists Influenza Vaccine (#1) 2024 , 12/29/2022, 12/29/2021, [...] age to complete this topic Insurance MEDICARE [facility] Care Teams Food Vendor Relationship Specialty Start Date End Date Hany Bañuelos MD [address] [place] [address] [place] [address] PCP - General Oncology 07/18/24
--- OUTSIDE RECORDS SUMMARY | 2025-01-30 12:56 | XMS_ITS | Patient Health Record ---
Author Organization Hany Bañuelos III, MD Address [address] [address] Care Team Providers Care Orthotic Practitioner Name Role Phone Dr. Hany Bañuelos III [...] 0.2 - 1.3 BLD Negative Negative - US renal BI Reviewed date:03/05/2024 06:13:01 AM Interpretation: Performing Lab: Notes/Report: [address] [address] Ultrasound Report Signed Patient: Chris Santoro MR#: [id number] 8 : 1950 Acct:[id number] Age/Sex: 73 / M ADM Date: 02/13/24 Loc: HO.US Attending Dr: Kevin Cochran MD Ordering Physician: Kevin Cochran MD Date of Service: 02/13/24 Procedure(s): US renal BI Accession Number(s): [id number] cc: Kevin Cochran MD; Hany Bañuelos MD [...] by: Alexis Leonard MD 02/23/2024 03:47 PM [facility] Dictated By: Alexis Leonard MD Signed By: <Electronically signed by Alexis Leonard MD in OV> 02/23/24 1547 DD/ 1020 TD/TT: 02/13/24 1043 [employer] Pipe: [place] [address] Ultrasound Report Signed Patient: Filomena Santoro MR#: [id number] 8 : 1950 Acct:[id number] Age/Sex: 73 / M ADM Date: 02/13/24 Loc: HO.US Attending Dr: Trish Villaseñor MD Ordering Physician: Kevin Cochran MD Date of Service: 02/13/24 Procedure(s): US daisy Tran Accession Number(s): [id number] cc: Kevin Cochran MD; Hany Bañuelos MD [...] by: Alexis Leonard MD 02/23/2024 03:47 PM [facility] Dictated By: Alexis Leonard MD Signed By: <Electronically signed by Alexis Leonard MD in OV> 02/23/24 1547 DD/ 1020 TD/TT: 02/13/24 1043 P[employer] Pipe: Complete Blood Count Auto Di ff Reviewed date:02/21/2024 04:11:17 PM Interpretation: Performing Lab:[facility], [address] [place] [phone] Notes/Report: White Blood Count 7.2 4.8-10.8 X10*3/uL [...] NRBC Abs Auto 0.000 0.0-0.012 X10*3/uL Comprehensive [place]. Panel Fa st Reviewed date:02/21/2024 04:11:17 PM Interpretation: Performing Lab:[facility], [address] [place] [phone] Notes/Report: Sodium 139 135-145 mmol/L Potassium 4.8 [...] Panel Reviewed date:02/21/2024 04:11:17 PM Interpretation: Performing Lab:[facility], [address] [place] [phone] Notes/Report: Triglycerides 61 <150 mg/dL Desirable Triglyceride: [...] Antigen Reviewed date:02/21/2024 04:11:17 PM Interpretation: Performing Lab:[facility], [address] [place] [phone] Notes/Report: Prostate Specific Antigen < 0.10 <0.05-4.0 ng/mL PSA methodology: Sharma Alinity i Chemiluminescent Microparticle Immunoassay (CMIA) Microalbumin, Random Reviewed date:02/21/2024 04:11:17 PM Interpretation: Performing Lab:[facility], [address] [place] [phone] Notes/Report: Creatinine Urine 155.43 Microalbumin Urine 17.0 Microalbum/Creatinine Ratio Ur 10.9 <30 ug/mg cr Albumin/Creatinine Ratio Reference Ranges: Normal: < 30 ug/mg creatinine Microalbuminuria: 30 - 300 ug/mg creatinine Clinical Albuminuria: > 300 ug/mg creatinine Hemoglobin A1c Reviewed date:02/21/2024 04:11:17 PM Interpretation: Performing Lab:[facility], [address] [place] [phone] Notes/Report: Hemoglobin A1c % 5.8 <6.0 % [...] average glucose, using the formula of the U5E-Yrjubvz Average Glucose study (ADAG), Diabetes Care, Vol.31,#8, Oct. 2007 Complete Blood Count Auto Di ff Reviewed date:05/29/2024 12:17:53 PM Interpretation: Performing Lab:[facility], [address] [place] [phone] Notes/Report: White Blood Count 6.4 4.8-10.8 X10*3/uL Red Blood Count 4.45 4.60-5.80 X10*6/uL Hemoglobin 13.0 14.0-18.0 g/dl Hematocrit 40.2 42.0-52.0 % Mean Corpuscular Volume 90.3 80.0-98.0 fL Mean Corpuscular Hemoglobin 29.2 27.0-33.0 pg Mean Corpuscular HGB Conc 32.3 31.0-36.0 g/dl Red Cell Distribution Width 13.2 11.0-16.0 % Platelet Count 217 160-400 X10*3/uL Mean Platelet Volume 10.2 9.4-12.4 fL Neutrophils Percent Auto 56.4 45-73 % Imm Gran Pct Auto 0.2 0.0-0.4 % Lymphocytes Percent Auto 27.5 20-40 % Monocytes Percent Auto 11.5 2-11 % Eosinophils Percent Auto 3.8 0-4 % Basophils Percent Auto 0.6 0-2 % NRBC Pct Auto 0.0 0.0-0.2 /100WBC Neutrophils Absolute Auto 3.6 2.0-8.3 x10*3/uL Imm Gran Abs Auto 0.01 0.00-0.03 X10*3/uL Lymphocytes Absolute Auto 1.8 1.2-4.9 X10*3/uL Monocytes Absolute Auto 0.7 0.1-1.2 X10*3/uL Eosinophils Absolute Auto 0.2 0.0-0.4 X10*3/uL Basophils Absolute Auto 0.0 0.0-0.2 X10*3/uL NRBC Abs Auto 0.000 0.0-0.012 X10*3/uL Comprehensive [place]. Panel Fa st Reviewed date:05/29/2024 12:17:53 PM Interpretation: Performing Lab:[facility], [address] [place] [phone] Notes/Report: Sodium 139 135-145 mmol/L Potassium 4.5 3.3-5.1 mmol/L Chloride 108 96-108 mmol/L Carbon Dioxide 24 22-29 mmol/L Anion Gap 12 12-20 Blood Urea Nitrogen 28 9-16 mg/dL Creatinine 1.19 0.5-1.4 mg/dL Estimated Glomerular Filt Rate > 60 Chronic Kidney Disease: Estimated GFR < 60 mL/min/1.73m2 Severe Kidney Disease: Estimated GFR < 15 mL/min/1.73m2 Glucose Fasting 123 60-99 mg/dL A fasting glucose from 100-125 mg/dl is considered impaired (pre-diabetes). Calcium 8.9 8.4-10.2 mg/dL Bilirubin Total 0.6 0.0-1.0 mg/dL Aspartate Amino Transferase 28 5-37 U/L Alanine Aminotransferase 36 0-40 U/L Total Protein 7.7 6.5-8.0 g/dL Albumin Level 4.4 3.5-5.0 g/dL Alkaline Phosphatase 70 39-117 U/L Lipid Panel Reviewed date:05/29/2024 12:17:53 PM Interpretation: Performing Lab:[facility], [address] [place] [phone] Notes/Report: Triglycerides 67 <150 mg/dL Desirable Triglyceride: less than 150 mg/dL Borderline High Triglyceride 150-199 mg/dL High Triglyceride: 200-499 mg/dL Very High Triglyceride: greater than or equal to 5OO mg/dL Cholesterol 111 <200 mg/dL Desirable Cholesterol: less than 200 mg/dL Borderline High Cholesterol: 200-239 mg/dL High Cholesterol: greater than 239 mg/dL LDL Cholesterol Calculated 55 <100 mg/dL Desirable LDL: less than 100 mg/dL Near Optimal/Above Optimal LDL: 110-129 mg/dL Borderline High LDL: 130-159 mg/dL High LDL: 160-189 mg/dL Very High LDL: greater than or equal to 190 mg/dL HDL Cholesterol 43 >40 mg/dL Desirable HDL: greater than 40 mg/dL Note: This HDL assay may give artificially low results in patients with liver disease. Prostate Specific Antigen Reviewed date:05/29/2024 12:17:53 PM Interpretation: Performing Lab:[address] [phone] Notes/Report: Prostate Specific Antigen < 0.10 <0.05-4.0 ng/mL PSA methodology: Sharma Alinity i Chemiluminescent Microparticle Immunoassay (CMIA) Hemoglobin A1c Reviewed date:05/29/2024 12:17:53 PM Interpretation: Performing Lab:[facility], [address] [place] [phone] Notes/Report: Hemoglobin A1c % 5.9 <6.0 % Hemoglobin A1C Reference Range Adults: 4.8 - 6.0 % Non diabetic: < 6.0 % Goal: < 7.0 % Additional Action Suggested: > 8.0 % Note: Hemoglobin A1c results are invalid for patients with abnormal amounts of HbF. Blood transfusions may impact the HbA1c concentration in the patient sample. Estimated Average Glucose 123 eAG = Estimated average glucose which is %A1C expressed as average glucose, using the formula of the D1K-Orzflhw Average Glucose study (ADAG), Diabetes Care, Vol.31,#8, Oct. 2007 Complete Blood Count Auto Di ff Reviewed date:08/29/2024 11:06:21 AM Interpretation: Performing Lab:[facility], [address] [place] [phone] Notes/Report: White Blood Count 6.1 4.8-10.8 X10*3/uL Red Blood Count 4.54 4.60-5.80 X10*6/uL Hemoglobin 13.4 14.0-18.0 g/dl Hematocrit 39.7 42.0-52.0 % Mean Corpuscular Volume 87.4 80.0-98.0 fL Mean Corpuscular Hemoglobin 29.5 27.0-33.0 pg Mean Corpuscular HGB Conc 33.8 31.0-36.0 g/dl Red Cell Distribution Width 14.0 11.0-16.0 % Platelet Count 215 160-400 X10*3/uL Mean Platelet Volume 9.6 9.4-12.4 fL Neutrophils Percent Auto 55.7 45-73 % Imm Gran Pct Auto 0.2 0.0-0.4 % Lymphocytes Percent Auto 31.9 20-40 % Monocytes Percent Auto 7.7 2-11 % Eosinophils Percent Auto 3.4 0-4 % Basophils Percent Auto 1.1 0-2 % NRBC Pct Auto 0.0 0.0-0.2 /100WBC Neutrophils Absolute Auto 3.4 2.0-8.3 x10*3/uL Imm Gran Abs Auto 0.01 0.00-0.03 X10*3/uL Lymphocytes Absolute Auto 1.9 1.2-4.9 X10*3/uL Monocytes Absolute Auto 0.5 0.1-1.2 X10*3/uL Eosinophils Absolute Auto 0.2 0.0-0.4 X10*3/uL Basophils Absolute Auto 0.1 0.0-0.2 X10*3/uL NRBC Abs Auto 0.000 0.0-0.012 X10*3/uL Comprehensive [place]. Panel Fa st Reviewed date:08/29/2024 11:06:21 AM Interpretation: Performing Lab:[facility], [address] [place] [phone] Notes/Report: Sodium 139 135-145 mmol/L Potassium 4.5 3.3-5.1 mmol/L Chloride 108 96-108 mmol/L Carbon Dioxide 24 22-29 mmol/L Anion Gap 12 12-20 Blood Urea Nitrogen 20 9-16 mg/dL Creatinine 1.11 0.5-1.4 mg/dL Estimated Glomerular Filt Rate > 60 Chronic Kidney Disease: Estimated GFR < 60 mL/min/1.73m2 Severe Kidney Disease: Estimated GFR < 15 mL/min/1.73m2 Glucose Fasting 118 60-99 mg/dL A fasting glucose from 100-125 mg/dl is considered impaired (pre-diabetes). Calcium 9.3 8.4-10.2 mg/dL Bilirubin Total 0.7 0.0-1.0 mg/dL Aspartate Amino Transferase 31 5-37 U/L Alanine Aminotransferase 38 0-40 U/L Total Protein 6.9 6.5-8.0 g/dL Albumin Level 4.5 3.5-5.0 g/dL Alkaline Phosphatase 60 39-117 U/L Lipid Panel Reviewed date:08/29/2024 11:06:21 AM Interpretation: Performing Lab:[address] [phone] Notes/Report: Triglycerides 79 <150 mg/dL Desirable Triglyceride: less than 150 mg/dL Borderline High Triglyceride 150-199 mg/dL High Triglyceride: 200-499 mg/dL Very High Triglyceride: greater than or equal to 5OO mg/dL Cholesterol 102 <200 mg/dL Desirable Cholesterol: less than 200 mg/dL Borderline High Cholesterol: 200-239 mg/dL High Cholesterol: greater than 239 mg/dL LDL Cholesterol Calculated 38 <100 mg/dL Desirable LDL: less than 100 mg/dL Near Optimal/Above Optimal LDL: 110-129 mg/dL Borderline High LDL: 130-159 mg/dL High LDL: 160-189 mg/dL Very High LDL: greater than or equal to 190 mg/dL HDL Cholesterol 49 >40 mg/dL Desirable HDL: greater than 40 mg/dL Note: This HDL assay may give artificially low results in patients with liver disease. Prostate Specific Antigen Reviewed date:08/29/2024 11:06:21 AM Interpretation: Performing Lab:[address] [phone] Notes/Report: Prostate Specific Antigen < 0.10 <0.05-4.0 ng/mL PSA methodology: Sharma Alinity i Chemiluminescent Microparticle Immunoassay (CMIA) Microalbumin, Random Reviewed date:08/29/2024 11:06:21 AM Interpretation: Performing Lab:[address] [phone] Notes/Report: Creatinine Urine 151.43 Microalbumin Urine 28.0 Microalbum/Creatinine Ratio Ur 18.4 <30 ug/mg cr Albumin/Creatinine Ratio Reference Ranges: Normal: < 30 ug/mg creatinine Microalbuminuria: 30 - 300 ug/mg creatinine Clinical Albuminuria: > 300 ug/mg creatinine Hemoglobin A1c Reviewed date:08/29/2024 11:06:21 AM Interpretation: Performing Lab:[address] [phone] Notes/Report: Hemoglobin A1c % 5.9 <6.0 % Hemoglobin A1C Reference Range Adults: 4.8 - 6.0 % Non diabetic: < 6.0 % Goal: < 7.0 % Additional Action Suggested: > 8.0 % Note: Hemoglobin A1c results are invalid for patients with abnormal amounts of HbF. Blood transfusions may impact the HbA1c concentration in the patient sample. Estimated Average Glucose 123 eAG = Estimated average glucose which is %A1C expressed as average glucose, using the formula of the R1Z-Dsgqeab Average Glucose study (ADAG), Diabetes Care, Vol.31,#8, Oct. 2007 Diabetic Eye Exam Reviewed date:09/28/2024 11:21:51 AM Interpretation:undefined Performing Lab: Notes/Report: undefined Reason For Referral Reason Evaluate and Treat Routine Diabetic Foot Care Nail Reduction Diagnosis 1 Type 2 diabetes berhane itus with other specified complication (E11.) Referral Organization Hany Bañuelso III, MD Referring Provider First Name Hany Referring Provider Last Name Edda Referring Provider Speciality Internal M edicine Referred Provider ISABEL BRIGGS Referred Provider Specialty Podiatry General Notes Jenna Fernandez 06/04/2024 10:11:39 AM > Referral and progress note faxedJim Amber 06/28/2024 02:26:10 PM > Dr Gauthier office stated they are only up to 05/30/24 in referrals and the patient has not been scheduled Referral Priority Routine Referral Appointment Date 09/17/2024 Medications Medication SIG (Take, Route, Frequency, Duration) Notes Start Date End Date Status FreeStyle Lite Test - check blood sugar once a day Type 2 diabetes mellitus Active metFORMIN HCl 1000 MG TAKE 1 TABLET BY MOUTH TWICE A DAY WITH A MEAL Orally twice a day for 90 days Active Dexcom G7 Sensor - as directed Type 2 diabetes mellitus Active Allopurinol 100 MG 1 tablet Orally Once a day 12/05/2023 Active Dexcom G7 Temporary Office Assistant - as directed - use to check blood sugars up to 4 times daily 04/04/2023 Active FreeStyle Lite - use to check blood sugar once a day use to check blood sugar once a day DX: Type 2 diabetes E11.08/07/2024 Active Vitamin B-6 50 MG TAKE 1 TABLET BY MOUTH EVERY DAY Orally Once a day Active Metoprolol Tartrate 50 MG 1 tablet with food Orally Twice a day . Type 2 diabetes mellitus Active FreeStyle Lancets - test blood sugars once a day Type 2 diabetes mellitus Active Vitamin C 500 MG 1 tablet Orally Once a day Active Aspir-81 81 MG 1 tablet Orally Once a day Active Coenzyme Q10 200 MG 1 tablet Orally Once a day Active Atorvastatin Calcium 80 MG TAKE 1 TABLET BY MOUTH EVERY DAY Orally Once a day for 90 days Active Allopurinol 100 MG 1 tablet Orally Once a day for 90 days 08/29/2024 08/24/2025 Active Immunizations Vaccine Route Administration Date Status [...] 12/29/2022 Administered Influenza, quad Unknown 01/02/2019 Administered Fluzone High-Dose (HD-IIV3) Unknown 11/20/2024 Administ ered Social History Tobacco Use: Social History Observation [...] Problem Status W/U Status Risk Notes Problem 238367240 Tubular adenoma (D36.9) Active confirmed He is due for a colonoscopy in December and he was referred to us customer service receptionist to arrange this. Problem 126328502159 Type 2 diabetes mellitus with other specified complication (E11.69) Active confirmed His fasting glu cose is 123. The hemoglobin A1c is 5.9. His weight is in the normal range. We reviewed his diabetic diet. No change was made in his medications today. Problem 91131238 Hyperlipidemia , unspecified (E78.5) Active confirmed His weight is i n the normal range. His fasting total cholesterol is 111. No change in his regimen was necessary. Problem 35784399 Essential hypertension (I10) Active confirmed Pressure is wel l controlled and no change in his regimen as needed. Problem 967596825 History of skin cancer (Z85.828) Active confirmed He has 2 new lesions on his right wrist. He has been referred to the category planner. 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 No change in his regimen was needed today. He is up-to-date with his dry chain offbearer. Problem 522512841 History of prostate cancer (Z85.46) Active confirmed Is PSA remains nondetectable.There is no sign of disease recurrence. Problem 203468877 Sensorineural hearing loss (SNHL) of both ears (H90.3) Active confirmed He is in the process of having an audiology exam. Amplification will be determined. 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 He remains well hydrated. Problem 92418503 Idiopathic chronic gout without tophus, unspecified site (M1A.00X0) Active confirmed He continues on allopurinol without difficulty. Vital Signs Heart Rate 61 /min 08/29/2024 Temperature 98.0 degrees Fahrenheit 08/29/2024 Blood pressure diastolic 55 mm Hg 08/29/2024 Height 70 in 08/29/2024 Blood pressure systolic 116 mm Hg 08/29/2024 Weight 168 lbs 08/29/2024 BMI 24.1 kg/m2 08/29/2024 Encounters Encounter Location Date Provider Diagnosis Hany Bañuelos III, MD [address] [place] [address] [place] [phone] 02/21/2024 Hany Bañuelos Type 2 diabetes mellitus with other specified complication E11.69 ; History of prostate cancer Z85.46 ; Essential hypertension I10 ; Coronary artery disease involving red cliff coronary artery of red cliff heart without angina pectoris I25.10 ; Hyperlipidemia, unspecified E78.5 ; Sensorineural hearing loss (SNHL) of both ears H90.3 and Calcium oxalate kidney stones N20.0 Hany Bañuelos III, MD [address] [place] [address] [place] [address] 05/29/2024 Hany Bañuelos Type 2 diabetes mellitus with other specified complication E11.69 ; Hyperlipidemia, unspecified E78.5 ; History of prostate cancer Z85.46 ; Coronary artery disease involving red cliff coronary artery of red cliff heart without angina pectoris I25.10 ; Essential hypertension I10 and Calcium oxalate kidney stones N20.0 Hany Bañuelos III, MD [address] [place] [address] [place] [address] 08/29/2024 Hany Bañuelos Type 2 diabetes mellitus with other specified complication E11.69 ; History of prostate cancer Z85.46 ; Essential hypertension I10 ; Overweight E66.3 ; Coronary artery disease involving red cliff coronary artery of red cliff heart without angina pectoris I25.10 ; Hyperlipidemia, unspecified E78.5 ; Calcium oxalate kidney stones N20.0 and History of skin cancer Z85.828 Hany Bañuelos III, MD [address] [place] [address] [place] [address] 07/16/2024 Hany Bañuelos III, MD [address] [place] [address] [place] [address] 07/19/2024 Hany Bañuelos Type 2 diabetes mellitus with other specified complication E11.69 Hany Bañuelos III, MD [address] [place] [address] [place] [address] 08/07/2024 Hany Bañuelos Type 2 diabetes mellitus with other specified complication E11.69 Hany Bañuelos III, MD [address] [place] [address] [place] [address] 08/07/2024 Hany Bañuelos III, MD [address] [place] [address] [place] [address] 09/17/2024 Hany Bañuelos III, MD [address] [place] [address] [place] [address] 09/21/2024 Hnay Bañuelos Assessments Encounter Date Diagnosis (ICD Code) [...] symptoms. The PSA will be followed carefully. 05/29/2024 Type 2 diabetes mellitus with other [...] change in his regimen was necessary. 08/29/2024 Type 2 diabetes mellitus with other specified complication (ICD-10 - E11.69) His fasting glucose is 123. The hemoglobin A1c is 5.9. His weight is in the normal range. We reviewed his diabetic diet. No change was made in his medications today. 08/29/2024 History of prostate cancer (ICD-10 - Z85.46) Is PSA remains nondetectable.There is no sign of disease recurrence. 07/19/2024 Type 2 diabetes mellitus with other specified complication (ICD-10 - E11.69) His fasting glucose is 123. The hemoglobin A1c is 5.9. His weight is in the normal range. We reviewed his diabetic diet. No change was made in his medications today. 08/07/2024 Type 2 diabetes mellitus with other specified complication (ICD-10 - E11.69) His fasting glucose is 123. The hemoglobin A1c is 5.9. His weight is in the normal range. We reviewed his diabetic diet. No change was made in his medications today. 02/21/2024 Essential hypertension (ICD-10 - I10) His bloood pressure today is in the stable range. The value was 138/72. No change in his regimen was necessary. 05/29/2024 History of prostate cancer (ICD-10 - Z85.46) He has no symptoms. His PSA remains nondetectable. 08/29/2024 Essential hypertension (ICD-10 - I10) Pressure is well controlled and no change in his regimen as needed. 02/21/2024 Coronary artery disease involving red cliff coronary artery of red cliff heart without angina pectoris (ICD-10 - I25.10) He has had no angina at rest or with exertion recently. No change in his regimen was needed today. He is up-to-date with his dry chain offbearer. 05/29/2024 Coronary artery disease involving red cliff coronary artery of red cliff heart without angina pectoris (ICD-10 - I25.10) He has had no angina at rest or with exertion recently. No change in his regimen was needed today. He is up-to-date with his dry chain offbearer. 08/29/2024 Overweight (ICD-10 - E66.3) Body mass index is now 24 this problem has resolved. 02/21/2024 Hyperlipidemia, unspecified (ICD-10 - E78.5) His lipids are well controlled and no change in his regimen is necessary today. 05/29/2024 Essential hypertension (ICD-10 - I10) His bloood pressure today is in the stable range. The value was 138/72. No change in his regimen was necessary. 08/29/2024 Coronary artery disease involving red cliff coronary artery of red cliff heart without angina pectoris (ICD-10 - I25.10) He has had no angina at rest or with exertion recently. No change in his regimen was needed today. He is up-to-date with his dry chain offbearer. 02/21/2024 Sensorineural hearing loss (SNHL) of both ears (ICD-10 - H90.3) He is in the process of having an audiology exam. Amplification will be determined. 05/29/2024 Calcium oxalate kidney stones (ICD-10 - N20.0) No further kidney stones have been reported. He remains well hydrated. 08/29/2024 Hyperlipidemia, unspecified (ICD-10 - E78.5) His weight is in the normal range. His fasting total cholesterol is 111. No change in his regimen was necessary. 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 He remains well hydrated. 08/29/2024 Calcium oxalate kidney stones (ICD-10 - N20.0) No further kidney stones have been reported. He remains well hydrated. 08/29/2024 History of skin cancer (ICD-10 - Z85.828) He has 2 new lesions on his right wrist. He has been referred to the category planner. Plan Of Treatment Pending Test Test Name Order Date PROFILE, FASTING (COMPREHENSIVE METABOLI C) 10/03/2019 PROFILE, FASTING (COMPREHENSIVE METABOLI C) 10/11/2018 PROFILE, FASTING (COMPREHENSIVE METABOLI C) 04/02/2022 PROFILE, FASTING (COMPREHENSIVE METABOLI C) 02/28/2019 PROFILE, FASTING (COMPREHENSIVE METABOLI C) 11/30/2022 PROFILE, FASTING (COMPREHENSIVE METABOLI C) 08/03/2022 PROFILE, FASTING (COMPREHENSIVE METABOLI C) 04/01/2023 PROFILE, FASTING (COMPREHENSIVE METABOLI C) 10/04/2023 PROFILE, FASTING (COMPREHENSIVE METABOLI C) 07/05/2023 PROFILE, FASTING (COMPREHENSIVE METABOLI C) 05/29/2024 PROFILE, FASTING (COMPREHENSIVE METABOLI C) 07/11/2020 PROFILE, FASTING (COMPREHENSIVE METABOLI C) 02/21/2024 PROFILE, FASTING (COMPREHENSIVE METABOLI C) 08/29/2024 PROFILE, RANDOM (COMPREHENSIVE METABOLIC ) 05/30/2019 HEMOGLOBIN A1C (GLYCOHEMOGLOBIN) 020 HEMOGLOBIN A1C (GLYCOHEMOGLOBIN) 019 HEMOGLOBIN A1C (GLYCOHEMOGLOBIN) 023 HEMOGLOBIN A1C (GLYCOHEMOGLOBIN) 019 HEMOGLOBIN A1C (GLYCOHEMOGLOBIN) 023 HEMOGLOBIN A1C (GLYCOHEMOGLOBIN) 023 HEMOGLOBIN A1C (GLYCOHEMOGLOBIN) 021 MAGNESIUM 07/11/2020 URIC ACID 07/11/2020 URIC ACID 04/02/2022 LIPID PANEL 10/03/2019 LIPID PANEL 05/30/2019 LIPID PANEL 07/11/2020 LIPID PANEL 10/11/2018 LIPID PANEL 02/28/2019 LIPID PANEL 04/02/2022 LIPID PANEL 11/30/2022 LIPID PANEL 08/03/2022 PSA, TOTAL 04/02/2022 PSA, TOTAL 02/21/2024 PSA, TOTAL 11/30/2022 PSA, TOTAL 08/29/2024 PSA, TOTAL 08/03/2022 PSA, TOTAL 05/30/2019 PSA, TOTAL 04/01/2023 PSA, TOTAL 10/04/2023 PSA, TOTAL 02/28/2019 PSA, TOTAL 07/05/2023 PSA, TOTAL 05/29/2024 MICROALBUMIN, RANDOM 04/02/2022 MICROALBUMIN, RANDOM 11/30/2022 MICROALBUMIN, RANDOM 07/11/2020 MICROALBUMIN, RANDOM 10/11/2018 CBC w DIFF 02/28/2019 CBC w DIFF 05/29/2024 CBC w DIFF 08/29/2024 CBC w DIFF 08/03/2022 CBC w DIFF 04/02/2022 CBC w DIFF 11/30/2022 CBC w DIFF 10/03/2019 CBC w DIFF 05/30/2019 CBC w DIFF 07/11/2020 CBC w DIFF 10/11/2018 VITAMIN D 25-OH TOTAL 07/11/2020 CBC WITH AUTO DIFF 04/01/2023 CBC WITH AUTO DIFF 10/04/2023 CBC WITH AUTO DIFF 07/05/2023 CBC WITH AUTO DIFF 02/21/2024 INFLUENZA A/B & RSV BY PCR 10/23/2018 SARS COV2 IGG 09/17/2019 Uric Acid 08/29/2024 Lipid Panel 04/01/2023 Lipid Panel 10/04/2023 Lipid Panel 07/05/2023 Lipid Panel 05/29/2024 Lipid Panel 02/21/2024 Lipid Panel 08/29/2024 Microalbumin, Random 04/01/2023 Microalbumin, Random 10/04/2023 Microalbumin, Random 05/29/2024 Hemoglobin A1c 07/05/2023 Hemoglobin A1c 04/01/2023 Hemoglobin A1c 02/21/2024 Hemoglobin A1c 10/04/2023 Hemoglobin A1c 05/29/2024 Hemoglobin A1c 08/29/2024 Next Appt Details Provider Name:Hany Bañuelos , 02/25/2025 04:00:00 PM, [address] [place] [address] [address]OMAS, [place], [address], Insurance Providers Payer Name Payer Address Payer Phone Subscriber Number Group Number Insured Name Patient Relationship to Insured Coverage Start Date Coverage End Date MEDICARE NGS [address] [place] [address] [id number] QuintonChris torres Self - patient is the insured [facility] [address] [place], [place] [id number] [phone] [id number] Chris Santoro Self - patient is the [...] hearing loss overweight Surgical History Surgery Date(Month/Year) No history Hemorrhoidectomy 08/2023 Skin Bx on right shoulder 11/2022 Nephroscopy 06/2020 colonoscopy, Dr. Caldera, tubular adenomas 07/2004 colonoscopy, Dr. Caldera, tubular adenomas 12/2009 cardiac bypass surgery 06/2017 prostatectomy 2010 right inguinal herniorrhaphy 1989 tonsilectomy 1960 lithotripsy 11/2013 cardiac catheterization 05/2017 Hospitalization History Reason Date(Month/Year) No history lithotomy and stent insertion left urete r June 2020 recent surgery cardiac bypass 06/2017
--- OUTSIDE RECORDS SUMMARY | 2025-01-30 12:56 | XMS_ITS | Clinical Summary ---
Author Organization [facility] Facility Address [address] [place] [address] Care Team Providers Care Electronic Development Technician Name Role Phone Hany Bañuelos MD Primary Care Provider [phone] Family History Medical History Relation Comments Diabetes [...] age to complete this topic Insurance [employer] [place] [employer] H[employer] [place] [employer] Care Teams Electronic Development Technician Relationship Specialty Start Date End Date Hany Bañuelos [place] [address] [place] [address] PCP - General Internal Medicine 07/24/20
--- OUTSIDE RECORDS SUMMARY | 2025-01-30 12:57 | XMS_ITS | Patient Health Record ---
Author Organization [facility] Address [address] [place] [address] Care Team Providers Care Loan Interviewer Mortgage Name Role Phone Hany Bañuelos MD Primary Care Provider Hany Suarez Unavailable [phone] Allergies Allergen (clinical drug ingredient) Drug/Non Drug Allergy documented on EMR Reaction Allergy Type Onset Date Status Levaquin paresthesias Drug Allergy Acti ve metoclopramide Reglan dystonic reaction Drug Allergy Active Reason For Referral No Information Medications Medication SIG (Take, Route, Frequency, Duration) Notes Start Date End Date Status Allopurinol 300 MG Tablet 1 tablet Orally Active Vitamin B6 50 MG Tablet 1 tablet Orally; Duration: 30 day(s) Active Aspir-81 81 MG Tablet Delayed Release 1 tablet Orally Once a day Active Metoprolol Tartrate 25 MG Tablet 1 tablet with food Orally Twice a day Active metFORMIN HCl 500 MG Tablet 1 tablet wit h a meal Orally twice a day Active Atorvastatin Calcium 80 MG Tablet 1 tablet Orally Once a day Active Vitamin C 100 MG Tablet Chewable 1 tablet Orally Once a day; Duration: 30 day(s) Active Immunizations Vaccine Route Administration Date Status Comme nts Influenza Unknown 11/12/2017 Administered Social History Social History Drugs/Alcohol: Social Info Question Answer Notes Alcohol Screen Did you have a drink containing alcohol in the past year? Yes How often did you have a drink containing alcohol in the past year? 2 to 3 times a week (3 points) How many drinks did you have on a typical day when you were drinking in the past year? 1 or 2 drinks (0 point) How often did you have 6 or more drinks on one occasion in the past year? 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 al cohol He is a nonsmoker;no sig. al cohol He is a nonsmoker;no sig. al cohol Problems Problem Type SNOMED Code ICD Code Onset Dates Problem Status W/U Status Risk Notes Problem Colon cancer screening (398212985) Colon cancer screening (Z12.11) Active confirmed Problem History of polyp of colon (situation) (912640841) Personal history of colonic polyps (Z86.010) Active confirmed Problem Diverticular disease of colon (054317826) Diverticulosis of large intestine without perforation or abscess without bleeding (K57.30) Active confirmed Problem Preprocedural examination (907045738121641) Preprocedural examination (Z01.818) Active confirmed Problem History of adenomatous polyp of colon (044728027) Hx of adenomatous colonic polyps (Z86.010) Active confirmed Plan Of Treatment Future Test Test Name Order Date COLONOSCOPY 11/22/2012 COLONOSCOPY 02/21/2018 COLONOSCOPY 07/19/2023 Insurance Providers Payer Name Payer Address Payer Phone Subscriber Number Group Number Insured Name Patient Relationship to Insured Coverage Start Date Coverage End Date [employer] [place] [address] [address] [place] [address] [id number] WENDY CUNNINGHAM Self - patient is the insured Medical (General) History Medical History History ICD Code Colon polyps-4 tubular adeno mas removed via colonoscopy in July 2004, 1 small tubular adenoma removed in 2012 Gout Denies [place],CVA,Lung disease,renal disease Prostate cancer in 2013 Hx of kidney stones NIDDM Hypertension CAD--CABG as below Colonoscopy 04/2018-1 small tubular adeno ma Surgical History Surgery Date(Month/Year) Hernia repair Tonsillectomy 4-V CABG 06/2017 Prostatectomy for prostate cancer 2013 Kidney stone removed Skin lesions removed Hemorrhoid surgery scheduled for end of 06/[address] Gudino
== END 2025-01-29 14:56 | disposition home or self-care (01) ==
LOC: HO.HAP 14:55
PROVIDERS: Visit Provider Internal Medicine Medical Oncology
DX: H90.3 Sensorineural hearing loss, bilateral (principal)
CPT/HCPCS: V5267

== ENCOUNTER 2025-02-14 14:05 | Outpatient (REF) | payer MEDICARE, SELFPAY ==
--- OUTSIDE RECORDS SUMMARY | 2023-11-21 03:30 | XMS_ITS ---
Author Organization [facility] Address [address] [place] [phone] Care Team Providers Care Process Engineering Manager Name Role Phone Hany Bañuelos MD Primary Care Provider Unavailab Hany Perkins Unavailable [phone] REASON FOR VISIT screening,hx polyps Problems Problem Type SNOMED Code ICD Code Onset Dates Problem Status W/U Status Risk Notes Problem History of polyp of colon (situation) (896168765) Personal history of colonic polyps (Z86.010) Active confirmed Problem Diverticular disease of colon (488614995) Diverticulosis of large intestine without perforation or abscess without bleeding (K57.30) Active confirmed Encounters Encounter Location Date Provider Diagnosis [facility] [place] [address] [place] [id number] 11/21/2023 Hany Caldera Colon cancer scree jason [...] * WENDY CUNNINGHAM MDDOB:[birth year] (74 yo M)Acc No.[id number]:11/21/2023 COLON WITH MAC Patient: Jennifer GUSMAN WENDY Brewster MD Provider: Ronak Caldera MD :1950 A ge:73 Y S ex:Male Date:11/21/2023 Address[facility] [address] [facility] Pcp:Hany Bañuelos MD Subjective: * Chief Complaints: [...] Y es. Billing Information: * Procedure Codes: 62616 DIAGNOSTIC COLONOSCOPY. Modifiers: 33 * The named appointment provid er may or may not be the originator of this progress note, and it is not deemed complete until electronically signed by the appointment provider. Sign off status: Pending * Provider: Ronak Caldera MD Date: 0 11/21/2023 Generated for Pino fernandez/Yomaira/Fuentessmitting on: 04/17/2024 07:24 PM EST
--- OUTSIDE RECORDS SUMMARY | 2023-12-05 12:26 | XMS_ITS ---
Author Organization Hany Bañuelos III, MD Address [address] [place] [address] [place] [address] Care Team Providers Care Videotape Operator Name Role Phone Dr. Hany Bañuelos III Primary Care Provider [phone] Medications Medication SIG (Take, Route, Fr equency, Duration) Notes Start Date End Date Status Allopurinol 100 MG 1 tablet Orally Once a day for 90 days 12/05/2023 04/02/2024 Active Social History Sex Assigned At : Social History Observation Description Sex Assigned At Male Encounters Encounter Location Date Provider Diagnosis Hany Bañuelos III, MD [address] [place] [address] [address] [facility] [place] [place] [address] 12/05/2023 Hany Bañuelos Plan Of Treatment Medication Medication Name Sig Start Date Stop Date Notes Allopurinol 100 MG 1 tablet Orally Once a day for 90 days 12/05/2023 04/02/2024 Next Appt Details Provider Name:Hany Bañuelos , 02/25/2025 04:00:00 PM, [address] [place] [address] [place], [address], Progress Notes * Chris SANTORODOB:1950 (73 yo M)Acc No.[id number]:12/05/2023 Patient: Jennifer magnusChris torres :1950 A ge:73 Y S ex:Male Address:[address] [place] [address] [place], [address] * Refills Start Allopurinol Tablet, 100 MG, Orally, 90 Tablet, 1 tablet, Once a day, 90 days, Refills=3 * true * Date: Generated for Pino fernandez/Yomaira/Tosin on: 04/17/2024 07:24 PM EST
--- OUTSIDE RECORDS SUMMARY | 2024-02-21 11:00 | XMS_ITS ---
Author Organization Hany Bañuelos III, MD Address [address] [place] [address] Care Team Providers Care Manager Software Development Name Role Phone Dr. Hany Bañuelos III Primary Care Provider [phone] Allergies Allergen (clinical drug ingredient) Drug/Non Drug Allergy documented on EMR Reaction Allergy Type Onset Date Status metoclopramide Reglan Unknown Drug Allergy Ac tive Levaquin Unknown Drug Allergy Active Results Component Value Reference Range Notes URINE DIP STICK Reviewed date:02/21/2024 04:04:37 PM Interpretation: Performing Lab: Notes/Report: SG 1.015 1.005 - 1.025 pH 5.0 5.0 - 9.0 FARHAN Negative Negative - NIT Negative Negative - PRO 15 Negative - Trace GLU Negative Negative - KET Negative Negative - UBG 0.2 0.1 - 1.8 LYN Negative 0.2 - 1.3 BLD Negative Negative - REASON FOR VISIT Annual Exam Medications Medication SIG (Take, Route, Frequency, Duration) Notes Start Date End Date Status Coenzyme Q10 200 MG 1 tablet Orally Once a day Active Aspir-81 81 MG 1 tablet Orally Once a day Active Dexcom G7 Sensor - as directed - apply sensor every 10 day 04/04/2023 Active Dexcom G7 Flame Cutter - as directed - use t o check blood sugars up to 4 times daily 04/04/2023 Active Vitamin B-6 50 MG TAKE 1 TABLET BY SKYLAR TH EVERY DAY Orally Once a day Active metFORMIN HCl 1000 MG TAKE 1 TABLET BY M OUTH TWICE A DAY WITH A MEAL Active Atorvastatin Calcium 80 MG TAKE 1 TABLET BY MOUTH EVERY DAY Active Vitamin C 500 MG 1 tablet Orally Once a day Active FreeStyle Lite Test - as directed In Vit ro to check blood sugar twice a day Active FreeStyle Lancets - as directed as direc erik test blood sugars twice a day Active Allopurinol 100 MG 1 tablet Orally Once a day 12/05/2023 Active Metoprolol Tartrate 50 MG TAKE 1 TABLET WITH FOOD BY MOUTH TWICE A DAY Active Social History Tobacco Use: Social History Observation Description Date Details (start date - stop date) Never Smoker NA - NA Sex Assigned At : Social History Observation Description Sex Assigned At Male Tobacco Use/Smoking Question Answer Notes Patient is a nonsmoker Additional Findings: Tobacco Non-User Aggressive non-smoker Tobacco Control (Standard) Question Answer Notes Tobacco use: Nonsmoker Additional Findings: Tobacco non-user Aggressive nonsmoker AUDIT-C (Standard) Question Answer Notes Did you have a drink contain ing alcohol in the past year? Yes How often did you have six o r more drinks on one occasion in the past year? 2 to 3 times per week (3 points) How many drinks did you have on a typical day when you were drinking in the past year? 1 or 2 drinks (0 point) How often did you have a dri nk containing alcohol in the past year? Never (0 point) Points 3 Interpretation Negative Vital Signs Temperature 97.3 degrees Fahrenheit 02/21/20 24 Blood pressure systolic 139 mm Hg 02/21/20 24 Blood pressure diastolic 72 mm Hg 024 Heart Rate 54 /min 02/21/2024 Height 70 in 02/21/2024 Weight 169 lbs 02/21/2024 BMI 24.25 kg/m2 02/21/2024 Encounters Encounter Location Date Provider Diagnosis Hany Bañuelos III, MD [address] [place] [address] [place] [address] 02/21/2024 Hany Bañuelos Type 2 diabetes mellitus with other specified complication E11.69 ; History of prostate cancer Z85.46 ; Essential hypertension I10 ; Coronary artery disease involving [place] coronary artery of [place] heart without angina pectoris I25.10 ; Hyperlipidemia, unspecified E78.5 ; Sensorineural hearing loss (SNHL) of both ears H90.3 and Calcium oxalate kidney stones N20.0 Assessments Encounter Date Diagnosis (ICD Code) Assessment Notes Treat ment Notes Treatment Clinical Notes 02/21/2024 Type 2 diabetes mellitus with other specified complication (ICD-10 - E11.69) He now has an optimal BMI and is exercising regularly. He has a monitor. His A1c is excellent. No change in his therapy is required today. 02/21/2024 History of prostate cancer (ICD-10 - Z85.46) He continues in remission with an undetectable PSA and no symptoms. The PSA will be followed carefully. 02/21/2024 Essential hypertension (ICD-10 - I10) His bloood pressure today is in the stable range. The value was 138/72. No change in his regimen was necessary. 02/21/2024 Coronary artery disease involving [place] coronary artery of [place] heart without angina pectoris (ICD-10 - I25.10) He has had no angina at rest or with exertion recently. No change in his regimen was needed today. 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 02/21/2024 Hyperlipidemia, unspecified (ICD-10 - E78.5) His lipids are well controlled and no change in his regimen is necessary today. 02/21/2024 Sensorineural hearing loss (SNHL) of both ears (ICD-10 - H90.3) He is in the process of having an audiology exam. Amplification will be determined. 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 He remains well hydrated. Plan Of Treatment Medication Medication Name Sig Start Date Stop Date Notes Coenzyme Q10 200 MG 1 tablet Orally Once a day Aspir-81 81 MG 1 tablet Orally Once a day Dexcom G7 Sensor - as directed - apply sensor every 10 day 04/04/2023 Dexcom G7 Flame Cutter - as directed - use t o check blood sugars up to 4 times daily 04/04/2023 Vitamin B-6 50 MG TAKE 1 TABLET BY SKYLAR TH EVERY DAY Orally Once a day metFORMIN HCl 1000 MG TAKE 1 TABLET BY M OUTH TWICE A DAY WITH A MEAL Atorvastatin Calcium 80 MG TAKE 1 TABLET BY MOUTH EVERY DAY Vitamin C 500 MG 1 tablet Orally Once a day FreeStyle Lite Test - as directed In Vit ro to check blood sugar twice a day FreeStyle Lancets - as directed as direc erik test blood sugars twice a day Allopurinol 100 MG 1 tablet Orally Once a day 12/05/2023 Metoprolol Tartrate 50 MG TAKE 1 TABLET WITH FOOD BY MOUTH TWICE A DAY Pending Test Test Name Order Date PROFILE, FASTING (COMPREHENSIVE METABOLI C) 02/21/2024 PSA, TOTAL 02/21/2024 CBC WITH AUTO DIFF 02/21/2024 Lipid Panel 02/21/2024 Hemoglobin A1c 02/21/2024 Next Appt Details Follow Up: 3 Months, End may, Reason: OV, Routine check-up Provider Name:Hany Bañuelos , 02/25/2025 04:00:00 PM, [address] [place] [address], [place] [address], [place], [address], Progress Notes * ONELJESSICA ChrisDOB:1950 (73 yo M)Acc No.[id number]:02/21/2024 Progress Notes Patient: Chris COREAS Provider: Ronak Bañuelos MD :1950 A ge:73 Y S ex:Male Date:02/21/2024 Address:[address] [place] [id number] Subjective: * Chief Complaints: * A nnual Exam * HPI: D epression Screening: PHQ-9 L ittle interest or pleasure in doing things?Not at all F eeling down, depressed, or hopeless N ot at all T rouble falling or staying asleep, or sleeping too much N ot at all F eeling tired or having little energy N ot at all P oor appetite or overeating N ot at all F eeling bad about yourself or that you are a failure, or have let yourself or your family down N ot at all T rouble concentrating on things, such as reading the newspaper or watching television N ot at all M oving or speaking so slowly that other people could have noticed; or the opposite, being so fidgety or restless that you have been moving around a lot more than usual N ot at all T houghts that you would be better off or of hurting yourself in some way N ot at all T otal Score 0 C OVID-19 Screening: Questions H ave you had any new onset fever, chills, cough, congestion, sore throat, shortness of breath, muscle aches? N o H ave you been exposed to the virus within the last 10 days? N o H ave you travelled internationally in the last 10 days? N o H ave you been exposed to COVID-19 in the past? Y es F all Risk Screening: Fall History H ave you had any falls with injury in the past year? N o H ave you had two or more falls in the past year? N o F all Risk Assessment: N o falls in the past year S LENARD Questions: SDOH Questions I n the past year have you been worried about losing your housing? N o I n the past year have you or any family members you live with been unable to get any of the following when it was really needed? Check all that apply: N one * : The patient, a 73-year-old male, has been managing his weight and has lost 20 lbs since October 2022. He has been maintaining a diet high in protein, which he believes may have contributed to his recent increase in BUN from 26 to 40. He has been managing his diabetes well, with a recent A1C of 5.8. He has no recent cardiac issues and his blood pressure was measured at 139/72. He has been experiencing no issues with his hearing, thanks to his hearing aids. He has a little arthritis in his joints but nothing major. He has had no recent skin cancers, and his PSA is less than .1. He has no kidney stones, but a recent renal ultrasound was performed due to concerns about his increased BUN. The results of this ultrasound are not yet available. Blood Sugar Level is 105. * ROS: G eneral/Constitutional: pain o nly normal aches and pains. C hills d enies.?Fatigue a dmits. F ever d enies. E NT: Decreased hearing i n both ears. R espiratory: Cough d enies. C ardiovascular: Chest pain with exertion d enies. D yspnea on exertion?denies. S hortness of breath d enies. G astrointestinal: Constipation o ccasional. D ecreased appetite d enies. D iarrhea d enies. H eartburn d enies. N ausea d enies. R ectal bleeding d enies. V omiting d enies. H ematology: bruising d enies. p etechiae d enies. S wollen glands n one have been noted. G enitourinary: Frequent urination o nce a night. M usculoskeletal: Muscle aches d enies. P ainful joints d enies. S ciatica d enies. W eakness d enies. S kin: Itching d enies. R romero d enies. S kin lesion(s)?denies. N eurologic: Difficulty speaking d enies. D izziness d enies.?Headache d enies. L ow back pain d enies. P sychiatric: Depressed mood d enies. * Medical History: * Surgical History: c ardiac catheterization 05/2017lithotripsy 11/2013tonsilectomy 1959right inguinal herniorrhaphy 1989prostatectomy 2010cardiac bypass surgery 06/2017colonoscopy, Dr. Caldera, tubular adenomas 12/2009colonoscopy, Dr. Caldera, tubular adenomas 07/2004Nephroscopy kin Bx on right shoulder 11/2022Hemorrhoidectomy 08/2023No history * Hospitalization/Major Diagno stic Procedure: r ecent surgery cardiac bypass 06/2017lithotomy and stent insertion left ureter June 2020No history * Family History: F ather: , diagnosed with CVD. M other: , Peripheral vascular disease, lymphoma, degenerative joint disease, history of stroke. His father at 45 [place] diagnosed with MS and heart disease. His mother had degenerative joint disease cerebrovascular accident lymphoma and PVD. He is not aware of any family history of substance use disorder or addiction or mental illness. * Social History: T obacco Use: T obacco Use/Smoking P atient is a n onsmoker A dditional Findings: Tobacco Non-User A ggressive non-smoker Tobacco Control (Standard) T obacco use: N onsmoker A dditional Findings: Tobacco non-user A ggressive nonsmoker D rugs/Alcohol: D rugs H ave you used drugs other than those for medical reasons in the past 12 months? N o D rug/Alcohol: A SUMIT-C (Standard) D id you have a drink containing alcohol in the past year? Y es H ow often did you have six or more drinks on one occasion in the past year? 2 to 3 times per week (3 points) H ow many drinks did you have on a typical day when you were drinking in the past year? 1 or 2 drinks (0 point) H ow often did you have a drink containing alcohol in the past year? N ever (0 point) P oints 3 I nterpretation N egative H kelsea is . 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 He lives in [place], [place]. * Medications: T akingAtorvastatin Calcium 80 MG Tablet TAKE 1 TABLET BY MOUTH EVERY DAY metFORMIN HCl 1000 MG Tablet TAKE 1 TABLET BY MOUTH TWICE A DAY WITH A MEAL Vitamin C 500 MG Tablet Chewable 1 tablet Orally Once a day FreeStyle Lancets - Miscellaneous as directed as directed test blood sugars twice a day FreeStyle Lite Test - Strip as directed In Vitro to check blood sugar twice a day Aspir-81 81 MG Tablet Delayed Release 1 tablet Orally Once a day Coenzyme Q10 200 MG Tablet 1 tablet Orally Once a day Dexcom G7 Flame Cutter - Device as directed - use to check blood sugars up to 4 times daily Dexcom G7 Sensor - Miscellaneous as directed - apply sensor every 10 day Vitamin B-6 50 MG Tablet TAKE 1 TABLET BY MOUTH EVERY DAY Orally Once a day Allopurinol 100 MG Tablet 1 tablet Orally Once a day , stop date 04/02/2024Metoprolol Tartrate 50 MG Tablet TAKE 1 TABLET WITH FOOD BY MOUTH TWICE A DAY Medication List reviewed and reconciled with the patientTaking Atorvastatin Calcium 80 MG Tablet TAKE 1 TABLET BY MOUTH EVERY DAY Taking metFORMIN HCl 1000 MG Tablet TAKE 1 TABLET BY MOUTH TWICE A DAY WITH A MEAL Taking Vitamin C 500 MG Tablet Chewable 1 tablet Orally Once a day Taking FreeStyle Lancets - Miscellaneous as directed as directed test blood sugars twice a day Taking FreeStyle Lite Test - Strip as directed In Vitro to check blood sugar twice a day Taking Aspir-81 81 MG Tablet Delayed Release 1 tablet Orally Once a day Taking Coenzyme Q10 200 MG Tablet 1 tablet Orally Once a day Taking Dexcom G7 Flame Cutter - Device as directed - use to check blood sugars up to 4 times daily Taking Dexcom G7 Sensor - Miscellaneous as directed - apply sensor every 10 day Taking Vitamin B- 6 50 MG Tablet TAKE 1 TABLET BY MOUTH EVERY DAY Orally Once a day Taking Allopurinol 100 MG Tablet 1 tablet Orally Once a day , stop date 04/02/2024Taking Metoprolol Tartrate 50 MG Tablet TAKE 1 TABLET WITH FOOD BY MOUTH TWICE A DAY Medication List reviewed and reconciled with the patient * Allergies: R Anastasia[Allergies Verified] Objective: * Vitals: H t: 70, Wt:169, BMI:24.25, BP:139/72, HR:54, Temp:97.3, Wt-k.66. * P ast Orders: Lab:Hemoglobin A1c * Collection Date 02/21/2024 10/04/2023 07/05/2023 Collection Time 08:22 AM 08:08 AM 08:06 AM Order Date 02/21/2024 10/04/2023 07/05/2023 Hemoglobin A1c % 5.8 (Ref Range: <6.0 %) 5.7 (Ref Range: <6.0 %) 5.7 (Ref Range: <6.0 %) Estimated Average Glucose 120 (Ref Range: mg/dL) 117 (Ref Range: mg/dL) 117 (Ref Range: mg/dL) * Lab:Complete Blood Count Aut o Diff * Collection Date 02/21/2024 10/04/2023 07/05/2023 Collection Time 08:22 AM 08:08 AM 08:06 AM Order Date 02/21/2024 10/04/2023 07/05/2023 White Blood Count 7.2 (Ref Range: 4.8-10.8 X10*3/uL) 6.1 (Ref Range: 4.8-10.8 X10*3/uL) 6.8 (Ref Range: 4.8-10.8 X10*3/uL) Red Blood Count 4.43 L (Ref Range: 4.60-5.80 X10*6/uL) 4.48 L (Ref Range: 4.60-5.80 X10*6/uL) 4.54 L (Ref Range: 4.60-5.80 X10*6/uL) Hemoglobin 13.3 L (Ref Range: 14.0-18.0 g/dl) 13.4 L (Ref Range: 14.0-18.0 g/dl) 13.3 L (Ref Range: 14.0-18.0 g/dl) Hematocrit 39.9 L (Ref Range: 42.0-52.0 %) 39.8 L (Ref Range: 42.0-52.0 %) 40.5 L (Ref Range: 42.0-52.0 %) Mean Corpuscular Volume 90.1 (Ref Range: 80.0-98.0 fL) 88.8 (Ref Range: 80.0-98.0 fL) 89.2 (Ref Range: 80.0-98.0 fL) Mean Corpuscular Hemoglobin 30.0 (Ref Range: 27.0-33.0 pg) 29.9 (Ref Range: 27.0-33.0 pg) 29.3 (Ref Range: 27.0-33.0 pg) Mean Corpuscular HGB Conc 33.3 (Ref Range: 31.0-36.0 g/dl) 33.7 (Ref Range: 31.0-36.0 g/dl) 32.8 (Ref Range: 31.0-36.0 g/dl) Red Cell Distribution Width 13.6 (Ref Range: 11.0-16.0 %) 14.5 (Ref Range: 11.0-16.0 %) 14.1 (Ref Range: 11.0-16.0 %) Platelet Count 243 (Ref Range: 160-400 X10*3/uL) 241 (Ref Range: 160-400 X10*3/uL) 284 (Ref Range: 160-400 X10*3/uL) Mean Platelet Volume 9.8 (Ref Range: 9.4-12.4 fL) 9.9 (Ref Range: 9.4-12.4 fL) 10.2 (Ref Range: 9.4-12.4 fL) Neutrophils Percent Auto 58.9 (Ref Range: 45-73 %) 55.4 (Ref Range: 45-73 %) 63.6 (Ref Range: 45-73 %) Imm Gran Pct Auto 0.3 (Ref Range: 0.0-0.4 %) 0.5 H (Ref Range: 0.0-0.4 %) 0.3 (Ref Range: 0.0-0.4 %) Lymphocytes Percent Auto 28.3 (Ref Range: 20-40 %) 31.4 (Ref Range: 20-40 %) 25.9 (Ref Range: 20-40 %) Monocytes Percent Auto 8.9 (Ref Range: 2-11 %) 8.4 (Ref Range: 2-11 %) 7.0 (Ref Range: 2-11 %) Eosinophils Percent Auto 2.6 (Ref Range: 0-4 %) 3.1 (Ref Range: 0-4 %) 2.2 (Ref Range: 0-4 %) Basophils Percent Auto 1.0 (Ref Range: 0-2 %) 1.2 (Ref Range: 0-2 %) 1.0 (Ref Range: 0-2 %) NRBC Pct Auto 0.0 (Ref Range: 0.0-0.2 /100WBC) 0.0 (Ref Range: 0.0-0.2 /100WBC) 0.0 (Ref Range: 0.0-0.2 /100WBC) Neutrophils Absolute Auto 4.3 (Ref Range: 2.0-8.3 x10*3/uL) 3.4 (Ref Range: 2.0-8.3 x10*3/uL) 4.3 (Ref Range: 2.0-8.3 x10*3/uL) Imm Gran Abs Auto 0.02 (Ref Range: 0.00-0.03 X10*3/uL) 0.03 (Ref Range: 0.00-0.03 X10*3/uL) 0.02 (Ref Range: 0.00-0.03 X10*3/uL) Lymphocytes Absolute Auto 2.0 (Ref Range: 1.2-4.9 X10*3/uL) 1.9 (Ref Range: 1.2-4.9 X10*3/uL) 1.8 (Ref Range: 1.2-4.9 X10*3/uL) Monocytes Absolute Auto 0.6 (Ref Range: 0.1-1.2 X10*3/uL) 0.5 (Ref Range: 0.1-1.2 X10*3/uL) 0.5 (Ref Range: 0.1-1.2 X10*3/uL) Eosinophils Absolute Auto 0.2 (Ref Range: 0.0-0.4 X10*3/uL) 0.2 (Ref Range: 0.0-0.4 X10*3/uL) 0.2 (Ref Range: 0.0-0.4 X10*3/uL) Basophils Absolute Auto 0.1 (Ref Range: 0.0-0.2 X10*3/uL) 0.1 (Ref Range: 0.0-0.2 X10*3/uL) 0.1 (Ref Range: 0.0-0.2 X10*3/uL) NRBC Abs Auto 0.000 (Ref Range: 0.0-0.012 X10*3/uL) 0.000 (Ref Range: 0.0-0.012 X10*3/uL) 0.000 (Ref Range: 0.0-0.012 X10*3/uL) * Lab:Prostate Specific Antige n * Collection Date 02/21/2024 10/04/2023 07/05/2023 Collection Time 08:22 AM 08:08 AM 08:06 AM Order Date 02/21/2024 10/04/2023 07/05/2023 Prostate Specific Antigen < 0.10 (Ref Range: <0.05-4.0 ng/mL) < 0.10 (Ref Range: <0.05-4.0 ng/mL) < 0.10 (Ref Range: <0.05-4.0 ng/mL) * Lab:Lipid Panel * Collection Date 02/21/2024 10/04/2023 07/05/2023 Collection Time 08:22 AM 08:08 AM 08:06 AM Order Date 02/21/2024 10/04/2023 07/05/2023 Triglycerides 61 (Ref Range: <150 mg/dL) 64 (Ref Range: <150 mg/dL) 41 (Ref Range: <150 mg/dL) Cholesterol 121 (Ref Range: <200 mg/dL) 112 (Ref Range: <200 mg/dL) 106 (Ref Range: <200 mg/dL) LDL Cholesterol Calculated 61 (Ref Range: <100 mg/dL) 51 (Ref Range: <100 mg/dL) 45 (Ref Range: <100 mg/dL) HDL Cholesterol 48 (Ref Range: >40 mg/dL) 49 (Ref Range: >40 mg/dL) 53 (Ref Range: >40 mg/dL) * Lab:Microalbumin, Random * Collection Date 02/21/2024 07/05/2023 08/03/2022 Collection Time 08:22 AM 08:06 AM 08:09 AM Order Date 02/21/2024 07/05/2023 08/03/2022 Creatinine Urine 155.43 (Ref Range: mg/dL) 179.98 (Ref Range: mg/dL) 178.82 (Ref Range: mg/dL) Microalbumin Urine 17.0 (Ref Range: mg/L) 20.0 (Ref Range: mg/L) 14.0 (Ref Range: mg/L) Microalbum Creatinine Ratio Ur 10.9 (Ref Range: <30 ug/mg cr) 11.1 (Ref Range: <30 ug/mg cr) 7.8 (Ref Range: ug/mg cr) * Lab:Comprehensive [place]. Pane l Fast * Collection Date 02/21/2024 10/04/2023 07/05/2023 Collection Time 08:22 AM 08:08 AM 08:06 AM Order Date 02/21/2024 10/04/2023 07/05/2023 Sodium 139 (Ref Range: 135-145 mmol/L) 140 (Ref Range: 135-145 mmol/L) 140 (Ref Range: 135-145 mmol/L) Bilirubin Total 0.5 (Ref Range: 0.0-1.0 mg/dL) 0.6 (Ref Range: 0.0-1.0 mg/dL) 0.8 (Ref Range: 0.0-1.0 mg/dL) Aspartate Amino Transferase 29 (Ref Range: 5-37 U/L) 29 (Ref Range: 5-37 U/L) 36 (Ref Range: 5-37 U/L) Alanine Aminotransferase 35 (Ref Range: 0-40 U/L) 31 (Ref Range: 0-40 U/L) 79 H (Ref Range: 0-40 U/L) Total Protein 7.4 (Ref Range: 6.5-8.0 g/dL) 7.2 (Ref Range: 6.5-8.0 g/dL) 7.1 (Ref Range: 6.5-8.0 g/dL) Albumin Level 4.5 (Ref Range: 3.5-5.0 g/dL) 4.6 (Ref Range: 3.5-5.0 g/dL) 4.3 (Ref Range: 3.5-5.0 g/dL) Alkaline Phosphatase 52 (Ref Range: 39-117 U/L) 54 (Ref Range: 39-117 U/L) 63 (Ref Range: 39-117 U/L) Potassium 4.8 (Ref Range: 3.3-5.1 mmol/L) 4.8 (Ref Range: 3.3-5.1 mmol/L) 4.5 (Ref Range: 3.3-5.1 mmol/L) Chloride 106 (Ref Range: 96-108 mmol/L) 106 (Ref Range: 96-108 mmol/L) 108 (Ref Range: 96-108 mmol/L) Carbon Dioxide 23 (Ref Range: 22-29 mmol/L) 23 (Ref Range: 22-29 mmol/L) 24 (Ref Range: 22-29 mmol/L) Anion Gap 15 (Ref Range: 12-20) 16 (Ref Range: 12-20) 13 (Ref Range: 12-20) Blood Urea Nitrogen 40 H (Ref Range: 9-16 mg/dL) 26 H (Ref Range: 9-16 mg/dL) 26 H (Ref Range: 9-16 mg/dL) Creatinine 1.58 H (Ref Range: 0.5-1.4 mg/dL) 1.28 (Ref Range: 0.5-1.4 mg/dL) 1.25 (Ref Range: 0.5-1.4 mg/dL) Estimated Glomerular Filt Rate 43 55 57 Glucose Fasting 105 H (Ref Range: 60-99 mg/dL) 116 H (Ref Range: 60-99 mg/dL) 105 H (Ref Range: 60-99 mg/dL) Calcium 9.8 (Ref Range: 8.4-10.2 mg/dL) 9.4 (Ref Range: 8.4-10.2 mg/dL) 9.8 (Ref Range: 8.4-10.2 mg/dL) * Lab:URINE DIP STICK * Collection Date 02/21/2024 04/02/2022 10/11/2018 Collection Time 02:51 PM 03:00 PM Order Date 02/21/2024 04/02/2022 10/11/2018 Result: normal SG 1.015 (Ref Range: 1.005 - 1.025) 1.030 1.030 pH 5.0 (Ref Range: 5.0 - 9.0) 5.0 5.0 FARHAN Negative (Ref Range: Negative -) Neg neg NIT Negative (Ref Range: Negative -) Neg neg PRO 15 (Ref Range: Negative - Trace) 15 neg GLU Negative (Ref Range: Negative -) Neg neg KET Negative (Ref Range: Negative -) Neg neg UBG 0.2 (Ref Range: 0.1 - 1.8) 0.2 0.2 LYN Negative (Ref Range: 0.2 - 1.3) Neg neg BLD Negative (Ref Range: Negative -) Neg neg Menstrating NR N/A n/a * Examination: G eneral Examination: GENERAL APPEARANCE: p leasant, well nourished, well developed, in no acute distress, calm and relaxed, man. HEAD: a traumatic, normocephalic. EYES: e guillermo, perrla, anicteric, conjugate. EARS: n ormal. NOSE: s eptum intact. ORAL CAVITY: n ormal, unremarkable. NECK/THYROID: n o jugular venous distention, no carotid bruit, thyroid normal. LYMPH NODES: n o enlarged lymph nodes,spleen normal. SKIN: n o suspicious lesions, anicteric. HEART: n o clicks, gallops, murmurs, or rubs, regular rhythm, S1, S2 normal, no s3, or vascular bruits, Healed median sternotomy scar. LUNGS: c lear to auscultation . BREASTS: no masses palpable bilaterally. ABDOMEN: b owel sounds normal, no ascites, no organomegaly, no mass. RECTAL EXAM: n ot examined, Referred for colonoscopy. MUSCULOSKELETAL: e xtremities unremarkable, no clubbing, cyanosis or edema. PERIPHERAL PULSES: n ormal. NEUROLOGIC: a lert and oriented, cranial nerves 2-12 grossly intact, deep tendon reflexes 2+ symmetrical, motor strength normal upper and lower extremities, sensory exam intact. PSYCH: a lert, oriented, cognitive function intact, cooperative with exam, good eye contact, mood/affect full range, speech clear, thought process logical, goal directed. Assessment: * Assessment: 1. T ype 2 diabetes mellitus with other specified complication - E11.69 (Primary) ?Notes :He now has an optimal BMI and is exercising regularly. He has a monitor. His A1c is excellent. No change in his therapy is required today. 2 . H istory of prostate cancer - Z85.46 N otes :He continues in remission with an undetectable PSA and no symptoms. The PSA will be followed carefully. 3 . E ssential hypertension - I10 N otes :His bloood pressure today is in the stable range. The value was 138/72. No change in his regimen was necessary. 4 . C oronary artery disease involving [place] coronary artery of [place] heart without angina pectoris - I25.10 N otes :He has had no angina at rest or with exertion recently. No change in his regimen was needed today. 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 5 . H yperlipidemia, unspecified - E78.5 N otes :His lipids are well controlled and no change in his regimen is necessary today. 6 . S ensorineural hearing loss (SNHL) of both ears - H90.3 N otes :He is in the process of having an audiology exam. Amplification will be determined. 7 . C alcium oxalate kidney stones - N20.0 N otes :No further kidney stones have been reported. He remains well hydrated. Plan: * Treatment: 2. H istory of prostate cancer L AB: PROFILE, FASTING (COMPREHENSIVE METABOLIC) L AB: PSA, TOTAL L AB: CBC WITH AUTO DIFF L AB: Lipid Panel L AB: Hemoglobin A1c 3. O thers Continue Metoprolol Tartrate Tablet, 50 MG, TAKE 1 TABLET WITH FOOD BY MOUTH TWICE A DAY; C ontinue Allopurinol Tablet, 100 MG, 1 tablet, Orally, Once a day; C ontinue Atorvastatin Calcium Tablet, 80 MG, TAKE 1 TABLET BY MOUTH EVERY DAY; C ontinue metFORMIN HCl Tablet, 1000 MG, TAKE 1 TABLET BY MOUTH TWICE A DAY WITH A MEAL. * Labs: * L ab: URINE DIP STICK (Collection Date & Time - 02/21/2024) Value Reference Range S G 1.015 1.005 - 1.025 * p H 5.0 5.0 - 9.0 * L EU Negative Negative - * N IT Negative Negative - * P RO 15 Negative - Trace * G ANETA Negative Negative - * K ET Negative Negative - * U BG 0.2 0.1 - 1.8 * B IL Negative 0.2 - 1.3 * B LD Negative Negative - * Procedure Codes: 8 1002 URINE-NO MICRO * Preventive Medicine: DM Care Plan: P atient Lifestyle Goals P atient wants to be able to manage diabetes without too much effort. T reatment Goals H bA1C < 7.0, Blood Sugars less than < 115. B arriers n o barriers. S elf-Managment Goals I ncrease exercise to 3 times a week for 30 mins. * Follow Up: 3 Months, End may (Reason: OV, Routine check-up) * Images: * Sign off status: Completed true * Provider: Ronak Bañuelos MD Date: 04/23/2023 Generated for Pino fernandez/Yomaira/eTransmitting on: 04/17/2024 07:25 PM EST History and Physical Notes * HPI (History of Present Illness) Category Sub-Category Detail Notes Depression Screening PHQ-9 Little inte rest or pleasure in doing things: Not at all Feeling down, depressed, or hopeless: No t at all Trouble falling or staying asleep, or sl eeping too much: Not at all Feeling tired or having little energy: N ot at all Poor appetite or overeating: Not at all Feeling bad about yourself o r that you are a failure, or have let yourself or your family down: Not at all Trouble concentrating on thi ngs, such as reading the newspaper or watching television: Not at all Moving or speaking so slowly that other people could have noticed; or the opposite, being so fidgety or restless that you have been moving around a lot more than usual: Not at all Thoughts that you would be b juju off or of hurting yourself in some way: Not at all Total Score: 0 Fall Risk Screening Fall History Have you had any falls with injury in the past year?: No Have you had two or more falls in the ?: No Fall Risk Assessment:: No falls in the year COVID-19 Screening Questions Have you had any new onset fever, chills, cough, congestion, sore throat, shortness of breath, muscle aches?: No Have you been exposed to the virus withi n the last 10 days?: No Have you travelled internationally in last 10 days?: No Have you been exposed to COVID-19 in the past?: Yes SDOH Questions SDOH Questions In the past year have you been worried about losing your housing?: No In the past year have you or any family members you live with been unable to get any of the following when it was really needed? Check all that apply:: None Examination Category Sub-Category Detail Notes General Examination GENERAL APPEARANCE: pleasant , well nourished, well developed, in no acute distress, calm and relaxed, man HEAD: atraumatic, normocep halic EYES: eomi, perrla, anicte corine, conjugate EARS: normal NOSE: septum intact NECK/THYROID: no jugular venous di stention, no carotid bruit, thyroid normal HEART: no clicks, gallops, murmurs, or rubs, regular rhythm, S1, S2 normal, no s3, or vascular bruits, Healed median sternotomy scar LUNGS: clear to auscultatio n ABDOMEN: bowel sounds normal, no ascites, no organomegaly, no mass NEUROLOGIC: alert and oriented, cranial nerves 2-12 grossly intact, deep tendon reflexes 2+ symmetrical, motor strength normal upper and lower extremities, sensory exam intact SKIN: no suspicious lesion s, anicteric PERIPHERAL PULSES: normal BREASTS: no masses palpable b ilaterally MUSCULOSKELETAL: extremities unremark able, no clubbing, cyanosis or edema LYMPH NODES: no enlarged lymph no irene,spleen normal RECTAL EXAM: not examined, Referr ed for colonoscopy PSYCH: alert, oriented, cog nitive function intact, cooperative with exam, good eye contact, mood/affect full range, speech clear, thought process logical, goal directed ORAL CAVITY: normal, unremarkable
--- OUTSIDE RECORDS SUMMARY | 2024-05-29 08:00 | XMS_ITS ---
Author Organization Hany Bañuelos III, MD Address [address] [address] Care Team Providers Care Display Director Name Role Phone Dr. Hany Bañuelos III [...] Type 2 diabetes mellitus Active Dexcom G7 Graduate Teaching Associate - as directed - use to check [...] Date Provider Diagnosis Hany Bañuelos III, MD [address] [place] [address] [place] [address] 05/29/2024 Hany Bañuelos Type 2 diabetes mellitus with other specified complication E11.69 ; Hyperlipidemia, unspecified E78.5 ; History of prostate cancer Z85.46 ; Coronary artery disease involving [place] coronary artery of [place] heart without angina pectoris I25.10 ; Essential [...] remains nondetectable. 05/29/2024 Coronary artery disease involving [place] coronary artery of [place] heart without angina pectoris (ICD-10 - I25.10) He has had no angina at rest or with exertion recently. No change in his regimen was needed today. He is up-to-date with his gunstock spray unit feeder. 05/29/2024 Essential hypertension (ICD-10 - I10) His [...] TABLET BY MOUTH TWICE DAILY WITH FOOD DexGradeStack G7 Sensor - apply sensor every 10 day E11.69 Type 2 diabetes mellitus Dexcom G7 Graduate Teaching Associate - as directed - use t o [...] Provider Name:Hany Bañuelos , 02/25/2025 04:00:00 PM, [address] [place] [address] [address], [place], [address], Progress Notes * Chris SANTORODOB:1950 (74 yo M)Acc No.[id number]:05/29/2024 Progress Notes Patient: Chris COREAS Provider: Ronak Bañuelos MD :1950 A ge:73 Y S ex:Male Date:05/29/2024 Address:[address] [place] [address] [address] [place], [id number] Subjective: * Chief Complaints: * C oronary [...] history of stroke. His father at 45 GA diagnosed with MS and heart disease. His [...] H kelsea is . 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 He lives in [place], [place]. * Medications: T akingAllopurinol 100 MG [...] tablet Orally Once a day Dexcom G7 Graduate Teaching Associate - Device as directed - use to [...] Orally Once a day Taking Dexcom G7 Graduate Teaching Associate - Device as directed - use to [...] 4 . C oronary artery disease involving [place] coronary artery of [place] heart without angina pectoris - I25.10 N otes :He has had no angina at rest or with exertion recently. No change in his regimen was needed today. He is up-to-date with his gunstock spray unit feeder. 5 . E ssential hypertension - I10 [...] 0 05/29/2024 Generated for Pino fernandez/Yomaira/Greeritting on: 04/17/2024 07:24 PM EST History and Physical Notes * [...]
--- OUTSIDE RECORDS SUMMARY | 2024-07-16 05:17 | XMS_ITS ---
Author Organization Hany Bañuelos III, MD Address [address] [place] [address] [place] [address] Care Team Providers Care Cna Caregiver Name Role Phone Dr. Hany Bañuelos III Primary Care Provider REASON FOR VISIT Message Social History Sex Assigned At : Social History Observation Description Sex Assigned At Male Encounters Encounter Location Date Provider Diagnosis Hany Bañuelos III, MD [address] [place] [address] [place] [address] 07/16/2024 Hany Bañuelos Plan Of Treatment Next Appt Details Provider Name:Hany Bañuelos , 02/25/2025 04:00:00 PM, [address] [place] [address] [place], [address], Progress Notes * Chris SANTORODOB:1950 (74 yo M)Acc No.[id number]:07/16/2024 Patient: Chris COREAS :1950 A ge:74 Y S ex:Male Address:[address] [place], [address] * true * Date: Generated for Pino fernandez/Yomaira/eTransmitting on: 04/17/2024 07:25 PM EST
--- OUTSIDE RECORDS SUMMARY | 2024-07-19 08:05 | XMS_ITS ---
Author Organization Hany Bañuelos III, MD Address [address] [place] [address] [place] [address] Care Team Providers Care Sales Planning Manager Name Role Phone Dr. Hany Bañuelos III Primary Care Provider [phone] REASON FOR VISIT Rx Transfer Medications Medication SIG (Take, Route, Frequency, Duration) Notes Start Date End Date Status Dexcom G7 Sensor - as directed for 10 days E11.69 Type 2 diabetes mellitus Active Social History Sex Assigned At : Social History Observation Description Sex Assigned At Male Encounters Encounter Location Date Provider Diagnosis Hany Bañuelos III, MD [address] [place] [address] [place] [address] 07/19/2024 Hany Bañuelos Type 2 diabetes mellitus with other specified complication E11.69 Assessments Encounter Date Diagnosis (ICD Code) Assessment Notes Treat ment Notes Treatment Clinical Notes 07/19/2024 Type 2 diabetes mellitus with other specified complication (ICD-10 - E11.69) His fasting glucose is 123. The hemoglobin A1c is 5.9. His weight is in the normal range. We reviewed his diabetic diet. No change was made in his medications today. Plan Of Treatment Medication Medication Name Sig Start Date Stop Date Notes Dexcom G7 Sensor - as directed for 10 days E11.69 Type 2 diabetes mellitus Next Appt Details Provider Name:Hany Bañuelos , 02/25/2025 04:00:00 PM, [address] [place] [address] [place], [address], Progress Notes * Chris SANTORODOB:1950 (74 yo M)Acc No.[id number]:07/19/2024 Patient: Chris COREAS :1950 A ge:74 Y S ex:Male Address:[address] [address] [address], [facility], [address] * Refills Refill Dexcom G7 Sensor Miscellaneous, -, 3, as directed, 10 days, Refills=11 * true * Date: Generated for Pino fernandez/Yomaira/Greeritting on: 04/17/2024 07:25 PM EST
--- OUTSIDE RECORDS SUMMARY | 2024-08-07 04:39 | XMS_ITS ---
Author Organization Hany Bañuelos III, MD Address [address] [place] [address] [place] [address] Care Team Providers Care Application Spec Name Role Phone Dr. Hany Bañuelos III Primary Care Provider REASON FOR VISIT Refill Request Medications Medication SIG (Take, Route, Frequency, Duration) Notes Start Date End Date Status Metoprolol Tartrate 50 MG 1 tablet with food Orally Twice a day for 90 days E11.69 Type 2 diabetes mellitus Active FreeStyle Lite Test - check blood sugar once a day for 90 days E11.69 Type 2 diabetes mellitus Active FreeStyle Lancets - test blood sugars once a day for 90 days E11.69 Type 2 diabetes mellitus Active OneTouch Ultra - check blood sugar once a day for 90 days E11.69 Type 2 diabetes mellitus 08/07/2024 Active Social History Sex Assigned At : Social History Observation Description Sex Assigned At Male Encounters Encounter Location Date Provider Diagnosis Hany Bañuelos III, MD [address] [place] [address] [place] [address] 08/07/2024 Hany Bañuelos Type 2 diabetes mellitus with other specified complication E11.69 Assessments Encounter Date Diagnosis (ICD Code) Assessment Notes Treat ment Notes Treatment Clinical Notes 08/07/2024 Type 2 diabetes mellitus with other specified complication (ICD-10 - E11.69) His fasting glucose is 123. The hemoglobin A1c is 5.9. His weight is in the normal range. We reviewed his diabetic diet. No change was made in his medications today. Plan Of Treatment Medication Medication Name Sig Start Date Stop Date Notes Metoprolol Tartrate 50 MG 1 tablet with food Orally Twice a day for 90 days E11.69 Type 2 diabetes mellitus FreeStyle Lite Test - check blood sugar once a day for 90 days E11.69 Type 2 diabetes mellitus FreeStyle Lancets - test blood sugars once a day for 90 days E11.69 Type 2 diabetes mellitus OneTouch Ultra - check blood sugar once a day for 90 days 08/07/2024 E11.69 Type 2 diabetes mellitus Next Appt Details Provider Name:Hany Bañuelos , 02/25/2025 04:00:00 PM, [address] [place] [address] DR, [place] [address], [place], [address], Progress Notes * Chris SANTORODOB:1950 (74 yo M)Acc No.[id number]:08/07/2024 Patient: Chris COREAS :1950 A ge:74 Y S ex:Male Address:[address] [place] [address], [address] * Refills Refill Metoprolol Tartrate Tablet, 50 MG, Orally, 180 Tablet, 1 tablet with food, Twice a day, 90 days, Refills=3 Refill FreeStyle Lancets Miscellaneous, -, 90, test blood sugars once a day, 90 days, Refills=3 Refill FreeStyle Lite Test Strip, -, 90, check blood sugar once a day, 90 days, Refills=3 Start OneTouch Ultra Device, -, 1, check blood sugar, once a day, 90 days, Refills=0 * true * Date: Generated for Pino fernandez/Yomaira/Fuentessmitting on: 04/17/2024 07:24 PM EST
--- OUTSIDE RECORDS SUMMARY | 2024-08-07 09:44 | XMS_ITS ---
Author Organization Hany Bañuelos III, MD Address [address] [place] [address] Care Team Providers Care Embroidery Cutter Name Role Phone Dr. Hany Bañuelos III Primary Care Provider REASON FOR VISIT Message Medications Medication SIG (Take, Route, Frequency, Duration) Notes Start Date End Date Status FreeStyle Lite - use to check blood sugar once a day for 90 days use to check blood sugar once a day DX: Type 2 diabetes E11.69 08/07/2024 Active Social History Sex Assigned At : Social History Observation Description Sex Assigned At Male Encounters Encounter Location Date Provider Diagnosis Hany Bañuelos III, MD [address] [place] [address] [place] [address] 08/07/2024 Hany Bañuelos Plan Of Treatment Medication Medication Name Sig Start Date Stop Date Notes OneTouch Ultra - check blood sugar on a day 08/07/2024 E11.69 Type 2 diabet es mellitus FreeStyle Lite - use to check blood sugar once a day for 90 days 08/07/2024 DX: Type 2 diabetes E11.69 Next Appt Details Provider Name:Hany Bañuelos , 02/25/2025 04:00:00 PM, [address] [place] [address] [place], [address], Progress Notes * Chris SANTORODOB:1950 (74 yo M)Acc No.[id number]:08/07/2024 Patient: Chris COREAS :1950 A ge:74 Y S ex:Male Address:[address] [place] [address], [place], [address] * Refills Stop [employer] Ultra Device, -, check blood sugar, once a day Start FreeStyle Lite Device, -, 1 Kit, use to check blood sugar once a day, 90 days, Refills=3 * true * Date: Generated for Pino fernandez/Yomaira/Greeritting on: 04/17/2024 07:23 PM EST
--- OUTSIDE RECORDS SUMMARY | 2024-08-29 10:15 | XMS_ITS ---
Author Organization Hany Bañuelos III, MD Address [address] [place] [address] Care Team Providers Care Building Cleaner Name Role Phone Dr. Hany Bañuelos III Primary Care Provider Allergies Allergen (clinical drug ingredient) Drug/Non Drug Allergy documented on EMR Reaction Allergy Type Onset Date Status metoclopramide Reglan Unknown Drug Allergy Ac tive Levaquin Unknown Drug Allergy Active REASON FOR VISIT Diabetes, Coronary artery disease, Hyperlipidemia, Hypertension, Kidney stone, Gout, Hearing loss, Prostate cancer in remission Medications Medication SIG (Take, Route, Frequency, Duration) Notes Start Date End Date Status Dexcom G7 Provider Service Representative - as directed - use to check blood sugars up to 4 times daily 04/04/2023 Active Vitamin B-6 50 MG TAKE 1 TABLET BY MOUTH EVERY DAY Orally Once a day Active Aspir-81 81 MG 1 tablet Orally Once a day Active Coenzyme Q10 200 MG 1 tablet Orally Once a day Active Allopurinol 100 MG 1 tablet Orally Once a day for 90 days 08/29/2024 08/24/2025 Active FreeStyle Lite Test - check blood sugar once a day E11.69 Type 2 diabetes mellitus Active Dexcom G7 Sensor - as directed E11.69 Type 2 diabetes mellitus Active Allopurinol 100 MG 1 tablet Orally Once a day 12/05/2023 Active Atorvastatin Calcium 80 MG TAKE 1 TABLET BY MOUTH EVERY DAY Active Vitamin C 500 MG 1 tablet Orally Once a day Active metFORMIN HCl 1000 MG TAKE 1 TABLET BY MOUTH TWICE A DAY WITH A MEAL Active FreeStyle Lite - use to check blood sugar once a day use to check blood sugar once a day DX: Type 2 diabetes E11.69 08/07/2024 Active Metoprolol Tartrate 50 MG 1 tablet with food Orally Twice a day E11.69 Type 2 diabetes mellitus Active FreeStyle Lancets - test blood sugars once a day E11.69 Type 2 diabetes mellitus Active Social History Tobacco Use: Social History Observation Description Date Details (start date - stop date) Never Smoker NA - NA Sex Assigned At : Social History Observation Description Sex Assigned At Male Tobacco Control (Standard) Question Answer Notes Tobacco use: Nonsmoker Additional Findings: Tobacco non-user Aggressive nonsmoker Vital Signs Temperature 98.0 degrees Fahrenheit 08/30/19 25 Blood pressure systolic 116 mm Hg 08/30/19 25 Blood pressure diastolic 55 mm Hg 025 Heart Rate 61 /min 08/29/2024 Height 70 in 08/29/2024 Weight 168 lbs 08/29/2024 BMI 24.1 kg/m2 08/29/2024 Encounters Encounter Location Date Provider Diagnosis Hany Bañuelos III, MD [address] [place] [address] [place] [address] 08/29/2024 Hany Bañuelos Type 2 diabetes mellitus with other specified complication E11.69 ; History of prostate cancer Z85.46 ; Essential hypertension I10 ; Overweight E66.3 ; Coronary artery disease involving [place] coronary artery of [place] heart without angina pectoris I25.10 ; Hyperlipidemia, unspecified E78.5 ; Calcium oxalate kidney stones N20.0 and History of skin cancer Z85.828 Assessments Encounter Date Diagnosis (ICD Code) Assessment Notes Treat ment Notes Treatment Clinical Notes 08/29/2024 Type 2 diabetes mellitus with other specified complication (ICD-10 - E11.69) His fasting glucose is 123. The hemoglobin A1c is 5.9. His weight is in the normal range. We reviewed his diabetic diet. No change was made in his medications today. 08/29/2024 History of prostate cancer (ICD-10 - Z85.46) Is PSA remains nondetectable.Ther e is no sign of disease recurrence. 08/29/2024 Essential hypertension (ICD-10 - I10) Pressure is well controlled and no change in his regimen as needed. 08/29/2024 Overweight (ICD-10 - E66.3) Body mass index is now 24 this problem has resolved. 08/29/2024 Coronary artery disease involving [place] coronary artery of [place] heart without angina pectoris (ICD-10 - I25.10) He has had no angina at rest or with exertion recently. No change in his regimen was needed today. He is up-to-date with his clinical administrator. 08/29/2024 Hyperlipidemia, unspecified (ICD-10 - E78.5) His weight is in the normal range. His fasting total cholesterol is 111. No change in his regimen was necessary. 08/29/2024 Calcium oxalate kidney stones (ICD-10 - N20.0) No further kidney stones have been reported. He remains well hydrated. 08/29/2024 History of skin cancer (ICD-10 - Z85.828) He has 2 new lesions on his right wrist. He has been referred to the tray line supervisor. Plan Of Treatment Medication Medication Name Sig Start Date Stop Date Notes Dexcom G7 Provider Service Representative - as directed - use t o check blood sugars up to 4 times daily 04/04/2023 Vitamin B-6 50 MG TAKE 1 TABLET BY MOUTH EVERY DAY Orally Once a day Aspir-81 81 MG 1 tablet Orally Once a day Coenzyme Q10 200 MG 1 tablet Orally Once a day Allopurinol 100 MG 1 tablet Orally Once a day for 90 days 08/29/2024 08/24/2025 FreeStyle Lite Test - check blood sugar once a day E11.69 Type 2 diabetes mellitus Dexcom G7 Sensor - as directed E11.6 9 Type 2 diabetes mellitus Allopurinol 100 MG 1 tablet Orally Once a day 12/05/2023 Atorvastatin Calcium 80 MG TAKE 1 TABLET BY MOUTH EVERY DAY Vitamin C 500 MG 1 tablet Orally Once a day metFORMIN HCl 1000 MG TAKE 1 TABLET BY MOUTH TWICE A DAY WITH A MEAL FreeStyle Lite - use to check blood sugar once a day 08/07/2024 DX: Type 2 diabetes E11.69 Metoprolol Tartrate 50 MG 1 tablet with food Orally Twice a day E11.69 Type 2 diabetes mellitus FreeStyle Lancets - test blood sugars once a day E11.69 Type 2 diabetes mellitus Pending Test Test Name Order Date PROFILE, FASTING (COMPREHENSIVE METABOLI C) 08/29/2024 PSA, TOTAL 08/29/2024 CBC w DIFF 08/29/2024 Uric Acid 08/29/2024 Lipid Panel 08/29/2024 Hemoglobin A1c 08/29/2024 Next Appt Details Follow Up: as scheduled, Equality son: ov review labs Provider Name:Hany Bañuelos , 02/25/2025 04:00:00 PM, [address] [place] [address] [address], [place], [address], Progress Notes * Chris SANTORODOB:1950 (74 yo M)Acc No.[id number]:08/29/2024 Progress Notes Patient: Chris COREAS Provider: Ronak Bañuelos MD :1950 A ge:74 Y S ex:Male Date:08/29/2024 Address:[address] [place] [address], [id number] Subjective: * Chief Complaints: * D iabetesCoronary artery diseaseHyperlipidemiaHypertensionKidney stoneGoutHearing lossProstate cancer in remission * HPI: C OVID-19 Screening: He returns for medical management of his metabolic syndrome and coronary artery. He is going to see his clinical administrator next month. He has had no exertional angina palpitations or dyspnea since his last visit. He has been compliant with all of his medications.His hemoglobin A1c shows good control of his diabetes. His weight is satisfactory. He will continue on all current medications and be followed closely. PSA is not detectable. There is no sign of recurrent prostate cancer. Questions H ave you had any new [...] history of stroke. His father at 45 [place] diagnosed with MS and heart disease. His mother had degenerative joint disease cerebrovascular accident lymphoma and PVD. He is not aware of any family history of substance use disorder or addiction or mental illness. * Social History: T obacco Use: T obacco Control (Standard) T obacco use: N onsmoker A dditional Findings: Tobacco non-user A ggressive nonsmoker H e is . 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 He lives in [place], [place]. * Medications: T akingAllopurinol 100 MG Tablet 1 tablet Orally Once a day Atorvastatin Calcium 80 MG Tablet TAKE 1 TABLET BY MOUTH EVERY DAY Vitamin C 500 MG Tablet Chewable 1 tablet Orally Once a day Aspir-81 81 MG Tablet Delayed Release 1 tablet Orally Once a day Coenzyme Q10 200 MG Tablet 1 tablet Orally Once a day Tins.ly7 Provider Service Representative - Device as directed - use to check blood sugars up to 4 times daily Vitamin B-6 50 MG Tablet TAKE 1 TABLET BY MOUTH EVERY DAY Orally Once a day Dexcom G7 Sensor - Miscellaneous as directed , Notes to Pharmacist: E11.69 Type 2 diabetes mellitusMetoprolol Tartrate 50 MG Tablet 1 tablet with food Orally Twice a day , Notes to Pharmacist: E11.69 Type 2 diabetes mellitusFreeStyle Lancets - Miscellaneous test blood sugars once a day , Notes to Pharmacist: E11.69 Type 2 diabetes mellitusFreeStyle Lite Test - Strip check blood sugar once a day , Notes to Pharmacist: E11.69 Type 2 diabetes mellitusFreeStyle Lite - Device use to check blood sugar once a day use to check blood sugar once a day, Notes to Pharmacist: DX: Type 2 diabetes E11.69metFORMIN HCl 1000 MG Tablet TAKE 1 TABLET BY MOUTH TWICE A DAY WITH A MEAL Medication List reviewed and reconciled with the patientTaking Allopurinol 100 MG Tablet 1 tablet Orally Once a day Taking Atorvastatin Calcium 80 MG Tablet TAKE 1 TABLET BY MOUTH EVERY DAY Taking Vitamin C 500 MG Tablet Chewable 1 tablet Orally Once a day Taking Aspir-81 81 MG Tablet Delayed Release 1 tablet Orally Once a day Taking Coenzyme Q10 200 MG Tablet 1 tablet Orally Once a day Taking Dexcom G7 Provider Service Representative - Device as directed - use to check blood sugars up to 4 times daily Taking Vitamin B-6 50 MG Tablet TAKE 1 TABLET BY MOUTH EVERY DAY Orally Once a day Taking Dexcom G7 Sensor - Miscellaneous as directed , Notes to Pharmacist: E11.69 Type 2 diabetes mellitusTaking Metoprolol Tartrate 50 MG Tablet 1 tablet with food Orally Twice a day , Notes to Pharmacist: E11.69 Type 2 diabetes mellitusTaking FreeStyle Lancets - Miscellaneous test blood sugars once a day , Notes to Pharmacist: E11.69 Type 2 diabetes mellitusTaking FreeStyle Lite Test - Strip check blood sugar once a day , Notes to Pharmacist: E11.69 Type 2 diabetes mellitusTaking FreeStyle Lite - Device use to check blood sugar once a day use to check blood sugar once a day, Notes to Pharmacist: DX: Type 2 diabetes E11.69Taking metFORMIN HCl 1000 MG Tablet TAKE 1 TABLET BY MOUTH TWICE A DAY WITH A MEAL Medication List reviewed and reconciled with the patient * Allergies: Ronak Oconnor[Allergies Verified] Objective: * Vitals: H t: 70, Wt:168, BMI:24.1, BP:116/55, HR:61, Temp:98.0, Wt-k.2. * P ast Orders: Lab:Lipid Panel * Collection Date 08/29/2024 05/29/2024 02/21/2024 Collection Time 07:42 AM 07:45 AM 08:22 AM Order Date 08/29/2024 05/29/2024 02/21/2024 Triglycerides 79 (Ref Range: <150 mg/dL) 67 (Ref Range: <150 mg/dL) 61 (Ref Range: <150 mg/dL) Cholesterol 102 (Ref Range: <200 mg/dL) 111 (Ref Range: <200 mg/dL) 121 (Ref Range: <200 mg/dL) LDL Cholesterol Calculated 38 (Ref Range: <100 mg/dL) 55 (Ref Range: <100 mg/dL) 61 (Ref Range: <100 mg/dL) HDL Cholesterol 49 (Ref Range: >40 mg/dL) 43 (Ref Range: >40 mg/dL) 48 (Ref Range: >40 mg/dL) * Lab:Comprehensive [place]. Pane l Fast * Collection Date 08/29/2024 05/29/2024 02/21/2024 Collection Time 07:42 AM 07:45 AM 08:22 AM Order Date 08/29/2024 05/29/2024 02/21/2024 Sodium 139 (Ref Range: 135-145 mmol/L) 139 (Ref Range: 135-145 mmol/L) 139 (Ref Range: 135-145 mmol/L) Bilirubin Total 0.7 (Ref Range: 0.0-1.0 mg/dL) 0.6 (Ref Range: 0.0-1.0 mg/dL) 0.5 (Ref Range: 0.0-1.0 mg/dL) Aspartate Amino Transferase 31 (Ref Range: 5-37 U/L) 28 (Ref Range: 5-37 U/L) 29 (Ref Range: 5-37 U/L) Alanine Aminotransferase 38 (Ref Range: 0-40 U/L) 36 (Ref Range: 0-40 U/L) 35 (Ref Range: 0-40 U/L) Total Protein 6.9 (Ref Range: 6.5-8.0 g/dL) 7.7 (Ref Range: 6.5-8.0 g/dL) 7.4 (Ref Range: 6.5-8.0 g/dL) Albumin Level 4.5 (Ref Range: 3.5-5.0 g/dL) 4.4 (Ref Range: 3.5-5.0 g/dL) 4.5 (Ref Range: 3.5-5.0 g/dL) Alkaline Phosphatase 60 (Ref Range: 39-117 U/L) 70 (Ref Range: 39-117 U/L) 52 (Ref Range: 39-117 U/L) Potassium 4.5 (Ref Range: 3.3-5.1 mmol/L) 4.5 (Ref Range: 3.3-5.1 mmol/L) 4.8 (Ref Range: 3.3-5.1 mmol/L) Chloride 108 (Ref Range: 96-108 mmol/L) 108 (Ref Range: 96-108 mmol/L) 106 (Ref Range: 96-108 mmol/L) Carbon Dioxide 24 (Ref Range: 22-29 mmol/L) 24 (Ref Range: 22-29 mmol/L) 23 (Ref Range: 22-29 mmol/L) Anion Gap 12 (Ref Range: 12-20) 12 (Ref Range: 12-20) 15 (Ref Range: 12-20) Blood Urea Nitrogen 20 H (Ref Range: 9-16 mg/dL) 28 H (Ref Range: 9-16 mg/dL) 40 H (Ref Range: 9-16 mg/dL) Creatinine 1.11 (Ref Range: 0.5-1.4 mg/dL) 1.19 (Ref Range: 0.5-1.4 mg/dL) 1.58 H (Ref Range: 0.5-1.4 mg/dL) Estimated Glomerular Filt Rate > 60 > 60 43 Glucose Fasting 118 H (Ref Range: 60-99 mg/dL) 123 H (Ref Range: 60-99 mg/dL) 105 H (Ref Range: 60-99 mg/dL) Calcium 9.3 (Ref Range: 8.4-10.2 mg/dL) 8.9 (Ref Range: 8.4-10.2 mg/dL) 9.8 (Ref Range: 8.4-10.2 mg/dL) * Lab:Complete Blood Count Aut o Diff * Collection Date 08/29/2024 05/29/2024 02/21/2024 Collection Time 07:42 AM 07:45 AM 08:22 AM Order Date 08/29/2024 05/29/2024 02/21/2024 White Blood Count 6.1 (Ref Range: 4.8-10.8 X10*3/uL) 6.4 (Ref Range: 4.8-10.8 X10*3/uL) 7.2 (Ref Range: 4.8-10.8 X10*3/uL) Red Blood Count 4.54 L (Ref Range: 4.60-5.80 X10*6/uL) 4.45 L (Ref Range: 4.60-5.80 X10*6/uL) 4.43 L (Ref Range: 4.60-5.80 X10*6/uL) Hemoglobin 13.4 L (Ref Range: 14.0-18.0 g/dl) 13.0 L (Ref Range: 14.0-18.0 g/dl) 13.3 L (Ref Range: 14.0-18.0 g/dl) Hematocrit 39.7 L (Ref Range: 42.0-52.0 %) 40.2 L (Ref Range: 42.0-52.0 %) 39.9 L (Ref Range: 42.0-52.0 %) Mean Corpuscular Volume 87.4 (Ref Range: 80.0-98.0 fL) 90.3 (Ref Range: 80.0-98.0 fL) 90.1 (Ref Range: 80.0-98.0 fL) Mean Corpuscular Hemoglobin 29.5 (Ref Range: 27.0-33.0 pg) 29.2 (Ref Range: 27.0-33.0 pg) 30.0 (Ref Range: 27.0-33.0 pg) Mean Corpuscular HGB Conc 33.8 (Ref Range: 31.0-36.0 g/dl) 32.3 (Ref Range: 31.0-36.0 g/dl) 33.3 (Ref Range: 31.0-36.0 g/dl) Red Cell Distribution Width 14.0 (Ref Range: 11.0-16.0 %) 13.2 (Ref Range: 11.0-16.0 %) 13.6 (Ref Range: 11.0-16.0 %) Platelet Count 215 (Ref Range: 160-400 X10*3/uL) 217 (Ref Range: 160-400 X10*3/uL) 243 (Ref Range: 160-400 X10*3/uL) Mean Platelet Volume 9.6 (Ref Range: 9.4-12.4 fL) 10.2 (Ref Range: 9.4-12.4 fL) 9.8 (Ref Range: 9.4-12.4 fL) Neutrophils Percent Auto 55.7 (Ref Range: 45-73 %) 56.4 (Ref Range: 45-73 %) 58.9 (Ref Range: 45-73 %) Imm Gran Pct Auto 0.2 (Ref Range: 0.0-0.4 %) 0.2 (Ref Range: 0.0-0.4 %) 0.3 (Ref Range: 0.0-0.4 %) Lymphocytes Percent Auto 31.9 (Ref Range: 20-40 %) 27.5 (Ref Range: 20-40 %) 28.3 (Ref Range: 20-40 %) Monocytes Percent Auto 7.7 (Ref Range: 2-11 %) 11.5 H (Ref Range: 2-11 %) 8.9 (Ref Range: 2-11 %) Eosinophils Percent Auto 3.4 (Ref Range: 0-4 %) 3.8 (Ref Range: 0-4 %) 2.6 (Ref Range: 0-4 %) Basophils Percent Auto 1.1 (Ref Range: 0-2 %) 0.6 (Ref Range: 0-2 %) 1.0 (Ref Range: 0-2 %) NRBC Pct Auto 0.0 (Ref Range: 0.0-0.2 /100WBC) 0.0 (Ref Range: 0.0-0.2 /100WBC) 0.0 (Ref Range: 0.0-0.2 /100WBC) Neutrophils Absolute Auto 3.4 (Ref Range: 2.0-8.3 x10*3/uL) 3.6 (Ref Range: 2.0-8.3 x10*3/uL) 4.3 (Ref Range: 2.0-8.3 x10*3/uL) Imm Gran Abs Auto 0.01 (Ref Range: 0.00-0.03 X10*3/uL) 0.01 (Ref Range: 0.00-0.03 X10*3/uL) 0.02 (Ref Range: 0.00-0.03 X10*3/uL) Lymphocytes Absolute Auto 1.9 (Ref Range: 1.2-4.9 X10*3/uL) 1.8 (Ref Range: 1.2-4.9 X10*3/uL) 2.0 (Ref Range: 1.2-4.9 X10*3/uL) Monocytes Absolute Auto 0.5 (Ref Range: 0.1-1.2 X10*3/uL) 0.7 (Ref Range: 0.1-1.2 X10*3/uL) 0.6 (Ref Range: 0.1-1.2 X10*3/uL) Eosinophils Absolute Auto 0.2 (Ref Range: 0.0-0.4 X10*3/uL) 0.2 (Ref Range: 0.0-0.4 X10*3/uL) 0.2 (Ref Range: 0.0-0.4 X10*3/uL) Basophils Absolute Auto 0.1 (Ref Range: 0.0-0.2 X10*3/uL) 0.0 (Ref Range: 0.0-0.2 X10*3/uL) 0.1 (Ref Range: 0.0-0.2 X10*3/uL) NRBC Abs Auto 0.000 (Ref Range: 0.0-0.012 X10*3/uL) 0.000 (Ref Range: 0.0-0.012 X10*3/uL) 0.000 (Ref Range: 0.0-0.012 X10*3/uL) * Lab:Hemoglobin A1c * Collection Date 08/29/2024 05/29/2024 02/21/2024 Collection Time 07:42 AM 07:45 AM 08:22 AM Order Date 08/29/2024 05/29/2024 02/21/2024 Hemoglobin A1c % 5.9 (Ref Range: <6.0 %) 5.9 (Ref Range: <6.0 %) 5.8 (Ref Range: <6.0 %) Estimated Average Glucose 123 (Ref Range: mg/dL) 123 (Ref Range: mg/dL) 120 (Ref Range: mg/dL) * Lab:Prostate Specific Antige n * Collection Date 08/29/2024 05/29/2024 02/21/2024 Collection Time 07:42 AM 07:45 AM 08:22 AM Order Date 08/29/2024 05/29/2024 02/21/2024 Prostate Specific Antigen < 0.10 (Ref Range: <0.05-4.0 ng/mL) < 0.10 (Ref Range: <0.05-4.0 ng/mL) < 0.10 (Ref Range: <0.05-4.0 ng/mL) * Lab:Microalbumin, Random * Collection Date 08/29/2024 02/21/2024 07/05/2023 Collection Time 07:34 AM 08:22 AM 08:06 AM Order Date 08/29/2024 02/21/2024 07/05/2023 Creatinine Urine 151.43 (Ref Range: mg/dL) 155.43 (Ref Range: mg/dL) 179.98 (Ref Range: mg/dL) Microalbumin Urine 28.0 (Ref Range: mg/L) 17.0 (Ref Range: mg/L) 20.0 (Ref Range: mg/L) Microalbum Creatinine Ratio Ur 18.4 (Ref Range: <30 ug/mg cr) 10.9 (Ref Range: <30 ug/mg cr) 11.1 (Ref Range: <30 ug/mg cr) * Examination: G eneral Examination: GENERAL APPEARANCE: [...] in his medications today. 2 . H istory of prostate cancer - Z85.46 N otes :Is PSA remains nondetectable.There is no sign of disease recurrence. 3 . E ssential hypertension - I10 N otes :Pressure is well controlled and no change in his regimen as needed. 4 . O verweight - E66.3 N otes :Body mass index is now 24 this problem has resolved. 5 . C oronary artery disease involving [place] coronary artery of [place] heart without angina pectoris - I25.10 N otes :He has had no angina at rest or with exertion recently. No change in his regimen was needed today. He is up-to-date with his clinical administrator. 6 . H yperlipidemia, unspecified - E78.5 N otes :His weight is in the normal range. His fasting total cholesterol is 111. No change in his regimen was necessary. 7 . C alcium oxalate kidney stones - N20.0 N otes :No further kidney stones have been reported. He remains well hydrated. 8 . H istory of skin cancer - Z85.828 N otes :He has 2 new lesions on his right wrist. He has been referred to the tray line supervisor. Plan: * Treatment: 2. H istory of prostate cancer L AB: PROFILE, FASTING (COMPREHENSIVE METABOLIC) L AB: PSA, TOTAL L AB: CBC w DIFF L AB: Uric Acid L AB: Lipid Panel L AB: Hemoglobin A1c 3. E ssential hypertension L AB: PROFILE, FASTING (COMPREHENSIVE METABOLIC) L AB: PSA, TOTAL L AB: CBC w DIFF L AB: Uric Acid L AB: Lipid Panel L AB: Hemoglobin A1c 4. O verweight L AB: PROFILE, FASTING (COMPREHENSIVE METABOLIC) L AB: PSA, TOTAL L AB: CBC w DIFF L AB: Uric Acid L AB: Lipid Panel L AB: Hemoglobin A1c 5. O thers Continue metFORMIN HCl Tablet, 1000 MG, TAKE 1 TABLET BY MOUTH TWICE A DAY WITH A MEAL; C ontinue FreeStyle Lite Device, -, use to check blood sugar once a day use to check blood sugar once a day, Notes to Pharmacist: DX: Type 2 diabetes E11.69; C ontinue Metoprolol Tartrate Tablet, 50 MG, 1 tablet with food, Orally, Twice a day, Notes to Pharmacist: E11.69 Type 2 diabetes mellitus; C ontinue Allopurinol Tablet, 100 MG, 1 tablet, Orally, Once a day; C ontinue Atorvastatin Calcium Tablet, 80 MG, TAKE 1 TABLET BY MOUTH EVERY DAY. * Procedure Codes: * Preventive Medicine: DM Care Plan: P atient Lifestyle Goals P atient wants to be able to manage diabetes without too much effort. T reatment Goals H bA1C < 7.0, Blood Sugars less than < 115. B arriers n o barriers. S elf-Managment Goals I ncrease exercise to 3 times a week for 30 mins. * Follow Up: a s scheduled (Reason: ov review labs) * Images: * Sign off status: Completed true * Provider: Ronak Bañuelos MD Date: 0 08/29/2024 Generated for Pino fernandez/Yomaira/eTaprilsmitting on: 04/17/2024 07:23 PM EST History and Physical Notes * [...]
--- OUTSIDE RECORDS SUMMARY | 2024-09-17 05:21 | XMS_ITS ---
Author Organization Hany Bañuelos III, MD Address [address] [place] [address] [place] [address] Care Team Providers Care Soft Iron Inspector Name Role Phone Dr. Hany Bañuelos III Primary Care Provider REASON FOR VISIT refill on Metformin and [...] Date Provider Diagnosis Hany Bañuelos III, MD [address] [place] [address] [place] [address] 09/17/2024 Hany Bañuelos Plan Of Treatment Medication [...] Provider Name:Hany Bañuelos , 02/25/2025 04:00:00 PM, [address] [place] [address] [place], [address], Progress Notes * Chris SANTORODOB:1950 (74 yo M)Acc No.[id number]:09/17/2024 Patient: Chris COREAS :1950 A ge:74 Y S ex:Male Address:[address], [place], [address] * Refills Refill metFORMIN HCl Tablet, 1000 MG, Orally, 180, TAKE 1 TABLET BY MOUTH TWICE A DAY WITH A MEAL, twice a day, 90 days, Refills=3 Refill Atorvastatin Calcium Tablet, 80 MG, Orally, 90, TAKE 1 TABLET BY MOUTH EVERY DAY, Once a day, 90 days, Refills=3 * true * Date: Generated for Pino fernandez/Yomaira/Tosin on: 04/17/2024 07:25 PM EST
--- OUTSIDE RECORDS SUMMARY | 2024-09-21 04:42 | XMS_ITS ---
Author Organization Hany Bañuelos III, MD Address [address] [place] [address] Care Team Providers Care Adjunct Physical Education Instructor Name Role Phone Dr. Hany Bañuleos III Primary Care Provider Social History Sex Assigned At : Social History Observation Description Sex Assigned At Male Encounters Encounter Location Date Provider Diagnosis Hany Bañuelos III, MD [address] [place] [address] [place] [address] 09/21/2024 Hany Bañuelos Plan Of Treatment Next Appt Details Provider Name:Hany Bañuelos , 02/25/2025 04:00:00 PM, [address] [place] [address] [address], [place], [address], Progress Notes * Chris SANTORODOB:1950 (74 yo M)Acc No.[id number]:09/21/2024 Patient: Chris COREAS :1950 A ge:74 Y S ex:Male Address:[place], [address] * true * Date: Generated for Pino fernandez/Yomaira/eTransmitting on: 04/17/2024 07:25 PM EST
--- NOTE | ~2025-02-14 | US_ITS ---
EXAMINATION: US RETROPERITONEAL LIMITED (RENAL ONLY) CLINICAL INFORMATION: C 61. Malignant neoplasm of prostate.. COMPARISON: Ultrasound renal bilaterally dated February 2024. TECHNIQUE: Real-time ultrasound kidneys using grayscale technique. FINDINGS: RIGHT KIDNEY: 11 x 6 x 5 cm (SAG x AP x TRV). Normal echotexture. Renal cortical thickness is normal. No hydronephrosis. 1.4 cm anechoic structure in the renal hilum without septations or flow on color Doppler interrogation. LEFT KIDNEY: 11 x 5 x 5 cm (SAG x AP x TRV). Normal echotexture Renal cortical thickness is normal. No hydronephrosis. No solid or cystic lesion. US/US renal BI IMPRESSION: 1.4 cm parapelvic cyst, right kidney. No hydronephrosis or gross nephrolithiasis. Electronically signed by: Hamilton Uriarte MD 02/14/2025 02:52 PM EST
--- OUTSIDE RECORDS SUMMARY | 2025-02-14 19:24 | XMS_ITS | Patient Health Record ---
Author Organization Hany Bañuelos III, MD Address [address] [address] Care Team Providers Care Tube Filler Name Role Phone Dr. Hany Bañuelos III Primary Care Provider [phone] Allergies Allergen (clinical drug ingredient) Drug/Non Drug [...] 0.2 - 1.3 BLD Negative Negative - Complete Blood Count Auto Di ff Reviewed date:02/21/2024 04:11:17 PM Interpretation: Performing Lab:[facility], [address] [place] [phone] Notes/Report: White Blood Count 7.2 4.8-10.8 X10*3/uL [...] NRBC Abs Auto 0.000 0.0-0.012 X10*3/uL Comprehensive [place]. Panel Fa st Reviewed date:02/21/2024 04:11:17 PM Interpretation: Performing Lab:[facility], [address] [place] [phone] Notes/Report: Sodium 139 135-145 mmol/L Potassium 4.8 [...] Panel Reviewed date:02/21/2024 04:11:17 PM Interpretation: Performing Lab:[address] [address] Notes/Report: Triglycerides 61 <150 mg/dL Desirable Triglyceride: [...] Antigen Reviewed date:02/21/2024 04:11:17 PM Interpretation: Performing Lab:[address] [address] Notes/Report: Prostate Specific Antigen < 0.10 <0.05-4.0 ng/mL PSA methodology: Sharma Alinity i Chemiluminescent Microparticle Immunoassay (CMIA) Microalbumin, Random Reviewed date:02/21/2024 04:11:17 PM Interpretation: Performing Lab:[address] [address] Notes/Report: Creatinine Urine 155.43 Microalbumin Urine 17.0 Microalbum/Creatinine Ratio Ur 10.9 <30 ug/mg cr Albumin/Creatinine Ratio Reference Ranges: Normal: < 30 ug/mg creatinine Microalbuminuria: 30 - 300 ug/mg creatinine Clinical Albuminuria: > 300 ug/mg creatinine Hemoglobin A1c Reviewed date:02/21/2024 04:11:17 PM Interpretation: Performing Lab:[address] [address] Notes/Report: Hemoglobin A1c % 5.8 <6.0 % [...] average glucose, using the formula of the M0P-Wrfzukj Average Glucose study (ADAG), Diabetes Care, Vol.31,#8, 2007 Complete Blood Count Auto Di ff Reviewed date:05/29/2024 12:17:53 PM Interpretation: Performing Lab:[facility], [address] [place] [phone] Notes/Report: White Blood Count 6.4 4.8-10.8 X10*3/uL [...] NRBC Abs Auto 0.000 0.0-0.012 X10*3/uL Comprehensive [place]. Panel Fa Reviewed date:05/29/2024 12:17:53 PM Interpretation: Performing Lab:[facility], [address] [place] [phone] Notes/Report: Sodium 139 135-145 mmol/L Potassium 4.5 [...] Panel Reviewed date:05/29/2024 12:17:53 PM Interpretation: Performing Lab:[facility], [address] [place] [phone] Notes/Report: Triglycerides 67 <150 mg/dL Desirable Triglyceride: [...] Antigen Reviewed date:05/29/2024 12:17:53 PM Interpretation: Performing Lab:[address] [address] Notes/Report: Prostate Specific Antigen < 0.10 <0.05-4.0 ng/mL PSA methodology: Sharma Alinity i Chemiluminescent Microparticle Immunoassay (CMIA) Hemoglobin A1c Reviewed date:05/29/2024 12:17:53 PM Interpretation: Performing Lab:[address] [address] Notes/Report: Hemoglobin A1c % 5.9 <6.0 % [...] average glucose, using the formula of the T8K-Jiepbck Average Glucose study (ADAG), Diabetes Care, Vol.31,#8, Oct. 2007 Complete Blood Count Auto Di ff Reviewed date:08/29/2024 11:06:21 AM Interpretation: Performing Lab:[address] [address] Notes/Report: White Blood Count 6.1 4.8-10.8 X10*3/uL [...] NRBC Abs Auto 0.000 0.0-0.012 X10*3/uL Comprehensive [place]. Panel Fa st Reviewed date:08/29/2024 11:06:21 AM Interpretation: Performing Lab:[facility], [address] [place] [phone] Notes/Report: Sodium 139 135-145 mmol/L Potassium 4.5 [...] Panel Reviewed date:08/29/2024 11:06:21 AM Interpretation: Performing Lab:[address] [address] Notes/Report: Triglycerides 79 <150 mg/dL Desirable Triglyceride: [...] Antigen Reviewed date:08/29/2024 11:06:21 AM Interpretation: Performing Lab:[address] [address] Notes/Report: Prostate Specific Antigen < 0.10 <0.05-4.0 ng/mL PSA methodology: Sharma Alinity i Chemiluminescent Microparticle Immunoassay (CMIA) Microalbumin, Random Reviewed date:08/29/2024 11:06:21 AM Interpretation: Performing Lab:[facility], [address] [place] [phone] Notes/Report: Creatinine Urine 151.43 Microalbumin Urine 28.0 Microalbum/Creatinine Ratio Ur 18.4 <30 ug/mg cr Albumin/Creatinine Ratio Reference Ranges: Normal: < 30 ug/mg creatinine Microalbuminuria: 30 - 300 ug/mg creatinine Clinical Albuminuria: > 300 ug/mg creatinine Hemoglobin A1c Reviewed date:08/29/2024 11:06:21 AM Interpretation: Performing Lab:[address] [address] Notes/Report: Hemoglobin A1c % 5.9 <6.0 % [...] average glucose, using the formula of the T4V-Fwgzkcr Average Glucose study (ADAG), Diabetes Care, Vol.31,#8, Oct. 2007 Diabetic Eye Exam Reviewed date:09/28/2024 11:21:51 AM Interpretation:undefined Performing Lab: Notes/Report: undefined US renal BI (Not yet reviewe d by provider) Interpretation: Performing Lab: Notes/Report: [address] [address] Ultrasound Report Signed Patient: Chris Santoro MR#: [id number] 8 : 1950 Acct:[id number] Age/Sex: 74 / M ADM Date: 02/14/25 Loc: HO.US Attending Dr: Kevin Cochran MD Ordering Physician: Kevin Cochran MD Date of Service: 02/14/25 Procedure(s): US renal BI Accession Number(s): [id number] cc: Kevin Cochran MD; Hany Bañuelos MD Reason for Exam: C61 - Malignant neoplasm of prostate EXAMINATION: US RETROPERITONEAL LIMITED (RENAL ONLY) CLINICAL INFORMATION: C 61. Malignant neoplasm of prostate.. COMPARISON: Ultrasound renal bilaterally dated February 2024. TECHNIQUE: Real-time ultrasound kidneys using grayscale technique. FINDINGS: RIGHT KIDNEY: 11 x 6 x 5 cm (SAG x AP x TRV). Normal echotexture. Renal cortical thickness is normal. No hydronephrosis. 1.4 cm anechoic structure in the renal hilum without septations or flow on color Doppler interrogation. LEFT KIDNEY: 11 x 5 x 5 cm (SAG x AP x TRV). Normal echotexture Renal cortical thickness is normal. No hydronephrosis. No solid or cystic lesion. US/US renal BI IMPRESSION: 1.4 cm parapelvic cyst, right kidney. No hydronephrosis or gross nephrolithiasis. Electronically signed by: Hamilton Uriarte MD 02/14/2025 02:52 PM EST RP Dictated By: Hamilton Villa MD Signed By: <Electronically signed by Hamilton Flor MD in OV> 02/14/25 1452 DD/ 1431 TD/TT: 02/14/25 1436 Business Advisor: [place] [id number] Ultrasound Report Signed Patient: Filomena Santoro is MR#: [id number] 8 : 1950 Acct:[id number] Age/Sex: 74 / M ADM Date: 02/14/25 Loc: HO.US Attending Dr: Trish Villaseñor MD Ordering Physician: Kevin Cochran MD Date of Service: 02/14/25 Procedure(s): US daisy al BI Accession Number(s): [id number] cc: Kevin Cochran MD; Hany Bañuelos MD Reason for Exam: C61 - Malignant neoplasm of prostate EXAMINATION: US RETROPERITONEAL LIMITED (RENAL ONLY) CLINICAL INFORMATION: C 61. Malignant neoplasm of prostate.. COMPARISON: Ultrasound renal bilaterally dated February 2024. TECHNIQUE: Real-time ultrasound kidneys using grayscale technique. FINDINGS: RIGHT KIDNEY: 11 x 6 x 5 cm (SAG x AP x TRV). Normal echotexture. Renal cortical thickness i s normal. No hydronephrosis. 1.4 cm anechoic structure in the daisy al hilum without septations or flow on color Doppler interrogation. LEFT KIDNEY: 11 x 5 x 5 cm (SAG x AP x TRV). Normal echotexture Renal cortical thickness i s normal. No hydronephrosis. No solid or cystic lesion. US/US renal BI IMPRESSION: 1.[address], right kidney. No hydronephrosis or gross nephrolithiasis. Electronically ida d by: Hamilton Uriarte MD 02/14/2025 02:52 PM EST RP Dictated By: Hamilton Ken MD Signed By: <Electronically signed by Hamilton Flor MD in OV> 02/14/25 1452 DD/ 1431 TD/TT: 02/14/25 1436 Business Advisor: Reason For Referral Reason Evaluate and Treat Routine Diabetic Foot Care Nail Reduction Diagnosis 1 Type 2 diabetes berhane itus with other specified complication (E11.69) Referral Organization Hany Bañuelos III, MD Referring Provider First Name Hany Referring Provider Last Name Edda Referring Provider Speciality Internal M edicine Referred Provider ISABEL BRIGGS Referred Provider Specialty Podiatry General Notes DJenna 06/04/2024 10:11:39 AM > Referral and progress [...] Once a day 12/05/2023 Active Dexcom G7 Hogshead Mat Assembler - as directed - use to check blood sugars up to 4 times daily 04/04/2023 Active FreeStyle Lite - use to check blood sugar once a day use to check blood sugar once a day DX: Type 2 diabetes E11.69 08/07/2024 Active Vitamin B-6 50 MG TAKE 1 TABLET BY MOUTH EVERY DAY Orally Once a day Active Metoprolol Tartrate 50 MG 1 tablet with food Orally Twice a day E11. Type 2 diabetes mellitus Active FreeStyle Lancets - test blood sugars once a day E11. Type 2 diabetes mellitus Active Vitamin C [...] Problem Status W/U Status Risk Notes Problem 586838842 Tubular adenoma (D36.9) Active confirmed He is due for a colonoscopy in December and he was referred to us geosciences professor to arrange this. Problem 489304709542 Type 2 diabetes mellitus with other specified complication (E11.69) Active confirmed His fasting glu cose is 123. The hemoglobin A1c is 5.9. His weight is in the normal range. We reviewed his diabetic diet. No change was made in his medications today. Problem 26989600 Hyperlipidemia , unspecified (E78.5) Active confirmed His weight is i n the normal range. His fasting total cholesterol is 111. No change in his regimen was necessary. Problem 80700608 Essential hypertension (I10) Active confirmed Pressure is wel l controlled and no change in his regimen as needed. Problem 385794759 History of skin cancer (Z85.828) Active confirmed He has 2 new lesions on his right wrist. He has been referred to the head of store operations. Problem 0113464576873 Coronary artery disease involving united [place] coronary artery of united [place] heart without angina pectoris (I25.10) Active confirmed He has had no angina at rest or with exertion recently. No change in his regimen was needed today. He is up-to-date with his plateman. Problem 726539152 History of prostate cancer (Z85.46) Active confirmed Is PSA remains nondetectable.There is no sign of disease recurrence. Problem 808024758 Sensorineural hearing loss (SNHL) of both ears (H90.3) Active confirmed He is in the process of having an audiology exam. Amplification will be determined. 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 He remains well hydrated. Problem 49761240 Idiopathic chronic gout without tophus, unspecified site [...] Provider Diagnosis Hany Bañuelos III, MD [address] [place] [address] [place] [address] 02/21/2024 Hany Bañuelos Type 2 diabetes mellitus with other specified complication E11.69 ; History of prostate cancer Z85.46 ; Essential hypertension I10 ; Coronary artery disease involving [place] coronary artery of [place] heart without angina pectoris I25.10 ; Hyperlipidemia, unspecified E78.5 ; Sensorineural hearing loss (SNHL) of both ears H90.3 and Calcium oxalate kidney stones N20.0 Hany Bañuelos III, MD [address] [place] [address] [place] [address] 05/29/2024 Hany Bañuelos Type 2 diabetes mellitus with other specified complication E11.69 ; Hyperlipidemia, unspecified E78.5 ; History of prostate cancer Z85.46 ; Coronary artery disease involving united [place] coronary artery of [place] heart without angina pectoris I25.10 ; Essential hypertension I10 and Calcium oxalate kidney stones N20.0 Hany Bañuelos III, MD [address] [place] [address] [place] [address] 08/29/2024 Hany Bañuelos Type 2 diabetes mellitus with other specified complication E11.69 ; History of prostate cancer Z85.46 ; Essential hypertension I10 ; Overweight E66.3 ; Coronary artery disease involving [place] coronary artery of [place] heart without angina pectoris I25.10 ; Hyperlipidemia, unspecified E78.5 ; Calcium oxalate kidney stones N20.0 and History of skin cancer Z85.828 Hany Bañuelos III, MD [address] [place] [address] [place] [address] 07/16/2024 Hany Bañuelos III, MD [address] [place] [address] [place] [address] 07/19/2024 Hany Bañuelos Type 2 diabetes mellitus with other specified complication E11.69 Hany Bañuelos III, MD [address] [place] [address] [place] [address] 08/07/2024 Hany Bañuelos Type 2 diabetes mellitus with other specified complication E11.69 Hany Bañuelos III, MD [address] [place] [address] [place] [address] 08/07/2024 Hany Bañuelos III, MD [address] [place] [address] [place] [address] 09/17/2024 Hany Bañuelos III, MD [address] [place] [address] [place] [address] 09/21/2024 Hany Bañuelos Assessments Encounter Date Diagnosis (ICD [...] as needed. 02/21/2024 Coronary artery disease involving united [place] coronary artery of united [place] heart without angina pectoris (ICD-10 - I25.10) He has had no angina at rest or with exertion recently. No change in his regimen was needed today. He is up-to-date with his plateman. 05/29/2024 Coronary artery disease involving united [place] coronary artery of [place] heart without angina pectoris (ICD-10 - I25.10) He has had no angina at rest or with exertion recently. No change in his regimen was needed today. He is up-to-date with his plateman. 08/29/2024 Overweight (ICD-10 - E66.3) Body mass [...] was necessary. 08/29/2024 Coronary artery disease involving united [place] coronary artery of [place] heart without angina pectoris (ICD-10 - I25.10) He has had no angina at rest or with exertion recently. No change in his regimen was needed today. He is up-to-date with his plateman. 02/21/2024 Sensorineural hearing loss (SNHL) of both [...] wrist. He has been referred to the head of store operations. Plan Of Treatment Pending Test Test Name [...] ACID 07/11/2020 URIC ACID 04/02/2022 LIPID PANEL 08/03/2022 LIPID PANEL 10/03/2019 LIPID PANEL 05/30/2019 LIPID PANEL 07/11/2020 LIPID PANEL 10/11/2018 LIPID PANEL 02/28/2019 LIPID PANEL 04/02/2022 LIPID PANEL 11/30/2022 PSA, TOTAL 07/05/2023 PSA, TOTAL 05/29/2024 PSA, TOTAL 04/02/2022 PSA, TOTAL 02/21/2024 PSA, TOTAL 08/29/2024 PSA, TOTAL 11/30/2022 PSA, TOTAL 08/03/2022 PSA, TOTAL 05/30/2019 PSA, TOTAL 04/01/2023 PSA, TOTAL 10/04/2023 PSA, TOTAL 02/28/2019 MICROALBUMIN, RANDOM 04/02/2022 MICROALBUMIN, RANDOM 11/30/2022 MICROALBUMIN, RANDOM 07/11/2020 MICROALBUMIN, RANDOM 10/11/2018 CBC w DIFF 10/11/2018 CBC w DIFF 02/28/2019 CBC w DIFF 05/29/2024 CBC w DIFF 08/29/2024 CBC w DIFF 08/03/2022 CBC w DIFF 04/02/2022 CBC w DIFF 11/30/2022 CBC w DIFF 10/03/2019 CBC w DIFF 05/30/2019 CBC w DIFF 07/11/2020 VITAMIN D 25-OH TOTAL 07/11/2020 CBC WITH [...] 04/01/2023 Microalbumin, Random 10/04/2023 Microalbumin, Random 05/29/2024 US renal BI 02/14/2025 Hemoglobin A1c 07/05/2023 Hemoglobin A1c 04/01/2023 Hemoglobin A1c 02/21/2024 Hemoglobin A1c 10/04/2023 Hemoglobin A1c 05/29/2024 Hemoglobin A1c 08/29/2024 Next Appt Details Provider Name:Hany Bañuelos , 02/25/2025 04:00:00 PM, [address] [place] [address] , [address], [place], [address], Insurance Providers Payer Name Payer Address Payer Phone Subscriber Number Group Number Insured Name Patient Relationship to Insured Coverage Start Date Coverage End Date MEDICARE NGS [address] [place] [address] [id number] Chris Santoro Self - patient is the insured [facility] [address] [place], [place] [id number] 4 Chris Santoro Self - patient is [...]
--- OUTSIDE RECORDS SUMMARY | 2025-02-14 19:24 | XMS_ITS | Clinical Summary ---
Author Organization [facility] Address [address] [place] [address] Phone Care Team Providers Care Operations Forester Name Role Phone Hany Bañuelos MD Primary Care Provider [phone] Social History Tobacco Use Types Packs/Day Years [...] PM EDT Office Visit Orthopedic Surgery - [place] [address] [address] Arjun Arreguin, DPM [address] [phone] Health Maintenance Due Date Last Done Comments [...] age to complete this topic Insurance MEDICARE [facility] Care Teams Operations Forester Relationship Specialty Start Date End Date Hany Bañuelos MD [address] [address] [place] [address] PCP - General Oncology 07/18/24
--- OUTSIDE RECORDS SUMMARY | 2025-02-14 19:25 | XMS_ITS | Clinical Summary ---
Author Organization [facility] Address [address] [place] [address] Care Team Providers Care Comb Capper Name Role Phone Hany Bañuelos MD Primary Care Provider [phone] Family History Medical History Relation Comments Diabetes [...] age to complete this topic Insurance [employer] [place] [employer] [place] [employer] Care Teams Comb Capper Relationship Specialty Start Date End Date Hany Bañ[place] [address] [place] [address] PCP - General Internal Medicine 07/24/20
--- OUTSIDE RECORDS SUMMARY | 2025-02-14 19:26 | XMS_ITS | Patient Health Record ---
Author Organization 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 al cohol He is a nonsmoker;no sig. al cohol He is a nonsmoker;no sig. al cohol Problems Problem Type SNOMED Code ICD Code Onset Dates Problem Status W/U Status Risk Notes Problem Colon cancer screening (282641891) Colon cancer screening (Z12.11) Active confirmed Problem History of polyp of colon (situation) (320447459) Personal history of colonic polyps (Z86.010) Active confirmed Problem Diverticular disease of colon (767554315) Diverticulosis of large intestine without perforation or abscess without bleeding (K57.30) Active confirmed Problem Preprocedural examination (002378209735671) Preprocedural examination (Z01.818) Active confirmed Problem History of adenomatous polyp of colon (763706348) Hx of adenomatous colonic polyps (Z86.010) Active confirmed Plan Of Treatment Future Test Test Name Order Date COLONOSCOPY 11/22/2012 COLONOSCOPY 02/21/2018 COLONOSCOPY 07/19/2023 Insurance Providers Payer Name Payer Address Payer Phone Subscriber Number Group Number Insured Name Patient Relationship to Insured Coverage Start Date Coverage End Date [employer] [place] [address] [address] [place] [address] [id number] WENDY CUNNINGHAM Self - patient is the insured Medical (General) History Medical History History ICD Code Colon polyps-4 tubular adeno mas removed via colonoscopy in July 2004, 1 small tubular adenoma removed in 2012 Gout Denies [place],CVA,Lung disease,renal disease Prostate cancer in 2013 Hx of kidney stones NIDDM Hypertension CAD--CABG as below Colonoscopy 04/2018-1 small tubular adeno ma Surgical History Surgery Date(Month/Year) Hernia repair Tonsillectomy 4-V CABG 06/2017 Prostatectomy for prostate cancer 2013 Kidney stone removed Skin lesions removed Hemorrhoid surgery scheduled for end of 06/[address] Gudino
== END 2025-02-14 14:06 | disposition home or self-care (01) ==
LOC: HO.US 14:05
PROVIDERS: PCP Internal Medicine Medical Oncology; Visit Provider Urology
DX: C61 Malignant neoplasm of prostate (principal)
CPT/HCPCS: 76775

== ENCOUNTER → 2025-02-14 14:07 | Outpatient (BNV) | payer MEDICARE, SELFPAY | PROVIDERS: PCP Internal Medicine Medical Oncology; Visit Provider Radiology Diagnostic Radiology | DX: C61 Malignant neoplasm of prostate (principal); N28.1 Cyst of kidney, acquired | CPT/HCPCS: 76775 ==

== ENCOUNTER 2025-02-20 07:32 | Outpatient (REF) | payer MEDICARE, SELFPAY ==
--- OUTSIDE RECORDS SUMMARY | 2025-02-20 07:46 | XMS_ITS | Clinical Summary ---
Author Organization [facility] Facility Address [address] [place] [address] Care Team Providers Care Fur Stretcher Name Role Phone Hany Bañuelos MD Primary Care Provider [phone] Family History Medical History Relation Comments Diabetes [...] age to complete this topic Insurance [employer] Care Teams Fur Stretcher Relationship Specialty Start Date End Date Hany Bañ[place] [address] [place] [address] PCP - General Internal Medicine 07/24/20
--- OUTSIDE RECORDS SUMMARY | 2025-02-20 07:46 | XMS_ITS | Clinical Summary ---
Author Organization [facility] Address [address] [place] [address] Phone Care Team Providers Care Wafer Substrate Tester Name Role Phone Hany Bañuelos MD Primary Care Provider [phone] Social History Tobacco Use Types Packs/Day Years [...] PM EDT Office Visit Orth[facility] - [place] [address] [address] Arjun Arreguin, DPM [address] [phone] Health Maintenance Due Date Last Done Comments [...] age to complete this topic Insurance MEDICARE [facility] Care Teams Wafer Substrate Tester Relationship Specialty Start Date End Date Hany Bañuelos MD [address] [address] [place] [address] PCP - General Oncology 07/18/24
[2025-02-20 10:44] LABS: MANUAL DIFF FLAG NO
[2025-02-20 10:46] LABS: Hematocrit 40.7 % (42.0-52.0); Hemoglobin 13.4 g/dl (14.0-18.0); Imm Gran Abs Auto 0.02 X10*3/uL (0.00-0.03); Imm Gran Pct Auto 0.3 % (0.0-0.4); Lymphocytes Absolute Auto 2.2 X10*3/uL (1.2-4.9); Mean Corpuscular HGB Conc 32.9 g/dl (31.0-36.0); Mean Corpuscular Hemoglobin 29.3 pg (27.0-33.0); Mean Corpuscular Volume 89.1 fL (80.0-98.0); NRBC Abs Auto 0.000 X10*3/uL (0.0-0.012); NRBC Pct Auto 0.0 /100WBC (0.0-0.2); Platelet Count 254 X10*3/uL (160-400); Red Blood Count 4.57 X10*6/uL (4.60-5.80); White Blood Count 6.7 X10*3/uL (4.8-10.8)
[2025-02-20 11:00] LABS: Alanine Aminotransferase 39 U/L (0-40); Albumin Level 4.5 g/dL (3.5-5.0); Alkaline Phosphatase 70 U/L (39-117); Anion Gap 9 (12-20); Aspartate Amino Transferase 32 U/L (5-37); Blood Urea Nitrogen 28 mg/dL (9-16); Calcium 8.9 mg/dL (8.4-10.2); Carbon Dioxide 27 mmol/L (22-29); Chloride 108 mmol/L (96-108); Cholesterol 116 mg/dL (<200); Estimated Glomerular Filt Rate > 60; HDL Cholesterol 46 mg/dL (>40); Potassium 4.5 mmol/L (3.3-5.1); Sodium 139 mmol/L (135-145); Total Protein 6.9 g/dL (6.5-8.0); Triglycerides 80 mg/dL (<150); Uric Acid 6.5 mg/dL (3.4-7.0)
[2025-02-20 11:27] LABS: Prostate Specific Antigen < 0.10 ng/mL (<0.05-4.0)
== END 2025-02-20 07:33 | disposition home or self-care (01) ==
LOC: HO.10HDL 07:32
PROVIDERS: Referring Provider Urology; Visit Provider Internal Medicine Medical Oncology
DX: I10 Essential (primary) hypertension (principal); E11.8 Type 2 diabetes mellitus with unspecified complications; E66.3 Overweight; Z85.46 Personal history of malignant neoplasm of prostate; Z12.5 Encounter for screening for malignant neoplasm of prostate
CPT/HCPCS: 36415; 80053; 80061; 83036; 84153; 84550; 85025

== ENCOUNTER 2025-02-26 10:36 | Outpatient (AMB) | payer MEDICARE, SELFPAY ==
--- OUTSIDE RECORDS SUMMARY | 2023-11-21 03:30 | XMS_ITS ---
Author Organization [facility] Address [address] [place] [phone] Care Team Providers Care Insulation Nozzleman Name Role Phone Hany Bañuelos MD Primary Care Provider Unavailab Hany Perkins Unavailable [phone] REASON FOR VISIT screening,hx polyps Problems Problem Type SNOMED Code ICD Code Onset Dates Problem Status W/U Status Risk Notes Problem History of polyp of colon (situation) (228254657) Personal history of colonic polyps (Z86.010) Active confirmed Problem Diverticular disease of colon (669530945) Diverticulosis of large intestine without perforation or abscess without bleeding (K57.30) Active confirmed Encounters Encounter Location Date Provider Diagnosis [facility] [place] [address] [place] [phone] 11/21/2023 Hany Caldera Colon cancer scree jason [...] * WENDY CUNNINGHAM MDDOB:[birth year] (74 yo M)Acc No.[id number]:11/21/2023 COLON WITH MAC Patient: Jennifer GUSMAN WENDY Brewster MD Provider: Ronak Caldera MD :1950 A ge:73 Y S ex:Male Date:11/21/2023 Address[place] [facility] Pcp:Hany Bañuelos MD Subjective: * Chief Complaints: [...] Y es. Billing Information: * Procedure Codes: 59805 DIAGNOSTIC COLONOSCOPY. Modifiers: 33 * The named appointment provid er may or may not be the originator of this progress note, and it is not deemed complete until electronically signed by the appointment provider. Sign off status: Pending * Provider: Ronak Caldera MD Date: 0 11/21/2023 Generated for Pino fernandez/Yomaira/Fuentessmitting on: 1 04/29/2024 01:23 PM EST
--- OUTSIDE RECORDS SUMMARY | 2024-02-21 11:00 | XMS_ITS ---
Author Organization Hany Bañuelos III, MD Address [address] [place] [address] Care Team Providers Care Manager Water Name Role Phone Dr. Hany Bañuelos III [...] every 10 day 04/04/2023 Active Dexcom G7 Order Taker - as directed - use t o [...] Date Provider Diagnosis Hany Bañuelos III, MD [address] [place] [address] [place] [address] 02/21/2024 Hany Bañuelos Type 2 diabetes mellitus with other specified complication E11.69 ; History of prostate cancer Z85.46 ; Essential hypertension I10 ; Coronary artery disease involving [place] coronary artery of [place] heart without angina pectoris I25.10 ; Hyperlipidemia, [...] was necessary. 02/21/2024 Coronary artery disease involving [place] coronary artery of [place] heart without angina pectoris (ICD-10 - I25.10) He has had no angina at rest or with exertion recently. No change in his regimen was needed today. He is up-to-date with his porter head. 02/21/2024 Hyperlipidemia, unspecified (ICD-10 - E78.5) His [...] sensor every 10 day 04/04/2023 Dexcom G7 Order Taker - as directed - use t o [...] may, Reason: OV, Routine check-up Provider Name:Hany Gutierrez Edda , 05/27/2025 03:30:00 PM, [address] [place] [address] [address], [place], [address], Provider Name:Hany Gutierrez Edda , 02/26/2026 03:15:00 PM, [address] [place] [address] [address], [place], [address], Progress Notes * Chris SANTORODOB:1950 (73 yo M)Acc No.[id number]:02/21/2024 Progress Notes Patient: Chris COREAS Provider: Ronak Bañuelos MD :1950 A ge:73 Y S ex:Male Date:02/21/2024 Address:[address] [place] [address], [id number] Subjective: * Chief Complaints: * A nnual [...] Surgical History: c ardiac catheterization 05/2017lithotripsy 11/2013tonsilectomy 1960right inguinal herniorrhaphy 1989prostatectomy 2010cardiac bypass surgery 06/2017colonoscopy, [...] history of stroke. His father at 45 [place] diagnosed with MS and heart disease. His [...] H kelsea is . 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 He lives in [place], [place]. * Medications: T akingAtorvastatin Calcium 80 [...] tablet Orally Once a day Dexcom G7 Order Taker - Device as directed - use to [...] Orally Once a day Taking Dexcom G7 Order Taker - Device as directed - use to [...] 7.8 (Ref Range: ug/mg cr) * Lab:[facility] [place]. Pane l Fast * Collection Date 02/21/2024 [...] 4 . C oronary artery disease involving [place] coronary artery of [place] heart without angina pectoris - I25.10 N otes :He has had no angina at rest or with exertion recently. No change in his regimen was needed today. He is up-to-date with his porter head. 5 . H yperlipidemia, unspecified - E78.5 [...] Bañuelos MD Date: 04/23/2023 Generated for Pino fernandez/Yomaira/Tosin on: 04/29/2024 01:24 PM EST History and Physical Notes * [...] had two or more falls in the year?: No Fall Risk Assessment:: No falls in the year COVID-19 Screening Questions Have you had any new onset fever, chills, cough, congestion, sore throat, shortness of breath, muscle aches?: No Have you been exposed to the virus withi n the last 10 days?: No Have you travelled internationally in [facility] last 10 days?: No Have you been [...]
--- OUTSIDE RECORDS SUMMARY | 2024-05-29 08:00 | XMS_ITS ---
Author Organization Hany Bañuelos III, MD Address [address] [place] [address] Care Team Providers Care Extended Day Teacher Name Role Phone Dr. Hany Bañuelos III Primary Care Provider [phone] Allergies Allergen (clinical drug ingredient) Drug/Non Drug Allergy documented on EMR Reaction Allergy Type Onset Date Status metoclopramide Reglan Unknown Drug Allergy Ac tive Levaquin Unknown Drug Allergy Active Reason For Referral Reason Evaluate and Treat Routine Diabetic Foot Care Nail Reduction Diagnosis 1 Type 2 diabetes berhane itus with other specified complication (E11.69) Referral Organization Hany Bañuelos III, MD Referring Provider First Name Hany Referring Provider Last Name Edda Referring Provider Speciality Internal M edicine Referred Provider ISABEL BRIGGS Referred Provider Specialty Podiatry General Notes Jenna Fernandez 06/04/2024 10:11:39 AM > Referral and progress note faxed, Jenna Fernandez 06/28/2024 02:26:10 PM > Dr Gauthier office stated they are only up to 05/30/24 in referrals and the patient has not been scheduled Referral Priority Routine Referral Appointment Date 09/17/2024 REASON FOR VISIT Coronary artery disease, Diabetes, Hyperlipidemia, Hypertension, Ureterolithiasis, Gout, History ofprostate cancer, Hearing loss Medications Medication SIG (Take, Route, Frequency, Duration) Notes Start Date End Date Status Allopurinol 100 MG 1 tablet Orally Once a day 12/05/2023 Active Metoprolol Tartrate 50 MG TAKE ONE (1) TABLET BY MOUTH TWICE DAILY WITH FOOD Active Dexcom G7 Sensor - apply sensor every 10 day E11.69 Type 2 diabetes mellitus Active Dexcom G7 Thiokol Operator - as directed - use to check blood sugars up to 4 times daily 04/04/2023 Active Vitamin B-6 50 MG TAKE 1 TABLET BY MOUTH EVERY DAY Orally Once a day Active Vitamin C 500 MG 1 tablet Orally Once a day Active Aspir-81 81 MG 1 tablet Orally Once a day Active Coenzyme Q10 200 MG 1 tablet Orally Once a day Active FreeStyle Lancets - as directed as directed test blood sugars twice a day Active FreeStyle Lite Test - as directed In Vitro to check blood sugar twice a day Active metFORMIN HCl 1000 MG TAKE 1 TABLET BY MOUTH TWICE A DAY WITH A MEAL Active Atorvastatin Calcium 80 MG TAKE 1 TABLET BY MOUTH EVERY DAY Active Social History Tobacco Use: Social History Observation Description Date Details (start date - stop date) Never Smoker NA - NA Sex Assigned At : Social History Observation Description Sex Assigned At Male Tobacco Control (Standard) Question Answer Notes Tobacco use: Nonsmoker Additional Findings: Tobacco non-user Aggressive nonsmoker Vital Signs Temperature 97.5 degrees Fahrenheit 05/30/19 25 Blood pressure systolic 131 mm Hg 05/30/19 25 Blood pressure diastolic 69 mm Hg 025 Heart Rate 57 /min 05/29/2024 Height 70 in 05/29/2024 Weight 173 lbs 05/29/2024 BMI 24.82 kg/m2 05/29/2024 Encounters Encounter Location Date Provider Diagnosis Hany Bañuelos III, MD [address] [place] [address] [place] [address] 05/29/2024 Hany Bañuelos Type 2 diabetes mellitus with other specified complication E11.69 ; Hyperlipidemia, unspecified E78.5 ; History of prostate cancer Z85.46 ; Coronary artery disease involving [place] coronary artery of [place] heart without angina pectoris I25.10 ; Essential hypertension I10 and Calcium oxalate kidney stones N20.0 Assessments Encounter Date Diagnosis (ICD Code) Assessment Notes Treat ment Notes Treatment Clinical Notes 05/29/2024 Type 2 diabetes mellitus with other specified complication (ICD-10 - E11.69) His fasting glucose is 123. The hemoglobin A1c is 5.9. His weight is in the normal range. We reviewed his diabetic diet. No change was made in his medications today. 05/29/2024 Hyperlipidemia, unspecified (ICD-10 - E78.5) His weight is in the normal range. His fasting total cholesterol is 111. No change in his regimen was necessary. 05/29/2024 History of prostate cancer (ICD-10 - Z85.46) He has no symptoms. His PSA remains nondetectable. 05/29/2024 Coronary artery disease involving [place] coronary artery of [place] heart without angina pectoris (ICD-10 - I25.10) He has had no angina at rest or with exertion recently. No change in his regimen was needed today. 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 05/29/2024 Essential hypertension (ICD-10 - I10) His bloood pressure today is in the stable range. The value was 138/72. No change in his regimen was necessary. 05/29/2024 Calcium oxalate kidney stones (ICD-10 - N20.0) No further kidney stones have been reported. He remains well hydrated. Plan Of Treatment Medication Medication Name Sig Start Date Stop Date Notes Allopurinol 100 MG 1 tablet Orally Once a day 12/05/2023 Metoprolol Tartrate 50 MG TAKE ONE (1) TABLET BY MOUTH TWICE DAILY WITH FOOD Dex[employer] G7 Sensor - apply sensor every 10 day E11.69 Type 2 diabetes mellitus Dexcom G7 Thiokol Operator - as directed - use t o check blood sugars up to 4 times daily 04/04/2023 Vitamin B-6 50 MG TAKE 1 TABLET BY MOUTH EVERY DAY Orally Once a day Vitamin C 500 MG 1 tablet Orally Once a day Aspir-81 81 MG 1 tablet Orally Once a day Coenzyme Q10 200 MG 1 tablet Orally Once a day FreeStyle Lancets - as directed as directed test blood sugars twice a day FreeStyle Lite Test - as directed In Vit ro to check blood sugar twice a day metFORMIN HCl 1000 MG TAKE 1 TABLET BY MOUTH TWICE A DAY WITH A MEAL Atorvastatin Calcium 80 MG TAKE 1 TABLET BY MOUTH EVERY DAY Pending Test Test Name Order Date PROFILE, FASTING (COMPREHENSIVE METABOLI C) 05/29/2024 PSA, TOTAL 05/29/2024 CBC w DIFF 05/29/2024 Lipid Panel 05/29/2024 Microalbumin, Random 05/29/2024 Hemoglobin A1c 05/29/2024 Referrals Referral Date Details 05/29/2024 05/29/2024, Evaluate and Treat Routine Diabetic Foot Care Nail Reduction, ISABEL BRIGGS Next Appt Details Follow Up: 3 Months, Reason: OV Provider Name:Hany Bañuelos , 05/27/2025 03:30:00 PM, [address] [place] [address] [address], [place], [address], Provider Name:Hany Bañuelos , 02/26/2026 03:15:00 PM, [address] [place] [address] [address], [place], [address], Progress Notes * Chris SANTORODOB:1950 (74 yo M)Acc No.[id number]:05/29/2024 Progress Notes Patient: Chris COREAS Provider: Ronak Bañuelos MD :1950 A ge:73 Y S ex:Male Date:05/29/2024 Address:[address] [place] [id number] Subjective: * Chief Complaints: * C oronary artery diseaseDiabetesHyperlipidemiaHypertensionUreterolithiasisGoutHistory of prostate cancerHearing loss * HPI: C OVID-19 Screening: He returns for a scheduled visit to manage his metabolic syndrome and coronary artery disease. Since his last visit he has been well. This was his last day working and he is now retired. He says he has mixed feelings about this which is quite understandable. His blood pressure is stable. He has been compliant with all of his medications. He has had no angina recently. His weight is stable. His examination today showed no new findings. At his request he was referred to a podiatry for nail reduction. Questions H ave you had any new onset fever, chills, cough, congestion, sore throat, shortness of breath, muscle aches? N o * ROS: G eneral/Constitutional: pain o nly normal aches and pains. C hills d enies.?Fatigue a dmits. F ever d enies. E NT: Decreased hearing i n both ears. R espiratory: Cough d enies. C ardiovascular: Chest pain with exertion d enies. D yspnea on exertion?denies. S hortness of breath d enies. G astrointestinal: Constipation d enies. D ecreased appetite d enies.?Diarrhea d enies. H eartburn d enies. N ausea d enies. R ectal bleeding?denies. V omiting d enies. H ematology: bruising [...] history of stroke. His father at 45 [place] diagnosed with MS and heart disease. His mother had degenerative joint disease cerebrovascular accident lymphoma and PVD. He is not aware of any family history of substance use disorder or addiction or mental illness. * Social History: T obacco Use: T obacco Control (Standard) T obacco use: N onsmoker A dditional Findings: Tobacco non-user A ggressive nonsmoker Dio enamorado is . 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 He lives in [place], [place]. * Medications: T akingAllopurinol 100 MG Tablet 1 tablet Orally Once a day Atorvastatin Calcium 80 MG Tablet TAKE 1 [...] tablet Orally Once a day Dexcom G7 Thiokol Operator - Device as directed - use to check blood sugars up to 4 times daily Vitamin B-6 50 MG Tablet TAKE 1 TABLET BY MOUTH EVERY DAY Orally Once a day Dexcom G7 Sensor - Miscellaneous apply sensor every 10 day , Notes to Pharmacist: E11.69 Type 2 diabetes mellitusMetoprolol Tartrate 50 MG Tablet TAKE ONE (1) TABLET BY MOUTH TWICE DAILY WITH FOOD Medication List reviewed and reconciled with the patientTaking Allopurinol 100 MG Tablet 1 tablet Orally Once a day Taking Atorvastatin Calcium 80 MG Tablet TAKE 1 [...] Orally Once a day Taking Dexcom G7 Thiokol Operator - Device as directed - use to check blood sugars up to 4 times daily Taking Vitamin B-6 50 MG Tablet TAKE 1 TABLET BY MOUTH EVERY DAY Orally Once a day Taking Dexcom G7 Sensor - Miscellaneous apply sensor every 10 day , Notes to Pharmacist: E11.69 Type 2 diabetes mellitusTaking Metoprolol Tartrate 50 MG Tablet TAKE ONE (1) TABLET BY MOUTH TWICE DAILY WITH FOOD Medication List reviewed and reconciled with the patient * Allergies: R rustamLejinquinreilly[Allergies Verified] Objective: * Vitals: H t: 70, Wt:173, BMI:24.82, BP:131/69, HR:57, Temp:97.5, Wt-k.47. * P ast Orders: Lab:Complete Blood Count Aut o Diff * Collection Date 05/29/2024 02/21/2024 10/04/2023 Collection Time 07:45 AM 08:22 AM 08:08 AM Order Date 05/29/2024 02/21/2024 10/04/2023 White Blood Count 6.4 (Ref Range: 4.8-10.8 X10*3/uL) 7.2 (Ref Range: 4.8-10.8 X10*3/uL) 6.1 (Ref Range: 4.8-10.8 X10*3/uL) Red Blood Count 4.45 L (Ref Range: 4.60-5.80 X10*6/uL) 4.43 L (Ref Range: 4.60-5.80 X10*6/uL) 4.48 L (Ref Range: 4.60-5.80 X10*6/uL) Hemoglobin 13.0 L (Ref Range: 14.0-18.0 g/dl) 13.3 L (Ref Range: 14.0-18.0 g/dl) 13.4 L (Ref Range: 14.0-18.0 g/dl) Hematocrit 40.2 L (Ref Range: 42.0-52.0 %) 39.9 L (Ref Range: 42.0-52.0 %) 39.8 L (Ref Range: 42.0-52.0 %) Mean Corpuscular Volume 90.3 (Ref Range: 80.0-98.0 fL) 90.1 (Ref Range: 80.0-98.0 fL) 88.8 (Ref Range: 80.0-98.0 fL) Mean Corpuscular Hemoglobin 29.2 (Ref Range: 27.0-33.0 pg) 30.0 (Ref Range: 27.0-33.0 pg) 29.9 (Ref Range: 27.0-33.0 pg) Mean Corpuscular HGB Conc 32.3 (Ref Range: 31.0-36.0 g/dl) 33.3 (Ref Range: 31.0-36.0 g/dl) 33.7 (Ref Range: 31.0-36.0 g/dl) Red Cell Distribution Width 13.2 (Ref Range: 11.0-16.0 %) 13.6 (Ref Range: 11.0-16.0 %) 14.5 (Ref Range: 11.0-16.0 %) Platelet Count 217 (Ref Range: 160-400 X10*3/uL) 243 (Ref Range: 160-400 X10*3/uL) 241 (Ref Range: 160-400 X10*3/uL) Mean Platelet Volume 10.2 (Ref Range: 9.4-12.4 fL) 9.8 (Ref Range: 9.4-12.4 fL) 9.9 (Ref Range: 9.4-12.4 fL) Neutrophils Percent Auto 56.4 (Ref Range: 45-73 %) 58.9 (Ref Range: 45-73 %) 55.4 (Ref Range: 45-73 %) Imm Gran Pct Auto 0.2 (Ref Range: 0.0-0.4 %) 0.3 (Ref Range: 0.0-0.4 %) 0.5 H (Ref Range: 0.0-0.4 %) Lymphocytes Percent Auto 27.5 (Ref Range: 20-40 %) 28.3 (Ref Range: 20-40 %) 31.4 (Ref Range: 20-40 %) Monocytes Percent Auto 11.5 H (Ref Range: 2-11 %) 8.9 (Ref Range: 2-11 %) 8.4 (Ref Range: 2-11 %) Eosinophils Percent Auto 3.8 (Ref Range: 0-4 %) 2.6 (Ref Range: 0-4 %) 3.1 (Ref Range: 0-4 %) Basophils Percent Auto 0.6 (Ref Range: 0-2 %) 1.0 (Ref Range: 0-2 %) 1.2 (Ref Range: 0-2 %) NRBC Pct Auto 0.0 (Ref Range: 0.0-0.2 /100WBC) 0.0 (Ref Range: 0.0-0.2 /100WBC) 0.0 (Ref Range: 0.0-0.2 /100WBC) Neutrophils Absolute Auto 3.6 (Ref Range: 2.0-8.3 x10*3/uL) 4.3 (Ref Range: 2.0-8.3 x10*3/uL) 3.4 (Ref Range: 2.0-8.3 x10*3/uL) Imm Gran Abs Auto 0.01 (Ref Range: 0.00-0.03 X10*3/uL) 0.02 (Ref Range: 0.00-0.03 X10*3/uL) 0.03 (Ref Range: 0.00-0.03 X10*3/uL) Lymphocytes Absolute Auto 1.8 (Ref Range: 1.2-4.9 X10*3/uL) 2.0 (Ref Range: 1.2-4.9 X10*3/uL) 1.9 (Ref Range: 1.2-4.9 X10*3/uL) Monocytes Absolute Auto 0.7 (Ref Range: 0.1-1.2 X10*3/uL) 0.6 (Ref Range: 0.1-1.2 X10*3/uL) 0.5 (Ref Range: 0.1-1.2 X10*3/uL) Eosinophils Absolute Auto 0.2 (Ref Range: 0.0-0.4 X10*3/uL) 0.2 (Ref Range: 0.0-0.4 X10*3/uL) 0.2 (Ref Range: 0.0-0.4 X10*3/uL) Basophils Absolute Auto 0.0 (Ref Range: 0.0-0.2 X10*3/uL) 0.1 (Ref Range: 0.0-0.2 X10*3/uL) 0.1 (Ref Range: 0.0-0.2 X10*3/uL) NRBC Abs Auto 0.000 (Ref Range: 0.0-0.012 X10*3/uL) 0.000 (Ref Range: 0.0-0.012 X10*3/uL) 0.000 (Ref Range: 0.0-0.012 X10*3/uL) * Lab:[facility] Fast * Collection Date 05/29/2024 02/21/2024 10/04/2023 Collection Time 07:45 AM 08:22 AM 08:08 AM Order Date 05/29/2024 02/21/2024 10/04/2023 Sodium 139 (Ref Range: 135-145 mmol/L) 139 (Ref Range: 135-145 mmol/L) 140 (Ref Range: 135-145 mmol/L) Bilirubin Total 0.6 (Ref Range: 0.0-1.0 mg/dL) 0.5 (Ref Range: 0.0-1.0 mg/dL) 0.6 (Ref Range: 0.0-1.0 mg/dL) Aspartate Amino Transferase 28 (Ref Range: 5-37 U/L) 29 (Ref Range: 5-37 U/L) 29 (Ref Range: 5-37 U/L) Alanine Aminotransferase 36 (Ref Range: 0-40 U/L) 35 (Ref Range: 0-40 U/L) 31 (Ref Range: 0-40 U/L) Total Protein 7.7 (Ref Range: 6.5-8.0 g/dL) 7.4 (Ref Range: 6.5-8.0 g/dL) 7.2 (Ref Range: 6.5-8.0 g/dL) Albumin Level 4.4 (Ref Range: 3.5-5.0 g/dL) 4.5 (Ref Range: 3.5-5.0 g/dL) 4.6 (Ref Range: 3.5-5.0 g/dL) Alkaline Phosphatase 70 (Ref Range: 39-117 U/L) 52 (Ref Range: 39-117 U/L) 54 (Ref Range: 39-117 U/L) Potassium 4.5 (Ref Range: 3.3-5.1 mmol/L) 4.8 (Ref Range: 3.3-5.1 mmol/L) 4.8 (Ref Range: 3.3-5.1 mmol/L) Chloride 108 (Ref Range: 96-108 mmol/L) 106 (Ref Range: 96-108 mmol/L) 106 (Ref Range: 96-108 mmol/L) Carbon Dioxide 24 (Ref Range: 22-29 mmol/L) 23 (Ref Range: 22-29 mmol/L) 23 (Ref Range: 22-29 mmol/L) Anion Gap 12 (Ref Range: 12-20) 15 (Ref Range: 12-20) 16 (Ref Range: 12-20) Blood Urea Nitrogen 28 H (Ref Range: 9-16 mg/dL) 40 H (Ref Range: 9-16 mg/dL) 26 H (Ref Range: 9-16 mg/dL) Creatinine 1.19 (Ref Range: 0.5-1.4 mg/dL) 1.58 H (Ref Range: 0.5-1.4 mg/dL) 1.28 (Ref Range: 0.5-1.4 mg/dL) Estimated Glomerular Filt Rate > 60 43 55 Glucose Fasting 123 H (Ref Range: 60-99 mg/dL) 105 H (Ref Range: 60-99 mg/dL) 116 H (Ref Range: 60-99 mg/dL) Calcium 8.9 (Ref Range: 8.4-10.2 mg/dL) 9.8 (Ref Range: 8.4-10.2 mg/dL) 9.4 (Ref Range: 8.4-10.2 mg/dL) * Lab:Lipid Panel * Collection Date 05/29/2024 02/21/2024 10/04/2023 Collection Time 07:45 AM 08:22 AM 08:08 AM Order Date 05/29/2024 02/21/2024 10/04/2023 Triglycerides 67 (Ref Range: <150 mg/dL) 61 (Ref Range: <150 mg/dL) 64 (Ref Range: <150 mg/dL) Cholesterol 111 (Ref Range: <200 mg/dL) 121 (Ref Range: <200 mg/dL) 112 (Ref Range: <200 mg/dL) LDL Cholesterol Calculated 55 (Ref Range: <100 mg/dL) 61 (Ref Range: <100 mg/dL) 51 (Ref Range: <100 mg/dL) HDL Cholesterol 43 (Ref Range: >40 mg/dL) 48 (Ref Range: >40 mg/dL) 49 (Ref Range: >40 mg/dL) * Lab:Prostate Specific Antige n * Collection Date 05/29/2024 02/21/2024 10/04/2023 Collection Time 07:45 AM 08:22 AM 08:08 AM Order Date 05/29/2024 02/21/2024 10/04/2023 Prostate Specific Antigen < 0.10 (Ref Range: <0.05-4.0 ng/mL) < 0.10 (Ref Range: <0.05-4.0 ng/mL) < 0.10 (Ref Range: <0.05-4.0 ng/mL) * Lab:Hemoglobin A1c * Collection Date 05/29/2024 02/21/2024 10/04/2023 Collection Time 07:45 AM 08:22 AM 08:08 AM Order Date 05/29/2024 02/21/2024 10/04/2023 Hemoglobin A1c % 5.9 (Ref Range: <6.0 %) 5.8 (Ref Range: <6.0 %) 5.7 (Ref Range: <6.0 %) Estimated Average Glucose 123 (Ref Range: mg/dL) 120 (Ref Range: mg/dL) 117 (Ref Range: mg/dL) * Examination: G eneral Examination: GENERAL APPEARANCE: [...] organomegaly, no mass. RECTAL EXAM: n ot examined. MUSCULOSKELETAL: e xtremities unremarkable, no clubbing, cyanosis or edema. PERIPHERAL PULSES: n ormal. NEUROLOGIC: a lert and oriented, cranial nerves 2-12 grossly intact, deep tendon reflexes 2+ symmetrical, motor strength normal upper and lower extremities, sensory exam intact. PSYCH: a lert, oriented. Assessment: * Assessment: 1. T ype 2 diabetes mellitus with other specified complication - E11.69 (Primary) ?Notes :His fasting glucose is 123. The hemoglobin A1c is 5.9. His weight is in the normal range. We reviewed his diabetic diet. No change was made in his medications today. 2 . H yperlipidemia, unspecified - E78.5 N otes :His weight is in the normal range. His fasting total cholesterol is 111. No change in his regimen was necessary. 3 . H istory of prostate cancer - Z85.46 N otes :He has no symptoms. His PSA remains nondetectable. 4 . C oronary artery disease involving [place] coronary artery of [place] heart without angina pectoris - I25.10 N otes :He has had no angina at rest or with exertion recently. No change in his regimen was needed today. 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 5 . E ssential hypertension - I10 N otes :His bloood pressure today is in the stable range. The value was 138/72. No change in his regimen was necessary. 6 . C alcium oxalate kidney stones - N20.0 N otes :No further kidney stones have been reported. He remains well hydrated. Plan: * Treatment: 2. H yperlipidemia, unspecified L AB: PROFILE, FASTING (COMPREHENSIVE METABOLIC) L AB: PSA, TOTAL L AB: CBC w DIFF L AB: Lipid Panel L AB: Microalbumin, Random L AB: Hemoglobin A1c 3. H istory of prostate cancer L AB: PROFILE, FASTING (COMPREHENSIVE METABOLIC) L AB: PSA, TOTAL L AB: CBC w DIFF L AB: Lipid Panel L AB: Microalbumin, Random L AB: Hemoglobin A1c 4. O thers Continue Metoprolol Tartrate Tablet, 50 MG, TAKE ONE (1) TABLET BY MOUTH TWICE DAILY WITH FOOD;?Continue Allopurinol Tablet, 100 MG, 1 tablet, Orally, Once a day; C ontinue Atorvastatin Calcium Tablet, 80 MG, TAKE 1 TABLET BY MOUTH EVERY DAY; C ontinue metFORMIN HCl Tablet, 1000 MG, TAKE 1 TABLET BY MOUTH TWICE A DAY WITH A MEAL. * Procedure Codes: * Preventive Medicine: DM Care Plan: P atient Lifestyle Goals P atient wants to be able to manage diabetes without too much effort. T reatment Goals H bA1C < 7.0, Blood Sugars less than < 115. B arriers n o barriers. S elf-Managment Goals I ncrease exercise to 3 times a week for 30 mins, Stop drinking juice and/or soda, replace with more water. * Follow Up: 3 Months (Reason: OV) * Images: * Sign off status: Completed true * Provider: Ronak Bañuelos MD Date: 0 05/29/2024 Generated for Pino fernandez/Yomaira/Fuentessmitting on: 04/29/2024 01:23 PM EST History and Physical Notes * HPI (History of Present Illness) Category Sub-Category Detail Notes COVID-19 Screening Questions Have you had any new onset fever, chills, cough, congestion, sore throat, shortness of breath, muscle aches?: No Examination Category Sub-Category Detail Notes General Examination [...] PSYCH: alert, oriented ORAL CAVITY: normal, unremarkable Consultation Request Notes Referral Date Referring Provider Referred Provider Not andrew 05/29/2024 Hany Bañuelos CHRISTOPHER Evaluate and Treat Routine Diabetic Foot Care Nail Reduction
--- OUTSIDE RECORDS SUMMARY | 2024-07-16 05:17 | XMS_ITS ---
Author Organization Hany Bañuelos III, MD Address [address] [place] [address] [place] [address] Care Team Providers Care Construction Sales Manager Name Role Phone Dr. Hany Bañuelos III Primary Care Provider REASON FOR VISIT Message Social History Sex Assigned At : Social History Observation Description Sex Assigned At Male Encounters Encounter Location Date Provider Diagnosis Hany Bañuelos III, MD [address] [place] [address] [place] [address] 07/16/2024 Hany Bañuelos Plan Of Treatment Next Appt Details Provider Name:Hany Bañuelos , 05/27/2025 03:30:00 PM, [address] [place] [address] [place], [address], Provider Name:Hany Bañuelos , 02/26/2026 03:15:00 PM, [address] [place] [address] [place], [address], Progress Notes * Chris SANTORODOB:1950 (74 yo M)Acc No.[id number]:07/16/2024 Patient: Jennifer Chris GUSMAN :1950 A ge:74 Y S ex:Male Address:[address] [place], [address] * true * Date: Generated for Printi ng/Faxing/eTransmitting on: 1 04/29/2024 01:23 PM EST
--- OUTSIDE RECORDS SUMMARY | 2024-07-19 08:05 | XMS_ITS ---
Author Organization Hany Bañuelos III, MD Address [address] [place] [address] [place] [address] Care Team Providers Care Commercial Service Technician Name Role Phone Dr. Hany Bañuelos III Primary Care Provider REASON FOR VISIT Rx Transfer Medications Medication SIG (Take, Route, Frequency, Duration) Notes Start Date End Date Status Dexcom G7 Sensor - as directed for 10 days E11.69 Type 2 diabetes mellitus Active Social History Sex Assigned At : Social History Observation Description Sex Assigned At Male Encounters Encounter Location Date Provider Diagnosis Hany Bañuelos III, MD [address] [place] [address] [place] [address] 07/19/2024 Hany Bañuelos Type 2 diabetes mellitus [...] Provider Name:Hany Bañuelos , 05/27/2025 03:30:00 PM, [address] [place] [address] [place], [address], Provider Name:Hany Bañuelos , 02/26/2026 03:15:00 PM, [address] [place] [address] [place], [address], Progress Notes * ONELJESSICAChrisDOB:1950 (74 yo M)Acc No.[id number]:07/19/2024 Patient: Chris COREAS :1950 A ge:74 Y S ex:Male Address:[address] [place] [address] [place], [address] * Refills Refill Dexcom G7 Sensor Miscellaneous, -, 3, as directed, 10 days, Refills=11 * true * Date: Generated for Pino fernandez/Yomaira/Greeritting on: 04/29/2024 01:24 PM EST
--- OUTSIDE RECORDS SUMMARY | 2024-08-07 04:39 | XMS_ITS ---
Author Organization Hany Bañuelos III, MD Address [address] [place] [address] [place] [address] Care Team Providers Care Analytical Manager Name Role Phone Dr. Hany Bañuelos [...] Date Provider Diagnosis Hany Bañuelos III, MD [address] [place] [address] [place] [address] 08/07/2024 Hany Bañuelos Type 2 diabetes mellitus [...] diabetes mellitus Next Appt Details Provider Name:Hany Sharmane , 05/27/2025 03:30:00 PM, [address] [place] [address] [address], [place], [address], Provider Name:Hany Gutierrez Edda , 02/26/2026 03:15:00 PM, [address] [place] [address] [address], [place], [address], Progress Notes * Chris SANTORODOB:1950 (74 yo M)Acc No.[id number]:08/07/2024 Patient: Chris COREAS :1950 A ge:74 Y S ex:Male Address:[address] [place] [address], [address] * Refills Refill Metoprolol Tartrate Tablet, 50 [...] Date: Generated for Pino fernandez/Yomaira/Greeritting on: 04/29/2024 01:23 PM EST
--- OUTSIDE RECORDS SUMMARY | 2024-08-07 09:44 | XMS_ITS ---
Author Organization Hany Bañeulos III, MD Address [address] [facility] [place] [address] Care Team Providers Care Pharmacy Tech Customer Service Name Role Phone Dr. Hany Bañuelos III [...] Date Provider Diagnosis Hany Bañuelos III, MD [address] [address] [place] [address] 08/07/2024 Hany Bañuelos Plan Of Treatment Medication Medication Name Sig Start Date Stop Date Notes OneTouch Ultra - check blood sugar on a day 08/07/2024 E11.69 Type 2 diabet es mellitus FreeStyle Lite - use to check blood sugar once a day for 90 days 08/07/2024 DX: Type 2 diabetes E11.69 Next Appt Details Provider Name:Hany Bañuelos , 05/27/2025 03:30:00 PM, [address] [address] [place], [address], Provider Name:Hany Bañuelos , 02/26/2026 03:15:00 PM, [address] [address] [place], [address], Progress Notes * Chris SANTORODOB:1950 (74 yo M)Acc No.[id number]:08/07/2024 Patient: Chris COREAS :1950 A ge:74 Y S ex:Male Address:[address] [place] [address], [address] * Refills Stop [employer] Ultra Device, -, check blood sugar, once a day Start [employer]Style Lite Device, -, 1 Kit, use to check blood sugar once a day, 90 days, Refills=3 * true * Date: Generated for Pino fernandez/Yomaira/eTaprilsmitting on: 1 04/29/2024 01:22 PM EST
--- OUTSIDE RECORDS SUMMARY | 2024-08-29 10:15 | XMS_ITS ---
Author Organization Hany Bañuelos III, MD Address [address] [place] [address] Care Team Providers Care Metal Furnace Operator Name Role Phone Dr. Hany Bañuelos III Primary Care Provider [phone] Allergies Allergen (clinical drug ingredient) Drug/Non Drug Allergy documented on EMR Reaction Allergy Type Onset Date Status metoclopramide Reglan Unknown Drug Allergy Ac tive Levaquin Unknown Drug Allergy Active REASON FOR VISIT Diabetes, Coronary artery disease, Hyperlipidemia, Hypertension, Kidney stone, Gout, Hearing loss, Prostate cancer in remission Medications Medication SIG (Take, Route, Frequency, Duration) Notes Start Date End Date Status Dexcom G7 Fur Puller - as directed - use to check [...] Date Provider Diagnosis Hany Bañuelos III, MD [address] [place] [address] [place] [address] 08/29/2024 Hany Bañuelos Type 2 diabetes mellitus with other specified complication E11.69 ; History of prostate cancer Z85.46 ; Essential hypertension I10 ; Overweight E66.3 ; Coronary artery disease involving [place] coronary artery of [place] heart without angina pectoris I25.10 ; Hyperlipidemia, [...] has resolved. 08/29/2024 Coronary artery disease involving [place] coronary artery of [place] heart without angina pectoris (ICD-10 - I25.10) He has had no angina at rest or with exertion recently. No change in his regimen was needed today. He is up-to-date with his incinerator plant general supervisor. 08/29/2024 Hyperlipidemia, unspecified (ICD-10 - E78.5) His [...] wrist. He has been referred to the passenger attendant. Plan Of Treatment Medication Medication Name Sig Start Date Stop Date Notes Dexcom G7 Fur Puller - as directed - use t o [...] Next Appt Details Follow Up: as scheduled, [place] son: ov review labs Provider Name:Hany Bañuelos , 05/27/2025 03:30:00 PM, [address] [facility] [address], [place], [address], Provider Name:Hany Bañuelos , 02/26/2026 03:15:00 PM, [address] [facility] [address], [place], [address], Progress Notes * Chris SANTORODOB:1950 (74 yo M)Acc No.[id number]:08/29/2024 Progress Notes Patient: Chris COREAS Provider: Ronak Bañuelos MD :1950 A ge:74 Y S ex:Male Date:08/29/2024 Address:[address] [place] [id number] Subjective: * Chief Complaints: * D iabetesCoronary artery diseaseHyperlipidemiaHypertensionKidney stoneGoutHearing lossProstate cancer in remission * HPI: C OVID-19 Screening: He returns for medical management of his metabolic syndrome and coronary artery. He is going to see his incinerator plant general supervisor next month. He has had no exertional [...] history of stroke. His father at 45 [place] diagnosed with MS and heart disease. His [...] Dio enamorado is . 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 He lives in [place], [place]. * Medications: T akingAllopurinol 100 MG Tablet 1 tablet Orally Once a day Atorvastatin Calcium 80 MG Tablet TAKE 1 TABLET BY MOUTH EVERY DAY Vitamin C 500 MG Tablet Chewable 1 tablet Orally Once a day Aspir-81 81 MG Tablet Delayed Release 1 tablet Orally Once a day Coenzyme Q10 200 MG Tablet 1 tablet Orally Once a day Dexcom G7 Fur Puller - Device as directed - use to [...] Notes to Pharmacist: DX: Type 2 diabetes E11.metFORMIN HCl 1000 MG Tablet TAKE 1 TABLET [...] Orally Once a day Taking Dexcom G7 Fur Puller - Device as directed - use to [...] 48 (Ref Range: >40 mg/dL) * Lab:[facility] [place] Raffaelee l [facility] * Collection Date 08/29/2024 05/29/2024 [...] 5 . C oronary artery disease involving [place] coronary artery of [place] heart without angina pectoris - I25.10 N otes :He has had no angina at rest or with exertion recently. No change in his regimen was needed today. He is up-to-date with his incinerator plant general supervisor. 6 . H yperlipidemia, unspecified - E78.5 [...] wrist. He has been referred to the passenger attendant. Plan: * Treatment: 2. H istory of [...] MD Date: 0 08/29/2024 Generated for Pino fernandez/Yomaira/Greeritting on: 04/29/2024 01:22 PM EST History and Physical Notes * [...]
--- OUTSIDE RECORDS SUMMARY | 2024-09-17 05:21 | XMS_ITS ---
Author Organization Hany Bañuelos III, MD Address [address] [facility] [place] [address] Care Team Providers Care Pressure Control Supervisor Name Role Phone Dr. Hany Bañuelos [...] Date Provider Diagnosis Hany Bañuelos III, MD [address] [place] [address] [place] [address] 09/17/2024 Hany Bañuelos Plan Of Treatment Medication [...] Provider Name:Hany Bañuelos , 05/27/2025 03:30:00 PM, [address] [place] [address] [place], [address], Provider Name:Hany Bañuelos , 02/26/2026 03:15:00 PM, [address] [place] [address] [place], [address], Progress Notes * Monalisa SANTORO:1950 (74 yo M)Acc No.[id number]:09/17/2024 Patient: Chris COREAS :1950 A ge:74 Y S ex:Male Address:[address] [place] [address], [address] * Refills Refill metFORMIN HCl Tablet, 1000 MG, Orally, 180, TAKE 1 TABLET BY MOUTH TWICE A DAY WITH A MEAL, twice a day, 90 days, Refills=3 Refill Atorvastatin Calcium Tablet, 80 MG, Orally, 90, TAKE 1 TABLET BY MOUTH EVERY DAY, Once a day, 90 days, Refills=3 * true * Date: Generated for Pino fernanedz/Yomaira/Tosin on: 04/29/2024 01:25 PM EST
--- OUTSIDE RECORDS SUMMARY | 2024-09-21 04:42 | XMS_ITS ---
Author Organization Hany Bañuelos III, MD Address [address] [address] Care Team Providers Care Senior Facilities Manager Name Role Phone Dr. Hany Bañuelos III Primary Care Provider Social History Sex Assigned At : Social History Observation Description Sex Assigned At Male Encounters Encounter Location Date Provider Diagnosis Hany Bañuelos III, MD [address] [place] [address] [place] [address] 09/21/2024 Hany Bañuelos Plan Of Treatment Next Appt Details Provider Name:Hany Bañuelos , 05/27/2025 03:30:00 PM, [address] [place] [address] [place], [address], Provider Name:Hany Bañuelos , 02/26/2026 03:15:00 PM, [address] [place] [address] [place], [address], Progress Notes * Chris SANTORODOB:1950 (74 yo M)Acc No.[id number]:09/21/2024 Patient: Jennifer Chris GUSMAN :1950 A ge:74 Y S ex:Male Address:[address] [place], [address] * true * Date: Generated for Printi ng/Faxing/eTransmitting on: 1 04/29/2024 01:25 PM EST
--- OUTSIDE RECORDS SUMMARY | 2025-02-25 11:00 | XMS_ITS ---
Author Organization Hany Bañuelos III, MD Address [address] [place] [address] Care Team Providers Care Breaker Oiler Name Role Phone Dr. Hany Bañuelos III Primary Care Provider Allergies Allergen (clinical drug ingredient) Drug/Non Drug Allergy documented on EMR Reaction Allergy Type Onset Date Status metoclopramide Reglan Unknown Drug Allergy Ac tive Levaquin Unknown Drug Allergy Active REASON FOR VISIT Annual Exam Medications Medication SIG (Take, Route, Frequency, Duration) Notes Start Date End Date Status Vitamin B-6 50 MG TAKE 1 TABLET BY MOUTH EVERY DAY Orally Once a day Active Dexcom G7 Classroom Aide - as directed - use to check blood sugars up to 4 times daily 04/04/2023 Active Coenzyme Q10 200 MG 1 tablet Orally Once a day Active Aspir-81 81 MG 1 tablet Orally Once a day Active Allopurinol 100 MG 1 tablet Orally Once a day 08/29/2024 Active Vitamin C 500 MG 1 tablet Orally Once a day Active Allopurinol 100 MG 1 tablet Orally Once a day 12/05/2023 Active Dexcom G7 Sensor - as directed Type 2 diabetes mellitus Active FreeStyle Lite Test - check blood sugar once a day E11. Type 2 diabetes mellitus Active FreeStyle Lancets - test blood sugars once a day . Type 2 diabetes mellitus Active Metoprolol Tartrate 50 MG 1 tablet with food Orally Twice a day E11. Type 2 diabetes mellitus Active FreeStyle Lite - use to check blood sugar once a day use to check blood sugar once a day DX: Type 2 diabetes E11.69 08/07/2024 Active Atorvastatin Calcium 80 MG TAKE 1 TABLET BY MOUTH EVERY DAY Orally Once a day Active metFORMIN HCl 1000 MG TAKE 1 TABLET BY MOUTH TWICE A DAY WITH A MEAL Orally twice a day Active Social History Tobacco Use: Social History Observation Description Date Details (start date - stop date) Never Smoker NA - NA Sex Assigned At : Social History Observation Description Sex Assigned At Male Tobacco Control (Standard) Question Answer Notes Tobacco use: Nonsmoker Additional Findings: Tobacco non-user Aggressive nonsmoker Vital Signs Temperature 97.5 degrees Fahrenheit 02/26/20 25 Blood pressure systolic 136 mm Hg 02/26/20 25 Blood pressure diastolic 73 mm Hg 025 Heart Rate 59 /min 02/25/2025 Height 70 in 02/25/2025 Weight 174 lbs 02/25/2025 BMI 24.96 kg/m2 02/25/2025 Encounters Encounter Location Date Provider Diagnosis Hayn Bañuelos III, MD [address] [place] [address] [place] [address] 02/25/2025 Hany Bañuelos Type 2 diabetes mellitus with other specified complication E11.69 ; Hyperlipidemia, unspecified E78.5 ; History of prostate cancer Z85.46 ; Overweight E66.3 and Annual physical exam Z00.00 Assessments Encounter Date Diagnosis (ICD Code) Assessment Notes Treat ment Notes Treatment Clinical Notes 02/25/2025 Type 2 diabetes mellitus with other specified complication (ICD-10 - E11.69) His fasting glucose is 123. The hemoglobin A1c is 5.9. His weight is in the normal range. We reviewed his diabetic diet. No change was made in his medications today. 02/25/2025 Hyperlipidemia, unspecified (ICD-10 - E78.5) 02/25/2025 History of prostate cancer (ICD-10 - Z85.46) 02/25/2025 Overweight (ICD-10 - E66.3) 02/25/2025 Annual physical exam (ICD-10 - Z00.00) Plan Of Treatment Medication Medication Name Sig Start Date Stop Date Notes Vitamin B-6 50 MG TAKE 1 TABLET BY MOUTH EVERY DAY Orally Once a day Dexcom G7 Classroom Aide - as directed - use t o check blood sugars up to 4 times daily 04/04/2023 Coenzyme Q10 200 MG 1 tablet Orally Once a day Aspir-81 81 MG 1 tablet Orally Once a day Allopurinol 100 MG 1 tablet Orally Once a day 08/29/2024 Vitamin C 500 MG 1 tablet Orally Once a day Allopurinol 100 MG 1 tablet Orally Once a day 12/05/2023 Dexcom G7 Sensor - as directed E11.6 9 Type 2 diabetes mellitus FreeStyle Lite Test - check blood sugar once a day E11.69 Type 2 diabetes mellitus FreeStyle Lancets - test blood sugars once a day E11.69 Type 2 diabetes mellitus Metoprolol Tartrate 50 MG 1 tablet with food Orally Twice a day E11. Type 2 diabetes mellitus FreeStyle Lite - use to check blood sugar once a day 08/07/2024 DX: Type 2 diabetes E11. Atorvastatin Calcium 80 MG TAKE 1 TABLET BY MOUTH EVERY DAY Orally Once a day metFORMIN HCl 1000 MG TAKE 1 TABLET BY MOUTH TWICE A DAY WITH A MEAL Orally twice a day Pending Test Test Name Order Date PROFILE, FASTING (COMPREHENSIVE METABOLI C) 02/25/2025 PSA, TOTAL 02/25/2025 CBC w DIFF 02/25/2025 Lipid Panel 02/25/2025 Microalbumin, Random 02/25/2025 Hemoglobin A1c 02/25/2025 Next Appt Details Follow Up: 3 Months, Reason: OV Provider Name:Hany Bañuelos , 05/27/2025 03:30:00 PM, [address] [place] [address] [address], [place], [phone], Provider Name:Hany Bañuelos , 02/26/2026 03:15:00 PM, [address] [place] [address] [address], [place], [phone], Progress Notes * Chris SANTORODOB:1950 (74 yo M)Acc No.[id number]:02/25/2025 Progress Notes Patient: Chris COREAS Provider: Ronak Bañuelos MD :1950 A ge:74 Y S ex:Male Date:02/25/2025 Address:[address] [place] [address] [id number] Subjective: * Chief Complaints: * 1 . Annual Exam. * HPI: D epression Screening: diabetic shoes, 6.5 document callusses and pre ulcers lesion, runs 3 miles qod,. PHQ-9 L ittle interest or pleasure in [...] ot at all T otal Score 0 Interpretation and Intervention D epression Screening Findings N egative C OVID-19 Screening: Questions H ave you had any new onset fever, chills, cough, congestion, sore throat, shortness of breath, muscle aches? N o S LENARD Questions: SDOH Questions I n the past year have you been worried about losing your housing? N o I n the past year have you or any family members you live with been unable to get any of the following when it was really needed? Check all that apply: N one * ROS: G eneral/Constitutional: pain o nly [...] history of stroke. His father at 45 [place] diagnosed with MS and heart disease. His [...] Dio enamorado is . 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. He lives in [place], [place]. * Medications: T aking FreeStyle Lite - Device use to check blood sugar once a day use to check blood sugar once a day, Notes to Pharmacist: DX: Type 2 diabetes E11.69, Taking Metoprolol Tartrate 50 MG Tablet 1 [...] Pharmacist: E11.69 Type 2 diabetes mellitus, Taking Dexcom G7 Sensor - Miscellaneous as directed , Notes to Pharmacist: E11.69 Type 2 diabetes mellitus, Taking Allopurinol 100 MG Tablet 1 tablet Orally Once a day , Taking Vitamin C 500 MG Tablet Chewable 1 tablet Orally Once a day , Taking Aspir-81 81 MG Tablet Delayed Release 1 tablet Orally Once a day , Taking Coenzyme Q10 200 MG Tablet 1 tablet Orally Once a day , Taking Dexcom G7 Classroom Aide - Device as directed - use to check blood sugars up to 4 times daily , Taking Vitamin B-6 50 MG Tablet TAKE 1 TABLET BY MOUTH EVERY DAY Orally Once a day , Taking Allopurinol 100 MG Tablet 1 tablet Orally Once a day , stop date 08/24/2025, Taking metFORMIN HCl 1000 MG Tablet TAKE 1 TABLET BY MOUTH TWICE A DAY WITH A MEAL Orally twice a day , Taking Atorvastatin Calcium 80 MG Tablet TAKE 1 TABLET BY MOUTH EVERY DAY Orally Once a day , Medication List reviewed and reconciled with the patient * Allergies: Bharat Ryan. Objective: * Vitals: H t: 70, Wt:174, BMI:24.96, BP:136/73, HR:59, Temp:97.5, Wt-k.93. * P ast Orders: Lab:Prostate Specific Antige n * Collection Date 02/20/2025 08/29/2024 05/29/2024 Collection Time 07:40 AM 07:42 AM 07:45 AM Order Date 02/20/2025 08/29/2024 05/29/2024 Prostate Specific Antigen < 0.10 (Ref Range: <0.05-4.0 ng/mL) < 0.10 (Ref Range: <0.05-4.0 ng/mL) < 0.10 (Ref Range: <0.05-4.0 ng/mL) * Lab:Lipid Panel * Collection Date 02/20/2025 08/29/2024 05/29/2024 Collection Time 07:40 AM 07:42 AM 07:45 AM Order Date 02/20/2025 08/29/2024 05/29/2024 Triglycerides 80 (Ref Range: <150 mg/dL) 79 (Ref Range: <150 mg/dL) 67 (Ref Range: <150 mg/dL) Cholesterol 116 (Ref Range: <200 mg/dL) 102 (Ref Range: <200 mg/dL) 111 (Ref Range: <200 mg/dL) LDL Cholesterol Calculated 54 (Ref Range: <100 mg/dL) 38 (Ref Range: <100 mg/dL) 55 (Ref Range: <100 mg/dL) HDL Cholesterol 46 (Ref Range: >40 mg/dL) 49 (Ref Range: >40 mg/dL) 43 (Ref Range: >40 mg/dL) * Lab:Hemoglobin A1c * Collection Date 02/20/2025 08/29/2024 05/29/2024 Collection Time 07:40 AM 07:42 AM 07:45 AM Order Date 02/20/2025 08/29/2024 05/29/2024 Hemoglobin A1c % 6.5 H (Ref Range: <6.0 %) 5.9 (Ref Range: <6.0 %) 5.9 (Ref Range: <6.0 %) Estimated Average Glucose 140 (Ref Range: mg/dL) 123 (Ref Range: mg/dL) 123 (Ref Range: mg/dL) * Lab:Complete Blood Count Aut o Diff * Collection Date 02/20/2025 08/29/2024 05/29/2024 Collection Time 07:40 AM 07:42 AM 07:45 AM Order Date 02/20/2025 08/29/2024 05/29/2024 White Blood Count 6.7 (Ref Range: 4.8-10.8 X10*3/uL) 6.1 (Ref Range: 4.8-10.8 X10*3/uL) 6.4 (Ref Range: 4.8-10.8 X10*3/uL) Red Blood Count 4.57 L (Ref Range: 4.60-5.80 X10*6/uL) 4.54 L (Ref Range: 4.60-5.80 X10*6/uL) 4.45 L (Ref Range: 4.60-5.80 X10*6/uL) Hemoglobin 13.4 L (Ref Range: 14.0-18.0 g/dl) 13.4 L (Ref Range: 14.0-18.0 g/dl) 13.0 L (Ref Range: 14.0-18.0 g/dl) Hematocrit 40.7 L (Ref Range: 42.0-52.0 %) 39.7 L (Ref Range: 42.0-52.0 %) 40.2 L (Ref Range: 42.0-52.0 %) Mean Corpuscular Volume 89.1 (Ref Range: 80.0-98.0 fL) 87.4 (Ref Range: 80.0-98.0 fL) 90.3 (Ref Range: 80.0-98.0 fL) Mean Corpuscular Hemoglobin 29.3 (Ref Range: 27.0-33.0 pg) 29.5 (Ref Range: 27.0-33.0 pg) 29.2 (Ref Range: 27.0-33.0 pg) Mean Corpuscular HGB Conc 32.9 (Ref Range: 31.0-36.0 g/dl) 33.8 (Ref Range: 31.0-36.0 g/dl) 32.3 (Ref Range: 31.0-36.0 g/dl) Red Cell Distribution Width 13.6 (Ref Range: 11.0-16.0 %) 14.0 (Ref Range: 11.0-16.0 %) 13.2 (Ref Range: 11.0-16.0 %) Platelet Count 254 (Ref Range: 160-400 X10*3/uL) 215 (Ref Range: 160-400 X10*3/uL) 217 (Ref Range: 160-400 X10*3/uL) Mean Platelet Volume 10.0 (Ref Range: 9.4-12.4 fL) 9.6 (Ref Range: 9.4-12.4 fL) 10.2 (Ref Range: 9.4-12.4 fL) Neutrophils Percent Auto 51.5 (Ref Range: 45-73 %) 55.7 (Ref Range: 45-73 %) 56.4 (Ref Range: 45-73 %) Imm Gran Pct Auto 0.3 (Ref Range: 0.0-0.4 %) 0.2 (Ref Range: 0.0-0.4 %) 0.2 (Ref Range: 0.0-0.4 %) Lymphocytes Percent Auto 32.5 (Ref Range: 20-40 %) 31.9 (Ref Range: 20-40 %) 27.5 (Ref Range: 20-40 %) Monocytes Percent Auto 8.4 (Ref Range: 2-11 %) 7.7 (Ref Range: 2-11 %) 11.5 H (Ref Range: 2-11 %) Eosinophils Percent Auto 6.0 H (Ref Range: 0-4 %) 3.4 (Ref Range: 0-4 %) 3.8 (Ref Range: 0-4 %) Basophils Percent Auto 1.3 (Ref Range: 0-2 %) 1.1 (Ref Range: 0-2 %) 0.6 (Ref Range: 0-2 %) NRBC Pct Auto 0.0 (Ref Range: 0.0-0.2 /100WBC) 0.0 (Ref Range: 0.0-0.2 /100WBC) 0.0 (Ref Range: 0.0-0.2 /100WBC) Neutrophils Absolute Auto 3.5 (Ref Range: 2.0-8.3 x10*3/uL) 3.4 (Ref Range: 2.0-8.3 x10*3/uL) 3.6 (Ref Range: 2.0-8.3 x10*3/uL) Imm Gran Abs Auto 0.02 (Ref Range: 0.00-0.03 X10*3/uL) 0.01 (Ref Range: 0.00-0.03 X10*3/uL) 0.01 (Ref Range: 0.00-0.03 X10*3/uL) Lymphocytes Absolute Auto 2.2 (Ref Range: 1.2-4.9 X10*3/uL) 1.9 (Ref Range: 1.2-4.9 X10*3/uL) 1.8 (Ref Range: 1.2-4.9 X10*3/uL) Monocytes Absolute Auto 0.6 (Ref Range: 0.1-1.2 X10*3/uL) 0.5 (Ref Range: 0.1-1.2 X10*3/uL) 0.7 (Ref Range: 0.1-1.2 X10*3/uL) Eosinophils Absolute Auto 0.4 (Ref Range: 0.0-0.4 X10*3/uL) 0.2 (Ref Range: 0.0-0.4 X10*3/uL) 0.2 (Ref Range: 0.0-0.4 X10*3/uL) Basophils Absolute Auto 0.1 (Ref Range: 0.0-0.2 X10*3/uL) 0.1 (Ref Range: 0.0-0.2 X10*3/uL) 0.0 (Ref Range: 0.0-0.2 X10*3/uL) NRBC Abs Auto 0.000 (Ref Range: 0.0-0.012 X10*3/uL) 0.000 (Ref Range: 0.0-0.012 X10*3/uL) 0.000 (Ref Range: 0.0-0.012 X10*3/uL) * Lab:Juliana Trivedi. Osmar l Fast * Collection Date 02/20/2025 08/29/2024 05/29/2024 Collection Time 07:40 AM 07:42 AM 07:45 AM Order Date 02/20/2025 08/29/2024 05/29/2024 Sodium 139 (Ref Range: 135-145 mmol/L) 139 (Ref Range: 135-145 mmol/L) 139 (Ref Range: 135-145 mmol/L) Bilirubin Total 0.8 (Ref Range: 0.0-1.0 mg/dL) 0.7 (Ref Range: 0.0-1.0 mg/dL) 0.6 (Ref Range: 0.0-1.0 mg/dL) Aspartate Amino Transferase 32 (Ref Range: 5-37 U/L) 31 (Ref Range: 5-37 U/L) 28 (Ref Range: 5-37 U/L) Alanine Aminotransferase 39 (Ref Range: 0-40 U/L) 38 (Ref Range: 0-40 U/L) 36 (Ref Range: 0-40 U/L) Total Protein 6.9 (Ref Range: 6.5-8.0 g/dL) 6.9 (Ref Range: 6.5-8.0 g/dL) 7.7 (Ref Range: 6.5-8.0 g/dL) Albumin Level 4.5 (Ref Range: 3.5-5.0 g/dL) 4.5 (Ref Range: 3.5-5.0 g/dL) 4.4 (Ref Range: 3.5-5.0 g/dL) Alkaline Phosphatase 70 (Ref Range: 39-117 U/L) 60 (Ref Range: 39-117 U/L) 70 (Ref Range: 39-117 U/L) Potassium 4.5 (Ref Range: 3.3-5.1 mmol/L) 4.5 (Ref Range: 3.3-5.1 mmol/L) 4.5 (Ref Range: 3.3-5.1 mmol/L) Chloride 108 (Ref Range: 96-108 mmol/L) 108 (Ref Range: 96-108 mmol/L) 108 (Ref Range: 96-108 mmol/L) Carbon Dioxide 27 (Ref Range: 22-29 mmol/L) 24 (Ref Range: 22-29 mmol/L) 24 (Ref Range: 22-29 mmol/L) Anion Gap 9 L (Ref Range: 12-20) 12 (Ref Range: 12-20) 12 (Ref Range: 12-20) Blood Urea Nitrogen 28 H (Ref Range: 9-16 mg/dL) 20 H (Ref Range: 9-16 mg/dL) 28 H (Ref Range: 9-16 mg/dL) Creatinine 1.13 (Ref Range: 0.5-1.4 mg/dL) 1.11 (Ref Range: 0.5-1.4 mg/dL) 1.19 (Ref Range: 0.5-1.4 mg/dL) Estimated Glomerular Filt Rate > 60 > 60 > 60 Glucose Fasting 130 H (Ref Range: 60-99 mg/dL) 118 H (Ref Range: 60-99 mg/dL) 123 H (Ref Range: 60-99 mg/dL) Calcium 8.9 (Ref Range: 8.4-10.2 mg/dL) 9.3 (Ref Range: 8.4-10.2 mg/dL) 8.9 (Ref Range: 8.4-10.2 mg/dL) * Lab:Uric Acid * Collection Date 02/20/2025 08/03/2022 Collection Time 07:40 AM 08:03 AM Order Date 02/20/2025 08/03/2022 Uric Acid 6.5 (Ref Range: 3.4-7.0 mg/dL) 6.4 (Ref Range: 3.4-7.0 mg/dL) * Imaging:US renal BI * Performed Date 02/14/2025 02/13/2024 02:31 PM 10:20 AM Order Date 02/14/2025 02/13/2024 * Examination: G eneral Examination: GENERAL APPEARANCE: p gera, well nourished, well developed, in no acute [...] mellitus with other specified complication - E11.69 N otes :His fasting glucose is 123. The hemoglobin A1c is 5.9. His weight is in the normal range. We reviewed his diabetic diet. No change was made in his medications today. 2 . H yperlipidemia, unspecified - E78.5 3 . H istory of prostate cancer - Z85.46 4 . O verweight - E66.3 5 . A nnual physical exam - Z00.00 Plan: * Treatment: 2. H yperlipidemia, unspecified [...] Random L AB: Hemoglobin A1c 4. O verweight L AB: PROFILE, FASTING (COMPREHENSIVE METABOLIC) L AB: PSA, TOTAL L AB: CBC w DIFF L AB: Lipid Panel L AB: Microalbumin, Random L AB: Hemoglobin A1c 5. A nnual physical exam L AB: PROFILE, FASTING (COMPREHENSIVE METABOLIC) L AB: PSA, TOTAL L AB: CBC w DIFF L AB: Lipid Panel L AB: Microalbumin, Random L AB: Hemoglobin A1c 6. O thers Continue metFORMIN HCl Tablet, 1000 MG, TAKE 1 TABLET BY MOUTH TWICE A DAY WITH A MEAL, Orally, twice a day; C ontinue Atorvastatin Calcium Tablet, 80 MG, TAKE 1 TABLET BY MOUTH EVERY DAY, Orally, Once a day; C ontinue FreeStyle Lite Device, -, use [...] 100 MG, 1 tablet, Orally, Once a day. ? * Follow Up: 3 Months (Reason: OV) * Images: * The named appointment provid er may or may not be the originator of this progress note, and it is not deemed complete until electronically signed by the appointment provider. Sign off status: Pending * Provider: Ronak Bañuelos MD Date: 04/28/2024 Generated for Pino fernandez/Yomaira/Greeritting on: 04/29/2024 01:22 [...] way: Not at all Total Score: 0 Interpretation and Intervention Depression Samiakelsea jason Findings: Negative COVID-19 Screening Questions Have you had any new onset fever, chills, cough, congestion, sore throat, shortness of breath, muscle aches?: No SDOH Questions SDOH Questions In the past [...]
--- NOTE | 2025-02-26 10:44 | MHC.OFFVIS ---
Intake Visit Reasons: 1Yr PSA/US SET (UA ONLY IF UA SX ) Intake Note: Patient is Present for 1Y F/U PSA Urology Medication: Vitamin B6, [id number] Antibiotic Allergies: Levofloxacin Blood Thinners: Aspirin Labs done : 02/20/25 PSA <0.10 Route Salesman And Driver Required: No Accompanied by: Self / Same As Patient Allergies metoclopramide (From REGLAN) Allergy (Severe, Verified 02/26/25 10:45) DYSTONIA levofloxacin (From LEVAQUIN) Allergy (Intermediate, Verified 02/26/25 10:45) PARASTESIAS HPI Comments Details: Chris is a pleasant male. He is a patient of Dr. Bañuelos. He is seen for the following urologic conditions - nephrolithiasis - prostate cancer Yearly follow-up PSA <0.1 Encouraged physical activity Renal ultrasound no stones Continue with vitamin B6 50 mg Nephrolithiasis Here for stone follow-up Initial stone 2014 Stone analysis - combination, calcium oxalate monohydrate predominant Intervention - 07/02 right-sided ureteroscopy laser lithotripsy stent Imaging - 09/01 renal ultrasound no evidence of stones - 03/03 renal ultrasound were 0.5 cm cyst right kidney, 3 mm stone left - 03/04 renal ultrasound right cyst small, no stones - 03/05 renal ultrasound no evidence of stones - 03/06 renal ultrasound normal - 03/07 renal ultrasound normal 24 Hr Urine - adequate urine volume, borderline oxalate, good citrate Therapeutic plan - continue allopurinol with vitamin B6 - interval imaging surveillance - encouraged increased fluid intake with lemon therapy Prostate cancer - 2006 - robotic prostatectomy PSA 09/30 <0.1, 02/02 <0.1, 12/04 <0.1, 01/04 <0.1 Had Shabnam 4 component and should have yearly surveillance [facility] Medical History Tubular adenoma Inguinal hernia HLD (hyperlipidemia) Bursitis Gout History of skin cancer History of prostate cancer Hemorrhoids with complication Diabetes Renal colic HTN (hypertension) Coronary artery disease Surgical History Hx of tonsillectomy Hx of hernia repair History of hemorrhoidectomy (~08/09/23) Hx of cystoscopy (2020) Hx of colonoscopy Hx of radical prostatectomy (2017) H/O lithotripsy Hx of CABG Family History Mother Lymphoma Social History Household Members: Spouse Housing: House Do you presently have visiting nurse or other home services: No 75 years or older and lives alone: No Alcohol intake: unknown Patient Tobacco Use Status: Former Tobacco user 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: employed 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 Review of Systems Const Denies chills and Denies fever(s) Card Reports no additional complaints and Denies syncope Resp Denies cough GI Denies abdominal pain and Denies heartburn Reports as per HPI and Denies change in libido Neuro Denies syncope Psych Denies change in libido Endo Denies change in libido Physical Exam Const General: cooperative, healthy appearing, comfortable and no acute distress Orientation/consciousness: patient oriented x3 HEENT Face and sinus: Yes normal facial exam Mouth: moist mucous membranes Neck Neck: Yes normal visual inspection, Yes full ROM and Yes trachea midline Chest Chest palpation & inspection: normal inspection of the chest Resp Effort & Inspection: normal respiratory effort, able to speak in complete sentences and no respiratory distress GI Inspection: Yes normal to inspection Back/Spine/Pelvis Cervical Spine: normal cervical lordosis Thoracic/Lumbar Spine: thoracic and lumbar spine normal to inspection Skin General skin exam: no rashes or lesions noted Neuro General: patient oriented x3, gait normal, tone normal and moves all extremities Extrem General: Yes normal to inspection and Yes capillary refill normal Assessment & Plan Assessment & Plan (1) Prostate cancer: Code(s): C61 - Malignant neoplasm of prostate Category: Medical (2) Nephrolithiasis: Code(s): N20.0 - Calculus of kidney Category: Medical Plan 12 month follow-up repeat PSA Orders: Orders Prostate Specific Antigen 12 Months C61 - Malignant neoplasm of prostate Patient Instructions: This note is constructed using voice recognition software. While every effort has been made to ensure accuracy sandfill operator surface errors may have been included. Imaging studies, laboratory and physical exam results were discussed and reviewed in detail. No major barriers to patient understanding were identified. An opportunity to ask questions regarding the treatment plan was provided. All questions were answered. The patient expressed understanding and agreement with the above treatment plan. The patient is aware they should contact our office by phone for worsening of their current condition or the appearance of new urologic symptoms. Compliance is encouraged with any medications and followup testing that is ordered. It is a privilege to participate in the urologic care of your patient. If you have any questions or concerns regarding treatment for the above conditions, or other urologic issues, please do not hesitate to contact me. The office telephone contact is [phone]. Sincerely, Dr Kevin Cochran MD, [facility] - Urology Compassionate Specialist Care for the Genitourinary System Coding Level of Care Code Est Pt Level 4 (95572) Add On Problem Visit Only Diagnoses Prostate cancer C61 Nephrolithiasis N20.0
--- OUTSIDE RECORDS SUMMARY | 2025-02-26 13:23 | XMS_ITS | Patient Health Record ---
Author Organization Hany Bañuelos III, MD Address [address] [address] Care Team Providers Care Naval Surface Fire Support Planner Name Role Phone Dr. Hany Bañuelos III Primary Care Provider [phone] Allergies Allergen (clinical drug ingredient) Drug/Non Drug Allergy documented on EMR Reaction Allergy Type Onset Date Status metoclopramide Reglan Unknown Drug Allergy Ac tive Levaquin Unknown Drug Allergy Active Results Component Value Reference Range Notes Complete Blood Count Auto Di ff Reviewed date:05/29/2024 12:17:53 PM Interpretation: Performing Lab:[facility], [address] [place] [phone] Notes/Report: White Blood Count 6.4 4.8-10.8 X10*3/uL [...] NRBC Abs Auto 0.000 0.0-0.012 X10*3/uL Comprehensive [place]. Panel Fa Reviewed date:05/29/2024 12:17:53 PM Interpretation: Performing Lab:[address] [address] Notes/Report: Sodium 139 135-145 mmol/L Potassium 4.5 [...] Panel Reviewed date:05/29/2024 12:17:53 PM Interpretation: Performing Lab:[facility], [address] [place] [phone] Notes/Report: Triglycerides 67 <150 mg/dL Desirable Triglyceride: [...] Antigen Reviewed date:05/29/2024 12:17:53 PM Interpretation: Performing Lab:[address] [phone] Notes/Report: Prostate Specific Antigen < 0.10 <0.05-4.0 ng/mL PSA methodology: Sharma Alinity i Chemiluminescent Microparticle Immunoassay (CMIA) Hemoglobin A1c Reviewed date:05/29/2024 12:17:53 PM Interpretation: Performing Lab:[address] [phone] Notes/Report: Hemoglobin A1c % 5.9 <6.0 % [...] average glucose, using the formula of the Y4W-Iemmvzs Average Glucose study (ADAG), Diabetes Care, Vol.31,#8, Oct. 2007 Complete Blood Count Auto Di ff Reviewed date:08/29/2024 11:06:21 AM Interpretation: Performing Lab:[facility], [address] [place] [phone] Notes/Report: White Blood Count 6.1 4.8-10.8 X10*3/uL [...] NRBC Abs Auto 0.000 0.0-0.012 X10*3/uL Comprehensive [place]. Panel Fa st Reviewed date:08/29/2024 11:06:21 AM Interpretation: Performing Lab:[facility], [address] [place] [phone] Notes/Report: Sodium 139 135-145 mmol/L Potassium 4.5 [...] Panel Reviewed date:08/29/2024 11:06:21 AM Interpretation: Performing Lab:[facility], [address] [place] [phone] Notes/Report: Triglycerides 79 <150 mg/dL Desirable Triglyceride: [...] Antigen Reviewed date:08/29/2024 11:06:21 AM Interpretation: Performing Lab:[facility], [address] [place] [phone] Notes/Report: Prostate Specific Antigen < 0.10 <0.05-4.0 ng/mL PSA methodology: Sharma Alinity i Chemiluminescent Microparticle Immunoassay (CMIA) Microalbumin, Random Reviewed date:08/29/2024 11:06:21 AM Interpretation: Performing Lab:[facility], [address] [place] [phone] Notes/Report: Creatinine Urine 151.43 Microalbumin Urine 28.0 Microalbum/Creatinine Ratio Ur 18.4 <30 ug/mg cr Albumin/Creatinine Ratio Reference Ranges: Normal: < 30 ug/mg creatinine Microalbuminuria: 30 - 300 ug/mg creatinine Clinical Albuminuria: > 300 ug/mg creatinine Hemoglobin A1c Reviewed date:08/29/2024 11:06:21 AM Interpretation: Performing Lab:[facility], [address] [place] [phone] Notes/Report: Hemoglobin A1c % 5.9 <6.0 % [...] average glucose, using the formula of the Z5F-Voumwbv Average Glucose study (ADAG), Diabetes Care, Vol.31,#8, 2007 Diabetic Eye Exam Reviewed date:09/28/2024 11:21:51 AM Interpretation:undefined Performing Lab: Notes/Report: undefined US renal BI Reviewed date:02/17/2025 04:53:38 PM Interpretation: Performing Lab: Notes/Report: [address] [address] Ultrasound Report Signed Patient: Chris Santoro MR#: [id number] 8 : 1950 Acct:[id number] Age/Sex: 74 / M ADM Date: 02/14/25 Loc: HO.US Attending Dr: Kevin Cochran MD Ordering Physician: Kevin Cochran MD Date of Service: 02/14/25 Procedure(s): US renal BI Accession Number(s): [id number] cc: Kevin Cochran MD; Hany Bañuelos MD [...] Hamilton Uriarte MD 02/14/2025 02:52 PM EST Dictated By: Hamilton Villa MD Signed By: <Electronically signed by Hamilton Flor MD in OV> 02/14/25 1452 DD/ 1431 TD/TT: 02/14/[address] Painter: [place] [address] Ultrasound Report Signed Patient: Filomena Santoro MR#: [id number] 8 : 1950 Acct:[id number] Age/Sex: 74 / M ADM Date: 02/14/25 Loc: HO.US Attending Dr: Trish Villaseñor MD Ordering Physician: Kevin Cochran MD Date of Service: 02/14/25 Procedure(s): US daisy al BI Accession Number(s): [id number] cc: Kevin Cochran MD; Hany Bañuelos MD [...] gross nephrolithiasis. Electronically ida d by: Hamilton Uriatre MD 02/14/2025 02:52 PM EST Dictated By: Hamilton Ken MD Signed By: <Electronically signed by Hamilton Flor MD in OV> 02/14/25 1452 DD/ 1431 TD/TT: 02/14/[address] Painter: Complete Blood Count Auto Di ff Reviewed date:02/22/2025 06:29:08 AM Interpretation: Performing Lab:[facility], [address] [place] [phone] Notes/Report: White Blood Count 6.7 4.8-10.8 X10*3/uL Red Blood Count 4.57 4.60-5.80 X10*6/uL Hemoglobin 13.4 14.0-18.0 g/dl Hematocrit 40.7 42.0-52.0 % Mean Corpuscular Volume 89.1 80.0-98.0 fL Mean Corpuscular Hemoglobin 29.3 27.0-33.0 pg Mean Corpuscular HGB Conc 32.9 31.0-36.0 g/dl Red Cell Distribution Width 13.6 11.0-16.0 % Platelet Count 254 160-400 X10*3/uL Mean Platelet Volume 10.0 9.4-12.4 fL Neutrophils Percent Auto 51.5 45-73 % Imm Gran Pct Auto 0.3 0.0-0.4 % Lymphocytes Percent Auto 32.5 20-40 % Monocytes Percent Auto 8.4 2-11 % Eosinophils Percent Auto 6.0 0-4 % Basophils Percent Auto 1.3 0-2 % NRBC Pct Auto 0.0 0.0-0.2 /100WBC Neutrophils Absolute Auto 3.5 2.0-8.3 x10*3/uL Imm Gran Abs Auto 0.02 0.00-0.03 X10*3/uL Lymphocytes Absolute Auto 2.2 1.2-4.9 X10*3/uL Monocytes Absolute Auto 0.6 0.1-1.2 X10*3/uL Eosinophils Absolute Auto 0.4 0.0-0.4 X10*3/uL Basophils Absolute Auto 0.1 0.0-0.2 X10*3/uL NRBC Abs Auto 0.000 0.0-0.012 X10*3/uL Comprehensive [place]. Panel Fa Reviewed date:02/22/2025 06:29:08 AM Interpretation: Performing Lab:[facility], [address] [place] [phone] Notes/Report: Sodium 139 135-145 mmol/L Potassium 4.5 3.3-5.1 mmol/L Chloride 108 96-108 mmol/L Carbon Dioxide 27 22-29 mmol/L Anion Gap 9 12-20 Blood Urea Nitrogen 28 9-16 mg/dL Creatinine 1.13 0.5-1.4 mg/dL Estimated Glomerular Filt Rate > 60 Chronic Kidney Disease: Estimated GFR < 60 mL/min/1.73m2 Severe Kidney Disease: Estimated GFR < 15 mL/min/1.73m2 Glucose Fasting 130 60-99 mg/dL A fasting glucose of 126 mg/dl or greater on more than one occasion is considered diagnostic of diabetes. Calcium 8.9 8.4-10.2 mg/dL Bilirubin Total 0.8 0.0-1.0 mg/dL Aspartate Amino Transferase 32 5-37 U/L Alanine Aminotransferase 39 0-40 U/L Total Protein 6.9 6.5-8.0 g/dL Albumin Level 4.5 3.5-5.0 g/dL Alkaline Phosphatase 70 39-117 U/L Uric Acid Reviewed date:02/22/2025 06:29:08 AM Interpretation: Performing Lab:[facility], [address] [place] [phone] Notes/Report: Uric Acid 6.5 3.4-7.0 mg/dL Lipid Panel Reviewed date:02/22/2025 06:29:08 AM Interpretation: Performing Lab:[facility], [address] [place] [phone] Notes/Report: Triglycerides 80 <150 mg/dL Desirable Triglyceride: less than 150 mg/dL Borderline High Triglyceride 150-199 mg/dL High Triglyceride: 200-499 mg/dL Very High Triglyceride: greater than or equal to 5OO mg/dL Cholesterol 116 <200 mg/dL Desirable Cholesterol: less than 200 mg/dL Borderline High Cholesterol: 200-239 mg/dL High Cholesterol: greater than 239 mg/dL LDL Cholesterol Calculated 54 <100 mg/dL Desirable LDL: less than 100 mg/dL Near Optimal/Above Optimal LDL: 110-129 mg/dL Borderline High LDL: 130-159 mg/dL High LDL: 160-189 mg/dL Very High LDL: greater than or equal to 190 mg/dL HDL Cholesterol 46 >40 mg/dL Desirable HDL: greater than 40 mg/dL Note: This HDL assay may give artificially low results in patients with liver disease. Prostate Specific Antigen Reviewed date:02/22/2025 06:29:08 AM Interpretation: Performing Lab:[address] [phone] Notes/Report: COPY TO KEVIN KEMP Prostate Specific Antigen < 0.10 <0.05-4.0 ng/mL PSA methodology: Sharma Alinity i Chemiluminescent Microparticle Immunoassay (CMIA) Hemoglobin A1c Reviewed date:02/22/2025 06:29:08 AM Interpretation: Performing Lab:[facility], [address] [place] [phone] Notes/Report: Hemoglobin A1c % 6.5 <6.0 % Hemoglobin A1C Reference Range Adults: 4.8 - 6.0 % Non diabetic: < 6.0 % Goal: < 7.0 % Additional Action Suggested: > 8.0 % Note: Hemoglobin A1c results are invalid for patients with abnormal amounts of HbF. Blood transfusions may impact the HbA1c concentration in the patient sample. Estimated Average Glucose 140 eAG = Estimated average glucose which is %A1C expressed as average glucose, using the formula of the P0C-Amcscpu Average Glucose study (ADAG), Diabetes Care, Vol.31,#8, Oct. 2007 Reason For Referral Reason Evaluate and Treat [...] Orally Once a day Active Dexcom G7 Manager Of Sustainability - as directed - use to check [...] directed E11.69 Type 2 diabetes mellitus Active FreeStyle Lite Test - check blood sugar once a day E11.69 Type 2 diabetes mellitus Active FreeStyle Lancets - test blood sugars once a day E11.69 Type 2 diabetes mellitus Active Metoprolol Tartrate 50 MG 1 tablet with food Orally Twice a day E11.69 Type 2 diabetes mellitus Active FreeStyle Lite - use to check blood sugar once a day use to check blood sugar once a day DX: Type 2 diabetes E11.69 08/07/2024 Active Allopurinol 100 MG 1 tablet Orally Once a day 08/29/2024 Active Atorvastatin Calcium 80 MG TAKE 1 TABLET BY MOUTH EVERY DAY Orally Once a day Active metFORMIN HCl 1000 MG TAKE 1 TABLET BY MOUTH TWICE A DAY WITH A MEAL Orally twice a day Active Immunizations Vaccine Route Administration [...] Problem Status W/U Status Risk Notes Problem 765003899 Tubular adenoma (D36.9) Active confirmed He is due for a colonoscopy in December and he was referred to us medical reception specialist to arrange this. Problem 360979112281 Type 2 diabetes mellitus with other specified complication (E11.69) Active confirmed His fasting glu cose is 123. The hemoglobin A1c is 5.9. His weight is in the normal range. We reviewed his diabetic diet. No change was made in his medications today. Problem 47430984 Hyperlipidemia , unspecified (E78.5) Active confirmed His weight is i n the normal range. His fasting total cholesterol is 111. No change in his regimen was necessary. Problem 47239932 Essential hypertension (I10) Active confirmed Pressure is wel l controlled and no change in his regimen as needed. Problem 382106574 History of skin cancer (Z85.828) Active confirmed He has 2 new lesions on his right wrist. He has been referred to the hot end operator. 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 No change in his regimen was needed today. He is up-to-date with his well control instructor. Problem 161033295 History of prostate cancer (Z85.46) Active confirmed Is PSA remains nondetectable.There is no sign of disease recurrence. Problem 404247228 Sensorineural hearing loss (SNHL) of both ears (H90.3) Active confirmed He is in the process of having an audiology exam. Amplification will be determined. 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 He remains well hydrated. Problem 37204165 Idiopathic chronic gout without tophus, unspecified site (M1A.00X0) Active confirmed He continues on allopurinol without difficulty. Vital Signs Heart Rate 59 /min 02/25/2025 Temperature 97.5 degrees Fahrenheit 02/25/2025 Blood pressure diastolic 73 mm Hg 02/25/2025 Height 70 in 02/25/2025 Blood pressure systolic 136 mm Hg 02/25/2025 Weight 174 lbs 02/25/2025 BMI 24.96 kg/m2 02/25/2025 Encounters Encounter Location Date Provider Diagnosis Hany Bañuelos III, MD [address] [place] [address] [place] [address] 02/25/2025 Hany Bañuelos Type 2 diabetes mellitus with other specified complication E11.69 ; Hyperlipidemia, unspecified E78.5 ; History of prostate cancer Z85.46 ; Overweight E66.3 and Annual physical exam Z00.00 Hany Bañuelos III, MD [address] [place] [address] [place] [phone] 05/29/2024 Hany Bañuelos Type 2 diabetes mellitus with other specified complication E11.69 ; Hyperlipidemia, unspecified E78.5 ; History of prostate cancer Z85.46 ; Coronary artery disease involving chicken ranch coronary artery of chicken ranch heart without angina pectoris I25.10 ; Essential hypertension I10 and Calcium oxalate kidney stones N20.0 Hany Bañuelos III, MD [address] [place] [address] [place] [phone] 08/29/2024 Hany Bañuelos Type 2 diabetes mellitus with other specified complication E11.69 ; History of prostate cancer Z85.46 ; Essential hypertension I10 ; Overweight E66.3 ; Coronary artery disease involving chicken ranch coronary artery of chicken ranch heart without angina pectoris I25.10 ; Hyperlipidemia, unspecified E78.5 ; Calcium oxalate kidney stones N20.0 and History of skin cancer Z85.828 Hany Bañuelos III, MD [address] [place] [address] [place] [address] 07/16/2024 Hany Bañuelos III, MD [address] [place] [address] [place] [address] 07/19/2024 Hany Bañuelos Type 2 diabetes mellitus with other specified complication E11.69 Hany Bañuelos III, MD [address] [place] [address] [place] [address] 08/07/2024 Hany Bañuelos Type 2 diabetes mellitus with other specified complication E11.69 Hany Bañuelos III, MD [address] [place] [address] [place] [address] 08/07/2024 Hany Bañuelos III, MD [address] [place] [address] [place] [phone] 09/17/2024 Hany Bañuelos III, MD [address] [place] [address] [place] [address] 09/21/2024 Hany Bañuelos Assessments Encounter Date Diagnosis (ICD Code) Assessment Notes Treat ment Notes Treatment Clinical Notes 02/25/2025 Type 2 diabetes mellitus with other specified complication (ICD-10 - E11.69) His fasting glucose is 123. The hemoglobin A1c is 5.9. His weight is in the normal range. We reviewed his diabetic diet. No change was made in his medications today. 05/29/2024 Type 2 diabetes mellitus with other [...] e is no sign of disease recurrence. 07/19/2024 [...] today. 02/25/2025 Hyperlipidemia, unspecified (ICD-10 - E78.5) 05/29/2024 History of prostate cancer (ICD-10 - Z85.46) He has no symptoms. His PSA remains nondetectable. 08/29/2024 Essential hypertension (ICD-10 - I10) Pressure is well controlled and no change in his regimen as needed. 02/25/2025 History of prostate cancer (ICD-10 - Z85.46) 05/29/2024 Coronary artery disease involving chicken ranch coronary artery of chicken ranch heart without angina pectoris (ICD-10 - I25.10) He has had no angina at rest or with exertion recently. No change in his regimen was needed today. He is up-to-date with his well control instructor. 08/29/2024 Overweight (ICD-10 - E66.3) Body mass index is now 24 this problem has resolved. 02/25/2025 Overweight (ICD-10 - E66.3) 05/29/2024 Essential hypertension (ICD-10 - I10) His bloood pressure today is in the stable range. The value was 138/72. No change in his regimen was necessary. 08/29/2024 Coronary artery disease involving chicken ranch coronary artery of chicken ranch heart without angina pectoris (ICD-10 - I25.10) He has had no angina at rest or with exertion recently. No change in his regimen was needed today. He is up-to-date with his well control instructor. 02/25/2025 Annual physical exam (ICD-10 - Z00.00) 05/29/2024 Calcium oxalate kidney stones (ICD-10 - [...] wrist. He has been referred to the hot end operator. Plan Of Treatment Pending Test Test Name Order Date PROFILE, FASTING (COMPREHENSIVE METABOLI C) 10/03/2019 PROFILE, FASTING (COMPREHENSIVE METABOLI C) 02/25/2025 PROFILE, FASTING (COMPREHENSIVE METABOLI C) 08/29/2024 PROFILE, FASTING (COMPREHENSIVE METABOLI C) 10/11/2018 PROFILE, [...] PROFILE, FASTING (COMPREHENSIVE METABOLI C) 02/21/2024 PROFILE, RANDOM (COMPREHENSIVE METABOLIC ) 05/30/2019 HEMOGLOBIN [...] 02/28/2019 PSA, TOTAL 07/05/2023 PSA, TOTAL 05/29/2024 PSA, TOTAL 04/02/2022 PSA, TOTAL 02/21/2024 PSA, TOTAL 11/30/2022 PSA, TOTAL 08/03/2022 PSA, TOTAL 02/25/2025 PSA, TOTAL 08/29/2024 PSA, TOTAL 05/30/2019 PSA, TOTAL 04/01/2023 MICROALBUMIN, RANDOM 04/02/2022 MICROALBUMIN, RANDOM 11/30/2022 MICROALBUMIN, RANDOM 07/11/2020 MICROALBUMIN, RANDOM 10/11/2018 CBC w DIFF 07/11/2020 CBC w DIFF 10/11/2018 CBC w DIFF 02/28/2019 CBC w DIFF 05/29/2024 CBC w DIFF 08/03/2022 CBC w DIFF 04/02/2022 CBC w DIFF 11/30/2022 CBC w DIFF 02/25/2025 CBC w DIFF 08/29/2024 CBC w DIFF 10/03/2019 CBC w DIFF 05/30/2019 VITAMIN D 25-OH TOTAL 07/11/2020 CBC WITH AUTO DIFF 04/01/2023 CBC WITH AUTO DIFF 10/04/2023 CBC WITH AUTO DIFF 07/05/2023 CBC WITH AUTO DIFF 02/21/2024 INFLUENZA A/B & RSV BY PCR 10/23/2018 SARS COV2 IGG 09/17/2019 Uric Acid 08/29/2024 Lipid Panel 08/29/2024 Lipid Panel 04/01/2023 Lipid Panel 10/04/2023 Lipid Panel 07/05/2023 Lipid Panel 05/29/2024 Lipid Panel 02/21/2024 Lipid Panel 02/25/2025 Microalbumin, Random 04/01/2023 Microalbumin, Random 10/04/2023 Microalbumin, Random 05/29/2024 Microalbumin, Random 02/25/2025 Hemoglobin A1c 02/25/2025 Hemoglobin A1c 08/29/2024 Hemoglobin A1c 07/05/2023 Hemoglobin A1c 04/01/2023 Hemoglobin A1c 02/21/2024 Hemoglobin A1c 10/04/2023 Hemoglobin A1c 05/29/2024 Next Appt Details Provider Name:Hany Bañuelos , 05/27/2025 03:30:00 PM, [address] [facility] [address], [place], [address], Provider Name:Hany Bañuelos , 02/26/2026 03:15:00 PM, [address] [place] [address] [address], [place], [phone], Insurance Providers Payer Name Payer Address Payer Phone Subscriber Number Group Number Insured Name Patient Relationship to Insured Coverage Start Date Coverage End Date MEDICARE NGS [address] CHARLES Le[place] [phone] [id number] Chris Santoro Self - patient is the insured [facility] [address] [place], [place] [id number] Chris Santoro Self - patient is [...]
--- OUTSIDE RECORDS SUMMARY | 2025-02-26 13:23 | XMS_ITS | Clinical Summary ---
Author Organization [facility] Address [address] [place] [address] Phone Care Team Providers Care Cosmetic Maker Name Role Phone Hany Bañuelos MD Primary Care Provider [phone] Social History Tobacco Use Types Packs/Day Years [...] PM EDT Office Visit Orthopedic Surgery - [place] [address] [address] Arjun Arreguin, DPM [address] [phone] Health Maintenance Due Date Last Done Comments [...] age to complete this topic Insurance MEDICARE [facility] Care Teams Cosmetic Maker Relationship Specialty Start Date End Date Hany Bañuelos MD [address] [address] [place] [address] PCP - General Oncology 07/18/24
--- OUTSIDE RECORDS SUMMARY | 2025-02-26 13:25 | XMS_ITS | Patient Health Record ---
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 al cohol He is a nonsmoker;no sig. al cohol He is a nonsmoker;no sig. al cohol Problems Problem Type SNOMED Code ICD Code Onset Dates Problem Status W/U Status Risk Notes Problem Colon cancer screening (718837700) Colon cancer screening (Z12.11) Active confirmed Problem History of polyp of colon (situation) (681296932) Personal history of colonic polyps (Z86.010) Active confirmed Problem Diverticular disease of colon (471980430) Diverticulosis of large intestine without perforation or abscess without bleeding (K57.30) Active confirmed Problem Preprocedural examination (481681084344692) Preprocedural examination (Z01.818) Active confirmed Problem History of adenomatous polyp of colon (478117747) Hx of adenomatous colonic polyps (Z86.010) Active confirmed Plan Of Treatment Future Test Test Name Order Date COLONOSCOPY 11/22/2012 COLONOSCOPY 02/21/2018 COLONOSCOPY 07/19/2023 Insurance Providers Payer Name Payer Address Payer Phone Subscriber Number Group Number Insured Name Patient Relationship to Insured Coverage Start Date Coverage End Date [employer] [place] [address] [address] [place] [address] [id number] WENDY CUNNINGHAM Self - patient is the [...]
== END 2025-02-26 11:47 | disposition home or self-care (01) ==
LOC: HO.HUSH 10:36
PROVIDERS: PCP Internal Medicine Medical Oncology; Visit Provider Urology
DX: C61 Malignant neoplasm of prostate (principal); N20.0 Calculus of kidney
CPT/HCPCS: 99214; G2211

== ENCOUNTER → 2025-02-26 10:36 | Outpatient (BNVA) | payer MEDICARE, SELFPAY | PROVIDERS: PCP Internal Medicine Medical Oncology; Visit Provider Urology | DX: Z08 Encounter for follow-up examination after completed treatment for malignant neoplasm (principal); Z85.46 Personal history of malignant neoplasm of prostate; Z87.442 Personal history of urinary calculi; Z87.891 Personal history of nicotine dependence | CPT/HCPCS: 99212 ==